=== PATIENT | male | born 1940 | race Caucasian/White ===

== ENCOUNTER 2017-03-21 22:25 | Inpatient (IN) | payer MEDICARE, OTHER ==
[~2017-03-21] VITALS: Ht 165.1 cm; Wt 56.0 kg
[2017-03-21] MEDS ORDERED: SOD CHLORIDE 0.9% 500 ML IV STA (22:31)
[2017-03-21] MEDS ORDERED: IPRATROPIUM (NEB) 0.5 MG/2.5 ML AMP INH STA (22:31)
[2017-03-21] MEDS ORDERED: MAGNESIUM SULFATE 2 GM/50 ML 50 ML IVPB STA (22:31)
[2017-03-21] MEDS ORDERED: METHYLPREDNISOLONE 125 MG INJ IV STA (22:31)
[2017-03-21] MEDS ORDERED: ALBUTEROL 0.5% (NEB) 2.5 MG/0.5 ML AMP INH STA (22:31)
[2017-03-21 22:47] VITALS: Ht 165.1 cm; Wt 56.0 kg
[2017-03-21 22:50] LABS: ABNORMAL IP MESSAGE 1; HEMATOCRIT 46.1 % (42.0-52.0); HEMOGLOBIN 14.1 g/dl (14.0-18.0); MEAN CORPUSCULAR HEMOGLOBIN 23.3 pg (29.0-33.0); MEAN CORPUSCULAR HGB CONC 30.6 g/dl (32.0-37.0); MEAN CORPUSCULAR VOLUME 76.3 fl (82.0-101.0); MEAN PLATELET VOLUME 9.4 fl (7.4-10.4); POSITIVE DIFF @See below; RED BLOOD COUNT 6.04 10^6/ul (4.70-6.10); RED CELL DISTRIBUTION WIDTH 17.7 % (11.5-14.5); WHITE BLOOD COUNT 21.1 10^3/ul (4.8-10.8)
[2017-03-21] MEDS ORDERED: ASPIRIN 81 MG TAB PO ONE (23:00)
[2017-03-21] MEDS ORDERED: FUROSEMIDE 40 MG INJ IV ONE (23:00)
[2017-03-21 23:12] LABS: INR 1.07; PROTIME 13.9 Sec (12.2-14.2); PT RATIO 1.1
--- NOTE | 2017-03-21 23:12 | RADRPT ---
PROCEDURE: Ultrasound of the bilateral lower extremity venous system. CLINICAL INDICATION: Shortness of breath. TECHNIQUE: Noel scale with and without compression, color doppler, spectral doppler of the venous system of the bilateral lower extremities was performed. Venous augmentation maneuvers were utilized . COMPARISON: No prior studies are available for comparison. FINDINGS: RIGHT: Common femoral vein: Patent. Femoral vein: Patent. Popliteal vein: Patent. Peroneal vein: There is thrombosis with lack of flow and lack of compressibility. This is a calf ve in. No soft tissue abnormalities are identified. LEFT: Common femoral vein: No flow or compressibility. Femoral vein: No flow or compressibility in the mid to upper femoral vein. The lower femoral vei n is patent. Popliteal vein: Patent. No soft tissue abnormalities are identified. IMPRESSION: 1. Thrombosis of the right peroneal vein, a calf vein. 2. Acute deep venous thrombosis of the left common femoral vein, upper left femoral vein, and mid l eft femoral vein. Otherwise unremarkable study. 3. Correlation with CT pulmonary angiogram should be considered. RPTAT: QQ .Alejo Fall MD, MD Date Time Electronically viewed and signed by .Alejo Fall MD, on 03/21/2017 23:12 .R/
[2017-03-21 23:14] LABS: ALBUMIN 4.2 g/dl (3.3-4.9); ALBUMIN/GLOBULIN RATIO 1.23; BILIRUBIN,INDIRECT 0.4 mg/dl (0-1.1); BILIRUBIN,TOTAL 0.4 mg/dl (0.2-1.3); CALCIUM 9.5 mg/dl (8.4-10.2); CREATININE 1.86 mg/dl (0.61-1.24); POTASSIUM 3.8 mmol/L (3.5-5.1); TOTAL PROTEIN 7.6 g/dl (6.1-8.1)
--- NOTE | 2017-03-21 23:24 | RADRPT ---
PROCEDURE: XR Chest. CLINICAL INDICATION: Asthma exacerbation. TECHNIQUE: PA and Lateral views of the chest were obtained. COMPARISON: None. FINDINGS: Mild cardiomegaly. Atherosclerotic calcifications in the thoracic aorta. Mild peribronchial cuffing compatible with asthma. Hyperinflation of COPD with changes of centrolobular emphysema. Question sma ll calcified granuloma in the mid right lung. Differential considerations include a small pulmonary parenchymal nodule, and consider CT correlation. The lungs are otherwise clear. No signs of pleural fluid or pneumothorax are seen. The osseous structures and soft tissues are unremarkable. IMPRESSION: 1. Mild peribronchial cuffing is seen at the bilateral kashif, compatible with asthma. 2. Small possible calcified granuloma in the right mid lung, although differential considerations in clude a pulmonary parenchymal nodule. 3. Consider CT correlation. RPTAT: UU Physician Mark Date Time Electronically viewed and signed by Physician Mark on 03/21/2017 23:24 RS/
[2017-03-21 23:26] LABS: TROPONIN-I 0.124 ng/ml (0.00-0.12)
[2017-03-21 23:41] LABS: ANISOCYTOSIS 2+ (0-0); BASOPHILS % (M) 1 % (0-2); GIANT THROMBO% (M) 4 % (0-0); MICROCYTOSIS 1+ (0-0); MONOCYTES % (M) 11 % (0-11); PLATELET ESTIMATE INCREASED; POIKILOCYTOSIS 2+ (0-0); POLYCHROMASIA 2+ (0-0)
[2017-03-21 23:43] LABS: PLATELET COUNT 765 10^3/UL (140-415)
--- NOTE | 2017-03-21 23:48 | ERA ---
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 Daughters who are at the bedside state he has a history of COPD and has used albuterol in the past. He also has a recent history of gastric carcinoma, possibly metastatic. He also has a history of bilateral lower extremity DVTs and peripheral arterial disease. They deny history of congestive heart failure , no history of [place]. Daughter state patient's lower extremities have become swollen over the last 1 week. He has had no fevers or chills, no cough, no headache or blurry vision, no complaints of chest pain, no loss of consciousness , no recent antibiotic use. Patient was given nitroglycerin by EMS en route with some improvement. ROS All systems reviewed and are negative except as per history of present illness. Medications Home Meds Unable to Obtain Active Prescriptions or Reported Meds Allergies Allergies: Coded Allergies: No Known Allergy (Unverified , 03/21/17) PMhx/Soc Hypertension, COPD, gastric carcinoma, peripheral vascular disease with bilateral lower extremity DVTs History of Surgery: No Anesthesia Reaction: No Hx Neurological Disorder: No Hx Respiratory Disorders: Yes (copd, chf ) Hx Cardiac Disorders: Yes (chf, htn ) Hx Psychiatric Problems: No Hx Miscellaneous Medical Probl: No Hx Alcohol Use: No Hx Substance Use: No Hx Tobacco Use: Yes Smoking Status: Current every day smoker FmHx Family History: No diabetes Physical Exam Vitals Vital Signs Date Time Temp Pulse Resp B/P Pulse Ox O2 Delivery O2 Flow Rate FiO2 03/22/17 00:31 98.5 102 24 138/77 93 BIPAP 03/22/17 00:11 110 91 40 03/22/17 00:05 98.5 111 21 127/75 92 BIPAP 03/21/17 22:50 98.5 112 21 105/74 100 BIPAP 03/21/17 22:47 98.5 89 110 118/88 98 03/21/17 22:43 118 98 40 Physical Exam GENERAL: Well-developed, appears dehydrated, afebrile, dyspneic HEENT: Dry mucous membranes, pink conjunctiva, no cervical spine tenderness or step-off deformities, no goiter, no jaundice or icterus, extraocular movements intact without pain. No submandibular induration, and no pharyngeal erythema NEURO: Alert and oriented 3, cranial nerves II through XII intact bilaterally, pupils equal round reactive to light, no focal deficits or facial asymmetry, sensation intact distally Strength 5/5 in upper and lower extremities bilaterally CARDIAC: Tachycardic and regular, no murmurs rubs or gallops LUNGS: Dense wheezes bilaterally, poor breath sounds, no crackles or stridor ABDOMEN: Soft nontender, no guarding, no rigidity, no rebound, no psoas sign no obturator sign. SKIN: Warm and dry to touch, no abrasions, contusions, or hematomas, no lacerations, no ecchymosis, no target lesions, and without ulcers EXTREMITIES: Clubbing, 1+ pitting edema in the lower extremities bilaterally, calves are bilaterally symmetrical, no Homans sign, no popliteal cord sign. Distal pulses equal and bilateral PSYCH: Normal affect without agitation or irritability Result Diagram: 03/21/17223403/21/172234 Results 24 hrs Laboratory Tests Test 03/21/17 22:35 03/21/17 23:40 White Blood Count 21.110^3/ul Red Blood Count 6.0410^6/ul Hemoglobin 14.1g/dl Hematocrit 46.1% Mean Corpuscular Volume 76.3fl Mean Corpuscular Hemoglobin 23.3pg Mean Corpuscular Hemoglobin Concent 30.6g/dl Red Cell Distribution Width 17.7% Platelet Count 06956^3/UL Mean Platelet Volume 9.4fl Segmented Neutrophils % (Manual) 74% Lymphocytes % (Manual) 14% Monocytes % (Manual) 11% Basophils % (Manual) 1% Nucleated Red Blood Cells % 0.0/100WBC Absolute Lymphocytes (Manual) 2.910^3/ul Absolute Monocytes (Manual) 2.310^3/ul Basophils # (Manual) 0.210^3/ul Pathologist Review (Hematology) Platelet Estimate INCREASED Giant Platelets 4% Platelet Morphology Comment @See below Polychromasia 2+ Poikilocytosis 2+ Anisocytosis 2+ Microcytosis 1+ Prothrombin Time 13.9Sec Prothrombin Time Ratio 1.1 INR International Normalized Ratio 1.07 Sodium Level 137mmol/L Potassium Level 3.8mmol/L Chloride Level 98mmol/L Carbon Dioxide Level 27mmol/L Anion Gap 16 Blood Urea Nitrogen 35mg/dl Creatinine 1.86mg/dl Glucose Level 111mg/dl Calcium Level 9.5mg/dl Total Bilirubin 0.4mg/dl Direct Bilirubin 0.00mg/dl Indirect Bilirubin 0.4mg/dl Aspartate Amino Transf (AST/SGOT) 34IU/L Alanine Aminotransferase (ALT/SGPT) 33IU/L Alkaline Phosphatase 100IU/L Troponin I 0.124ng/ml B-Type Natriuretic Peptide 632PG/ML Total Protein 7.6g/dl Albumin 4.2g/dl Globulin 3.40g/dl Albumin/Globulin Ratio 1.23 Lipase 103U/L Blood Gas Specimen Source Blood arterial Arterial Blood Date Drawn 03/22/2017 12:02:35 AM Arterial Blood pH (Temp corrected) 7.230 Arterial Blood pCO2 (Temp correct) 59.1mmhg Arterial Blood pO2 (Temp corrected) 68.4mmHG Arterial Blood HCO3 24.2mmol/L Arterial Blood Base Excess -4.3mmol/L Arterial Blood Oxygen Saturation 91.2mmHG Griffin Test ACCEPTAB Arterial Blood Gas Puncture Site Left Radial Arterial Blood Carboxyhemoglobin 2.8% Arterial Blood Methemoglobin 0.1% Blood Gas A-a O2 Differential 148.8mmHg Oxyhemoglobin Percent 88.6% Total Hemoglobin 14.5g/dl Blood Gas Temperature 37.0C Blood Gas Respiration Rate 18.0 Blood Gas Actual Respiration Rate 23 Blood Gas Modality MASK - BIPAP FiO2 40.0% Blood Gas IPAP/EPAP Ratio 15/5 Blood Gas Critical Value Read Back Marysol MEZA MD Blood Gas Notified Whom Marysol GALICIA RCP Blood Gas Notified Time 03/22/2017 12:14:14 AM Current Medications Medications (Trade) Dose Ordered Sig/Jared Route PRN Reason Start Time Stop Time Status Last Admin Dose Admin Aspirin (Aspirin) 324 mg ONCE ONCE PO 03/21/17 23:00 03/21/17 23:01 DC 03/21/17 23:00 Furosemide 40 mg 40 mg ONCE ONCE IV 03/21/17 23:00 03/21/17 23:01 DC 03/21/17 23:01 Sodium Chloride (NS) 500 ml @ 500 mls/hr Q1H STAT IV 03/21/17 22:31 03/21/17 23:30 DC 03/21/17 23:02 Albuterol (Proventil 0.5% (Neb)) 15 mg ONCE STAT INH 03/21/17 22:31 03/21/17 22:35 DC 03/21/17 22:40 Ipratropium [place] (Atrovent 0.02% (Neb)) 1 mg ONCE STAT INH 03/21/17 22:31 03/21/17 22:35 DC 03/21/17 22:41 Methylprednisolone Sodium Succinate 125 mg 125 mg ONCE STAT IV 03/21/17 22:31 03/21/17 22:35 DC 03/21/17 23:01 Magnesium Sulfate 50 ml @ 25 mls/hr ONCE STAT IVPB 03/21/17 22:31 03/22/17 00:30 DC 03/21/17 23:01 Sodium Chloride (NS) 1,000 ml @ 1,000 mls/hr Q1H ONCE IV 03/22/17 00:00 03/22/17 00:59 03/22/17 00:18 Clopidogrel Bisulfate (plaVIX) 300 mg ONCE ONCE PO 03/22/17 00:00 03/22/17 00:01 DC 03/22/17 00:19 Ketorolac Tromethamine (Toradol) 15 mg ONCE ONCE IV 03/22/17 00:15 03/22/17 00:16 DC 03/22/17 00:20 Enoxaparin Sodium (Lovenox) 60 mg ONCE ONCE SC 03/22/17 00:15 03/22/17 00:16 DC 03/22/17 00:26 Procedures/MDM IV line was established 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 Patient was afebrile. For dyspnea and tachypnea I ordered BiPAP therapy. Patient received aspirin 324 mg p.o. for cardioprotective measures, furosemide 40 mg IV 1, albuterol 10 mg via nebulizer, ipratropium 1 mg via nebulizer, methylprednisolone 125 mg IV 1. I also administered magnesium 2 g IV. Patient also received 1.5 L normal saline intravenously for dehydration One view chest x-ray performed, read by me reveals flattened hemidiaphragms and bilateral vascular congestion, no pneumothorax, no infiltrate, no air under the diaphragm. EKG performed, read by me revealed a sinus tachycardia at 122 bpm, left axis deviation and a right bundle branch block, QRS duration 120 ms, no concerning ST elevations or depressions noted. CBC reveals a leukocytosis of 21, electrolytes revealed dehydration and kidney injury with a BUN/creatinine of 35/1.9, liver function tests normal, troponin positive at 0.12. BNP of 632. After above treatments EKG was repeated, read by me revealed a sinus tachycardia at 108 bpm, left axis deviation and a right bundle branch block at 130 ms, no concerning ST elevations or depressions noted. EKG improved. I administered clopidogrel 300 mg p.o. for cardioprotective measures, patient also received Lovenox 60 units subcutaneous injection 1. I suspect acute pulmonary embolism although this cannot be ruled in or out at this time with CT angiography. Patient's renal function is poor and will he will have to be rehydrated and admitted for improving renal function before further imaging, VQ scanning is a consideration but imaging will be deferred to admitting team. Critical Care: Time: 50 minutes, this was time separate from other billable procedures. Treatments/Evaluations: Close monitoring and treatment of unstable vital signs, cardiorespiratory, and neurologic status, while maintaining tight balance of fluid, respiratory, and cardiac interventions. ABG performed, read by me revealed a pH of 7.23, 59, PO2 68. Acute respiratory acidosis. Patient will be admitted ICU for continued medical management and pulmonology and cardiology consultations. Departure Diagnosis: Primary Impression: Acute respiratory failure Qualified Code: J96.01 - Acute respiratory failure with hypoxia and hypercapnia Additional Impressions: COPD exacerbation Non-STEMI (non-ST elevated myocardial infarction) Acute kidney injury Acute bilateral deep vein thrombosis (DVT) of femoral veins Acute pulmonary embolism Qualified Code: I26.09 - Other acute pulmonary embolism with acute cor pulmonale Gastric carcinoma Condition: Serious ISIDRO MEZA MD Mar 21, 2017 23:48
[2017-03-22] VITALS (32 sets, daily range): BP systolic 120–170; BP diastolic 73–113; PULSE 78–117; RESP 9–27; TEMP 98.5
[2017-03-22] MEDS ORDERED: SOD CHLORIDE 0.9% 1,000 ML IV ONE
[2017-03-22] MEDS ORDERED: CLOPIDOGREL 75 MG TAB PO ONE
[2017-03-22 00:14] LABS: AADO2 Arterial 148.8 mmHg (7.0-24.0); Allen Test ACCEPTAB; Arterial Base Excess -4.3 mmol/L (-3.0-3); Arterial COHb 2.8 % (0.0-3.0); Arterial Fraction of Oxyhgb 88.6 % (93.0-99.0); Arterial HCO3 24.2 mmol/L (22.0-26.0); Arterial MetHb 0.1 % (0.0-1.5); Arterial Total Hemglobin 14.5 g/dl (12.0-18.0); Blood Gas IEPAP 15/5; MODE MASK - BIPAP
[2017-03-22] MEDS ORDERED: KETOROLAC 15 MG INJ IV ONE (00:15)
[2017-03-22] MEDS ORDERED: ENOXAPARIN 60 MG/0.6 ML SYG SC ONE (00:15)
[2017-03-22] MEDS ORDERED: morphine 4 MG/ML VIAL IV STA (01:14)
[2017-03-22] MEDS ORDERED: DEXTROSE 5%-0.45% NACL 1,000 ML IV SCH (01:15)
[2017-03-22] MEDS ORDERED: TAMS-14 PO (01:18)
[2017-03-22] MEDS ORDERED: MULTI PO (01:18)
[2017-03-22] MEDS ORDERED: OMEP40CA6 PO (01:18)
[2017-03-22] MEDS ORDERED: VALS1TAB78 PO (01:18)
[2017-03-22] MEDS ORDERED: FLUT9.9S NASAL (01:18)
[2017-03-22] MEDS ORDERED: PRAM0.25 PO (01:18)
[2017-03-22] MEDS ORDERED: ALBU18HF INHALATION (01:18)
[2017-03-22] MEDS ORDERED: PENT400T2 PO (01:18)
[2017-03-22] MEDS ORDERED: TRAM-40 PO (01:18)
[2017-03-22] MEDS ORDERED: FEBU40TA PO (01:18)
[2017-03-22] MEDS ORDERED: ONDANSETRON 4 MG INJ IV PRN (01:30)
[2017-03-22] MEDS ORDERED: ALBUTEROL/IPRATROPIUM (NEB) 3 ML AMP NEB PRN (01:30)
[2017-03-22] MEDS ORDERED: morphine 2 MG INJ IV PRN (01:30)
[2017-03-22] MEDS ORDERED: ACETAMINOPHEN 650 MG SUPP PR PRN (01:30)
[2017-03-22 03:19] LABS: AADO2 Arterial 152.8 mmHg (7.0-24.0); Allen Test ACCEPTAB; Arterial Base Excess -5.5 mmol/L (-3.0-3); Arterial COHb 2.1 % (0.0-3.0); Arterial Fraction of Oxyhgb 91.3 % (93.0-99.0); Arterial MetHb 0.2 % (0.0-1.5); Arterial Total Hemglobin 14.3 g/dl (12.0-18.0); Blood Gas IEPAP 15/5; Blood Gas PS 10; MODE MASK - BIPAP
[2017-03-22] MEDS: morphine 4 MG/ML VIAL IV PRN (05:02)
[2017-03-22 05:30] LABS: ABNORMAL IP MESSAGE 1; BASOPHIL # 0.1 10^3/ul (0.0-0.1); BASOPHILS % 0.3 % (0.0-2.0); HEMATOCRIT 42.2 % (42.0-52.0); HEMOGLOBIN 12.8 g/dl (14.0-18.0); LYMPHOCYTES # 0.3 10^3/ul (0.8-2.9); LYMPHOCYTES % 1.6 % (15.0-51.0); MEAN CORPUSCULAR HEMOGLOBIN 23.2 pg (29.0-33.0); MEAN CORPUSCULAR HGB CONC 30.3 g/dl (32.0-37.0); MEAN CORPUSCULAR VOLUME 76.6 fl (82.0-101.0); MEAN PLATELET VOLUME 9.6 fl (7.4-10.4); MONOCYTE # 0.2 10^3/ul (0.3-0.9); MONOCYTES % 1.3 % (0.0-11.0); NEUTROPHIL # 16.1 10^3/ul (1.6-7.5); PLATELET COUNT 548 10^3/UL (140-415); POSITIVE DIFF @See below; RED BLOOD COUNT 5.51 10^6/ul (4.70-6.10); RED CELL DISTRIBUTION WIDTH 17.5 % (11.5-14.5); WHITE BLOOD COUNT 16.7 10^3/ul (4.8-10.8)
[2017-03-22 05:59] LABS: ALBUMIN 3.9 g/dl (3.3-4.9); ALBUMIN/GLOBULIN RATIO 1.3; BILIRUBIN,INDIRECT 0.6 mg/dl (0-1.1); BILIRUBIN,TOTAL 0.6 mg/dl (0.2-1.3); CALCIUM 8.7 mg/dl (8.4-10.2); CREATININE 1.84 mg/dl (0.61-1.24); POTASSIUM 3.9 mmol/L (3.5-5.1); TOTAL PROTEIN 6.9 g/dl (6.1-8.1)
[2017-03-22] MEDS ORDERED: SOD CHLORIDE 0.9% 250 ML IV ONE (06:30)
[2017-03-22] MEDS ORDERED: METHYLPREDNISOLONE 125 MG INJ IV ONE (07:00)
--- NOTE | 2017-03-22 07:22 | HP ---
Date/Time of Note Date/Time of Note DATE: 03/22/17 TIME: 07:11 Assessment/Plan VTE Prophylaxis VTE Prophylaxis Intervention: LMWH Lines/Catheters IV Catheter Type (from Nrs): Peripheral IV Urinary Cath still in place: No Assessment/Plan Assessment/Plan 1. Hypercapnic and hypoxic respiratory failure -Continue ICU monitoring -Continue BiPAP -Repeat ABG -Bronchodilators, antibiotic, and steroid given history of COPD -Need to rule out PE, especially given the finding of DVT. Will order VQ scan given elevated creatinine -Pulmonary consult 2. Acute left lower extremity DVT -Continue treatment dose Lovenox -Vascular consult -Patient benefits from IVC filter 3. Presumed acute kidney injury, oliguric -Renal ultrasound -will give IV fluid -Nephrology consult 4. History of gastric cancer, diagnosed about 6 months ago -Patient is not fully knowledgeable about his medical condition. He said he was diagnosed with cancer about 6 months ago at [facility]. He was told about surgery but was never done. He also stated no chemo or radiation had been initiated. -We will place an oncology consult 5. History of BPH -Continue Flomax 6. Chronic testicular swelling -Per patient this is been going on for about a year -We will order testicular ultrasound -Consider urology consult HPI/ROS Admit Date/Time Admit Date/Time Mar 21, 2017 at 23:46 Hx of Present Illness This is a 76-year-old male with a history of hypertension, CHF, BPH, COPD, gastric cancer who presented to the emergency department complaining of shortness. ABG showed hypercapnia and hypoxia. He has been based on BiPAP and feels better. Patient is not entirely knowledgeable about his medical condition but after multiple attempts he said that he was diagnosed with gastric cancer 6 or 7 month ago at [facility]. He said he was told he will have a surgery but said no surgery or chemo has been done. When he presented to the ER labs shows creatinine of almost 1.9 first troponin 0 0.19. Once admitted to ICU he had negligible urine output. Bladder scan was done which showed a urine of about 150 cc. Lower extremity ultrasound is positive for DVT. CT pulmonary angiogram is deferred for now given elevated creatinine. Chest x-ray showed Mild peribronchial cuffing is seen at the bilateral kashif, compatible with asthma Small possible calcified granuloma in the right mid lung , although differential considerations include a pulmonary parenchymal nodule. PMH/Family/Social Social History Smoking Status: Unknown if ever smoked Exam/Review of Systems Vital Signs Vitals Vital Signs Date Time Temp Pulse Resp B/P Pulse Ox O2 Delivery O2 Flow Rate FiO2 03/22/17 06:30 90 13 138/74 97 03/22/17 06:00 BIPAP 03/22/17 05:05 40 03/22/17 04:30 98.6 Intake and Output 03/21/17 03/21/17 03/22/17 15:00 23:00 07:00 Intake Total 150 ml Balance 150 ml Exam Constitutional: other (Currently on BiPAP, no distress) Head: atraumatic, normocephalic Eyes: PERRL Respiratory: wheezing Cardiovascular: regular rate and rhythm Gastrointestinal: non-tender, soft Extremities: normal pulses Labs Result Diagram: 03/22/17 0503 03/22/17 0503 Medications Medications Current Medications Ondansetron HCl (Zofran Inj) 4 mg Q6H PRN IV NAUSEA AND/OR VOMITING; Start at 01:30 Acetaminophen (Tylenol Liquid) 650 mg Q6H PRN PO PAIN LEVEL 1-3 OR FEVER; Start 03/22/17 at 01:30 Acetaminophen (Tylenol Supp) 650 mg Q4H PRN [place] PAIN LEVEL 1-3 OR FEVER; Start 03/22/17 at 01:30 Enoxaparin Sodium (Lovenox) 55 mg DAILY SC ; Start 03/22/17 at 09:00 Morphine Sulfate 4 mg 4 mg Q4H PRN IV PAIN LEVEL 7-10 Last administered on 03/22 05:02; Admin Dose 4 MG; Start 03/22/17 at 04:30 Sodium Chloride (NS) 250 ml @ 250 mls/hr Q1H ONCE IV Last administered on 03/22 06:37; Admin Dose 250 MLS/HR; Start 03/22/17 at 06:30; Stop 03/22/17 at 07 :29 Aspirin 81 mg 81 mg DAILY PO ; Start 03/22/17 at 09:00 Levofloxacin/ Dextrose (Levaquin 500mg/ D5W 100 ml (Pmx)) 100 ml @ 100 mls/hr Q24H IVPB ; Start 03/22/17 at 07:00 SHASHA DUBOSE MD Mar 22, 2017 07:22
[2017-03-22 07:30] LABS: CK-MB 13.8 ng/ml (0.0-2.4)
[2017-03-22 07:39] LABS: TROPONIN-I 0.164 ng/ml (0.00-0.12)
[2017-03-22] MEDS: LEVOFLOXACIN 500MG/D5W (PMX) 100 ML IVPB SCH (08:06)
[2017-03-22 08:21] LABS: AADO2 Arterial 110.8 mmHg (7.0-24.0); Allen Test ACCEPTAB; Arterial Base Excess -4.2 mmol/L (-3.0-3); Arterial COHb 1.5 % (0.0-3.0); Arterial Fraction of Oxyhgb 96.3 % (93.0-99.0); Arterial HCO3 23.3 mmol/L (22.0-26.0); Arterial MetHb 0.3 % (0.0-1.5); Arterial Total Hemglobin 13.7 g/dl (12.0-18.0); Blood Gas IEPAP 15/5; MODE MASK - BIPAP
[2017-03-22] MEDS ORDERED: HEPARIN 5,000 UNIT/0.5 ML VIAL SC SCH (09:00)
[2017-03-22] MEDS: ASPIRIN (EC) 81 MG TAB PO SCH (09:00)
[2017-03-22] MEDS ORDERED: ENOXAPARIN 60 MG/0.6 ML SYG SC SCH (09:00)
[2017-03-22] MEDS ORDERED: ALBUTEROL/IPRATROPIUM (NEB) 3 ML AMP HHN PRN (09:30)
[2017-03-22] MEDS ORDERED: SOD CHLORIDE 0.9% 1,000 ML IV SCH (09:30)
--- NOTE | 2017-03-22 09:59 | CONS ---
Date/Time of Note Date/Time of Note DATE: 03/22/17 TIME: 09:54 Assessment/Plan Assessment/Plan Additional Assessment/Plan Chest x-ray from yesterday showing hyperinflation with changes of emphysema. ABGs are showing hypercapnic respiratory which is partly compensated with interval improvement on BiPAP. Assessment and recommendations; 1. Patient admitted with COPD exacerbation with acute bronchitis clinically improved on BiPAP. 2. Type II respiratory failure. 3. Non-STEMI. 4. Likely underlying chronic renal insufficiency. 5. Recently diagnosed gastric malignancy. Extent of cancer is currently unknown . 6. Bilateral lower extremity DVT. Possibly malignancy associated. Continue current treatment. Consultation Date/Type/Reason Admit Date/Time Mar 21, 2017 at 23:46 Date of Consultation: Mar 22, 2017 Type of Consultation: Pulmonary/critical care Reason for Consultation Pulmonary consultation requested for evaluation of hypercapnic respiratory failure. History of presenting illness; patient is a 76-year-old white male who came into the emergency room yesterday with a 2 day history of increasing shortness of breath associated with mild cough. A chest x-ray was done which is showing changes of COPD. ABG was done which is showing hypoxemic and hypercapnic respiratory failure however to the point not requiring intubation. Patient has been admitted to ICU and started on BiPAP and according to the patient he is feeling better now. Patient denies having any chest pain also denies any high fever, chills any nausea or vomiting. Past medical history; 1. Recently diagnosed gastric cancer without any treatment being done as of yet. 2. Advanced COPD. 3. BPH. 4. Chronic renal insufficiency. Allergies; none. Social history; patient is a current smoker. Family history, occupational histories not obtainable as the patient is on BiPAP. Review systems; limited review of systems could be obtained. Patient reporting decreased shortness of breath. Denies any chest pain. Any abdominal pain, nausea or vomiting. General exam; elderly male, on BiPAP appearing anxious but in no distress. Social History Smoking Status: Unknown if ever smoked Exam/Review of Systems Vital Signs Vitals Vital Signs Date Time Temp Pulse Resp B/P Pulse Ox O2 Delivery O2 Flow Rate FiO2 03/22/17 08:00 90 03/22/17 06:30 13 138/74 97 03/22/17 06:00 BIPAP 03/22/17 05:05 40 03/22/17 04:30 98.6 Intake and Output 03/21/17 03/21/17 03/22/17 15:00 23:00 07:00 Intake Total 150 ml Balance 150 ml Exam HEENT exam; supple neck, use of accessory muscles of respiration is seen. Patient is mostly edentulous. Pupils are small bilaterally. No neck masses. No thyromegaly. No neck bruits. Trachea is midline. Chest exam; diminished breath sounds throughout. No added sound. S1-S2 audible , no murmurs. Regular rhythm. Abdomen exam; soft, nontender. No organomegaly. Bowel sounds audible. Extremity exam; no peripheral edema. No clubbing. Pulses 1+ bilaterally. FICTION AND NONFICTION AUTHOR exam; no focal motor deficit. Results Result Diagram: 03/22/17 0503 03/22/17 0503 Results 24 hrs Laboratory Tests Test 03/21/17 22:35 03/21/17 23:40 03/22/17 03:00 03/22/17 05:03 White Blood Count 21.1 H 16.7 #H Red Blood Count 6.04 5.51 Hemoglobin 14.1 12.8 L Hematocrit 46.1 42.2 Mean Corpuscular Volume 76.3 L 76.6 L Mean Corpuscular Hemoglobin 23.3 L 23.2 L Mean Corpuscular Hemoglobin Concent 30.6 L 30.3 L Red Cell Distribution Width 17.7 H 17.5 H Platelet Count 765 H 548 #H Mean Platelet Volume 9.4 9.6 Segmented Neutrophils % (Manual) 74 Lymphocytes % (Manual) 14 L Monocytes % (Manual) 11 Basophils % (Manual) 1 Nucleated Red Blood Cells % 0.0 0.0 Absolute Lymphocytes (Manual) 2.9 Absolute Monocytes (Manual) 2.3 H Basophils # (Manual) 0.2 H Pathologist Review (Hematology) Platelet Estimate INCREASED Giant Platelets 4 H Platelet Morphology Comment @See below Polychromasia 2+ Poikilocytosis 2+ Anisocytosis 2+ Microcytosis 1+ Prothrombin Time 13.9 Prothrombin Time Ratio 1.1 INR International Normalized Ratio 1.07 Sodium Level 137 137 Potassium Level 3.8 3.9 Chloride Level 98 101 Carbon Dioxide Level 27 24 Anion Gap 16 16 Blood Urea Nitrogen 35 H 42 H Creatinine 1.86 H 1.84 H Glucose Level 111 128 Calcium Level 9.5 8.7 Total Bilirubin 0.4 0.6 Direct Bilirubin 0.00 0.00 Indirect Bilirubin 0.4 0.6 Aspartate Amino Transf (AST/SGOT) 34 34 Alanine Aminotransferase (ALT/SGPT) 33 36 Alkaline Phosphatase 100 91 Troponin I 0.124 *H 0.164 *H B-Type Natriuretic Peptide 632 H Total Protein 7.6 6.9 Albumin 4.2 3.9 Globulin 3.40 H 3.00 Albumin/Globulin Ratio 1.23 1.30 Lipase 103 Blood Gas Specimen Source Blood arterial Blood arterial Arterial Blood Date Drawn 03/22/2017 12:02:35 AM 03/22/2017 3:00:16 AM Arterial Blood pH (Temp corrected) 7.230 *L 7.256 *L Arterial Blood pCO2 (Temp correct) 59.1 H 50.7 H Arterial Blood pO2 (Temp corrected) 68.4 L 74.1 L Arterial Blood HCO3 24.2 22.0 Arterial Blood Base Excess -4.3 L -5.5 L Arterial Blood Oxygen Saturation 91.2 L 93.4 L Griffin Test ACCEPTAB ACCEPTAB Arterial Blood Gas Puncture Site Left Radial Left Radial Arterial Blood Carboxyhemoglobin 2.8 2.1 Arterial Blood Methemoglobin 0.1 0.2 Blood Gas A-a O2 Differential 148.8 H 152.8 H Oxyhemoglobin Percent 88.6 L 91.3 L Total Hemoglobin 14.5 14.3 Blood Gas Temperature 37.0 37.0 Blood Gas Respiration Rate 18.0 18.0 Blood Gas Actual Respiration Rate 23 22 Blood Gas Modality MASK - BIPAP MASK - BIPAP FiO2 40.0 40.0 Blood Gas IPAP/EPAP Ratio 15/5 15 Blood Gas Critical Value Read Back Marysol MEZA MD DTRINIDAD RN Blood Gas Notified Whom Marysol GALICIA RCP AL Blood Gas Notified Time 03/22/2017 12:14:14 AM 03/22/2017 3:16:44 AM Blood Gas Pressure Support 10 Neutrophils % 96.0 H Lymphocytes % 1.6 L Monocytes % 1.3 Eosinophils % 0.0 Basophils % 0.3 Neutrophils # 16.1 H Lymphocytes # 0.3 L Monocytes # 0.2 L Eosinophils # 0.0 Basophils # 0.1 Nucleated Red Blood Cells # 0.0 Creatine Kinase 271 H Creatine Kinase Index 5.1 Creatinine Kinase MB (Mass) 13.80 H Test 03/22/17 08:00 Blood Gas Specimen Source Blood arterial Arterial Blood Date Drawn 03/22/2017 7:40:15 AM Arterial Blood pH (Temp corrected) 7.267 *L Arterial Blood pCO2 (Temp correct) 52.2 H Arterial Blood pO2 (Temp corrected) 114.4 H Arterial Blood HCO3 23.3 Arterial Blood Base Excess -4.2 L Arterial Blood Oxygen Saturation 98.1 Griffin Test ACCEPTAB Arterial Blood Gas Puncture Site Right Radial Arterial Blood Carboxyhemoglobin 1.5 Arterial Blood Methemoglobin 0.3 Blood Gas A-a O2 Differential 110.8 H Oxyhemoglobin Percent 96.3 Total Hemoglobin 13.7 Blood Gas Temperature 37.0 Blood Gas Respiration Rate 18.0 Blood Gas Actual Respiration Rate 25 Blood Gas Modality MASK - BIPAP FiO2 40.0 Blood Gas IPAP/EPAP Ratio 15/5 Blood Gas Critical Value Read Back A BERT BROOKS Blood Gas Notified Whom ROSELINE Blood Gas Notified Time 03/22/2017 8:21:07 AM Medications Medications Current Medications Ondansetron HCl (Zofran Inj) 4 mg Q6H PRN IV NAUSEA AND/OR VOMITING; Start at 01:30 Acetaminophen (Tylenol Liquid) 650 mg Q6H PRN PO PAIN LEVEL 1-3 OR FEVER; Start 03/22/17 at 01:30 Acetaminophen (Tylenol Supp) 650 mg Q4H PRN [place] PAIN LEVEL 1-3 OR FEVER; Start 03/22/17 at 01:30 Morphine Sulfate (morphine) 4 mg Q4H PRN IV PAIN LEVEL 7-10 Last administered on 03/22/17 05:02; Admin Dose 4 MG; Start 03/22/17 at 04:30 Aspirin 81 mg 81 mg DAILY PO ; Start 03/22/17 at 09:00 Levofloxacin/ Dextrose 100 ml @ 100 mls/hr Q24H IVPB Last administered on 03/22 08:06; Admin Dose 100 MLS/HR; Start 03/22/17 at 07:00 Sodium Chloride (NS) 1,000 ml @ 75 mls/hr [id number] IV ; Start 03/22/17 at 09:30 Methylprednisolone Sodium Succinate (Solu-Medrol) 80 mg Q8 IV ; Start 03/22/17 at 14:00 Lorazepam (Ativan) 1 mg Q4 PRN IV restlessness/agitation; Start 03/22/17 at 10: 00 Furosemide (Lasix) 20 mg ONCE ONCE IV ; Start 03/22/17 at 10:00; Stop 03/22/17 at 10:[address] MCARTHUR Mar 22, 2017 09:59
[2017-03-22] MEDS ORDERED: FUROSEMIDE 20 MG INJ IV ONE (10:00)
[2017-03-22] MEDS: LORAZEPAM 2 MG INJ IV PRN ×2 (10:08→23:04)
[2017-03-22 10:57] LABS: ABNORMAL IP MESSAGE 1; BASOPHILS % 0.2 % (0.0-2.0); HEMOGLOBIN 12.8 g/dl (14.0-18.0); LYMPHOCYTES # 0.3 10^3/ul (0.8-2.9); LYMPHOCYTES % 1.9 % (15.0-51.0); MEAN CORPUSCULAR HEMOGLOBIN 23.5 pg (29.0-33.0); MEAN CORPUSCULAR HGB CONC 30.5 g/dl (32.0-37.0); MEAN CORPUSCULAR VOLUME 77.2 fl (82.0-101.0); MEAN PLATELET VOLUME 9.4 fl (7.4-10.4); MONOCYTE # 0.2 10^3/ul (0.3-0.9); MONOCYTES % 1.4 % (0.0-11.0); NEUTROPHIL # 16.1 10^3/ul (1.6-7.5); NEUTROPHILS % 95.7 % (39.0-77.0); PLATELET COUNT 541 10^3/UL (140-415); POSITIVE DIFF @See below; RED BLOOD COUNT 5.44 10^6/ul (4.70-6.10); RED CELL DISTRIBUTION WIDTH 17.1 % (11.5-14.5); WHITE BLOOD COUNT 16.8 10^3/ul (4.8-10.8)
[2017-03-22 11:20] LABS: INR 1.22; PROTIME 15.5 Sec (12.2-14.2); PT RATIO 1.2
[2017-03-22 11:21] LABS: PARTIAL THROMBOPLASTIN TIME 39.8 Sec (25.0-35.0)
--- NOTE | 2017-03-22 11:40 | CONS ---
Date/Time of Note Date/Time of Note DATE: 03/22/17 TIME: 11:34 Assessment/Plan Assessment/Plan Additional Assessment/Plan Respiratory failure Extensive DVT noted bilaterally COPD Possible history of malignancy Active tobacco use Mild elevated troponin -Patient with worsening shortness of breath over the past 2 days. Doppler study with extensive DVT seen in the left lower extremity as well as seen in the right extremity. Given his symptoms and extensive DVTs, strong concern for pulmonary emboli. Before she given patient's creatinine, able to undergo CT pulmonary angiogram. Agree with treating with anticoagulation, and strongly consider IVC filter given his extensive lower extremity DVTs and risk of further embolization. ECG with no significant ischemic abnormalities, will check echocardiogram and serial cardiac enzymes. Continue aspirin and statin therapy. Beta-devante as blood pressure permits. Consultation Date/Type/Reason Admit Date/Time Mar 21, 2017 at 23:46 Type of Consultation: cv Reason for Consultation Shortness of breath and elevated troponin Hx of Present Illness This is a 76-year-old male with past medical history of tobacco use presents with progressive worsening shortness of breath over the past few days. Patient denies any chest pain, palpitations or dizziness. He does complain of intermittent cough. He denies any abdominal pain. Patient with elevated troponin and for this reason cardiology consultation was requested 12 point review of systems was performed with all pertinent positives and negatives mentioned above and all else is negative Past Medical History Possible malignancy COPD Medical History: hypertension Family History Significant Family History: no pertinent family hx Social History Smoking Status: Current every day smoker Exam/Review of Systems Vital Signs Vitals Vital Signs Date Time Temp Pulse Resp B/P Pulse Ox O2 Delivery O2 Flow Rate FiO2 03/22/17 10:00 100 21 167/91 97 BIPAP 03/22/17 08:00 98.3 03/22/17 05:05 40 Intake and Output 03/21/17 03/21/17 03/22/17 15:00 23:00 07:00 Intake Total 150 ml Balance 150 ml Exam On facemask, dyspneic with speaking Constitutional: alert, oriented Head: normocephalic Respiratory: other (Coarse breath sounds, no wheezing) Cardiovascular: other (S1-S2 heard), regular rate and rhythm Gastrointestinal: bowel sounds, non-tender, soft Extremities: other (No significant edema) Results Result Diagram: 03/22/17 1042 03/22/17 0503 Results 24 hrs Laboratory Tests Test 03/21/17 22:35 03/21/17 23:40 03/22/17 03:00 03/22/17 05:03 White Blood Count 21.1 H 16.7 #H Red Blood Count 6.04 5.51 Hemoglobin 14.1 12.8 L Hematocrit 46.1 42.2 Mean Corpuscular Volume 76.3 L 76.6 L Mean Corpuscular Hemoglobin 23.3 L 23.2 L Mean Corpuscular Hemoglobin Concent 30.6 L 30.3 L Red Cell Distribution Width 17.7 H 17.5 H Platelet Count 765 H 548 #H Mean Platelet Volume 9.4 9.6 Segmented Neutrophils % (Manual) 74 Lymphocytes % (Manual) 14 L Monocytes % (Manual) 11 Basophils % (Manual) 1 Nucleated Red Blood Cells % 0.0 0.0 Absolute Lymphocytes (Manual) 2.9 Absolute Monocytes (Manual) 2.3 H Basophils # (Manual) 0.2 H Pathologist Review (Hematology) Platelet Estimate INCREASED Giant Platelets 4 H Platelet Morphology Comment @See below Polychromasia 2+ Poikilocytosis 2+ Anisocytosis 2+ Microcytosis 1+ Prothrombin Time 13.9 Prothrombin Time Ratio 1.1 INR International Normalized Ratio 1.07 Sodium Level 137 137 Potassium Level 3.8 3.9 Chloride Level 98 101 Carbon Dioxide Level 27 24 Anion Gap 16 16 Blood Urea Nitrogen 35 H 42 H Creatinine 1.86 H 1.84 H Glucose Level 111 128 Calcium Level 9.5 8.7 Total Bilirubin 0.4 0.6 Direct Bilirubin 0.00 0.00 Indirect Bilirubin 0.4 0.6 Aspartate Amino Transf (AST/SGOT) 34 34 Alanine Aminotransferase (ALT/SGPT) 33 36 Alkaline Phosphatase 100 91 Troponin I 0.124 *H 0.164 *H B-Type Natriuretic Peptide 632 H Total Protein 7.6 6.9 Albumin 4.2 3.9 Globulin 3.40 H 3.00 Albumin/Globulin Ratio 1.23 1.30 Lipase 103 Blood Gas Specimen Source Blood arterial Blood arterial Arterial Blood Date Drawn 03/22/2017 12:02:35 AM 03/22/2017 3:00:16 AM Arterial Blood pH (Temp corrected) 7.230 *L 7.256 *L Arterial Blood pCO2 (Temp correct) 59.1 H 50.7 H Arterial Blood pO2 (Temp corrected) 68.4 L 74.1 L Arterial Blood HCO3 24.2 22.0 Arterial Blood Base Excess -4.3 L -5.5 L Arterial Blood Oxygen Saturation 91.2 L 93.4 L Griffin Test ACCEPTAB ACCEPTAB Arterial Blood Gas Puncture Site Left Radial Left Radial Arterial Blood Carboxyhemoglobin 2.8 2.1 Arterial Blood Methemoglobin 0.1 0.2 Blood Gas A-a O2 Differential 148.8 H 152.8 H Oxyhemoglobin Percent 88.6 L 91.3 L Total Hemoglobin 14.5 14.3 Blood Gas Temperature 37.0 37.0 Blood Gas Respiration Rate 18.0 18.0 Blood Gas Actual Respiration Rate 23 22 Blood Gas Modality MASK - BIPAP MASK - BIPAP FiO2 40.0 40.0 Blood Gas IPAP/EPAP Ratio 06/11 06/11 Blood Gas Critical Value Read Back Marysol MEZA MD, RN Blood Gas Notified Whom Marysol GALICIA RCP [place] Blood Gas Notified Time 03/22/2017 12:14:14 AM 03/22/2017 3:16:44 AM Blood Gas Pressure Support 10 Neutrophils % 96.0 H Lymphocytes % 1.6 L Monocytes % 1.3 Eosinophils % 0.0 Basophils % 0.3 Neutrophils # 16.1 H Lymphocytes # 0.3 L Monocytes # 0.2 L Eosinophils # 0.0 Basophils # 0.1 Nucleated Red Blood Cells # 0.0 Creatine Kinase 271 H Creatine Kinase Index 5.1 Creatinine Kinase MB (Mass) 13.80 H Test 03/22/17 08:00 03/22/17 10:42 Blood Gas Specimen Source Blood arterial Arterial Blood Date Drawn 03/22/2017 7:40:15 AM Arterial Blood pH (Temp corrected) 7.267 *L Arterial Blood pCO2 (Temp correct) 52.2 H Arterial Blood pO2 (Temp corrected) 114.4 H Arterial Blood HCO3 23.3 Arterial Blood Base Excess -4.2 L Arterial Blood Oxygen Saturation 98.1 Griffin Test ACCEPTAB Arterial Blood Gas Puncture Site Right Radial Arterial Blood Carboxyhemoglobin 1.5 Arterial Blood Methemoglobin 0.3 Blood Gas A-a O2 Differential 110.8 H Oxyhemoglobin Percent 96.3 Total Hemoglobin 13.7 Blood Gas Temperature 37.0 Blood Gas Respiration Rate 18.0 Blood Gas Actual Respiration Rate 25 Blood Gas Modality MASK - BIPAP FiO2 40.0 Blood Gas IPAP/EPAP Ratio 155 Blood Gas Critical Value Read Back A BERT BROOKS Blood Gas Notified Whom JLD Blood Gas Notified Time 03/22/2017 8:21:07 AM White Blood Count 16.8 H Red Blood Count 5.44 Hemoglobin 12.8 L Hematocrit 42.0 Mean Corpuscular Volume 77.2 L Mean Corpuscular Hemoglobin 23.5 L Mean Corpuscular Hemoglobin Concent 30.5 L Red Cell Distribution Width 17.1 H Platelet Count 541 H Mean Platelet Volume 9.4 Neutrophils % 95.7 H Lymphocytes % 1.9 L Monocytes % 1.4 Eosinophils % 0.0 Basophils % 0.2 Nucleated Red Blood Cells % 0.0 Neutrophils # 16.1 H Lymphocytes # 0.3 L Monocytes # 0.2 L Eosinophils # 0.0 Basophils # 0.0 Nucleated Red Blood Cells # 0.0 Prothrombin Time 15.5 H Prothrombin Time Ratio 1.2 INR International Normalized Ratio 1.22 Activated Partial Thromboplast Time 39.8 H Medications Medications Current Medications Ondansetron HCl (Zofran Inj) 4 mg Q6H PRN IV NAUSEA AND/OR VOMITING; Start at 01:30 Acetaminophen (Tylenol Liquid) 650 mg Q6H PRN PO PAIN LEVEL 1-3 OR FEVER; Start 03/22/17 at 01:30 Acetaminophen (Tylenol Supp) [address] PAIN LEVEL 1-3 OR FEVER; Start 03/22/17 at 01:30 Morphine Sulfate (morphine) 4 mg Q4H PRN IV PAIN LEVEL 7-10 Last administered on 03/22/17 05:02; Admin Dose 4 MG; Start 03/22/17 at 04:30 Aspirin 81 mg 81 mg DAILY PO ; Start 03/22/17 at 09:00 Levofloxacin/ Dextrose 100 ml @ 100 mls/hr Q24H IVPB Last administered on 03/22 08:06; Admin Dose 100 MLS/HR; Start 03/22/17 at 07:00 Sodium Chloride (NS) 1,000 ml @ 75 mls/hr [id number] IV Last administered on 03/22 10:08; Admin Dose 75 MLS/HR; Start 03/22/17 at 09:30 Methylprednisolone Sodium Succinate (Solu-Medrol) 80 mg Q8 IV ; Start 03/22/17 at 14:00 Lorazepam (Ativan) 1 mg Q4 PRN IV restlessness/agitation Last administered on t 10:08; Admin Dose 1 MG; Start 03/22/17 at 10:00 Procedures Procedures ECG done this morning at 9:36 AM demonstrates sinus tachycardia 103 bpm, QRS 128 ms with right bundle branch block, inferior Q waves, nonspecific ST abnormalities Oil Cerna DO Mar 22, 2017 11:40
[2017-03-22] MEDS: HEPARIN 25000 UNITS/250 ML 250 ML IV SCH (11:53)
[2017-03-22] MEDS: METHYLPREDNISOLONE 125 MG INJ IV SCH ×2 (13:26→21:31)
[2017-03-22] MEDS: LORAZEPAM 2 MG INJ IV SCH (13:26)
--- NOTE | 2017-03-22 14:22 | RADRPT ---
Vent Rate: 103 bpm RR Interval: 0 msec TX Interval: 160 msec QRS Duration: 128 msec QT Interval: 402 msec QTC Interval: 526 msec P-R-T Colton: 90 - -84 - 64 degrees Sinus tachycardia Left axis deviation Right bundle branch block Inferior infarct , age undetermined Abnormal ECG Electronically Signed By: Oli Cerna [id number]
--- NOTE | 2017-03-22 14:26 | RADRPT ---
Echocardiogram Report Patient Name: DEANN EDWARD Gender: Male Date: 1940 Study Date: 22-Mar-2017 [employer] Salesperson: Juan Goyal RDCS Location: [facility] Ref. Physician: SHASHA DUBOSE Quality: Adequate Procedures: Transthoracic echocardiogram with complete 2D, M-Mode, and doppler examination. Indications: Shortness of breath. 2D/M Mode Doppler Measurement Value Normal Ranges Measurement Value Normal Ranges LVIDd 2D 3.6 3.5 - 5.6 cm MV E Peak Kirk 0.6 m/sec LVIDs 2D 2.5 2.1 - 4.1 cm MV A Peak Kirk 1.1 m/sec LVPWd 2D 1.3 0.6 - 1.1 cm MV E/A 0.6 IVSd 2D 1.3 0.6 - 1.1 cm MV Decel Time 107 msec AoR Diam 2D 3.0 2.0 - 3.7 cm MV Decel Bacon 6 EDV 2D 52.9 cm3 MV E/A 0.6 ESV 2D 16.5 cm3 TR Peak Kirk 2.8 m/sec LA Dimen 2D 3.1 2.3 - 4.0 cm TR Peak PG 31.1 mmHg RVSP 39.0 mmHg Findings Left Ventricle: Normal left ventricular systolic function. Normal left ventricular cavity size. Mild concentric left ventricular hypertrophy. Ejection fraction is visually estimated at 65 %. Tissue Doppler/Mitral Doppler indices are consistent with impaired relaxation (Stage I diastolic dysfunction). Right Ventricle: Normal right ventricular size. Normal right ventricular systolic function. Left Atrium: The left atrium is normal in size. Right Atrium: The right atrium is normal in size. Mitral Valve: Normal appearance and function of the mitral valve with trace physiologic regurgitation. Aortic Valve: Normal appearance of the aortic valve. No significant aortic stenosis or insufficiency. Tricuspid Valve: Normal appearance of the tricuspid valve. Estimated peak PA systolic pressure 39 mmHg. There is mild tricuspid regurgitation. Pulmonic Valve: Normal pulmonic valve appearance. Pericardium: Normal pericardium with no significant pericardial effusion. Aorta: Normal aortic root. IVC: Normal size and no respiratory collapse consistent with elevated right atrial pressure. Conclusions 1.Normal left ventricular systolic function. Normal left ventricular cavity size. Mild concentric left ventricular hypertrophy. Ejection fraction is visually estimated at 65 %. Tissue Doppler/Mitral Doppler indices are consistent with impaired relaxation (Stage I diastolic dysfunction). 2.Normal right ventricular size. Normal right ventricular systolic function. 3.The left atrium is normal in size. 4.The right atrium is normal in size. 5.Estimated peak PA systolic pressure 39 mmHg. There is mild tricuspid regurgitation. 6.No significant valvular stenosis or regurgitation seen of remaining visualized valves. 7.Normal pericardium with no significant pericardial effusion. Electronically Signed By: Oli Cerna 22-Mar-2017 14:25:40 -0700 Patient Name: DEANN EDWARD Study Date: 22-Mar-2017 [id number]
--- NOTE | 2017-03-22 14:43 | RADRPT ---
PROCEDURE: Renal US. CLINICAL INDICATION: History of renal cell carcinoma. TECHNIQUE: Multiple sonographic images of the kidneys and urinary bladder were obtained. The imag es were reviewed on a PACS workstation. COMPARISON: No prior studies are available for comparison. FINDINGS: The right kidney measures 8.7 cm. The left kidney measures 8.7 cm. There is a solid hyperechoic mass in the mid right kidney measuring 2.7 x 2.5 x 2.5 cm. There is a b enign cystic mass inferiorly in the left kidney measuring 1.4 x 1.8 x 1.6 cm and a benign cyst in th e mid left kidney measuring 1.2 x 1.8 x 1.8 cm. There is no other renal mass. There is no hydronephrosis. There is no renal calculus. Renal parenchymal thickness is normal bilaterally. Echogenicity is normal bilaterally. The perirenal regions are normal with no fluid collection or mass. The urinary bladder is unremarkable. IMPRESSION: 1. Solid hyperechoic mass in the mid right kidney measuring 2.7 x 2.5 x 2.5 cm. This may be due to neoplasm. Correlation with CT scan or MRI should be considered. 2. Benign left renal cysts. 3. Otherwise unremarkable study. RPTAT: QQ .Alejo Fall MD, Date Time Electronically viewed and signed by .Alejo Fall MD, MD on 03/22/2017 14:43 .R/
[2017-03-22 15:02] LABS: ADD UMIC YES; UR ASCORBIC ACID NEGATIVE (NEGATIVE); UR BILIRUBIN (Dip) NEGATIVE (NEGATIVE); UR BLOOD (Dip) 2+ mg/dL (NEGATIVE); UR CLARITY SLIGHTLY CLOUDY (CLEAR); UR COLOR YELLOW (YELLOW); UR GLUCOSE (Dip) NEGATIVE (NEGATIVE); UR KETONES (Dip) NEGATIVE (NEGATIVE); UR LEUKOCYTE ESTERASE (Dip) NEGATIVE Leu/ul (NEGATIVE); UR NITRITE (Dip) NEGATIVE (NEGATIVE); UR RBC 43 /HPF (0-5); UR SPECIFIC GRAVITY (Dip) 1.013 (1.003-1.030); UR TOTAL PROTEIN (Dip) 1+ mg/dl (NEGATIVE); UR UROBILINOGEN (Dip) NEGATIVE (NEGATIVE)
--- NOTE | 2017-03-22 15:12 | RADRPT ---
PROCEDURE: US Scrotum. CLINICAL INDICATION: Scrotal pain and swelling. TECHNIQUE: Multiple sonographic images of the scrotal region were obtained utilizing a linear arra y transducer with grayscale and color-flow and pulsed Doppler imaging. The images were reviewed on a high-resolution PACS workstation. COMPARISON: None. FINDINGS: The right testis measures 3.9 x 1.5 x 2.5 cm. The left testis measures 3.8 x 1.7 x 2.9 cm. There is no intratesticular mass. The epididymi are normal. There is normal flow to both testes demonstrated with color Doppler and pulsed Doppler sonography. There is no right hydrocele. There is a large septated left hydrocele. There is no varicocele. The scrotal wall is unremarkable. IMPRESSION: 1. Large septated left hydrocele. 2. Otherwise normal scrotal ultrasound. RPTAT: QQ .Alejo Fall MD, MD Date Time Electronically viewed and signed by .Alejo Fall MD, on 03/22/2017 15:12 .R/
--- NOTE | 2017-03-22 15:26 | CONS ---
Date/Time of Note Date/Time of Note DATE: 03/22/17 TIME: 14:54 Assessment/Plan Assessment/Plan Additional Assessment/Plan 76 yo Male with 1) Resp Failure ?PE 2) COPD 3) HTN, Chronic 4) Hx of RCC S/ Partial Nephrectomy by Dr Ly Gant 5) Hyperechoic Mass Rt Kidney ?RCC 6) Left Renal Cysts 7) Leukcytosis SIRS? 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 Thank you for the opportunity to participate in the care of Mr Jones Consultation Date/Type/Reason Admit Date/Time Mar 21, 2017 at 23:46 Date of Consultation: Mar 22, 2017 Type of Consultation: Renal Reason for Consultation NELLIE, CKD, Hx of RCC Referring Provider: ISIDRO CARRERA Hx of Present Illness 76-year-old male with a history of hypertension, CHF, BPH, COPD, Hx of RCC s/p Partial nephrectomy, recent diagnosis of gastric cancer who presented to the emergency department complaining of shortness found to be hypoxic, requiring High flow oxygen. Patient admitted to ICU at [facility] for further evaluation and treatment. Possible Pulmonary embolism, found to have abnormal CXR and Positive for DVT. Pt had quintero placed by Urology and urine present. Renal US also shows hyperechoic mass mid right kidney and left renal cysts. Nephrology consulted for NELLIE, on CKD. Subjective hx not possible: pt critical status Constitutional: requiring O2 Respiratory: shortness of breath Past Medical History Medical History: hypertension, renal disease (RCC), other (DVT) Past Surgical History Past Surgical Hx: other (Partial nephrectomy) Social History Alcohol Use: heavy Smoking Status: Current every day smoker Drug Use: other (in the past opium, not anymore. ) Exam/Review of Systems Vital Signs Vitals Vital Signs Date Time Temp Pulse Resp B/P Pulse Ox O2 Delivery O2 Flow Rate FiO2 03/22/17 12:00 94 03/22/17 10:00 21 167/91 97 BIPAP 03/22/17 09:10 40 03/22/17 08:00 98.3 Intake and Output 03/21/17 03/21/17 03/22/17 15:00 23:00 07:00 Intake Total 150 ml Balance 150 ml Exam Constitutional: distress, frail Head: atraumatic Eyes: EOMI ENMT: mucosa pink and moist Neck: No jvd Respiratory: diminished breath sounds, wheezing Cardiovascular: regular rate and rhythm, No edema Gastrointestinal: soft, No rebound or guarding Musculoskeletal: nl extremities to inspection Extremities: No edema Neurological: lethargic, No nl mental status Skin: nl turgor, No diaphoresis Results Result Diagram: 03/22/17 1042 03/22/17 0503 Results 24 hrs Laboratory Tests Test 03/21/17 22:35 03/21/17 23:40 03/22/17 03:00 03/22/17 05:03 White Blood Count 21.1 H 16.7 #H Red Blood Count 6.04 5.51 Hemoglobin 14.1 12.8 L Hematocrit 46.1 42.2 Mean Corpuscular Volume 76.3 L 76.6 L Mean Corpuscular Hemoglobin 23.3 L 23.2 L Mean Corpuscular Hemoglobin Concent 30.6 L 30.3 L Red Cell Distribution Width 17.7 H 17.5 H Platelet Count 765 H 548 #H Mean Platelet Volume 9.4 9.6 Segmented Neutrophils % (Manual) 74 Lymphocytes % (Manual) 14 L Monocytes % (Manual) 11 Basophils % (Manual) 1 Nucleated Red Blood Cells % 0.0 0.0 Absolute Lymphocytes (Manual) 2.9 Absolute Monocytes (Manual) 2.3 H Basophils # (Manual) 0.2 H Pathologist Review (Hematology) Platelet Estimate INCREASED Giant Platelets 4 H Platelet Morphology Comment @See below Polychromasia 2+ Poikilocytosis 2+ Anisocytosis 2+ Microcytosis 1+ Prothrombin Time 13.9 Prothrombin Time Ratio 1.1 INR International Normalized Ratio 1.07 Sodium Level 137 137 Potassium Level 3.8 3.9 Chloride Level 98 101 Carbon Dioxide Level 27 24 Anion Gap 16 16 Blood Urea Nitrogen 35 H 42 H Creatinine 1.86 H 1.84 H Glucose Level 111 128 Calcium Level 9.5 8.7 Total Bilirubin 0.4 0.6 Direct Bilirubin 0.00 0.00 Indirect Bilirubin 0.4 0.6 Aspartate Amino Transf (AST/SGOT) 34 34 Alanine Aminotransferase (ALT/SGPT) 33 36 Alkaline Phosphatase 100 91 Troponin I 0.124 *H 0.164 *H B-Type Natriuretic Peptide 632 H Total Protein 7.6 6.9 Albumin 4.2 3.9 Globulin 3.40 H 3.00 Albumin/Globulin Ratio 1.23 1.30 Lipase 103 Blood Gas Specimen Source Blood arterial Blood arterial Arterial Blood Date Drawn 03/22/2017 12:02:35 AM 03/22/2017 3:00:16 AM Arterial Blood pH (Temp corrected) 7.230 *L 7.256 *L Arterial Blood pCO2 (Temp correct) 59.1 H 50.7 H Arterial Blood pO2 (Temp corrected) 68.4 L 74.1 L Arterial Blood HCO3 24.2 22.0 Arterial Blood Base Excess -4.3 L -5.5 L Arterial Blood Oxygen Saturation 91.2 L 93.4 L Griffin Test ACCEPTAB ACCEPTAB Arterial Blood Gas Puncture Site Left Radial Left Radial Arterial Blood Carboxyhemoglobin 2.8 2.1 Arterial Blood Methemoglobin 0.1 0.2 Blood Gas A-a O2 Differential 148.8 H 152.8 H Oxyhemoglobin Percent 88.6 L 91.3 L Total Hemoglobin 14.5 14.3 Blood Gas Temperature 37.0 37.0 Blood Gas Respiration Rate 18.0 18.0 Blood Gas Actual Respiration Rate 23 22 Blood Gas Modality MASK - BIPAP MASK - BIPAP FiO2 40.0 40.0 Blood Gas IPAP/EPAP Ratio 15/5 15/5 Blood Gas Critical Value Read Back Marysol MEZA MD DTRINIDAD RN Blood Gas Notified Whom Marysol GALICIA RCP MI Blood Gas Notified Time 03/22/2017 12:14:14 AM 03/22/2017 3:16:44 AM Blood Gas Pressure Support 10 Neutrophils % 96.0 H Lymphocytes % 1.6 L Monocytes % 1.3 Eosinophils % 0.0 Basophils % 0.3 Neutrophils # 16.1 H Lymphocytes # 0.3 L Monocytes # 0.2 L Eosinophils # 0.0 Basophils # 0.1 Nucleated Red Blood Cells # 0.0 Creatine Kinase 271 H Creatine Kinase Index 5.1 Creatinine Kinase MB (Mass) 13.80 H Test 03/22/17 08:00 03/22/17 10:42 Blood Gas Specimen Source Blood arterial Arterial Blood Date Drawn 03/22/2017 7:40:15 AM Arterial Blood pH (Temp corrected) 7.267 *L Arterial Blood pCO2 (Temp correct) 52.2 H Arterial Blood pO2 (Temp corrected) 114.4 H Arterial Blood HCO3 23.3 Arterial Blood Base Excess -4.2 L Arterial Blood Oxygen Saturation 98.1 Griffin Test ACCEPTAB Arterial Blood Gas Puncture Site Right Radial Arterial Blood Carboxyhemoglobin 1.5 Arterial Blood Methemoglobin 0.3 Blood Gas A-a O2 Differential 110.8 H Oxyhemoglobin Percent 96.3 Total Hemoglobin 13.7 Blood Gas Temperature 37.0 Blood Gas Respiration Rate 18.0 Blood Gas Actual Respiration Rate 25 Blood Gas Modality MASK - BIPAP FiO2 40.0 Blood Gas IPAP/EPAP Ratio 15/5 Blood Gas Critical Value Read Back A BERT BROOKS Blood Gas Notified Whom JLD Blood Gas Notified Time 03/22/2017 8:21:07 AM White Blood Count 16.8 H Red Blood Count 5.44 Hemoglobin 12.8 L Hematocrit 42.0 Mean Corpuscular Volume 77.2 L Mean Corpuscular Hemoglobin 23.5 L Mean Corpuscular Hemoglobin Concent 30.5 L Red Cell Distribution Width 17.1 H Platelet Count 541 H Mean Platelet Volume 9.4 Neutrophils % 95.7 H Lymphocytes % 1.9 L Monocytes % 1.4 Eosinophils % 0.0 Basophils % 0.2 Nucleated Red Blood Cells % 0.0 Neutrophils # 16.1 H Lymphocytes # 0.3 L Monocytes # 0.2 L Eosinophils # 0.0 Basophils # 0.0 Nucleated Red Blood Cells # 0.0 Prothrombin Time 15.5 H Prothrombin Time Ratio 1.2 INR International Normalized Ratio 1.22 Activated Partial Thromboplast Time 39.8 H Imaging Free Text/Dictation PROCEDURE: XR Chest. CLINICAL INDICATION: Asthma exacerbation. TECHNIQUE: PA and Lateral views of the chest were obtained. COMPARISON: None. FINDINGS: Mild cardiomegaly. Atherosclerotic calcifications in the thoracic aorta. Mild peribronchial cuffing compatible with asthma. Hyperinflation of COPD with changes of centrolobular emphysema. Question small calcified granuloma in the mid right lung. Differential considerations include a small pulmonary parenchymal nodule, and consider CT correlation. The lungs are otherwise clear. No signs of pleural fluid or pneumothorax are seen. The osseous structures and soft tissues are unremarkable. IMPRESSION: 1. Mild peribronchial cuffing is seen at the bilateral kashif, compatible with asthma. 2. Small possible calcified granuloma in the right mid lung, although differential considerations include a pulmonary parenchymal nodule. 3. Consider CT correlation. RPTAT: UU Physician Mark Date Time Electronically viewed and signed by Physician Mark on 03/21/2017 23:24 PROCEDURE: Renal US. CLINICAL INDICATION: History of renal cell carcinoma. TECHNIQUE: Multiple sonographic images of the kidneys and urinary bladder were obtained. The images were reviewed on a PACS workstation. COMPARISON: No prior studies are available for comparison. FINDINGS: The right kidney measures 8.7 cm. The left kidney measures 8.7 cm. There is a solid hyperechoic mass in the mid right kidney measuring 2.7 x 2.5 x 2.5 cm. There is a benign cystic mass inferiorly in the left kidney measuring 1.4 x 1.8 x 1.6 cm and a benign cyst in the mid left kidney measuring 1.2 x 1.8 x 1.8 cm. There is no other renal mass. There is no hydronephrosis. There is no renal calculus. Renal parenchymal thickness is normal bilaterally. Echogenicity is normal bilaterally. The perirenal regions are normal with no fluid collection or mass. The urinary bladder is unremarkable. IMPRESSION: 1. Solid hyperechoic mass in the mid right kidney measuring 2.7 x 2.5 x 2.5 cm. This may be due to neoplasm. Correlation with CT scan or MRI should be considered. 2. Benign left renal cysts. 3. Otherwise unremarkable study. RPTAT: QQ .Alejo Fall MD, Date Time Electronically viewed and signed by .Alejo Fall MD, on 03/22/2017 14:43 Medications Medications Current Medications Ondansetron HCl (Zofran Inj) 4 mg Q6H PRN IV NAUSEA AND/OR VOMITING; Start at 01:30 Acetaminophen (Tylenol Liquid) 650 mg Q6H PRN PO PAIN LEVEL 1-3 OR FEVER; Start 03/22/17 at 01:30 Acetaminophen (Tylenol Supp) 650 mg Q4H PRN RI PAIN LEVEL 1-3 OR FEVER; Start 03/22/17 at 01:30 Morphine Sulfate (morphine) 4 mg Q4H PRN IV PAIN LEVEL 7-10 Last administered on 03/22/17 05:02; Admin Dose 4 MG; Start 03/22/17 at 04:30 Aspirin 81 mg 81 mg DAILY PO ; Start 03/22/17 at 09:00 Levofloxacin/ Dextrose 100 ml @ 100 mls/hr Q24H IVPB Last administered on 03/22 08:06; Admin Dose 100 MLS/HR; Start 03/22/17 at 07:00 Sodium Chloride (NS) 1,000 ml @ 75 mls/hr [id number] IV Last administered on 03/22 10:08; Admin Dose 75 MLS/HR; Start 03/22/17 at 09:30 Methylprednisolone Sodium Succinate (Solu-Medrol) 80 mg Q8 IV Last administered on 03/22/17 13:26; Admin Dose 80 MG; Start 03/22/17 at 14:00 Lorazepam (Ativan) 1 mg Q4 PRN IV restlessness/agitation Last administered on 10:08; Admin Dose 1 MG; Start 03/22/17 at 10:00 Atorvastatin Calcium (Lipitor) 80 mg HS PO ; Start 03/22/17 at 21:00 Lorazepam (Ativan) 1 mg ONCE IV Last administered on 03/22/17 13:26; Admin Dose 1 MG; Start 03/22/17 at 13:30; Stop 03/23/17 at 13:29 Procedures Procedures US LE IMPRESSION: 1. Thrombosis of the right peroneal vein, a calf vein. 2. Acute deep venous thrombosis of the left common femoral vein, upper left femoral vein, and mid left femoral vein. Otherwise unremarkable study. 3. Correlation with CT pulmonary angiogram should be considered. JACY ROSE MD Mar 22, 2017 15:04
--- NOTE | 2017-03-22 15:42 | RADRPT ---
PROCEDURE: XR Abdomen. CLINICAL INDICATION: Evaluate for inferior vena cava filter. TECHNIQUE: AP abdomen x-ray. COMPARISON: KUB 08/05/2016. FINDINGS: The [place] filter extends from the top of L2 to the bottom of L3. There are 4 lumbar vertebra. L 5 is sacralized consistent with a transitional vertebra. There are vascular calcifications in the co mmon iliac arteries. There are degenerative osteophytes in the thoracic and lumbar spine. No abnorma l intra-abdominal calcification or mass is identified. The heart is mildly enlarged. The visible theresa g jaime are clear. IMPRESSION: 1. A [place] filter extends from the top of L2 to the bottom of L3. 2. Atherosclerotic vascular disease. 3. Cardiomegaly. 4. Osteoarthritis of the thoracic and lumbosacral spine. RPTAT:AAJJ Physician Ilana Date Time Electronically viewed and signed by Physician Ilana on 03/22/2017 15:42 LUZ/
[2017-03-22 16:15] LABS: TROPONIN-I 0.088 ng/ml (0.00-0.12)
[2017-03-22 16:21] LABS: CK-MB 11.7 ng/ml (0.0-2.4)
--- NOTE | 2017-03-22 16:24 | RADRPT ---
PROCEDURE: Nuclear medicine VQ scan CLINICAL INDICATION: Chest pain. Shortness of breath. TECHNIQUE: 40.0 mCi of technetium-99m DTPA was utilized for the ventilation study. 4.0 mCi of nithya hnetium 99m MAA was utilized for the perfusion study. Planar imaging which performed in 8 planes. Images were reviewed on the high resolution PACS workstation. COMPARISON: Chest x-ray 03/21/2017 FINDINGS: This is a poor quality ventilation scan. There is better visualization on the perfusion scan. There is clumping of radiotracer centrally within the central airways. No matched or mismatched defects ar e identified. There is no evidence for pulmonary embolism. No significant infiltrate is seen withi n the lungs on the chest x-ray. IMPRESSION: 1. Limited suboptimal quality study. 2. Better visualization of the perfusion scan than on the ventilation scan. 3. However, no significant large mismatch defects are identified. 4. Low/intermediate probability VQ scan. RPTAT: HMJB .Tom Boogie MD, MD Date Time Electronically viewed and signed by .Tom Boogie MD, on 03/22/2017 16:24 .B/
[2017-03-22] MEDS: ALBUTEROL/IPRATROPIUM (NEB) 3 ML AMP HHN SCH ×2 (17:58→20:21)
--- NOTE | 2017-03-22 19:08 | HP ---
DATE OF ADMISSION: 03/21/2017 HISTORY OF PRESENT ILLNESS: Mr. Jones is a 76-year-old gentleman with a plethora of medical conditions, who presented to [facility] secondary to respiratory failure and shortness of breath. The patient has been started on BiPAP and currently in Intensive Care unit for further evaluation. During his workup, it was identified the patient having bilateral lower extremity deep vein thrombosis, with right peroneal vein thrombosis and aglwr-bg-[id number] left lower extremity thrombosis. Patient further had a V/Q scan that showed a xsb-nt-eiaaopliorpe probability findings. Of note, patient has had history of recent diagnosis of a gastric mass that was identified at [facility] about 6 months ago, in which he was supposed to undergo surgery; however, no surgery had been done, and also he has not been started on any chemoradiation or adjuvant therapy. At the moment, patient is not reliable or any good historian with answering questions and seems to be resting with a face mask with oxygen. CT PE protocol has not been ordered, since the patient has elevated creatinine. At the moment he does have some shortness of breath, some mild chest pain. Denies nausea, vomiting, fever, or chills. He does have lower extremity swelling. REVIEW OF SYSTEMS: A 14-point review performed and negative, except was mentioned in HPI (although the patient is a poor historian). PAST MEDICAL HISTORY: Entails hypertension; CHF; BPH; COPD; renal cell carcinoma on the left side, status post left nephrectomy; gastric mass; coronary artery disease; chronic kidney disease; history of left lower extremity DVT. SURGERY: IVC filter placement. FAMILY HISTORY: Positive for hypertension, coronary artery disease. SOCIAL HISTORY: Denies tobacco, alcohol or illicit drug use. PHYSICAL EXAMINATION: GENERAL APPEARANCE: He is awake, having some difficulty with his breathing. HEENT: Normocephalic, atraumatic. Mucosa moist. Poor dentition. NECK: Supple. No carotid bruit. LUNGS: Coarse breath sounds bilaterally. Some crackles at the bases. CARDIOVASCULAR: S1, S2 present. No murmurs. ABDOMEN: Soft, nontender, nondistended. Bowel sounds positive. Truncal obesity. EXTREMITIES: Lower extremities: Palpable femoral pulse. Nonpalpable pedal pulse. Motor and sensory intact. Capillary refill 3-4 seconds. Edema, bilateral, 2 to 3+. ASSESSMENT AND PLAN: 1. Bilateral lower extremity deep vein thrombosis (right lower extremity peroneal vein), (left common femoral vein thrombosis): It seems that the patient has a new onset of right lower extremity deep venous thrombosis, with [id number]-duvuchv left lower extremity deep venous thrombosis. This could likely be related to a possible hypercoagulable state (metastatic disease). Would recommend for the patient to be on anticoagulation for now. No further Vascular Surgery intervention until further workup excludes any relations to metastatic disease. At the moment, would recommend for the patient to be evaluated for his gastric mass. 2. Further, the patient already has an inferior vena cava filter, in which would recommend to start patient on anticoagulation unless he is unable to tolerate. 3. Optimize vascular status (blood pressure meds, diet, nutrition, exercise, sugar control, antiplatelets). 4. Discussed findings, plan of management with the patient and primary service, and they understand. Thank you for allowing us to partake in the care of your patient. Please call with any questions. Dictated By: Brody Rodriguez MD /fredy/jordon /Document#: [id number]
--- NOTE | 2017-03-22 19:20 | CONS ---
DATE OF ADMISSION: 03/21/2017 DATE OF CONSULTATION: 03/22/2017 REASON FOR CONSULTATION: Acute kidney injury. REQUESTING PHYSICIAN: Jorge Llamas MD HISTORY OF PRESENT ILLNESS: This is a 76-year-old male with a past medical history of hypertension, CHF, BPH, COPD, history of gastric cancer, who presented to emergency department complaining shortness of breath. The patient upon admission was noted to be hypoxemic, hypercapnic by ABG and was placed on CPAP. The patient subsequently admitted to intensive care unit for further evaluation. Ultrasound was performed that show DVT. CT angio is pending giving concern for possible PE. In terms of the patient's renal history, the patient's baseline renal function is unclear. The patient himself is a poor historian, unable to give adequate history. Currently patient has a creatinine 1.86 mg/dL. The patient is also having difficulty voiding, may have an obstructive component. A Waters catheter is pending placement. PAST MEDICAL HISTORY: As stated above, history of COPD, CHF, BPH, hypertension, gastric cancer. PAST SURGICAL HISTORY: Past surgical history has been reviewed. ALLERGIES: NO KNOWN DRUG ALLERGIES. FAMILY HISTORY: Noncontributory. SOCIAL HISTORY: Does not drink, smoke, or do drugs. MEDICATIONS: Reviewed. REVIEW OF SYSTEMS: Unable to do adequate review of systems, patient is altered. Pertinent positives obtained by reviewing medical records, speaking to hospital staff, as stated in HPI, otherwise negative. OBJECTIVE DATA: VITAL SIGNS: Blood pressure is 167/91, respirations 21, pulse 100, temperature 98.3. HEENT: Head is normocephalic. NECK: Supple. HEART: Regular rate. LUNGS: Diminished breath sounds at the base. ABDOMEN: Soft, nontender to palpation, no guarding. EXTREMITIES: Negative for clubbing, cyanosis, no edema. DERMATOLOGIC: No rashes. MUSCULOSKELETAL: No joint effusion. Limited examination due to lack of patient cooperation. LABORATORY DATA: Sodium 137, potassium 3.9, BUN 42, creatinine 1.84. Troponin 0.164. White count is 16.8, platelet count is 541. IMPRESSION AND PLAN: 1. Nonoliguric acute kidney injury with unknown baseline creatinine, possible chronic kidney disease. Etiology of acute kidney injury may be multifactorial, possible obstructive uropathy given history of benign prostatic hypertrophy, possible acute tubular necrosis. At this point check urinalysis with microanalysis. Check urine electrolytes. Will check renal ultrasound. Recommend Watesr catheter placement. Continue current treatment plan. The patient is pending CT angio and is at moderate risk for contrast associated nephropathy. Will monitor closely. 2. Anemia. Monitor hemoglobin and hematocrit levels. 3. Mineral bone disorder. Monitor calcium and phosphorus levels. 4. Hypoxemic respiratory failure, etiology is possibly due to chronic obstructive pulmonary disease exacerbation, acute bronchitis. Other possibilities include pulmonary embolus. The patient is currently on BiPAP, receiving nebulizer therapy. The patient is pending possible CT angio. Will continue current medical management. 5. [id number]-[id number] myocardial infarction. Continue current treatment plan. Follow up with Cardiology. 6. History of gastric malignancy. Continue to monitor. Thank you, Dr. Llamas, for this interesting consultation. It will be a pleasure to follow the patient with you throughout the hospital course. Dictated By: Burt Abbott DO /fredy/luna /Document#: [id number]
[2017-03-22] MEDS: TAMSULOSIN (SR) 0.4 MG CAP PO SCH (20:33)
[2017-03-22] MEDS: ATORVASTATIN 40 MG TAB PO SCH (20:33)
[2017-03-22] MEDS ORDERED: ATORVASTATIN 40 MG TAB PO SCH (21:00)
[2017-03-22] MEDS: HEPARIN 1000 UNITS/ML 10 ML INJ IV PRN (21:27)
--- NOTE | 2017-03-22 21:50 | CONS ---
DATE OF ADMISSION: 03/21/2017 DATE OF CONSULTATION: 03/22/2017 HISTORY OF PRESENT ILLNESS: Dear Dr. Llamas: Thank you for asking me to see this patient in urological consultation. This is a 76-year-old male who presented to the emergency room at [facility] because of difficulty breathing and shortness of breath. He was found to be hypercapnic and hypoxic. He was put on BiPAP and he was feeling better. He was transferred to the ICU and attempts to insert a Waters catheter for him were not successful, therefore, a urological consultation was requested. The patient does have also acute left lower extremity DVT. However, the lung perfusion scan did show low probability for PE. The patient does have a questionable history of gastric cancer diagnosed about six months ago [address] [facility], but no surgery has been done. The patient also does have enlargement of the left scrotum, most likely a hydrocele. PAST MEDICAL HISTORY: Consist of hypertension, congestive heart failure, COPD, question of gastric cancer and the patient on admission also had an elevated creatinine of 1.9. ALLERGIES: THE PATIENT HAS NO KNOWN DRUG ALLERGIES. SOCIAL HISTORY: The history of whether he smokes or not is not obtainable at the present. CURRENT MEDICATIONS: 1. He is on Uloric 40 mg daily 2. Multivitamin. 3. Protonix 40 mg daily. 4. Atorvastatin 80 mg daily. 5. Tamsulosin 0.4 mg twice a day. 6. Solu-Medrol 80 mg every 8 hours IV. 7. Albuterol ipratropium respiratory therapy. 8. Ativan 1 mg. 9. Lorazepam 1 mg p.r.n. 10. Albuterol ipratropium p.r.n. 11. Aspirin 81 mg daily. 12. He is on heparin and Levaquin IV. 13. Morphine sulfate and Zofran p.r.n. 14. Tylenol p.r.n. PHYSICAL EXAMINATION: GENERAL: Reveals an elderly male who appears to be a little bit uncomfortable when I saw him because of the urinary retention. VITAL SIGNS: His temperature is 98.3, pulse 81, respirations 17, blood pressure 129/73. HEENT: The head and neck are unremarkable. LUNGS: The patient has some wheezing. HEART: Regular rate and rhythm. ABDOMEN: A little obese. No abdominal mass palpable. EXTREMITIES: Have normal colors. No edema and no varicose veins. LABORATORY: CBC showed a white count of 16.8, hemoglobin 12.8, hematocrit 42.0, platelet count 541,000. BUN is 42, creatinine 1.84. Sodium 137, potassium 3.7, chloride 101, CO2 24. The PT is 15.5, INR 1.22. PTT 39.8. IMPRESSION: Urethral stricture and question history of benign prostatic hypertrophy, however, on the rectal examination his prostate did not feel large and it was soft. Patient did have scrotal ultrasound that showed left hydrocele. He did have also renal ultrasound and the renal ultrasound was reported that there is a solid hyperechoic mass in the mid right kidney measuring 2.7 x 2.5 x 2.5 cm. This may be a neoplasm. Correlation with CT or MRI should be considered. The patient does have benign left renal cysts. History of benign prostatic hypertrophy and possible urethral stricture, right renal mass which could be a tumor and left renal cyst and also left hydrocele. PLAN: I went ahead and prepped the genital area and gave him 2% lidocaine gel about 20 mL in the urethra and waited for it to work, and then I inserted a 14-Greek coude catheter and that did go into the bladder. There was some resistance in the proximal urethra but the catheter eventually did go in and the urine drained from the bladder was clear, and was collected for culture and sensitivity. The balloon was inflated with 10 mL of sterile water and the catheter connected to a drainage bag. Dictated By: Sandeep Riley MD /fredy/benito /Document#: [id number]
[2017-03-23] VITALS (32 sets, daily range): BP systolic 117–193; BP diastolic 66–148; PULSE 112–149; RESP 14–40
[2017-03-23 00:05] LABS: AADO2 Arterial 50.3 mmHg (7.0-24.0); Allen Test ACCEPTAB; Arterial Base Excess -0.6 mmol/L (-3.0-3); Arterial COHb 0.1 % (0.0-3.0); Arterial Fraction of Oxyhgb 88.6 % (93.0-99.0); Arterial HCO3 23.9 mmol/L (22.0-26.0); Arterial MetHb 0.3 % (0.0-1.5); Arterial Total Hemglobin 13.7 g/dl (12.0-18.0); MODE ROOM AIR
[2017-03-23] MEDS ORDERED: HALOPERIDOL 5 MG INJ IM ONE (00:30)
[2017-03-23] MEDS ORDERED: LORAZEPAM 2 MG INJ IV ONE (00:30)
[2017-03-23] MEDS ORDERED: morphine 4 MG/ML VIAL IV ONE ×2 (01:55)
[2017-03-23] MEDS ORDERED: DIPHENHYDRAMINE 50 MG INJ IV ONE ×2 (02:00)
[2017-03-23 04:05] LABS: ABNORMAL IP MESSAGE 1; BASOPHILS % 0.1 % (0.0-2.0); HEMOGLOBIN 11.9 g/dl (14.0-18.0); LYMPHOCYTES # 0.5 10^3/ul (0.8-2.9); MEAN CORPUSCULAR HEMOGLOBIN 23.2 pg (29.0-33.0); MEAN CORPUSCULAR HGB CONC 31.3 g/dl (32.0-37.0); MEAN CORPUSCULAR VOLUME 74.1 fl (82.0-101.0); MEAN PLATELET VOLUME 9.9 fl (7.4-10.4); MONOCYTE # 0.3 10^3/ul (0.3-0.9); NEUTROPHIL # 15.1 10^3/ul (1.6-7.5); NEUTROPHILS % 93.5 % (39.0-77.0); PLATELET COUNT 533 10^3/UL (140-415); POSITIVE DIFF @See below; RED BLOOD COUNT 5.13 10^6/ul (4.70-6.10); RED CELL DISTRIBUTION WIDTH 17.2 % (11.5-14.5); WHITE BLOOD COUNT 16.2 10^3/ul (4.8-10.8)
[2017-03-23 04:14] LABS: CALCIUM 8.5 mg/dl (8.4-10.2); CREATININE 1.63 mg/dl (0.61-1.24); MAGNESIUM 1.7 mg/dl (1.7-2.5); PHOSPHORUS 4.2 mg/dl (2.5-4.9); POTASSIUM 3.5 mmol/L (3.5-5.1)
[2017-03-23] MEDS: PANTOPRAZOLE (EC) 40 MG TAB PO SCH (06:00)
[2017-03-23] MEDS: METHYLPREDNISOLONE 125 MG INJ IV SCH ×3 (06:00→21:19)
[2017-03-23] MEDS: LORAZEPAM 2 MG INJ IV SCH (07:30)
[2017-03-23] MEDS: ALBUTEROL/IPRATROPIUM (NEB) 3 ML AMP HHN SCH ×3 (08:35→19:00)
[2017-03-23] MEDS: TAMSULOSIN (SR) 0.4 MG CAP PO SCH ×2 (08:53→20:12)
[2017-03-23] MEDS: MULTIVITAMINS THERAPEUTIC TAB PO SCH (08:54)
[2017-03-23] MEDS: FEBUXOSTAT 40 MG TABLET PO SCH (08:54)
[2017-03-23] MEDS: ASPIRIN (EC) 81 MG TAB PO SCH (08:54)
--- NOTE | 2017-03-23 09:47 | PN ---
Date/Time of Note Date/Time of Note DATE: 03/23/17 TIME: 09:45 Assessment/Plan VTE Prophylaxis VTE Prophylaxis Intervention: heparin Lines/Catheters IV Catheter Type (from [facility]): [place] [facility] Urinary Cath still in place: Yes Reason Cath still needed: urinary retention Assessment/Plan Chief Complaint/Hosp Course Patient is a 76-year-old male with a past medical history significant for COPD, hypertension, and renal carcinoma 2011 as well as recent diagnosis of gastric carcinoma approximately 6 months ago who presents to [facility] for shortness of breath. Found to have acute on chronic DVT. Assessment Acute respiratory failure, resolving COPD exacerbation Acute on chronic DVT Hypertension History of renal cell carcinoma, with renal mass Renal mass Renal cyst Gastric carcinoma, unknown type, records pending GI tumors, likely:, Records pending Acute delirium Acute on chronic CKD Plan -Patient is a noncompliant male who presents with shortness of breath, recent history of diagnosis of gastric cancer, however no outpatient follow-up. Patient also has chronic DVTs, presents with acute DVT and history of implanted IVC filter since 2011, however patient is not on anticoagulation. -Continue heparin drip, anticipate transition to oral anticoagulant soon -Is currently on 2 L nasal cannula, breathing has significantly improved, at this time may be COPD exacerbation more so than originally thought PE -Steroids and breathing treatments, continue antibiotics for now, will de- escalate as patient stabilizes -[facility] -Spoke with hematology oncology, stating most of patient's GI workup and cancer workup is appropriate for outpatient, however one all patient is in the hospital , will continue to monitor. - n.p.o. for now, patient confused, speech therapy evaluation pending. Restart home meds as able -Consultants are hematology oncology, nephrology, vascular surgery, GI, pulmonology, urology Problems: Subjective 24 Hr Interval Summary Free Text/Dictation confused, tries to pull out IV lines. Exam/Review of Systems Vital Signs Vitals Vital Signs Date Time Temp Pulse Resp B/P Pulse Ox O2 Delivery O2 Flow Rate FiO2 03/23/17 08:36 109 20 Nasal Cannula 4.0 94 03/23/17 07:00 171/94 92 03/23/17 04:00 98.5 Intake and Output 03/22/17 03/22/17 03/23/17 15:00 23:00 07:00 Intake Total 180 ml 1882.5 ml 82.0 ml Output Total 690 ml 855 ml 550 ml Balance -510 ml 1027.5 ml -468.0 ml Exam Physical exam General: Patient is laying in bed, sleeping Mentation: Patient is alert but not oriented Head: Normocephalic atraumatic Eyes: EOMI, pupils reactive to light Neck: Supple, nontender, midline Respiratory: coarse breath sounds bilaterally, diminished effort. Cardiovascular: regular rate, no obvious murmurs Gastrointestinal: non-tender to palpation, bowel sounds heard. Neurological: Moves all extremities spontaneously, not oriented but easily alert Skin: No new skin lesions Results Result Diagram: 03/23/17 0330 03/23/17 0330 Results 24 hrs Laboratory Tests Test 03/22/17 10:42 03/22/17 13:00 03/22/17 15:20 03/22/17 19:44 White Blood Count 16.8 H Red Blood Count 5.44 Hemoglobin 12.8 L Hematocrit 42.0 Mean Corpuscular Volume 77.2 L Mean Corpuscular Hemoglobin 23.5 L Mean Corpuscular Hemoglobin Concent 30.5 L Red Cell Distribution Width 17.1 H Platelet Count 541 H Mean Platelet Volume 9.4 Neutrophils % 95.7 H Lymphocytes % 1.9 L Monocytes % 1.4 Eosinophils % 0.0 Basophils % 0.2 Nucleated Red Blood Cells % 0.0 Neutrophils # 16.1 H Lymphocytes # 0.3 L Monocytes # 0.2 L Eosinophils # 0.0 Basophils # 0.0 Nucleated Red Blood Cells # 0.0 Prothrombin Time 15.5 H Prothrombin Time Ratio 1.2 INR International Normalized Ratio 1.22 Activated Partial Thromboplast Time 39.8 H 50.3 H Urine Color YELLOW Urine Clarity SLIGHTLY CLOUDY A Urine pH 5.0 Urine Specific [place] 1.013 Urine Ketones NEGATIVE Urine Nitrite NEGATIVE Urine Bilirubin NEGATIVE Urine Urobilinogen NEGATIVE Urine Leukocyte Esterase NEGATIVE Urine Microscopic RBC 43 H Urine Microscopic WBC 1 Urine Hemoglobin 2+ H Urine Random Creatinine 96.96 Urine Random Sodium 55 Urine Glucose NEGATIVE Urine Total Protein 49.0 H Creatine Kinase 199 Creatine Kinase Index 5.9 Creatinine Kinase MB (Mass) 11.70 H Troponin I 0.088 Test 03/22/17 23:50 03/23/17 03:30 Blood Gas Specimen Source Blood arterial Arterial Blood Date Drawn 03/22/2017 11:50:12 PM Arterial Blood pH (Temp corrected) 7.409 Arterial Blood pCO2 (Temp correct) 38.6 Arterial Blood pO2 (Temp corrected) 53.2 *L Arterial Blood HCO3 23.9 Arterial Blood Base Excess -0.6 Arterial Blood Oxygen Saturation 89.0 L Griffin Test ACCEPTAB Arterial Blood Gas Puncture Site Left Radial Arterial Blood Carboxyhemoglobin 0.1 Arterial Blood Methemoglobin 0.3 Blood Gas A-a O2 Differential 50.3 H Oxyhemoglobin Percent 88.6 L Total Hemoglobin 13.7 Blood Gas Temperature 37.0 Blood Gas Modality ROOM AIR FiO2 21.0 Blood Gas Critical Value Read Back EMIR BROOKS Blood Gas Notified Whom MA Blood Gas Notified Time 03/23/2017 12:05:09 AM White Blood Count 16.2 H Red Blood Count 5.13 Hemoglobin 11.9 L Hematocrit 38.0 L Mean Corpuscular Volume 74.1 L Mean Corpuscular Hemoglobin 23.2 L Mean Corpuscular Hemoglobin Concent 31.3 L Red Cell Distribution Width 17.2 H Platelet Count 533 H Mean Platelet Volume 9.9 Neutrophils % 93.5 H Lymphocytes % 3.0 L Monocytes % 2.0 Eosinophils % 0.0 Basophils % 0.1 Nucleated Red Blood Cells % 0.0 Neutrophils # 15.1 H Lymphocytes # 0.5 L Monocytes # 0.3 Eosinophils # 0.0 Basophils # 0.0 Nucleated Red Blood Cells # 0.0 Activated Partial Thromboplast Time 59.4 H Sodium Level 138 Potassium Level 3.5 Chloride Level 102 Carbon Dioxide Level 25 Anion Gap 15 Blood Urea Nitrogen 49 H Creatinine 1.63 H Glucose Level 133 Calcium Level 8.5 Phosphorus Level 4.2 Magnesium Level 1.7 B-Type Natriuretic Peptide 3110 H Medications Medications Current Medications Ondansetron HCl (Zofran Inj) 4 mg Q6H PRN IV NAUSEA AND/OR VOMITING; Start at 01:30 Acetaminophen (Tylenol Liquid) 650 mg Q6H PRN PO PAIN LEVEL 1-3 OR FEVER; Start 03/22/17 at 01:30 Acetaminophen (Tylenol Supp) 650 mg Q4H PRN [place] PAIN LEVEL 1-3 OR FEVER; Start 03/22/17 at 01:30 Morphine Sulfate (morphine) 4 mg Q4H PRN IV PAIN LEVEL 7-10 Last administered on 03/22/17t 05:02; Admin Dose 4 MG; Start 03/22/17 at 04:30 Aspirin 81 mg 81 mg DAILY PO Last administered on 03/23/17 08:54; Admin Dose 81 MG; Start 03/22/17 at 09:00 Levofloxacin/ Dextrose (Levaquin 500mg/ D5W 100 ml (Pmx)) 100 ml @ 100 mls/hr Q24H IVPB Last administered on 03/22/17 08:06; Admin Dose 100 MLS/HR; Start at 07:00 Methylprednisolone Sodium Succinate (Solu-Medrol) 80 mg Q8 IV Last administered on 03/23/17 06:00; Admin Dose 80 MG; Start 03/22/17 at 14:00 Lorazepam (Ativan) 1 mg Q4 PRN IV restlessness/agitation Last administered on 23:04; Admin Dose 1 MG; Start 03/22/17 at 10:00 Atorvastatin Calcium (Lipitor) 80 mg HS PO Last administered on 03/22/17 20:33 ; Admin Dose 80 MG; Start 03/22/17 at 21:00 Lorazepam (Ativan) 1 mg ONCE IV Last administered on 03/23/17 07:30; Admin Dose 1 MG; Start 03/22/17 at 13:30; Stop 03/23/17 at 13:29 Febuxostat (Uloric) 40 mg DAILY PO Last administered on 03/23/17 08:54; Admin Dose 40 MG; Start 03/23/17 at 09:00 Multivitamins Therapeutic (Theragran) 1 tab DAILY PO Last administered on 08:54; Admin Dose 1 TAB; Start 03/23/17 at 09:00 Tamsulosin HCl (Flomax) 0.4 mg BID PO Last administered on 03/23/17 08:53; Admin Dose 0.4 MG; Start 03/22/17 at 21:00 Pantoprazole (Protonix Tab) 40 mg DAILY@06 PO Last administered on 03/23/17 06 :00; Admin Dose 40 MG; Start 03/23/17 at 06:00 Hydralazine HCl (Apresoline) 20 mg Q6H PRN IV SBP >180; Start 03/22/17 at 22:45 Carvedilol (Coreg) 25 mg BID PO ; Start 03/23/17 at 09:30; Status Future Hold ISIDRO CARRERA Mar 23, 2017 09:47
--- NOTE | 2017-03-23 09:53 | CONS ---
Date/Time of Note Date/Time of Note DATE: 03/23/17 TIME: 09:51 Assessment/Plan Assessment/Plan Additional Assessment/Plan Assessment recommendations; 1. Patient admitted with acute COPD exacerbation with acute bronchitis with hypercapnia and hypoxemia with interval improvement. 2. Recently diagnosed gastric malignancy. Extent of the tumor burden is unknown at this time. 3. Bilateral lower extremity DVT. Likely malignancy associated. 4. Chronic renal insufficiency. Continue current treatment. Consultation Date/Type/Reason Admit Date/Time Mar 21, 2017 at 23:46 Initial Consult Date 03/22/17 Type of Consultation: Pulmonary/critical care Referring Provider: ISIDRO CARRERA 24 HR Interval Summary Free Text/Dictation Patient's condition is stable. Off BiPAP. Remains awake and alert. Denies any chest pain, wheezing, sputum production. General exam; elderly male, awake alert currently in no distress. Exam/Review of Systems Vital Signs Vitals Vital Signs Date Time Temp Pulse Resp B/P Pulse Ox O2 Delivery O2 Flow Rate FiO2 03/23/17 08:36 109 20 Nasal Cannula 4.0 94 03/23/17 07:00 171/94 92 03/23/17 04:00 98.5 Intake and Output 03/22/17 03/22/17 03/23/17 14:59 22:59 06:59 Intake Total 170 ml 1881 ml 93.5 ml Output Total 630 ml 840 ml 625 ml Balance -460 ml 1041 ml -531.5 ml Exam HEENT exam; supple neck, no JVD. No lymphadenopathy. Midline trachea. No thyromegaly. Pharynx is clear. Pupils are small bilaterally. Chest exam; diminished but clear breath sounds. S1-S2 audible, no murmurs. Regular rhythm. Abdomen exam; soft, no organomegaly. Bowel sounds audible. Nontender. Extremity exam; no edema. [employer] exam; no focal deficit. Results Result Diagram: 03/23/17 0330 03/23/17 0330 Results 24 hrs Laboratory Tests Test 03/22/17 10:42 03/22/17 13:00 03/22/17 15:20 03/22/17 19:44 White Blood Count 16.8 H Red Blood Count 5.44 Hemoglobin 12.8 L Hematocrit 42.0 Mean Corpuscular Volume 77.2 L Mean Corpuscular Hemoglobin 23.5 L Mean Corpuscular Hemoglobin Concent 30.5 L Red Cell Distribution Width 17.1 H Platelet Count 541 H Mean Platelet Volume 9.4 Neutrophils % 95.7 H Lymphocytes % 1.9 L Monocytes % 1.4 Eosinophils % 0.0 Basophils % 0.2 Nucleated Red Blood Cells % 0.0 Neutrophils # 16.1 H Lymphocytes # 0.3 L Monocytes # 0.2 L Eosinophils # 0.0 Basophils # 0.0 Nucleated Red Blood Cells # 0.0 Prothrombin Time 15.5 H Prothrombin Time Ratio 1.2 INR International Normalized Ratio 1.22 Activated Partial Thromboplast Time 39.8 H 50.3 H Urine Color YELLOW Urine Clarity SLIGHTLY CLOUDY A Urine pH 5.0 Urine Specific [place] 1.013 Urine Ketones NEGATIVE Urine Nitrite NEGATIVE Urine Bilirubin NEGATIVE Urine Urobilinogen NEGATIVE Urine Leukocyte Esterase NEGATIVE Urine Microscopic RBC 43 H Urine Microscopic WBC 1 Urine Hemoglobin 2+ H Urine Random Creatinine 96.96 Urine Random Sodium 55 Urine Glucose NEGATIVE Urine Total Protein 49.0 H Creatine Kinase 199 Creatine Kinase Index 5.9 Creatinine Kinase MB (Mass) 11.70 H Troponin I 0.088 Test 03/22/17 23:50 03/23/17 03:30 Blood Gas Specimen Source Blood arterial Arterial Blood Date Drawn 03/22/2017 11:50:12 PM Arterial Blood pH (Temp corrected) 7.409 Arterial Blood pCO2 (Temp correct) 38.6 Arterial Blood pO2 (Temp corrected) 53.2 *L Arterial Blood HCO3 23.9 Arterial Blood Base Excess -0.6 Arterial Blood Oxygen Saturation 89.0 L Griffin Test ACCEPTAB Arterial Blood Gas Puncture Site Left Radial Arterial Blood Carboxyhemoglobin 0.1 Arterial Blood Methemoglobin 0.3 Blood Gas A-a O2 Differential 50.3 H Oxyhemoglobin Percent 88.6 L Total Hemoglobin 13.7 Blood Gas Temperature 37.0 Blood Gas Modality ROOM AIR FiO2 21.0 Blood Gas Critical Value Read Back EMIR BROOKS Blood Gas Notified Whom MA Blood Gas Notified Time 03/23/2017 12:05:09 AM White Blood Count 16.2 H Red Blood Count 5.13 Hemoglobin 11.9 L Hematocrit 38.0 L Mean Corpuscular Volume 74.1 L Mean Corpuscular Hemoglobin 23.2 L Mean Corpuscular Hemoglobin Concent 31.3 L Red Cell Distribution Width 17.2 H Platelet Count 533 H Mean Platelet Volume 9.9 Neutrophils % 93.5 H Lymphocytes % 3.0 L Monocytes % 2.0 Eosinophils % 0.0 Basophils % 0.1 Nucleated Red Blood Cells % 0.0 Neutrophils # 15.1 H Lymphocytes # 0.5 L Monocytes # 0.3 Eosinophils # 0.0 Basophils # 0.0 Nucleated Red Blood Cells # 0.0 Activated Partial Thromboplast Time 59.4 H Sodium Level 138 Potassium Level 3.5 Chloride Level 102 Carbon Dioxide Level 25 Anion Gap 15 Blood Urea Nitrogen 49 H Creatinine 1.63 H Glucose Level 133 Calcium Level 8.5 Phosphorus Level 4.2 Magnesium Level 1.7 B-Type Natriuretic Peptide 3110 H Medications Medications Current Medications Ondansetron HCl (Zofran Inj) 4 mg Q6H PRN IV NAUSEA AND/OR VOMITING; Start at 01:30 Acetaminophen (Tylenol Liquid) 650 mg Q6H PRN PO PAIN LEVEL 1-3 OR FEVER; Start 03/22/17 at 01:30 Acetaminophen (Tylenol Supp) 650 mg Q4H PRN [place] PAIN LEVEL 1-3 OR FEVER; Start 03/22/17 at 01:30 Morphine Sulfate (morphine) 4 mg Q4H PRN IV PAIN LEVEL 7-10 Last administered on 03/22/17 05:02; Admin Dose 4 MG; Start 03/22/17 at 04:30 Aspirin 81 mg 81 mg DAILY PO Last administered on 03/23/17 08:54; Admin Dose 81 MG; Start 03/22/17 at 09:00 Levofloxacin/ Dextrose (Levaquin 500mg/ D5W 100 ml (Pmx)) 100 ml @ 100 mls/hr Q24H IVPB Last administered on 03/22/17 08:06; Admin Dose 100 MLS/HR; Start at 07:00 Methylprednisolone Sodium Succinate (Solu-Medrol) 80 mg Q8 IV Last administered on 03/23/17 06:00; Admin Dose 80 MG; Start 03/22/17 at 14:00 Lorazepam (Ativan) 1 mg Q4 PRN IV restlessness/agitation Last administered on 23:04; Admin Dose 1 MG; Start 03/22/17 at 10:00 Atorvastatin Calcium (Lipitor) 80 mg HS PO Last administered on 03/22/17 20:33 ; Admin Dose 80 MG; Start 03/22/17 at 21:00 Lorazepam (Ativan) 1 mg ONCE IV Last administered on 03/23/17 07:30; Admin Dose 1 MG; Start 03/22/17 at 13:30; Stop 03/23/17 at 13:29 Febuxostat (Uloric) 40 mg DAILY PO Last administered on 03/23/17 08:54; Admin Dose 40 MG; Start 03/23/17 at 09:00 Multivitamins Therapeutic (Theragran) 1 tab DAILY PO Last administered on 08:54; Admin Dose 1 TAB; Start 03/23/17 at 09:00 Tamsulosin HCl (Flomax) 0.4 mg BID PO Last administered on 03/23/17 08:53; Admin Dose 0.4 MG; Start 03/22/17 at 21:00 Pantoprazole (Protonix Tab) 40 mg DAILY@06 PO Last administered on 03/23/17 06 :00; Admin Dose 40 MG; Start 03/23/17 at 06:00 Hydralazine HCl (Apresoline) 20 mg Q6H PRN IV SBP >180; Start 03/22/17 at 22:45 Carvedilol (Coreg) 25 mg BID PO ; Start 03/23/17 at 09:30; Status Future Hold LANE MCARTHUR Mar 23, 2017 09:53
[2017-03-23] MEDS: HEPARIN 25000 UNITS/250 ML 250 ML IV SCH (10:53)
[2017-03-23] MEDS: HEPARIN 1000 UNITS/ML 10 ML INJ IV PRN (12:02)
[2017-03-23] MEDS: hydrALAzine 20 MG INJ IV PRN ×3 (13:15→21:19)
--- NOTE | 2017-03-23 14:28 | CONS ---
Date/Time of Note Date/Time of Note DATE: 03/23/17 TIME: 14:21 Assessment/Plan Assessment/Plan Additional Assessment/Plan Respiratory failure SIRS/Sepsis Extensive DVT noted bilaterally with hx IVC filter COPD Possible history of malignancy Active tobacco use Mild elevated troponin -pt with sinus tachycardia, echo with normal LV fxn. V/Q scan suboptimal. Given hx and dvt's, would cont a/c if no contraindication. Pt with AMS, plan for CT head. Spoke with hospitalist. Consultation Date/Type/Reason Admit Date/Time Mar 21, 2017 at 23:46 Initial Consult Date 03/22/17 Type of Consultation: cv Referring Provider: ISIDRO CARRERA 24 HR Interval Summary Free Text/Dictation Pt with AMS today, different then yesterday as per family. Resp status improved and on nasal cannula. Exam/Review of Systems Vital Signs Vitals Vital Signs Date Time Temp Pulse Resp B/P Pulse Ox O2 Delivery O2 Flow Rate FiO2 03/23/17 13:53 152 31 95 03/23/17 10:00 117/76 93 Nasal Cannula 3.0 03/23/17 08:00 98.6 Intake and Output 03/22/17 03/22/17 03/23/17 15:00 23:00 07:00 Intake Total 180 ml 1882.5 ml 94.5 ml Output Total 690 ml 855 ml 550 ml Balance -510 ml 1027.5 ml -455.5 ml Exam awake, confused, mildly dyspneic, in restraints Head: normocephalic Respiratory: other (course bs with scattered rhochi, mild end exp wheezing) Cardiovascular: other (s1s2), regular rate and rhythm Gastrointestinal: bowel sounds, non-tender, soft Extremities: edema (trace) Results Result Diagram: 03/23/17 0330 03/23/17 0330 Results 24 hrs Laboratory Tests Test 03/22/17 15:20 03/22/17 19:44 03/22/17 23:50 03/23/17 03:30 Creatine Kinase 199 Creatine Kinase Index 5.9 Creatinine Kinase MB (Mass) 11.70 H Troponin I 0.088 Activated Partial Thromboplast Time 50.3 H 59.4 H Blood Gas Specimen Source Blood arterial Arterial Blood Date Drawn 03/22/2017 11:50:12 PM Arterial Blood pH (Temp corrected) 7.409 Arterial Blood pCO2 (Temp correct) 38.6 Arterial Blood pO2 (Temp corrected) 53.2 *L Arterial Blood HCO3 23.9 Arterial Blood Base Excess -0.6 Arterial Blood Oxygen Saturation 89.0 L Griffin Test ACCEPTAB Arterial Blood Gas Puncture Site Left Radial Arterial Blood Carboxyhemoglobin 0.1 Arterial Blood Methemoglobin 0.3 Blood Gas A-a O2 Differential 50.3 H Oxyhemoglobin Percent 88.6 L Total Hemoglobin 13.7 Blood Gas Temperature 37.0 Blood Gas Modality ROOM AIR FiO2 21.0 Blood Gas Critical Value Read Back EMIR BROOKS Blood Gas Notified Whom MA Blood Gas Notified Time 03/23/2017 12:05:09 AM White Blood Count 16.2 H Red Blood Count 5.13 Hemoglobin 11.9 L Hematocrit 38.0 L Mean Corpuscular Volume 74.1 L Mean Corpuscular Hemoglobin 23.2 L Mean Corpuscular Hemoglobin Concent 31.3 L Red Cell Distribution Width 17.2 H Platelet Count 533 H Mean Platelet Volume 9.9 Neutrophils % 93.5 H Lymphocytes % 3.0 L Monocytes % 2.0 Eosinophils % 0.0 Basophils % 0.1 Nucleated Red Blood Cells % 0.0 Neutrophils # 15.1 H Lymphocytes # 0.5 L Monocytes # 0.3 Eosinophils # 0.0 Basophils # 0.0 Nucleated Red Blood Cells # 0.0 Sodium Level 138 Potassium Level 3.5 Chloride Level 102 Carbon Dioxide Level 25 Anion Gap 15 Blood Urea Nitrogen 49 H Creatinine 1.63 H Glucose Level 133 Calcium Level 8.5 Phosphorus Level 4.2 Magnesium Level 1.7 B-Type Natriuretic Peptide 3110 H Test 03/23/17 10:57 Activated Partial Thromboplast Time 53.6 H Medications Medications Current Medications Ondansetron HCl (Zofran Inj) 4 mg Q6H PRN IV NAUSEA AND/OR VOMITING; Start at 01:30 Acetaminophen (Tylenol Liquid) 650 mg Q6H PRN PO PAIN LEVEL 1-3 OR FEVER; Start 03/22/17 at 01:30 Acetaminophen (Tylenol Supp) 650 mg Q4H PRN [place] PAIN LEVEL 1-3 OR FEVER; Start 03/22/17 at 01:30 Morphine Sulfate (morphine) 4 mg Q4H PRN IV PAIN LEVEL 7-10 Last administered on 03/22/17t 05:02; Admin Dose 4 MG; Start 03/22/17 at 04:30 Aspirin 81 mg 81 mg DAILY PO Last administered on 03/23/17 08:54; Admin Dose 81 MG; Start 03/22/17 at 09:00 Levofloxacin/ Dextrose (Levaquin 500mg/ D5W 100 ml (Pmx)) 100 ml @ 100 mls/hr Q24H IVPB Last administered on 03/22/17 08:06; Admin Dose 100 MLS/HR; Start at 07:00 Methylprednisolone Sodium Succinate (Solu-Medrol) 80 mg Q8 IV Last administered on 03/23/17 13:15; Admin Dose 80 MG; Start 03/22/17 at 14:00 Lorazepam (Ativan) 1 mg Q4 PRN IV restlessness/agitation Last administered on 23:04; Admin Dose 1 MG; Start 03/22/17 at 10:00 Atorvastatin Calcium (Lipitor) 80 mg HS PO Last administered on 03/22/17 20:33 ; Admin Dose 80 MG; Start 03/22/17 at 21:00 Febuxostat (Uloric) 40 mg DAILY PO Last administered on 03/23/17 08:54; Admin Dose 40 MG; Start 03/23/17 at 09:00 Multivitamins Therapeutic (Theragran) 1 tab DAILY PO Last administered on 08:54; Admin Dose 1 TAB; Start 03/23/17 at 09:00 Tamsulosin HCl (Flomax) 0.4 mg BID PO Last administered on 03/23/17 08:53; Admin Dose 0.4 MG; Start 03/22/17 at 21:00 Pantoprazole (Protonix Tab) 40 mg DAILY@06 PO Last administered on 03/23/17 06 :00; Admin Dose 40 MG; Start 03/23/17 at 06:00 Hydralazine HCl (Apresoline) 20 mg Q6H PRN IV SBP >180 Last administered on 13:15; Admin Dose 20 MG; Start 03/22/17 at 22:45 Carvedilol (Coreg) 25 mg BID PO ; Start 03/23/17 at 09:30; Status Future Hold Oli Cerna DO Mar 23, 2017 14:28
--- NOTE | 2017-03-23 14:35 | CONS ---
Date/Time of Note Date/Time of Note DATE: 03/23/17 TIME: 14:30 Assessment/Plan Assessment/Plan Additional Assessment/Plan 76 yo Male with 1) Resp Failure ?PE 2) COPD 3) HTN, Chronic 4) Hx of RCC S/ Partial Nephrectomy by Dr Ly Gant 5) Hyperechoic Mass Rt Kidney ?RCC 6) Left Renal Cysts 7) Leukcytosis SIRS? 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 Will cont to closely follow along with you Discussed case with Hospitalist and had long discussion with both Daughter who both have DPOA. Consultation Date/Type/Reason Admit Date/Time Mar 21, 2017 at 23:46 Initial Consult Date 03/22/17 Type of Consultation: Renal Referring Provider: ISIDRO CARRERA 24 HR Interval Summary Free Text/Dictation tachycardia, ams, quintero present good uo. Subjective hx not possible: pt critical status Constitutional: disoriented, requiring O2 Exam/Review of Systems Vital Signs Vitals Vital Signs Date Time Temp Pulse Resp B/P Pulse Ox O2 Delivery O2 Flow Rate FiO2 03/23/17 13:53 152 31 95 03/23/17 10:00 117/76 93 Nasal Cannula 3.0 03/23/17 08:00 98.6 Intake and Output 03/22/17 03/22/17 03/23/17 15:00 23:00 07:00 Intake Total 180 ml 1882.5 ml 94.5 ml Output Total 690 ml 855 ml 550 ml Balance -510 ml 1027.5 ml -455.5 ml Exam Constitutional: alert, No oriented Head: atraumatic, normocephalic Eyes: EOMI ENMT: mucosa pink and moist Neck: No jvd Respiratory: crackles/rales, No labored breathing Cardiovascular: regular rate and rhythm, No edema Gastrointestinal: non-tender, soft Neurological: confused Skin: nl turgor, No diaphoresis Results Result Diagram: 03/23/17 0330 03/23/17 0330 Results 24 hrs Laboratory Tests Test 03/22/17 15:20 03/22/17 19:44 03/22/17 23:50 03/23/17 03:30 Creatine Kinase 199 Creatine Kinase Index 5.9 Creatinine Kinase MB (Mass) 11.70 H Troponin I 0.088 Activated Partial Thromboplast Time 50.3 H 59.4 H Blood Gas Specimen Source Blood arterial Arterial Blood Date Drawn 03/22/2017 11:50:12 PM Arterial Blood pH (Temp corrected) 7.409 Arterial Blood pCO2 (Temp correct) 38.6 Arterial Blood pO2 (Temp corrected) 53.2 *L Arterial Blood HCO3 23.9 Arterial Blood Base Excess -0.6 Arterial Blood Oxygen Saturation 89.0 L Griffin Test ACCEPTAB Arterial Blood Gas Puncture Site Left Radial Arterial Blood Carboxyhemoglobin 0.1 Arterial Blood Methemoglobin 0.3 Blood Gas A-a O2 Differential 50.3 H Oxyhemoglobin Percent 88.6 L Total Hemoglobin 13.7 Blood Gas Temperature 37.0 Blood Gas Modality ROOM AIR FiO2 21.0 Blood Gas Critical Value Read Back EMIR BROOKS Blood Gas Notified Whom MA Blood Gas Notified Time 03/23/2017 12:05:09 AM White Blood Count 16.2 H Red Blood Count 5.13 Hemoglobin 11.9 L Hematocrit 38.0 L Mean Corpuscular Volume 74.1 L Mean Corpuscular Hemoglobin 23.2 L Mean Corpuscular Hemoglobin Concent 31.3 L Red Cell Distribution Width 17.2 H Platelet Count 533 H Mean Platelet Volume 9.9 Neutrophils % 93.5 H Lymphocytes % 3.0 L Monocytes % 2.0 Eosinophils % 0.0 Basophils % 0.1 Nucleated Red Blood Cells % 0.0 Neutrophils # 15.1 H Lymphocytes # 0.5 L Monocytes # 0.3 Eosinophils # 0.0 Basophils # 0.0 Nucleated Red Blood Cells # 0.0 Sodium Level 138 Potassium Level 3.5 Chloride Level 102 Carbon Dioxide Level 25 Anion Gap 15 Blood Urea Nitrogen 49 H Creatinine 1.63 H Glucose Level 133 Calcium Level 8.5 Phosphorus Level 4.2 Magnesium Level 1.7 B-Type Natriuretic Peptide 3110 H Test 03/23/17 10:57 Activated Partial Thromboplast Time 53.6 H Medications Medications Current Medications Ondansetron HCl (Zofran Inj) 4 mg Q6H PRN IV NAUSEA AND/OR VOMITING; Start at 01:30 Acetaminophen (Tylenol Liquid) 650 mg Q6H PRN PO PAIN LEVEL 1-3 OR FEVER; Start 03/22/17 at 01:30 Acetaminophen (Tylenol Supp) 650 mg Q4H PRN AR PAIN LEVEL 1-3 OR FEVER; Start 03/22/17 at 01:30 Morphine Sulfate (morphine) 4 mg Q4H PRN IV PAIN LEVEL 7-10 Last administered on 03/22/17 05:02; Admin Dose 4 MG; Start 03/22/17 at 04:30 Aspirin 81 mg 81 mg DAILY PO Last administered on 03/23/17 08:54; Admin Dose 81 MG; Start 03/22/17 at 09:00 Levofloxacin/ Dextrose (Levaquin 500mg/ D5W 100 ml (Pmx)) 100 ml @ 100 mls/hr Q24H IVPB Last administered on 03/22/17 08:06; Admin Dose 100 MLS/HR; Start at 07:00 Methylprednisolone Sodium Succinate (Solu-Medrol) 80 mg Q8 IV Last administered on 03/23/17 13:15; Admin Dose 80 MG; Start 03/22/17 at 14:00 Lorazepam (Ativan) 1 mg Q4 PRN IV restlessness/agitation Last administered on 23:04; Admin Dose 1 MG; Start 03/22/17 at 10:00 Atorvastatin Calcium (Lipitor) 80 mg HS PO Last administered on 03/22/17 20:33 ; Admin Dose 80 MG; Start 03/22/17 at 21:00 Febuxostat (Uloric) 40 mg DAILY PO Last administered on 03/23/17 08:54; Admin Dose 40 MG; Start 03/23/17 at 09:00 Multivitamins Therapeutic (Theragran) 1 tab DAILY PO Last administered on 08:54; Admin Dose 1 TAB; Start 03/23/17 at 09:00 Tamsulosin HCl (Flomax) 0.4 mg BID PO Last administered on 03/23/17 08:53; Admin Dose 0.4 MG; Start 03/22/17 at 21:00 Pantoprazole (Protonix Tab) 40 mg DAILY@06 PO Last administered on 03/23/17 06 :00; Admin Dose 40 MG; Start 03/23/17 at 06:00 Hydralazine HCl (Apresoline) 20 mg Q6H PRN IV SBP >180 Last administered on t 13:15; Admin Dose 20 MG; Start 03/22/17 at 22:45 Carvedilol (Coreg) 25 mg BID PO ; Start 03/23/17 at 09:30; Status Future Hold JACY ROSE MD Mar 23, 2017 14:35
[2017-03-23] MEDS: DEXTROSE 5%-0.45% NACL 1,000 ML IV SCH (15:20)
[2017-03-23] MEDS: METOPROLOL 5 MG INJ IV PRN (15:21)
[2017-03-23] MEDS: ATORVASTATIN 40 MG TAB PO SCH (20:12)
[2017-03-23] MEDS: OLANZAPINE 10 MG VIAL IM PRN (21:19)
--- NOTE | 2017-03-23 22:26 | CONS ---
Date/Time of Note Date/Time of Note DATE: 03/23/17 TIME: 21:59 Assessment/Plan Assessment/Plan Chief Complaint/Hosp Course 76 yo male admitted with CHF exacerbation with a recent diagnosis of limited stage gastric cancer #h/o Gastric Cancer -at this time, I would need to review the endoscopy report and PET CT from 1 mo to determine if patient has in fact resectable disease -given this diagnosis was made over 6 mo, we would likely need to re-evaluate the mass with EGD to see if has grown -we can then consult surgery and get pulmonary input to see if the the patient is a surgical candidate. -it patient is not a surgical candidate and has localized disease, we can consult XRT to see if he would be a candidate for local XRT -at this time, pt is too unstable for any intervention. -the workup mentioned can be done when patient has stabilized from a respiratory standpoint. -ok to consult GI for endoscopy when patient is more stable. 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, a calf vein as well as acute deep venous thrombosis of the left common femoral vein, upper left femoral vein, and mid left femoral vein -pt is s/p IVC filter in 2011 -pt is currently on a heparin gtt #CKD -continue to closely monitor Cr -once pt has stabilized would consider anticoagulation wit Eliquis 5 mg BID as this can be tolerated with impaired renal function A total of 1 hour was spent at patient's bedside and in speaking to his daughter of which > 50% was spent in counseling and coordination of care and a detailed question and answer session Problems: Consultation Date/Type/Reason Admit Date/Time Mar 21, 2017 at 23:46 Date of Consultation: Mar 23, 2017 Type of Consultation: Oncology Reason for Consultation gastric cancer Referring Provider: LUCAS DOUGLAS MD Hx of Present Illness History was obtained from patient's daughter. Mr Karen is a 76 yo male with a long smoking history who has repeatedly been admitted for CHF exacerbation. Pt his daughter pt was admitted 2 months ago to [facility] at which time and EGD was done which revealed gastric ca. Pt' s daughter was told patient was not a surgical candidate given his unstable respiratory status. Pt's daughter said the mass was resectable and that neoadjuvant treatment would not be necessary. Pt also had a PET CT done apparently which did not show evidence of distant mets. During the hospitalization pt also had a colonoscopy done which revealed evidence of polyps. Of note patient has a history of kidney cancer and is s/p partial nephrectomy by Dr. Nguyen in 2006. He has since been admitted to [facility] again with shortness of breath and COPD exacerbation. He is currently in the ICU, on a face mask. Constitutional: disoriented, requiring O2 Respiratory: shortness of breath Past Medical History h/o kidney cancer in 2006 s/p nephrectomy Medical History: hypertension, renal disease (RCC), other (DVT) Past Surgical History Past Surgical Hx: other (Partial nephrectomy) Family History Significant Family History: no pertinent family hx Social History Alcohol Use: heavy Smoking Status: Current every day smoker Drug Use: other (in the past opium, not anymore. ) Exam/Review of Systems Vital Signs Vitals Vital Signs Date Time Temp Pulse Resp B/P Pulse Ox O2 Delivery O2 Flow Rate FiO2 03/23/17 20:00 116 03/23/17 19:00 25 Nasal Cannula 5.0 97 03/23/17 18:00 179/110 91 03/23/17 16:00 98.7 Intake and Output 03/22/17 03/22/17 03/23/17 15:00 23:00 07:00 Intake Total 180 ml 1882.5 ml 94.5 ml Output Total 690 ml 855 ml 550 ml Balance -510 ml 1027.5 ml -455.5 ml Exam Constitutional: frail Psych: confusion Head: normocephalic Eyes: nl conjunctiva ENMT: nl external ears & nose Neck: supple Respiratory: diminished breath sounds Cardiovascular: other (tachycardic) Gastrointestinal: soft Results Result Diagram: 03/23/17 0330 03/23/17 0330 Results 24 hrs Laboratory Tests Test 03/22/17 23:50 03/23/17 03:30 03/23/17 10:57 03/23/17 16:18 Blood Gas Specimen Source Blood arterial Arterial Blood Date Drawn 03/22/2017 11:50:12 PM Arterial Blood pH (Temp corrected) 7.409 Arterial Blood pCO2 (Temp correct) 38.6 Arterial Blood pO2 (Temp corrected) 53.2 *L Arterial Blood HCO3 23.9 Arterial Blood Base Excess -0.6 Arterial Blood Oxygen Saturation 89.0 L Griffin Test ACCEPTAB Arterial Blood Gas Puncture Site Left Radial Arterial Blood Carboxyhemoglobin 0.1 Arterial Blood Methemoglobin 0.3 Blood Gas A-a O2 Differential 50.3 H Oxyhemoglobin Percent 88.6 L Total Hemoglobin 13.7 Blood Gas Temperature 37.0 Blood Gas Modality ROOM AIR FiO2 21.0 Blood Gas Critical Value Read Back EMIR BROOKS Blood Gas Notified Whom KEMAR Blood Gas Notified Time 03/23/2017 12:05:09 AM White Blood Count 16.2 H Red Blood Count 5.13 Hemoglobin 11.9 L Hematocrit 38.0 L Mean Corpuscular Volume 74.1 L Mean Corpuscular Hemoglobin 23.2 L Mean Corpuscular Hemoglobin Concent 31.3 L Red Cell Distribution Width 17.2 H Platelet Count 533 H Mean Platelet Volume 9.9 Neutrophils % 93.5 H Lymphocytes % 3.0 L Monocytes % 2.0 Eosinophils % 0.0 Basophils % 0.1 Nucleated Red Blood Cells % 0.0 Neutrophils # 15.1 H Lymphocytes # 0.5 L Monocytes # 0.3 Eosinophils # 0.0 Basophils # 0.0 Nucleated Red Blood Cells # 0.0 Activated Partial Thromboplast Time 59.4 H 53.6 H Sodium Level 138 Potassium Level 3.5 Chloride Level 102 Carbon Dioxide Level 25 Anion Gap 15 Blood Urea Nitrogen 49 H Creatinine 1.63 H Glucose Level 133 Calcium Level 8.5 Phosphorus Level 4.2 Magnesium Level 1.7 B-Type Natriuretic Peptide 3110 H Lactic Acid Level 1.4 Test 03/23/17 16:31 03/23/17 19:15 Activated Partial Thromboplast Time 66.4 H 85.5 *H Medications Medications Current Medications Ondansetron HCl (Zofran Inj) 4 mg Q6H PRN IV NAUSEA AND/OR VOMITING; Start at 01:30 Acetaminophen (Tylenol Liquid) 650 mg Q6H PRN PO PAIN LEVEL 1-3 OR FEVER; Start 03/22/17 at 01:30 Acetaminophen (Tylenol Supp) 650 mg Q4H PRN DE PAIN LEVEL 1-3 OR FEVER; Start 03/22/17 at 01:30 Morphine Sulfate (morphine) 4 mg Q4H PRN IV PAIN LEVEL 7-10 Last administered on 03/22/17 05:02; Admin Dose 4 MG; Start 03/22/17 at 04:30 Aspirin 81 mg 81 mg DAILY PO Last administered on 03/23/17 08:54; Admin Dose 81 MG; Start 03/22/17 at 09:00 Levofloxacin/ Dextrose (Levaquin 500mg/ D5W 100 ml (Pmx)) 100 ml @ 100 mls/hr Q24H IVPB Last administered on 03/22/17 08:06; Admin Dose 100 MLS/HR; Start at 07:00 Methylprednisolone Sodium Succinate (Solu-Medrol) 80 mg Q8 IV Last administered on 03/23/17 21:19; Admin Dose 80 MG; Start 03/22/17 at 14:00 Atorvastatin Calcium (Lipitor) 80 mg HS PO Last administered on 03/23/17 20:12 ; Admin Dose 80 MG; Start 03/22/17 at 21:00 Febuxostat (Uloric) 40 mg DAILY PO Last administered on 03/23/17 08:54; Admin Dose 40 MG; Start 03/23/17 at 09:00 Multivitamins Therapeutic (Theragran) 1 tab DAILY PO Last administered on 08:54; Admin Dose 1 TAB; Start 03/23/17 at 09:00 Tamsulosin HCl (Flomax) 0.4 mg BID PO Last administered on 03/23/17 20:12; Admin Dose 0.4 MG; Start 03/22/17 at 21:00 Pantoprazole (Protonix Tab) 40 mg DAILY@06 PO Last administered on 03/23/17 06 :00; Admin Dose 40 MG; Start 03/23/17 at 06:00 Hydralazine HCl (Apresoline) 20 mg Q6H PRN IV SBP >180 Last administered on 21:19; Admin Dose 20 MG; Start 03/22/17 at 22:45 Carvedilol 25 mg 25 mg BID PO ; Start 03/23/17 at 09:30; Status Future Hold Dextrose/Sodium Chloride (D5-1/2ns) 1,000 ml @ 70 mls/hr [id number] IV Last administered on 03/23/17 15:20; Admin Dose 70 MLS/HR; Start 03/23/17 at 16:00 Metoprolol Tartrate (Lopressor) 5 mg Q6 PRN IV HR >100 or SBP >170 Last administered on 03/23/17 15:21; Admin Dose 5 MG; Start 03/23/17 at 15:30 Olanzapine (Zyprexa) 10 mg Q8 PRN IM severe agitation Last administered on 03/23 21:19; Admin Dose 10 MG; Start 03/23/17 at 15:30 CARLOS MURPHY M.D. Mar 23, 2017 22:09
[2017-03-24] VITALS (29 sets, daily range): BP systolic 109–198; BP diastolic 63–159; PULSE 88–132; RESP 16–32
[2017-03-24] MEDS: METOPROLOL 5 MG INJ IV PRN ×2 (01:11→11:35)
[2017-03-24] MEDS: HEPARIN 1000 UNITS/ML 10 ML INJ IV PRN (03:35)
[2017-03-24] MEDS: HEPARIN 25000 UNITS/250 ML 250 ML IV SCH ×2 (03:36→22:27)
[2017-03-24] MEDS: hydrALAzine 20 MG INJ IV PRN (03:43)
[2017-03-24] MEDS: morphine 4 MG/ML VIAL IV PRN (04:09)
[2017-03-24] MEDS: PANTOPRAZOLE (EC) 40 MG TAB PO SCH (05:25)
[2017-03-24 05:28] LABS: ABNORMAL IP MESSAGE 1; BASOPHILS % 0.1 % (0.0-2.0); HEMOGLOBIN 13.4 g/dl (14.0-18.0); LYMPHOCYTES # 0.4 10^3/ul (0.8-2.9); LYMPHOCYTES % 2.2 % (15.0-51.0); MEAN CORPUSCULAR HEMOGLOBIN 23.6 pg (29.0-33.0); MEAN CORPUSCULAR HGB CONC 31.9 g/dl (32.0-37.0); MEAN CORPUSCULAR VOLUME 74.1 fl (82.0-101.0); MEAN PLATELET VOLUME 9.8 fl (7.4-10.4); MONOCYTE # 0.8 10^3/ul (0.3-0.9); MONOCYTES % 4.4 % (0.0-11.0); NEUTROPHIL # 15.8 10^3/ul (1.6-7.5); NEUTROPHILS % 92.3 % (39.0-77.0); PLATELET COUNT 662 10^3/UL (140-415); POSITIVE DIFF @See below; RED BLOOD COUNT 5.67 10^6/ul (4.70-6.10); RED CELL DISTRIBUTION WIDTH 17.6 % (11.5-14.5); WHITE BLOOD COUNT 17.1 10^3/ul (4.8-10.8)
[2017-03-24] MEDS: DEXTROSE 5%-0.45% NACL 1,000 ML IV SCH ×2 (05:34→10:56)
[2017-03-24] MEDS: METHYLPREDNISOLONE 125 MG INJ IV SCH (05:34)
[2017-03-24 06:12] LABS: CALCIUM 9.4 mg/dl (8.4-10.2); CREATININE 1.08 mg/dl (0.61-1.24); MAGNESIUM 1.8 mg/dl (1.7-2.5); PHOSPHORUS 2.7 mg/dl (2.5-4.9); POTASSIUM 3.3 mmol/L (3.5-5.1)
[2017-03-24] MEDS: LEVOFLOXACIN 500MG/D5W (PMX) 100 ML IVPB SCH (06:34)
[2017-03-24] MEDS: ASPIRIN (EC) 81 MG TAB PO SCH (08:30)
[2017-03-24] MEDS: MULTIVITAMINS THERAPEUTIC TAB PO SCH (08:30)
[2017-03-24] MEDS: TAMSULOSIN (SR) 0.4 MG CAP PO SCH ×2 (08:30→22:23)
[2017-03-24] MEDS: FEBUXOSTAT 40 MG TABLET PO SCH (08:30)
[2017-03-24] MEDS: ALBUTEROL/IPRATROPIUM (NEB) 3 ML AMP HHN SCH ×2 (09:01→13:48)
[2017-03-24] MEDS: OLANZAPINE 10 MG VIAL IM PRN ×2 (09:16→22:24)
[2017-03-24] MEDS ORDERED: LABETALOL HCL 20MG INJ IV PRN (09:30)
[2017-03-24] MEDS ORDERED: POTASSIUM CHLORIDE 250 ML IVPB ONE (10:00)
[2017-03-24] MEDS ORDERED: MAGNESIUM SULFATE 2 GM/50 ML 50 ML IVPB ONE (10:00)
[2017-03-24] MEDS ORDERED: LORAZEPAM 2 MG INJ IV ONE (10:00)
--- NOTE | 2017-03-24 10:17 | PN ---
Date/Time of Note Date/Time of Note DATE: 03/24/17 TIME: 10:09 Assessment/Plan VTE Prophylaxis VTE Prophylaxis Intervention: heparin Lines/Catheters IV [facility] Urinary Cath still in place: Yes Reason Cath still needed: terminal illness/intractable pain Assessment/Plan Chief Complaint/Hosp Course Patient is a 76-year-old male with a past medical history significant for COPD, hypertension, and renal carcinoma 2011 as well as recent diagnosis of gastric carcinoma approximately 6 months ago who presents to [facility] for shortness of breath. Found to have acute on chronic DVT. Assessment Acute respiratory failure, resolving COPD exacerbation Acute on chronic DVT Hypertension History of renal cell carcinoma, with renal mass Renal mass Renal cyst Gastric carcinoma, unknown type, records pending GI tumors, likely:, Records pending Acute delirium Acute on chronic CKD Plan -Patient is a noncompliant male who presents with shortness of breath, recent history of diagnosis of gastric cancer, however no outpatient follow-up. Patient also has chronic DVTs, presents with acute DVT and history of implanted IVC filter since 2011, however patient is not on anticoagulation. -Continue heparin drip, anticipate transition to oral anticoagulant upon DC -Patient waxes and wanes from confusion to oriented x 2. although most likely delirium, can not exclude other causes, CT scan pending. EEG ordered. Neurology consulted to read EEG. -CT head ordered to eval encephalopathy, CT angio ordered to r/o PE, Ct ab/ pelvis ordered to look for masses. -Is currently on 2 L nasal cannula, breathing is stable. -Steroids and breathing treatments, continue antibiotics for now, will de- escalate as patient stabilizes -Anticipate records from [facility] -Spoke with hematology oncology, stating most of patient's GI workup and cancer workup is appropriate for outpatient, however one all patient is in the hospital , will continue to monitor. - n.p.o. except meds, patient confused, speech therapy evaluation states ok to crush meds in applesauce. Restart home meds as able -Consultants are hematology oncology, nephrology, vascular surgery, GI, pulmonology, urology, neurology Problems: Subjective 24 Hr Interval Summary Free Text/Dictation patient recently given zyprexa, but earlier was alert and oriented x 2 Exam/Review of Systems Vital Signs Vitals Vital Signs Date Time Temp Pulse Resp B/P Pulse Ox O2 Delivery O2 Flow Rate FiO2 03/24/17 09:04 125 28 100 Nasal Cannula 3.0 03/24/17 06:00 155/83 03/24/17 04:00 98.6 03/23/17 19:00 97 Intake and Output 03/23/17 03/23/17 03/24/17 15:00 23:00 07:00 Intake Total 146.0 ml 642 ml 592.5 ml Output Total 430 ml 650 ml 725 ml Balance -284.0 ml -8 ml -132.5 ml Exam Physical exam General: Patient is laying in bed, sleeping, mumbles Mentation: Patient is alert but not oriented Head: Normocephalic atraumatic Eyes: EOMI, pupils reactive to light Neck: Supple, nontender, midline Respiratory: coarse breath sounds bilaterally, diminished effort. Cardiovascular: regular rate, no obvious murmurs Gastrointestinal: non-tender to palpation, bowel sounds heard. Neurological: Moves all extremities spontaneously, not oriented but easily alert Skin: No new skin lesions Results Result Diagram: 03/24/17 0456 03/24/17 0457 Results 24 hrs Laboratory Tests Test 03/23/17 10:57 03/23/17 16:18 03/23/17 16:31 03/23/17 19:15 Activated Partial Thromboplast Time 53.6 H 66.4 H 85.5 *H Lactic Acid Level 1.4 Test 03/24/17 01:34 03/24/17 04:56 03/24/17 04:57 Activated Partial Thromboplast Time 48.2 H White Blood Count 17.1 H Red Blood Count 5.67 Hemoglobin 13.4 L Hematocrit 42.0 Mean Corpuscular Volume 74.1 L Mean Corpuscular Hemoglobin 23.6 L Mean Corpuscular Hemoglobin Concent 31.9 L Red Cell Distribution Width 17.6 H Platelet Count 662 #H Mean Platelet Volume 9.8 Neutrophils % 92.3 H Lymphocytes % 2.2 L Monocytes % 4.4 Eosinophils % 0.0 Basophils % 0.1 Nucleated Red Blood Cells % 0.0 Neutrophils # 15.8 H Lymphocytes # 0.4 L Monocytes # 0.8 Eosinophils # 0.0 Basophils # 0.0 Nucleated Red Blood Cells # 0.0 Sodium Level 141 Potassium Level 3.3 L Chloride Level 105 Carbon Dioxide Level 26 Anion Gap 13 Blood Urea Nitrogen 42 H Creatinine 1.08 Glucose Level 197 Calcium Level 9.4 Phosphorus Level 2.7 Magnesium Level 1.8 Medications Medications Current Medications Ondansetron HCl (Zofran Inj) 4 mg Q6H PRN IV NAUSEA AND/OR VOMITING; Start at 01:30 Acetaminophen (Tylenol Liquid) 650 mg Q6H PRN PO PAIN LEVEL 1-3 OR FEVER; Start 03/22/17 at 01:30 Acetaminophen (Tylenol Supp) 650 mg Q4H PRN ME PAIN LEVEL 1-3 OR FEVER; Start 03/22/17 at 01:30 Aspirin 81 mg 81 mg DAILY PO Last administered on 03/24/17 08:30; Admin Dose 81 MG; Start 03/22/17 at 09:00 Levofloxacin/ Dextrose (Levaquin 500mg/ D5W 100 ml (Pmx)) 100 ml @ 100 mls/hr Q24H IVPB Last administered on 03/24/17 06:34; Admin Dose 100 MLS/HR; Start at 07:00 Methylprednisolone Sodium Succinate (Solu-Medrol) 80 mg Q8 IV Last administered on 03/24/17 05:34; Admin Dose 80 MG; Start 03/22/17 at 14:00 Atorvastatin Calcium (Lipitor) 80 mg HS PO Last administered on 03/23/17 20:12 ; Admin Dose 80 MG; Start 03/22/17 at 21:00 Febuxostat (Uloric) 40 mg DAILY PO Last administered on 03/24/17 08:30; Admin Dose 40 MG; Start 03/23/17 at 09:00 Multivitamins Therapeutic (Theragran) 1 tab DAILY PO Last administered on 08:30; Admin Dose 1 TAB; Start 03/23/17 at 09:00 Tamsulosin HCl (Flomax) 0.4 mg BID PO Last administered on 03/24/17 08:30; Admin Dose 0.4 MG; Start 03/22/17 at 21:00 Pantoprazole (Protonix Tab) 40 mg DAILY@06 PO Last administered on 03/23/17 06 :00; Admin Dose 40 MG; Start 03/23/17 at 06:00 Hydralazine HCl 20 mg 20 mg Q6H PRN IV SBP >180 Last administered on 03/24/17 03:43; Admin Dose 20 MG; Start 03/22/17 at 22:45 Dextrose/Sodium Chloride (D5-1/2ns) 1,000 ml @ 70 mls/hr [id number] IV Last administered on 03/24/17 05:34; Admin Dose 70 MLS/HR; Start 03/23/17 at 16:00 Metoprolol Tartrate (Lopressor) 5 mg Q6 PRN IV HR >100 or SBP >170 Last administered on 03/24/17 01:11; Admin Dose 5 MG; Start 03/23/17 at 15:30 Olanzapine (Zyprexa) 10 mg Q8 PRN IM severe agitation Last administered on 03/24 09:16; Admin Dose 10 MG; Start 03/23/17 at 15:30 Labetalol HCl (Labetalol) 10 mg Q4H PRN IV SBP>160; Start 03/24/17 at 09:30 Morphine Sulfate 2 mg 2 mg Q4H PRN IV PAIN LEVEL 7-10; Start 03/24/17 at 10:00 Potassium Chloride 250 ml @ 62.5 mls/hr ONCE ONCE IVPB ; Start 03/24/17 at 10: 00; Stop 03/24/17 at 13:59 Magnesium Sulfate (Magnesium Sulfate 2 Gm/50 ml) 50 ml @ 25 mls/hr ONCE ONCE IVPB ; Start 03/24/17 at 10:00; Stop 03/24/17 at 11:59 Carvedilol 12.5 mg 12.5 mg BID PO ; Start 03/24/17 at 21:00 Sodium Chloride (NS) 1,000 ml @ 70 mls/hr [id number] IV ; Start 03/24/17 at 10:30 ; Status ISIDRO COLON Mar 24, 2017 10:17
[2017-03-24] MEDS ORDERED: SOD CHLORIDE 0.9% 1,000 ML IV SCH (10:30)
[2017-03-24] MEDS ORDERED: BARIUM SULF 2% 450 ML BTL (BERRY SMOOTHIE) PO ONE (10:30)
--- NOTE | 2017-03-24 11:29 | CONS ---
Date/Time of Note Date/Time of Note DATE: 03/24/17 TIME: 11:25 Consult Date/Type/Reason Admit Date/Time Mar 21, 2017 at 23:46 Initial Consult Date 03/23/17 Type of Consultation: Pulm/CCM Ordering Provider: LUCAS DOUGLAS MD Subjective Agitated and confused Objective Vital Signs Date Time Temp Pulse Resp B/P Pulse Ox O2 Delivery O2 Flow Rate FiO2 03/24/17 09:04 125 28 100 Nasal Cannula 3.0 03/24/17 06:00 155/83 03/24/17 04:00 98.6 03/23/17 19:00 97 Intake and Output 03/23/17 03/23/17 03/24/17 15:00 23:00 07:00 Intake Total 146.0 ml 642 ml 708.0 ml Output Total 430 ml 650 ml 725 ml Balance -284.0 ml -8 ml -17.0 ml Exam HEENT: Neck supple; no JVD; no LAD CVS: RRR, S1 and S2 CHEST: Diminished BS B/L ABD: Soft, NT, + BS EXT: No c/c/ + edema Results/Medications Result Diagram: 03/24/17 0456 03/24/17 0457 Results 24 hrs Laboratory Tests Test 03/23/17 16:18 03/23/17 16:31 03/23/17 19:15 03/24/17 01:34 Lactic Acid Level 1.4 Activated Partial Thromboplast Time 66.4 H 85.5 *H 48.2 H Test 03/24/17 04:56 03/24/17 04:57 White Blood Count 17.1 H Red Blood Count 5.67 Hemoglobin 13.4 L Hematocrit 42.0 Mean Corpuscular Volume 74.1 L Mean Corpuscular Hemoglobin 23.6 L Mean Corpuscular Hemoglobin Concent 31.9 L Red Cell Distribution Width 17.6 H Platelet Count 662 #H Mean Platelet Volume 9.8 Neutrophils % 92.3 H Lymphocytes % 2.2 L Monocytes % 4.4 Eosinophils % 0.0 Basophils % 0.1 Nucleated Red Blood Cells % 0.0 Neutrophils # 15.8 H Lymphocytes # 0.4 L Monocytes # 0.8 Eosinophils # 0.0 Basophils # 0.0 Nucleated Red Blood Cells # 0.0 Sodium Level 141 Potassium Level 3.3 L Chloride Level 105 Carbon Dioxide Level 26 Anion Gap 13 Blood Urea Nitrogen 42 H Creatinine 1.08 Glucose Level 197 Calcium Level 9.4 Phosphorus Level 2.7 Magnesium Level 1.8 Medications Current Medications Ondansetron HCl (Zofran Inj) 4 mg Q6H PRN IV NAUSEA AND/OR VOMITING; Start at 01:30 Acetaminophen (Tylenol Liquid) 650 mg Q6H PRN PO PAIN LEVEL 1-3 OR FEVER; Start 03/22/17 at 01:30 Acetaminophen (Tylenol Supp) 650 mg Q4H PRN OR PAIN LEVEL 1-3 OR FEVER; Start 03/22/17 at 01:30 Aspirin 81 mg 81 mg DAILY PO Last administered on 03/24/17 08:30; Admin Dose 81 MG; Start 03/22/17 at 09:00 Levofloxacin/ Dextrose (Levaquin 500mg/ D5W 100 ml (Pmx)) 100 ml @ 100 mls/hr Q24H IVPB Last administered on 03/24/17 06:34; Admin Dose 100 MLS/HR; Start at 07:00 Methylprednisolone Sodium Succinate (Solu-Medrol) 80 mg Q8 IV Last administered on 03/24/17 05:34; Admin Dose 80 MG; Start 03/22/17 at 14:00 Atorvastatin Calcium (Lipitor) 80 mg HS PO Last administered on 03/23/17 20:12 ; Admin Dose 80 MG; Start 03/22/17 at 21:00 Febuxostat (Uloric) 40 mg DAILY PO Last administered on 03/24/17 08:30; Admin Dose 40 MG; Start 03/23/17 at 09:00 Multivitamins Therapeutic (Theragran) 1 tab DAILY PO Last administered on 08:30; Admin Dose 1 TAB; Start 03/23/17 at 09:00 Tamsulosin HCl (Flomax) 0.4 mg BID PO Last administered on 03/24/17 08:30; Admin Dose 0.4 MG; Start 03/22/17 at 21:00 Pantoprazole (Protonix Tab) 40 mg DAILY@06 PO Last administered on 03/23/17 06 :00; Admin Dose 40 MG; Start 03/23/17 at 06:00 Hydralazine HCl (Apresoline) 20 mg Q6H PRN IV SBP >180 Last administered on 03:43; Admin Dose 20 MG; Start 03/22/17 at 22:45 Metoprolol Tartrate (Lopressor) 5 mg Q6 PRN IV HR >100 or SBP >170 Last administered on 03/24/17 01:11; Admin Dose 5 MG; Start 03/23/17 at 15:30 Olanzapine (Zyprexa) 10 mg Q8 PRN IM severe agitation Last administered on 03/24 09:16; Admin Dose 10 MG; Start 03/23/17 at 15:30 Labetalol HCl (Labetalol) 10 mg Q4H PRN IV SBP>160; Start 03/24/17 at 09:30 Morphine Sulfate 2 mg 2 mg Q4H PRN IV PAIN LEVEL 7-10; Start 03/24/17 at 10:00 Potassium Chloride 250 ml @ 62.5 mls/hr ONCE ONCE IVPB Last administered on 10:55; Admin Dose 62.5 MLS/HR; Start 03/24/17 at 10:00; Stop 03/24/17 at 13:59 Magnesium Sulfate (Magnesium Sulfate 2 Gm/50 ml) 50 ml @ 25 mls/hr ONCE ONCE IVPB Last administered on 03/24/17 10:55; Admin Dose 25 MLS/HR; Start at 10:00; Stop 03/24/17 at 11:59 Carvedilol 12.5 mg 12.5 mg BID PO ; Start 03/24/17 at 21:00 Dextrose/Sodium Chloride (D5-1/2ns) 1,000 ml @ 60 mls/hr [id number] IV Last administered on 03/24/17 10:56; Admin Dose 60 MLS/HR; Start 03/24/17 at 10:30 Assessment/Plan Additional Assessment/Plan IMP: 1. Hypercapnic Resp Insufficiency 2. COPD Exacerbation 3. Underlying Gastric Cancer 4. Leukocytosis--2/2 CS 5. AMS RECS: 1. Taper CS 2. Minimize FiO2 to keep Sp02 88-92% 3. Gentle diuresis 4. Am labs/CXR 35 min cc time AURELIO MCINTYRE MD Mar 24, 2017 11:29
--- NOTE | 2017-03-24 11:40 | PN ---
Date/Time of Note Date/Time of Note DATE: 03/24/17 TIME: 11:39 Assessment/Plan VTE Prophylaxis VTE Prophylaxis Intervention: SCD's Lines/Catheters IV Catheter Type (from Nrs): Peripheral IV Urinary Cath still in place: Yes Reason Cath still needed: urinary retention Assessment/Plan Assessment/Plan Respiratory failure SIRS/Sepsis Extensive DVT noted bilaterally with hx IVC filter COPD Possible history of malignancy Active tobacco use Mild elevated troponin -pt with sinus tachycardia, echo with normal LV fxn. V/Q scan suboptimal. Given hx and dvt's, would cont a/c if no contraindication. Subjective 24 Hr Interval Summary Free Text/Dictation the paient with no cahge Exam/Review of Systems Vital Signs Vitals Vital Signs Date Time Temp Pulse Resp B/P Pulse Ox O2 Delivery O2 Flow Rate FiO2 03/24/17 09:04 125 28 100 Nasal Cannula 3.0 03/24/17 06:00 155/83 03/24/17 04:00 98.6 03/23/17 19:00 97 Intake and Output 03/23/17 03/23/17 03/24/17 15:00 23:00 07:00 Intake Total 146.0 ml 642 ml 708.0 ml Output Total 430 ml 650 ml 725 ml Balance -284.0 ml -8 ml -17.0 ml Results Result Diagram: 03/24/17 0456 03/24/17 0457 Results 24 hrs Laboratory Tests Test 03/23/17 16:18 03/23/17 16:31 03/23/17 19:15 03/24/17 01:34 Lactic Acid Level 1.4 Activated Partial Thromboplast Time 66.4 H 85.5 *H 48.2 H Test 03/24/17 04:56 03/24/17 04:57 White Blood Count 17.1 H Red Blood Count 5.67 Hemoglobin 13.4 L Hematocrit 42.0 Mean Corpuscular Volume 74.1 L Mean Corpuscular Hemoglobin 23.6 L Mean Corpuscular Hemoglobin Concent 31.9 L Red Cell Distribution Width 17.6 H Platelet Count 662 #H Mean Platelet Volume 9.8 Neutrophils % 92.3 H Lymphocytes % 2.2 L Monocytes % 4.4 Eosinophils % 0.0 Basophils % 0.1 Nucleated Red Blood Cells % 0.0 Neutrophils # 15.8 H Lymphocytes # 0.4 L Monocytes # 0.8 Eosinophils # 0.0 Basophils # 0.0 Nucleated Red Blood Cells # 0.0 Sodium Level 141 Potassium Level 3.3 L Chloride Level 105 Carbon Dioxide Level 26 Anion Gap 13 Blood Urea Nitrogen 42 H Creatinine 1.08 Glucose Level 197 Calcium Level 9.4 Phosphorus Level 2.7 Magnesium Level 1.8 Medications Medications Current Medications Ondansetron HCl (Zofran Inj) 4 mg Q6H PRN IV NAUSEA AND/OR VOMITING; Start at 01:30 Acetaminophen (Tylenol Liquid) 650 mg Q6H PRN PO PAIN LEVEL 1-3 OR FEVER; Start 03/22/17 at 01:30 Acetaminophen (Tylenol Supp) 650 mg Q4H PRN [place] PAIN LEVEL 1-3 OR FEVER; Start 03/22/17 at 01:30 Aspirin 81 mg 81 mg DAILY PO Last administered on 03/24/17 08:30; Admin Dose 81 MG; Start 03/22/17 at 09:00 Levofloxacin/ Dextrose (Levaquin 500mg/ D5W 100 ml (Pmx)) 100 ml @ 100 mls/hr Q24H IVPB Last administered on 03/24/17 06:34; Admin Dose 100 MLS/HR; Start at 07:00 Atorvastatin Calcium (Lipitor) 80 mg HS PO Last administered on 03/23/17 20:12 ; Admin Dose 80 MG; Start 03/22/17 at 21:00 Febuxostat (Uloric) 40 mg DAILY PO Last administered on 03/24/17 08:30; Admin Dose 40 MG; Start 03/23/17 at 09:00 Multivitamins Therapeutic (Theragran) 1 tab DAILY PO Last administered on 08:30; Admin Dose 1 TAB; Start 03/23/17 at 09:00 Tamsulosin HCl (Flomax) 0.4 mg BID PO Last administered on 03/24/17 08:30; Admin Dose 0.4 MG; Start 03/22/17 at 21:00 Pantoprazole (Protonix Tab) 40 mg DAILY@06 PO Last administered on 03/23/17 06 :00; Admin Dose 40 MG; Start 03/23/17 at 06:00 Hydralazine HCl (Apresoline) 20 mg Q6H PRN IV SBP >180 Last administered on 03:43; Admin Dose 20 MG; Start 03/22/17 at 22:45 Metoprolol Tartrate (Lopressor) 5 mg Q6 PRN IV HR >100 or SBP >170 Last administered on 03/24/17 11:35; Admin Dose 5 MG; Start 03/23/17 at 15:30 Olanzapine (Zyprexa) 10 mg Q8 PRN IM severe agitation Last administered on 03/24 09:16; Admin Dose 10 MG; Start 03/23/17 at 15:30 Labetalol HCl (Labetalol) 10 mg Q4H PRN IV SBP>160; Start 03/24/17 at 09:30 Morphine Sulfate 2 mg 2 mg Q4H PRN IV PAIN LEVEL 7-10; Start 03/24/17 at 10:00 Potassium Chloride 250 ml @ 62.5 mls/hr ONCE ONCE IVPB Last administered on 10:55; Admin Dose 62.5 MLS/HR; Start 03/24/17 at 10:00; Stop 03/24/17 at 13:59 Magnesium Sulfate (Magnesium Sulfate 2 Gm/50 ml) 50 ml @ 25 mls/hr ONCE ONCE IVPB Last administered on 03/24/17 10:55; Admin Dose 25 MLS/HR; Start at 10:00; Stop 03/24/17 at 11:59 Carvedilol 12.5 mg 12.5 mg BID PO ; Start 03/24/17 at 21:00 Dextrose/Sodium Chloride (D5-1/2ns) 1,000 ml @ 60 mls/hr [id number] IV Last administered on 03/24/17 10:56; Admin Dose 60 MLS/HR; Start 03/24/17 at 10:30 Methylprednisolone Sodium Succinate (Solu-Medrol) 40 mg Q8 IV ; Start 03/24/17 at 14:00 GIOVANA PAGAN MD Mar 24, 2017 11:40
[2017-03-24 11:41] LABS: AADO2 Arterial 135.7 mmHg (7.0-24.0); Allen Test ACCEPTAB; Arterial Base Excess 4.2 mmol/L (-3.0-3); Arterial COHb 0.3 % (0.0-3.0); Arterial Fraction of Oxyhgb 90.5 % (93.0-99.0); Arterial MetHb 0.2 % (0.0-1.5); Arterial Total Hemglobin 14.2 g/dl (12.0-18.0); MODE ROOM AIR
[2017-03-24] MEDS ORDERED: QUETIAPINE 25 MG TAB PO ONE (13:00)
--- NOTE | 2017-03-24 13:36 | PN ---
Date/Time of Note Date/Time of Note DATE: 03/24/17 TIME: 13:34 Assessment/Plan VTE Prophylaxis VTE Prophylaxis Intervention: other Lines/Catheters IV Catheter Type (from Nrs): Peripheral IV Urinary Cath still in place: Yes Reason Cath still needed: urinary retention Assessment/Plan Assessment/Plan 1) Resp Failure ?PE 2) COPD 3) HTN, Chronic 4) Hx of RCC S/ Partial Nephrectomy by Dr Ly Gant 5) Hyperechoic Mass Rt Kidney ?RCC 6) Left Renal Cysts 7) Leukcytosis SIRS? 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 10) GI Malignancy Work up in progress 11) DVT/?PE [id number] resolved renal failure creat improved/non oliguric Exam/Review of Systems Vital Signs Vitals Vital Signs Date Time Temp Pulse Resp B/P Pulse Ox O2 Delivery O2 Flow Rate FiO2 03/24/17 12:00 98.6 108 26 198/159 98 Nasal Cannula 03/24/17 09:04 3.0 03/23/17 19:00 97 Intake and Output 03/23/17 03/23/17 03/24/17 15:00 23:00 07:00 Intake Total 146.0 ml 642 ml 708.0 ml Output Total 430 ml 650 ml 725 ml Balance -284.0 ml -8 ml -17.0 ml Exam Constitutional: well developed Head: normocephalic Eyes: nl sclera ENMT: nl external ears & nose Neck: supple Respiratory: clear to auscultation, normal air movement Cardiovascular: nl pulses, regular rate and rhythm Gastrointestinal: non-tender, soft Extremities: normal pulses Results Result Diagram: 03/24/17 0456 03/24/17 0457 Results 24 hrs Laboratory Tests Test 03/23/17 16:18 03/23/17 16:31 03/23/17 19:15 03/24/17 01:34 Lactic Acid Level 1.4 Activated Partial Thromboplast Time 66.4 H 85.5 *H 48.2 H Test 03/24/17 04:52 03/24/17 04:56 03/24/17 04:57 03/24/17 10:25 Thyroid Stimulating Hormone (TSH) 0.058 L Free Thyroxine 2.47 H Thyroxine (T4) 10.5 White Blood Count 17.1 H Red Blood Count 5.67 Hemoglobin 13.4 L Hematocrit 42.0 Mean Corpuscular Volume 74.1 L Mean Corpuscular Hemoglobin 23.6 L Mean Corpuscular Hemoglobin Concent 31.9 L Red Cell Distribution Width 17.6 H Platelet Count 662 #H Mean Platelet Volume 9.8 Neutrophils % 92.3 H Lymphocytes % 2.2 L Monocytes % 4.4 Eosinophils % 0.0 Basophils % 0.1 Nucleated Red Blood Cells % 0.0 Neutrophils # 15.8 H Lymphocytes # 0.4 L Monocytes # 0.8 Eosinophils # 0.0 Basophils # 0.0 Nucleated Red Blood Cells # 0.0 Sodium Level 141 Potassium Level 3.3 L Chloride Level 105 Carbon Dioxide Level 26 Anion Gap 13 Blood Urea Nitrogen 42 H Creatinine 1.08 Glucose Level 197 Calcium Level 9.4 Phosphorus Level 2.7 Magnesium Level 1.8 Activated Partial Thromboplast Time 90.4 *H Test 03/24/17 11:18 Blood Gas Specimen Source Blood arterial Arterial Blood Date Drawn 03/24/2017 11:33:39 AM Arterial Blood pH (Temp corrected) 7.543 H Arterial Blood pCO2 (Temp correct) 30.9 L Arterial Blood pO2 (Temp corrected) 56.3 L Arterial Blood HCO3 26.0 Arterial Blood Base Excess 4.2 H Arterial Blood Oxygen Saturation 91.0 L Griffin Test ACCEPTAB Arterial Blood Gas Puncture Site Right Radial Arterial Blood Carboxyhemoglobin 0.3 Arterial Blood Methemoglobin 0.2 Blood Gas A-a O2 Differential 135.7 H Oxyhemoglobin Percent 90.5 L Total Hemoglobin 14.2 Blood Gas Temperature 37.0 Blood Gas Modality ROOM AIR FiO2 32.0 Blood Gas Notified Whom TM Blood Gas Notified Time 03/24/2017 11:41:19 AM Medications Medications Current Medications Ondansetron HCl (Zofran Inj) 4 mg Q6H PRN IV NAUSEA AND/OR VOMITING; Start at 01:30 Acetaminophen (Tylenol Liquid) 650 mg Q6H PRN PO PAIN LEVEL 1-3 OR FEVER; Start 03/22/17 at 01:30 Acetaminophen (Tylenol Supp) 650 mg Q4H PRN ME PAIN LEVEL 1-3 OR FEVER; Start 03/22/17 at 01:30 Aspirin 81 mg 81 mg DAILY PO Last administered on 03/24/17t 08:30; Admin Dose 81 MG; Start 03/22/17 at 09:00 Levofloxacin/ Dextrose (Levaquin 500mg/ D5W 100 ml (Pmx)) 100 ml @ 100 mls/hr Q24H IVPB Last administered on 03/24/17 06:34; Admin Dose 100 MLS/HR; Start at 07:00 Atorvastatin Calcium (Lipitor) 80 mg HS PO Last administered on 03/23/17 20:12 ; Admin Dose 80 MG; Start 03/22/17 at 21:00 Febuxostat (Uloric) 40 mg DAILY PO Last administered on 03/24/17 08:30; Admin Dose 40 MG; Start 03/23/17 at 09:00 Multivitamins Therapeutic (Theragran) 1 tab DAILY PO Last administered on 08:30; Admin Dose 1 TAB; Start 03/23/17 at 09:00 Tamsulosin HCl (Flomax) 0.4 mg BID PO Last administered on 03/24/17 08:30; Admin Dose 0.4 MG; Start 03/22/17 at 21:00 Pantoprazole (Protonix Tab) 40 mg DAILY@06 PO Last administered on 03/23/17 06 :00; Admin Dose 40 MG; Start 03/23/17 at 06:00 Hydralazine HCl (Apresoline) 20 mg Q6H PRN IV SBP >180 Last administered on 03:43; Admin Dose 20 MG; Start 03/22/17 at 22:45 Metoprolol Tartrate (Lopressor) 5 mg Q6 PRN IV HR >100 or SBP >170 Last administered on 03/24/17 11:35; Admin Dose 5 MG; Start 03/23/17 at 15:30 Olanzapine (Zyprexa) 10 mg Q8 PRN IM severe agitation Last administered on 03/24 09:16; Admin Dose 10 MG; Start 03/23/17 at 15:30 Labetalol HCl (Labetalol) 10 mg Q4H PRN IV SBP>160; Start 03/24/17 at 09:30 Morphine Sulfate 2 mg 2 mg Q4H PRN IV PAIN LEVEL 7-10; Start 03/24/17 at 10:00 Potassium Chloride (KCl 40 MEQ/250 ML NS) 250 ml @ 62.5 mls/hr ONCE ONCE IVPB Last administered on 03/24/17 10:55; Admin Dose 62.5 MLS/HR; Start 03/24/17 at 10:00; Stop 03/24/17 at 13:59 Carvedilol 12.5 mg 12.5 mg BID PO ; Start 03/24/17 at 21:00 Dextrose/Sodium Chloride (D5-1/2ns) 1,000 ml @ 60 mls/hr [id number] IV Last administered on 03/24/17 10:56; Admin Dose 60 MLS/HR; Start 03/24/17 at 10:30 Methylprednisolone Sodium Succinate (Solu-Medrol) 40 mg Q8 IV ; Start 03/24/17 at 14:00 ROSSY YUN MD Mar 24, 2017 13:36
[2017-03-24] MEDS: METHYLPREDNISOLONE 40 MG INJ IV SCH ×2 (14:10→22:24)
[2017-03-24] MEDS ORDERED: IOHEXOL 100 ML ONE (15:04)
[2017-03-24] MEDS ORDERED: SOD CHLORIDE 0.9% 100 ML ONE (15:04)
--- NOTE | 2017-03-24 16:09 | RADRPT ---
PROCEDURE: CT Brain without contrast. CLINICAL INDICATION: Altered mental status. Dysarthria. TECHNIQUE: A CT of the brain without contrast was performed utilizing axial sections from the skul l base through the vertex. The patient was scanned without intravenous contrast enhancement. Sagitta l and coronal reformatted images were obtained using the data from the axial images. Total exam DLP is 720.23 mGy-cm. CTDIvol is 44.19 mGy. One or more of the following dose reduction techniques we re used: Automated exposure control, adjustment of the mA and/or kV according to patient size, use o f iterative reconstruction technique. COMPARISON: None available FINDINGS: There is normal huynh-white matter differentiation. There is an old lacunar infarct in the left temp oral lobe inferiorly medially measuring 0.9 x 0.7 cm and an old lacunar infarct in the right basal g anglia posteriorly measuring 0.6 x 0.4 cm. There is no evidence of recent infarct. There is enlargement of the ventricles and subarachnoid spaces consistent with atrophy. There is decreased attenuation of the periventricular white matter consistent with microangiopathic ischemic change. There is no intracranial hemorrhage or space-occupying lesion. There are vascular calcifications consistent with atherosclerosis. There is no skull fracture or lytic lesion. There is a polyp or cyst in the right maxillary sinus po steriorly measuring 2.4 x 1.7 cm and a polyp anteriorly in the left maxillary sinus measuring 0.8 x 0.5 cm. The visualized portions of the paranasal sinuses are otherwise normal. IMPRESSION: 1. Atrophy. 2. Microangiopathic ischemic change. 3. Atherosclerosis. 4. 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 5. No recent infarct. 6. Bilateral maxillary sinus polyps or cysts. 7. Otherwise unremarkable noncontrast CT scan of the brain. RPTAT: QQ .Alejo Fall MD, MD Date Time Electronically viewed and signed by .Alejo Fall MD, on 03/24/2017 16:09 .R/
--- NOTE | 2017-03-24 16:20 | RADRPT ---
PROCEDURE: CTA Chest. CLINICAL INDICATION: Chest pain TECHNIQUE: The study was performed utilizing a multidetector CT scanner. Direct spiral 1 mm axial sections were obtained from the thoracic inlet to the upper abdomen with the use of 100 cc of Visipa que 320 nonionic intravenous contrast material and reformatted at 3 mm. Coronal and sagittal reforma tions were obtained. 3-D reconstructions were also obtained. The images were reviewed on a PACS wor kstation. One or more of the following dose reduction techniques were used: - Automated exposure control. - Adjustment of the mA and/or kV according to patient size. Use of iterative reconstruction technique. DLP 369.8 mGycm CTDIvol 7.0, 28.2, and 9.5 mGy COMPARISON: No prior studies are available for comparison. FINDINGS: The pulmonary arteries are within normal limits with no filling defects present to suggest pulmonary embolus. Aortic and coronary artery atherosclerotic plaque and calcification are present with no e vidence of dissection. The ascending aorta is enlarged measuring 4.2 cm in the greatest AP dimensio n. Extensive atherosclerotic plaque is seen throughout the thoracic aorta with tortuosity. There is no cardiomegaly. Diffuse moderate to prominent emphysema is seen within the lungs with areas of subpleural scarring a long with scattered punctate foci of spiculation and scattered punctate subpleural nodules. The larg est nodule measures 8 mm along the major fissure of the right lung on series 4, image 50. There is a slightly spiculated margin. There is trace peribronchial nodular opacities seen within the left low er lobe and at the right lung base. A trace amount of pleural fluid is seen with mild bibasilar atel ectasis. Bilateral airways wall thickening is present. Left lower lobe bronchial plugging is visuali zed. There are no enlarged mediastinal or axillary lymph nodes. Upper abdominal structures are within normal limits. Degenerative changes are seen in the lumbar sp ine with a left lateral sixth rib fracture which appears acute. IMPRESSION: No CT evidence for pulmonary embolus. There is no aortic dissection. There is ascending aortic mild aneurysmal enlargement with advanced atherosclerotic disease. Mild bilateral peribronchial micronodular opacities are seen in the lower lungs which could represen t bronchiolitis and there is airways wall thickening with left lower lobe areas of mucus plugging. T his is suggestive for airways inflammation or atypical infection. Emphysema. Bilateral sub centimeter nodules are seen with the largest along the major fissure of the right lung and this can be reassessed with followup CT after 3 months. There is a left-sided lateral sixth rib fracture which appears acute and nondisplaced. RPTAT: AA .Braulio Conrad MD, Date Time Electronically viewed and signed by .Braulio Conrad MD, on 03/24/2017 16:20 .J/
[2017-03-24] MEDS: LEVALBUTEROL (NEB) 1.25 MG/0.5 ML AMP HHN SCH (19:45)
[2017-03-24] MEDS: ACETYLCYSTEINE 20% 4 ML VIAL NEB SCH (19:45)
[2017-03-24] MEDS: ATORVASTATIN 40 MG TAB PO SCH (22:24)
[2017-03-24 22:49] LABS: BARBITURATES Negative (NEGATIVE); BENZODIAZEPINES Negative (NEGATIVE); CANNABINOIDS Negative (NEGATIVE); COCAINE Negative (NEGATIVE); OPIATES Positive (NEGATIVE)
[2017-03-25] VITALS (29 sets, daily range): BP systolic 81–192; BP diastolic 40–132; PULSE 75–120; RESP 18–35
[2017-03-25] MEDS: hydrALAzine 20 MG INJ IV PRN (00:42)
[2017-03-25] MEDS: ACETYLCYSTEINE 20% 4 ML VIAL NEB SCH ×4 (01:28→19:43)
[2017-03-25] MEDS: LEVALBUTEROL (NEB) 1.25 MG/0.5 ML AMP HHN SCH ×4 (01:28→19:48)
[2017-03-25] MEDS: morphine 2 MG INJ IV PRN ×5 (02:23→20:40)
[2017-03-25 04:39] LABS: AADO2 Arterial 97.9 mmHg (7.0-24.0); Allen Test ACCEPTAB; Arterial Base Excess 4.8 mmol/L (-3.0-3); Arterial COHb 0.2 % (0.0-3.0); Arterial Fraction of Oxyhgb 89.3 % (93.0-99.0); Arterial HCO3 27.4 mmol/L (22.0-26.0); Arterial MetHb 0.2 % (0.0-1.5); Arterial Total Hemglobin 14.7 g/dl (12.0-18.0); MODE NASAL CANNULA
[2017-03-25] MEDS: METHYLPREDNISOLONE 40 MG INJ IV SCH ×2 (05:25→20:36)
[2017-03-25] MEDS: DEXTROSE 5%-0.45% NACL 1,000 ML IV SCH ×2 (05:25→21:53)
[2017-03-25] MEDS: METOPROLOL 5 MG INJ IV PRN ×2 (05:26→16:45)
[2017-03-25] MEDS: PANTOPRAZOLE (EC) 40 MG TAB PO SCH (05:27)
[2017-03-25] MEDS ORDERED: HALOPERIDOL 5 MG INJ IM ONE (06:00)
[2017-03-25 06:09] LABS: ABNORMAL IP MESSAGE 1; BASOPHILS % 0.1 % (0.0-2.0); HEMATOCRIT 42.9 % (42.0-52.0); HEMOGLOBIN 13.3 g/dl (14.0-18.0); LYMPHOCYTES # 0.4 10^3/ul (0.8-2.9); LYMPHOCYTES % 2.6 % (15.0-51.0); MEAN CORPUSCULAR HEMOGLOBIN 22.9 pg (29.0-33.0); MEAN CORPUSCULAR VOLUME 73.8 fl (82.0-101.0); MEAN PLATELET VOLUME 10.4 fl (7.4-10.4); MONOCYTE # 0.5 10^3/ul (0.3-0.9); MONOCYTES % 3.6 % (0.0-11.0); NEUTROPHILS % 92.7 % (39.0-77.0); PLATELET COUNT 597 10^3/UL (140-415); POSITIVE DIFF @See below; RED BLOOD COUNT 5.81 10^6/ul (4.70-6.10); RED CELL DISTRIBUTION WIDTH 18.8 % (11.5-14.5)
[2017-03-25] MEDS: LEVOFLOXACIN 500MG/D5W (PMX) 100 ML IVPB SCH (06:28)
--- NOTE | 2017-03-25 06:34 | CONS ---
DATE OF ADMISSION: 03/21/2017 DATE OF CONSULTATION: 03/25/2017 HISTORY OF PRESENT ILLNESS: The patient is a 76 year old admitted to [facility]. The patient has a past medical history of hypertension, gastric carcinoma, COPD, acute respiratory insufficiency, renal mass, acute confusion status, lack of communication. I got a call about him for more evaluation and treatment. MEDICATION: The patient's current medications are in the form of: 1. Coreg 12.5. 2. Morphine 2 mg q.4h. 3. Labetalol 10 mg once a day. 4. Lopressor 5 mg once a day. 5. Zyprexa 10 mg once a day. 6. Protonix 40 mg once a day. 7. Flomax 0.4 mg once a day. 8. Aspirin 81 mg once a day. 9. Lipitor 80 mg once a day. 10. Flomax 0.4 mg once a day. PHYSICAL EXAMINATION: NEUROLOGIC: The patient is awake, alert, looks confused and sleepy. He can attend simple commands, like saying his name but he cannot follow more than that. Cranial nerves: II: Pupils equal on both sides, reactive to light. III, IV, : Extraocular muscles intact. V: Equal sensation to face. VII: Symmetric face. VIII: Decreased hearing bilaterally. IX, X: Elevates palate. XI: Elevates shoulders. XII: With straight tongue. Motor exam: With movement of his left side more than the right side. The right side is scored 4/5. Sensation decreased for gloves and sock area for light touch and temperature. Coordination and gait: Could not assess. HEART: Regular rate and rhythm. LUNGS: Equal breath sounds. ABDOMEN: Soft, relaxed, no tenderness. ASSESSMENT AND PLAN: 1. The patient is 76 years old with decreased mini-mental status with the possibility of underlying transient ischemic attack with lacunar infarct. I Will follow up the patient with MRI of his brain for more evaluation and treatment. 2. Possibility of acute underlying encephalopathy with generalized slowing of his electroencephalogram. 3. 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 Will follow up the patient with mini-mental status when he is stable. 4. Dyslipidemia. Keep the patient on Lipitor 80 mg once a day. 5. I will keep him on anticoagulation for DVT as prophylaxis from the stroke form now . 6. Again, thank you. Dictated By: Riely Nichole MD /[email or web address]/joann /Document#: [id number]
[2017-03-25 06:43] LABS: CREATININE 1.18 mg/dl (0.61-1.24); PHOSPHORUS 2.8 mg/dl (2.5-4.9); POTASSIUM 3.1 mmol/L (3.5-5.1)
[2017-03-25] MEDS: MULTIVITAMINS THERAPEUTIC TAB PO SCH (08:44)
[2017-03-25] MEDS: FEBUXOSTAT 40 MG TABLET PO SCH (08:44)
[2017-03-25] MEDS: TAMSULOSIN (SR) 0.4 MG CAP PO SCH ×2 (08:44→20:35)
[2017-03-25] MEDS: ASPIRIN (EC) 81 MG TAB PO SCH (08:44)
[2017-03-25] MEDS: POTASSIUM CHLORIDE 250 ML IVPB SCH ×2 (09:18→13:08)
--- NOTE | 2017-03-25 09:55 | RADRPT ---
PROCEDURE: XR Chest. CLINICAL INDICATION: Chest pain TECHNIQUE: AP view of the chest was performed. COMPARISON: None. FINDINGS: The lungs are hyperinflated but clear.. Increased interstitial markings in the left lower lobe. The heart size is normal. The osseous structures are intact. Aortic atherosclerosis. IMPRESSION: 1. Mild increased interstitial markings in the left lower lobe may represent an acute or chronic inf iltrate. 2. Aortic atherosclerosis. RPTAT: QQ .Hay Mendez MD, Date Time Electronically viewed and signed by .Hay Mendez MD, MD on 03/25/2017 09:54 .M/
[2017-03-25] MEDS: OLANZAPINE 10 MG VIAL IM PRN (10:23)
--- NOTE | 2017-03-25 12:13 | PN ---
Date/Time of Note Date/Time of Note DATE: 03/25/17 TIME: 12:00 Assessment/Plan VTE Prophylaxis VTE Prophylaxis Intervention: heparin Lines/Catheters IV [facility]from [facility] Saline [facility] Urinary Cath still in place: Yes Reason Cath still needed: terminal illness/intractable pain Assessment/Plan Chief Complaint/Hosp Course Patient is a 76-year-old male with a past medical history significant for COPD, hypertension, and renal carcinoma 2011 as well as recent diagnosis of gastric carcinoma approximately 6 months ago who presents to [facility] for shortness of breath. Found to have acute on chronic DVT. Assessment Acute respiratory failure, resolving COPD exacerbation Acute on chronic DVT Hypertension mucus plug rib fracture emphysema History of renal cell carcinoma, with renal mass Renal mass Renal cyst Gastric carcinoma, unknown type, records pending GI tumors, likely:, Records pending Acute delirium Acute on chronic CKD Plan -Patient is a noncompliant male who presents with shortness of breath, recent history of diagnosis of gastric cancer, however no outpatient follow-up. Patient also has chronic DVTs, presents with acute DVT and history of implanted IVC filter since 2011, however patient is not on anticoagulation outpatient. -titrate HTN meds as needed. nicotine patch ordered. white count improving. -Continue heparin drip, anticipate transition to oral anticoagulant upon DC -Patient waxes and wanes from confusion to oriented x 2. although most likely delirium, can not exclude other causes, CT scan noted. EEG read by neurology. Will attempt MRI when patient able to stay still. -still pending ct ab/pelvis for mass. -Is currently on 2 L nasal cannula, breathing is stable. -Steroids and breathing treatments, continue antibiotics for now, will de- escalate as patient stabilizes -Anticipate records from [facility] -Spoke with hematology oncology, stating most of patient's GI workup and cancer workup is appropriate for outpatient, however one all patient is in the hospital , will continue to monitor. - n.p.o. except meds, patient confused, speech therapy evaluation states ok to crush meds in applesauce. Restart home meds as able -Consultants are hematology oncology, nephrology, vascular surgery, GI, pulmonology, urology, neurology Problems: Subjective 24 Hr Interval Summary Free Text/Dictation patient still has times of confusion, but able to state name, wants a cirgarette. Exam/Review of Systems Vital Signs Vitals Vital Signs Date Time Temp Pulse Resp B/P Pulse Ox O2 Delivery O2 Flow Rate FiO2 03/25/17 08:00 101 03/25/17 06:30 22 161/90 Nasal Cannula 03/25/17 06:00 100 03/25/17 05:17 15.0 50 03/25/17 04:00 98.5 Intake and Output 03/24/17 03/24/17 03/25/17 15:00 23:00 07:00 Intake Total 664.0 ml 601.5 ml 525 ml Output Total 480 ml 620 ml 435 ml Balance 184.0 ml -18.5 ml 90 ml Exam Physical exam General: Patient is laying in bed, sleeping, mumbles Mentation: Patient is alert but not oriented Head: Normocephalic atraumatic Eyes: EOMI, pupils reactive to light Neck: Supple, nontender, midline Respiratory: coarse breath sounds bilaterally, diminished effort. Cardiovascular: regular rate, no obvious murmurs Gastrointestinal: non-tender to palpation, bowel sounds heard. Neurological: Moves all extremities spontaneously, not oriented but easily alert Skin: No new skin lesions Results Result Diagram: 03/25/17 0505 03/25/17 0505 Results 24 hrs Laboratory Tests Test 03/24/17 18:04 03/24/17 22:10 03/25/17 00:33 03/25/17 05:00 Activated Partial Thromboplast Time 109.7 *H 80.9 *H Urine Opiates Screen Positive Urine Barbiturates Negative Urine Amphetamines Screen Negative Urine Benzodiazepines Screen Negative Urine Cocaine Screen Negative Urine Cannabinoids Negative Blood Gas Specimen Source Blood arterial Arterial Blood Date Drawn 03/25/2017 4:27:00 AM Arterial Blood pH (Temp corrected) 7.520 H Arterial Blood pCO2 (Temp correct) 34.3 L Arterial Blood pO2 (Temp corrected) 54.1 *L Arterial Blood HCO3 27.4 H Arterial Blood Base Excess 4.8 H Arterial Blood Oxygen Saturation 89.7 L Griffin Test ACCEPTAB Arterial Blood Gas Puncture Site Right Radial Arterial Blood Carboxyhemoglobin 0.2 Arterial Blood Methemoglobin 0.2 Blood Gas A-a O2 Differential 97.9 H Oxyhemoglobin Percent 89.3 L Total Hemoglobin 14.7 Blood Gas Temperature 37.0 Blood Gas Modality NASAL CANNULA FiO2 27.0 Blood Gas Critical Value Read Back Arnoldo BROOKS Blood Gas Notified Whom LW Blood Gas Notified Time 03/25/2017 4:38:00 AM Test 03/25/17 05:05 White Blood Count 14.0 H Red Blood Count 5.81 Hemoglobin 13.3 L Hematocrit 42.9 Mean Corpuscular Volume 73.8 L Mean Corpuscular Hemoglobin 22.9 L Mean Corpuscular Hemoglobin Concent 31.0 L Red Cell Distribution Width 18.8 H Platelet Count 597 H Mean Platelet Volume 10.4 Neutrophils % 92.7 H Lymphocytes % 2.6 L Monocytes % 3.6 Eosinophils % 0.0 Basophils % 0.1 Nucleated Red Blood Cells % 0.0 Neutrophils # 13.0 H Lymphocytes # 0.4 L Monocytes # 0.5 Eosinophils # 0.0 Basophils # 0.0 Nucleated Red Blood Cells # 0.0 Activated Partial Thromboplast Time 66.0 H Sodium Level 142 Potassium Level 3.1 L Chloride Level 106 Carbon Dioxide Level 29 Anion Gap 10 Blood Urea Nitrogen 33 H Creatinine 1.18 Glucose Level 150 Calcium Level 9.0 Phosphorus Level 2.8 Magnesium Level 2.0 Medications Medications Current Medications Ondansetron HCl (Zofran Inj) 4 mg Q6H PRN IV NAUSEA AND/OR VOMITING; Start at 01:30 Acetaminophen (Tylenol Liquid) 650 mg Q6H PRN PO PAIN LEVEL 1-3 OR FEVER; Start 03/22/17 at 01:30 Acetaminophen (Tylenol Supp) 650 mg Q4H PRN [place] PAIN LEVEL 1-3 OR FEVER; Start 03/22/17 at 01:30 Aspirin 81 mg 81 mg DAILY PO Last administered on 03/25/17 08:44; Admin Dose 81 MG; Start 03/22/17 at 09:00 Levofloxacin/ Dextrose (Levaquin 500mg/ D5W 100 ml (Pmx)) 100 ml @ 100 mls/hr Q24H IVPB Last administered on 03/25/17 06:28; Admin Dose 100 MLS/HR; Start at 07:00 Atorvastatin Calcium (Lipitor) 80 mg HS PO Last administered on 03/24/17 22:24 ; Admin Dose 80 MG; Start 03/22/17 at 21:00 Febuxostat (Uloric) 40 mg DAILY PO Last administered on 03/25/17 08:44; Admin Dose 40 MG; Start 03/23/17 at 09:00 Multivitamins Therapeutic (Theragran) 1 tab DAILY PO Last administered on 08:44; Admin Dose 1 TAB; Start 03/23/17 at 09:00 Tamsulosin HCl (Flomax) 0.4 mg BID PO Last administered on 03/25/17 08:44; Admin Dose 0.4 MG; Start 03/22/17 at 21:00 Pantoprazole (Protonix Tab) 40 mg DAILY@06 PO Last administered on 03/23/17 06 :00; Admin Dose 40 MG; Start 03/23/17 at 06:00 Hydralazine HCl (Apresoline) 20 mg Q6H PRN IV SBP >180 Last administered on 00:42; Admin Dose 20 MG; Start 03/22/17 at 22:45 Metoprolol Tartrate (Lopressor) 5 mg Q6 PRN IV HR >100 or SBP >170 Last administered on 03/25/17 05:26; Admin Dose 5 MG; Start 03/23/17 at 15:30 Olanzapine (Zyprexa) 10 mg Q8 PRN IM severe agitation Last administered on 03/25 10:23; Admin Dose 10 MG; Start 03/23/17 at 15:30 Labetalol HCl (Labetalol) 10 mg Q4H PRN IV SBP>160 Last administered on 08:43; Admin Dose 10 MG; Start 03/24/17 at 09:30 Morphine Sulfate 2 mg 2 mg Q4H PRN IV PAIN LEVEL 7-10 Last administered on 03/25 07:52; Admin Dose 2 MG; Start 03/24/17 at 10:00 Dextrose/Sodium Chloride (D5-1/2ns) 1,000 ml @ 60 mls/hr [id number] IV Last administered on 03/25/17 05:25; Admin Dose 60 MLS/HR; Start 03/24/17 at 10:30 Methylprednisolone Sodium Succinate 40 mg 40 mg Q8 IV Last administered on 03/25 05:25; Admin Dose 40 MG; Start 03/24/17 at 14:00 Potassium Chloride (KCl 40 MEQ/250 ML NS) 250 ml @ 62.5 mls/hr Q4H IVPB Last administered on 10/1/17at 09:18; Admin Dose 62.5 MLS/HR; Start 03/25/17 at 09:00 ; Stop 03/25/17 at 16:59 Carvedilol (Coreg) 25 mg BID PO ; Start 03/25/17 at 21:00 Nicotine (Nicoderm 14 Mg/ 24hr) 1 patch ONCE ONCE TRANSDERM ; Start 03/25/17 at 12:30; Stop 03/25/17 at 12:31 ISIDRO CARRERA Mar 25, 2017 12:10
[2017-03-25] MEDS ORDERED: NICOTINE (14 MG/24 HR) PATCH TRANSDERM ONE (12:30)
--- NOTE | 2017-03-25 12:48 | CONS ---
Date/Time of Note Date/Time of Note DATE: 03/25/17 TIME: 12:47 Consult Date/Type/Reason Admit Date/Time Mar 21, 2017 at 23:46 Initial Consult Date 03/23/17 Type of Consultation: Pulm/CCM Ordering Provider: LUCAS DOUGLAS MD Subjective No events. Remains on BiPAP. Objective Vital Signs Date Time Temp Pulse Resp B/P Pulse Ox O2 Delivery O2 Flow Rate FiO2 03/25/17 12:00 98.2 98 29 115/93 96 Nasal Cannula 4.0 03/25/17 05:17 50 Intake and Output 03/24/17 03/24/17 03/25/17 15:00 23:00 07:00 Intake Total 664.0 ml 601.5 ml 525 ml Output Total 480 ml 620 ml 435 ml Balance 184.0 ml -18.5 ml 90 ml Exam HEENT: Neck supple; no JVD; no LAD CVS: RRR, S1 and S2 CHEST: Diminished BS B/L ABD: Soft, NT, + BS EXT: No c/c/ + edema Results/Medications Result Diagram: 03/25/17 0505 03/25/17 0505 Results 24 hrs Laboratory Tests Test 03/24/17 18:04 03/24/17 22:10 03/25/17 00:33 03/25/17 05:00 Activated Partial Thromboplast Time 109.7 *H 80.9 *H Urine Opiates Screen Positive Urine Barbiturates Negative Urine Amphetamines Screen Negative Urine Benzodiazepines Screen Negative Urine Cocaine Screen Negative Urine Cannabinoids Negative Blood Gas Specimen Source Blood arterial Arterial Blood Date Drawn 03/25/2017 4:27:00 AM Arterial Blood pH (Temp corrected) 7.520 H Arterial Blood pCO2 (Temp correct) 34.3 L Arterial Blood pO2 (Temp corrected) 54.1 *L Arterial Blood HCO3 27.4 H Arterial Blood Base Excess 4.8 H Arterial Blood Oxygen Saturation 89.7 L Griffin Test ACCEPTAB Arterial Blood Gas Puncture Site Right Radial Arterial Blood Carboxyhemoglobin 0.2 Arterial Blood Methemoglobin 0.2 Blood Gas A-a O2 Differential 97.9 H Oxyhemoglobin Percent 89.3 L Total Hemoglobin 14.7 Blood Gas Temperature 37.0 Blood Gas Modality NASAL CANNULA FiO2 27.0 Blood Gas Critical Value Read Back Arnoldo BROOKS Blood Gas Notified Whom LW Blood Gas Notified Time 03/25/2017 4:38:00 AM Test 03/25/17 05:05 White Blood Count 14.0 H Red Blood Count 5.81 Hemoglobin 13.3 L Hematocrit 42.9 Mean Corpuscular Volume 73.8 L Mean Corpuscular Hemoglobin 22.9 L Mean Corpuscular Hemoglobin Concent 31.0 L Red Cell Distribution Width 18.8 H Platelet Count 597 H Mean Platelet Volume 10.4 Neutrophils % 92.7 H Lymphocytes % 2.6 L Monocytes % 3.6 Eosinophils % 0.0 Basophils % 0.1 Nucleated Red Blood Cells % 0.0 Neutrophils # 13.0 H Lymphocytes # 0.4 L Monocytes # 0.5 Eosinophils # 0.0 Basophils # 0.0 Nucleated Red Blood Cells # 0.0 Activated Partial Thromboplast Time 66.0 H Sodium Level 142 Potassium Level 3.1 L Chloride Level 106 Carbon Dioxide Level 29 Anion Gap 10 Blood Urea Nitrogen 33 H Creatinine 1.18 Glucose Level 150 Calcium Level 9.0 Phosphorus Level 2.8 Magnesium Level 2.0 Medications Current Medications Ondansetron HCl (Zofran Inj) 4 mg Q6H PRN IV NAUSEA AND/OR VOMITING; Start at 01:30 Acetaminophen (Tylenol Liquid) 650 mg Q6H PRN PO PAIN LEVEL 1-3 OR FEVER; Start 03/22/17 at 01:30 Acetaminophen (Tylenol Supp) 650 mg Q4H PRN [place] PAIN LEVEL 1-3 OR FEVER; Start 03/22/17 at 01:30 Aspirin 81 mg 81 mg DAILY PO Last administered on 03/25/17 08:44; Admin Dose 81 MG; Start 03/22/17 at 09:00 Levofloxacin/ Dextrose (Levaquin 500mg/ D5W 100 ml (Pmx)) 100 ml @ 100 mls/hr Q24H IVPB Last administered on 03/25/17 06:28; Admin Dose 100 MLS/HR; Start at 07:00 Atorvastatin Calcium (Lipitor) 80 mg HS PO Last administered on 03/24/17 22:24 ; Admin Dose 80 MG; Start 03/22/17 at 21:00 Febuxostat (Uloric) 40 mg DAILY PO Last administered on 03/25/17 08:44; Admin Dose 40 MG; Start 03/23/17 at 09:00 Multivitamins Therapeutic (Theragran) 1 tab DAILY PO Last administered on 08:44; Admin Dose 1 TAB; Start 03/23/17 at 09:00 Tamsulosin HCl (Flomax) 0.4 mg BID PO Last administered on 03/25/17 08:44; Admin Dose 0.4 MG; Start 03/22/17 at 21:00 Pantoprazole (Protonix Tab) 40 mg DAILY@06 PO Last administered on 03/23/17 06 :00; Admin Dose 40 MG; Start 03/23/17 at 06:00 Hydralazine HCl (Apresoline) 20 mg Q6H PRN IV SBP >180 Last administered on 00:42; Admin Dose 20 MG; Start 03/22/17 at 22:45 Metoprolol Tartrate (Lopressor) 5 mg Q6 PRN IV HR >100 or SBP >170 Last administered on 03/25/17 05:26; Admin Dose 5 MG; Start 03/23/17 at 15:30 Olanzapine (Zyprexa) 10 mg Q8 PRN IM severe agitation Last administered on 03/25 10:23; Admin Dose 10 MG; Start 03/23/17 at 15:30 Labetalol HCl (Labetalol) 10 mg Q4H PRN IV SBP>160 Last administered on 08:43; Admin Dose 10 MG; Start 03/24/17 at 09:30 Morphine Sulfate 2 mg 2 mg Q4H PRN IV PAIN LEVEL 7-10 Last administered on 03/25 07:52; Admin Dose 2 MG; Start 03/24/17 at 10:00 Dextrose/Sodium Chloride (D5-1/2ns) 1,000 ml @ 60 mls/hr [id number] IV Last administered on 03/25/17 05:25; Admin Dose 60 MLS/HR; Start 03/24/17 at 10:30 Methylprednisolone Sodium Succinate 40 mg 40 mg Q8 IV Last administered on 03/25 05:25; Admin Dose 40 MG; Start 03/24/17 at 14:00 Potassium Chloride (KCl 40 MEQ/250 ML NS) 250 ml @ 62.5 mls/hr Q4H IVPB Last administered on 03/25/17 09:18; Admin Dose 62.5 MLS/HR; Start 03/25/17 at 09:00 ; Stop 03/25/17 at 16:59 Carvedilol (Coreg) 25 mg BID PO ; Start 03/25/17 at 21:00 Assessment/Plan Additional Assessment/Plan IMP: 1. Hypercapnic Resp Insufficiency 2. COPD Exacerbation 3. Underlying Gastric Cancer 4. Leukocytosis--2/2 CS 5. AMS RECS: 1. Taper CS 2. Minimize FiO2 to keep Sp02 88-92% 3. Gentle diuresis 4. Low-dose seroquel AURELIO MCINTYRE MD Mar 25, 2017 12:48
[2017-03-25] MEDS: HEPARIN 25000 UNITS/250 ML 250 ML IV SCH (13:47)
[2017-03-25] MEDS: ATORVASTATIN 40 MG TAB PO SCH (20:36)
--- NOTE | 2017-03-25 22:02 | HKNOTE ---
DATE OF SERVICE: 03/25/2017 HISTORY OF PRESENT ILLNESS: The patient is a 76-year-old male with a history of deep venous thrombosis bilateral lower extremities, was put on IV Heparin. The patient admitted with decreased mini-mental status, lack of communication, which I got a call about him for more evaluation and treatment. The patient is in the intensive care unit with IV drip. CURRENT MEDICATIONS: Include: 1. Crestor 0.5 mg. 2. Morphine 2 mg every 4 hours. 3. Lactulose 10 mg once a day. 4. Lopressor 5 mg once a day. 5. Zyprexa 10 mg once a day. 6. Protonix 40 mg once a day. 7. Flomax 0.4 mg once a day. 8. Aspirin 81 mg once a day. 9. Lipitor 80 mg once a day. 10. Flomax 0.4 mg once a day. PHYSICAL EXAMINATION: GENERAL: The patient is alert, awake and follows simple commands. Looks confused. ATHLETIC SCOUT: Cranial nerves II: Pupils equal on both sides. Reactive to light. Cranial nerves III, IV, and : Extraocular muscles intact. Cranial nerves V: Equal sensation to face. Cranial nerves VII: Symmetrical face. Cranial VIII: Decreased hearing bilaterally. Cranial nerves IX and X: Elevates palate. Cranial nerve XI: Elevates shoulder 5/5. Cranial nerve XII: With straight tongue. Motor exam: Moving both upper and lower extremities against gravity. Sensation: Intact for light touch and temperature. Coordination: [id number] is intact. HEART: Regular rate and rhythm. LUNGS: Equal breath sounds. ASSESSMENT AND PLAN: 1. The patient is a [id number] with underlying decreased mini- mental status, probably secondary to transient ischemic attack. Followup the patient with MRI of his brain. We will continue the patient on IV Heparin, which is a good prophylaxis from a stroke, which is the treatment for the deep venous thrombosis, the patient has it. We will followup the patient with a PT, PT-T, and INR and see how the patient responds to that. 2. 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 We will followup the patient with electroencephalogram. 3. Underlying Alzheimer's disease. We will followup the patient's mini-mental status when he is stable and consider to start him on one of the medications for that. 4. Dyslipidemia. Followup the patient's Lipitor 80 mg once a day. 5. History of hypertension. Keep the blood pressure 140/90 to avoid any extension of the stroke. The patient already on labetalol, Lopressor and Coreg. 6. Deep venous thrombosis, which the patient is under treatment with Heparin drip. Dictated By: Riley Nichole MD /[email or web address]/gerald /Document#: [id number]
--- NOTE | 2017-03-25 23:14 | PN ---
DATE: 03/25/2017 SUBJECTIVE DATA: The patient is lethargic and anxious appearing. OBJECTIVE DATA: VITAL SIGNS: Temperature 95, pulse 99, blood pressure 161/90. NECK: No jugular venous distention. LUNGS: Clear. CARDIAC: Regular rate and rhythm. ABDOMEN: Soft. EXTREMITIES: No edema. LABORATORY AND DIAGNOSTIC DATA: White count 14,000, hematocrit 42, platelet count 597. Sodium 142, potassium 3.1, BUN 33, creatinine 1.1. MEDICATIONS: Carvedilol, potassium, Mucomyst, levalbuterol, Solu- Medrol, morphine, labetalol, metoprolol, heparin per protocol, Levaquin. ASSESSMENT AND PLAN: 1. Respiratory failure extensive. 2. Deep vein thrombosis bilateral. 3. Chronic obstructive pulmonary disease. 4. History of malignancy. 5. Active tobacco use. 6. Nonspecific elevation of troponin. 7. The patient to be started on anticoagulation indefinitely given extensive deep vein thrombosis, he is probably on heparin drip. Dictated By: MD TRICE Bailey/fredy/luna /Document#: [id number]
[2017-03-26] VITALS (14 sets, daily range): BP systolic 87–153; BP diastolic 49–82; PULSE 57–87; RESP 18–24
[2017-03-26] MEDS ORDERED: SOD CHLORIDE 0.9% 250 ML IV ONE (01:00)
[2017-03-26] MEDS: LEVALBUTEROL (NEB) 1.25 MG/0.5 ML AMP HHN SCH ×4 (01:51→19:46)
[2017-03-26] MEDS: ACETYLCYSTEINE 20% 4 ML VIAL NEB SCH ×4 (01:52→19:46)
[2017-03-26 04:12] LABS: ABNORMAL IP MESSAGE 1; BASOPHILS % 0.1 % (0.0-2.0); HEMATOCRIT 43.4 % (42.0-52.0); HEMOGLOBIN 13.5 g/dl (14.0-18.0); LYMPHOCYTES # 0.4 10^3/ul (0.8-2.9); LYMPHOCYTES % 3.3 % (15.0-51.0); MEAN CORPUSCULAR HEMOGLOBIN 23.4 pg (29.0-33.0); MEAN CORPUSCULAR HGB CONC 31.1 g/dl (32.0-37.0); MEAN CORPUSCULAR VOLUME 75.1 fl (82.0-101.0); MEAN PLATELET VOLUME 10.1 fl (7.4-10.4); MONOCYTE # 0.4 10^3/ul (0.3-0.9); NEUTROPHIL # 11.4 10^3/ul (1.6-7.5); NEUTROPHILS % 92.5 % (39.0-77.0); PLATELET COUNT 504 10^3/UL (140-415); POSITIVE DIFF @See below; RED BLOOD COUNT 5.78 10^6/ul (4.70-6.10); RED CELL DISTRIBUTION WIDTH 17.8 % (11.5-14.5); WHITE BLOOD COUNT 12.3 10^3/ul (4.8-10.8)
[2017-03-26 04:41] LABS: INR 1.3; PROTIME 16.3 Sec (12.2-14.2); PT RATIO 1.3
[2017-03-26 04:42] LABS: PARTIAL THROMBOPLASTIN TIME 50.4 Sec (25.0-35.0)
[2017-03-26] MEDS: HEPARIN 1000 UNITS/ML 10 ML INJ IV PRN ×2 (04:56→15:42)
[2017-03-26 04:57] LABS: CREATININE 1.13 mg/dl (0.61-1.24); MAGNESIUM 1.7 mg/dl (1.7-2.5); PHOSPHORUS 3.9 mg/dl (2.5-4.9); POTASSIUM 4.3 mmol/L (3.5-5.1)
[2017-03-26] MEDS: HEPARIN 25000 UNITS/250 ML 250 ML IV SCH ×2 (04:57→15:44)
[2017-03-26] MEDS: PANTOPRAZOLE (EC) 40 MG TAB PO SCH (05:06)
[2017-03-26] MEDS: LEVOFLOXACIN 500MG/D5W (PMX) 100 ML IVPB SCH (05:54)
--- NOTE | 2017-03-26 07:06 | NEURPT ---
DATE: HISTORY: Patient is a 76-year-old male who has decreased mental status, lack of communication, deep venous thrombosis. FINDINGS: EEG done using 10/20 International System of Electrode Placement shows bilateral occipital hemispherical delta and theta wave, medium-size, slow amplitude symmetric bilateral. Photic stimulation done drive. Some electromyogram artifact recorded. IMPRESSION: This is an abnormal electroencephalogram, showing generalized slowing consistent with the history of underlying encephalopathy. No epileptiform discharge or seizure activity is recorded. Follow-up electroencephalogram may be needed if clinically indicated. Dictated By: Riley Nichole MD /[email or web address]/benito /Document#: [id number]
[2017-03-26] MEDS: METHYLPREDNISOLONE 40 MG INJ IV SCH ×2 (07:51→21:23)
[2017-03-26] MEDS: TAMSULOSIN (SR) 0.4 MG CAP PO SCH ×2 (07:52→21:23)
[2017-03-26] MEDS: ASPIRIN (EC) 81 MG TAB PO SCH (07:52)
[2017-03-26] MEDS: MULTIVITAMINS THERAPEUTIC TAB PO SCH (07:52)
[2017-03-26] MEDS: FEBUXOSTAT 40 MG TABLET PO SCH (09:00)
[2017-03-26 10:35] LABS: INR 1.41; PROTIME 17.3 Sec (12.2-14.2); PT RATIO 1.4
[2017-03-26 11:16] LABS: PARTIAL THROMBOPLASTIN TIME > 180.0 Sec (25.0-35.0)
--- NOTE | 2017-03-26 11:24 | PN ---
Date/Time of Note Date/Time of Note DATE: 03/26/17 TIME: 10:41 Assessment/Plan VTE Prophylaxis VTE Prophylaxis Intervention: heparin Lines/Catheters IV Catheter Type (from Nrs): Peripheral IV Urinary Cath still in place: Yes Reason Cath still needed: other (indicate) Assessment/Plan Assessment/Plan 1. Acute respiratory failure, resolving - doing well on nasal cannula - Pulmonology on board and consultation appreciated. Will continue weaning to maintain saturations 88-92% - Patient states he is on home O2 but unable to say how much. Only describes colors and size of tank 2. COPD exacerbation - Improving. no wheezing appreciated 3. 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 Hypertension - stable 5. rib fracture - stable 6. History of renal cell carcinoma, with renal mass - stable 7. Gastric carcinoma, unknown type, records pending - Spoke with Dr. Otoole and will hold off on any intervention until repeat EGD is performed and more information about tumor obtained. Appreciate assistance - Once more stable respiratory carrera, will consult GI for assistance 8. Acute delirium - continue on low dose Seroquel at this time 9. Acute on chronic CKD - stable Subjective 24 Hr Interval Summary Free Text/Dictation Patient tolerating ventimask this am and transition to NC by nursing in the pm. More calm this am with requests to go home. Patient able to have lucid conversation and denies any new complaints. Exam/Review of Systems Vital Signs Vitals Vital Signs Date Time Temp Pulse Resp B/P Pulse Ox O2 Delivery O2 Flow Rate FiO2 03/26/17 08:49 74 20 99 Venti Mask 15.0 50 03/26/17 07:54 98.5 153/78 Intake and Output 03/25/17 03/25/17 03/26/17 15:00 23:00 07:00 Intake Total 785.0 ml 515.5 ml Output Total 700 ml 395 ml 400 ml Balance 85.0 ml 120.5 ml -400 ml Exam General: NAD, awake and alert. answering appropriately Head: Normocephalic atraumatic Eyes: EOMI, pupils reactive to light Neck: Supple, nontender, midline Respiratory: coarse breath sounds bilaterally, diminished effort. Cardiovascular: regular rate, no obvious murmurs Gastrointestinal: non-tender to palpation, bowel sounds heard. Neurological: Moves all extremities spontaneously, oriented to place and self Skin: No new skin lesions Results Result Diagram: 03/26/17 0356 03/26/17 0356 Results 24 hrs Laboratory Tests Test 03/25/17 13:20 03/25/17 21:15 03/26/17 03:55 03/26/17 03:56 Activated Partial Thromboplast Time 107.0 *H 80.4 *H 50.4 H Prothrombin Time 16.3 H Prothrombin Time Ratio 1.3 INR International Normalized Ratio 1.30 White Blood Count 12.3 H Red Blood Count 5.78 Hemoglobin 13.5 L Hematocrit 43.4 Mean Corpuscular Volume 75.1 L Mean Corpuscular Hemoglobin 23.4 L Mean Corpuscular Hemoglobin Concent 31.1 L Red Cell Distribution Width 17.8 H Platelet Count 504 H Mean Platelet Volume 10.1 Neutrophils % 92.5 H Lymphocytes % 3.3 L Monocytes % 3.0 Eosinophils % 0.0 Basophils % 0.1 Nucleated Red Blood Cells % 0.0 Neutrophils # 11.4 H Lymphocytes # 0.4 L Monocytes # 0.4 Eosinophils # 0.0 Basophils # 0.0 Nucleated Red Blood Cells # 0.0 Sodium Level 142 Potassium Level 4.3 Chloride Level 110 Carbon Dioxide Level 29 Anion Gap 7 L Blood Urea Nitrogen 34 H Creatinine 1.13 Glucose Level 116 Calcium Level 9.0 Phosphorus Level 3.9 Magnesium Level 1.7 Test 03/26/17 09:44 Prothrombin Time 17.3 H Prothrombin Time Ratio 1.4 INR International Normalized Ratio 1.41 Activated Partial Thromboplast Time Pending Medications Medications Current Medications Ondansetron HCl (Zofran Inj) 4 mg Q6H PRN IV NAUSEA AND/OR VOMITING; Start at 01:30 Acetaminophen (Tylenol Liquid) 650 mg Q6H PRN PO PAIN LEVEL 1-3 OR FEVER; Start 03/22/17 at 01:30 Acetaminophen (Tylenol Supp) 650 mg Q4H PRN [place] PAIN LEVEL 1-3 OR FEVER; Start 03/22/17 at 01:30 Aspirin 81 mg 81 mg DAILY PO Last administered on 03/26/17t 07:52; Admin Dose 81 MG; Start 03/22/17 at 09:00 Levofloxacin/ Dextrose (Levaquin 500mg/ D5W 100 ml (Pmx)) 100 ml @ 100 mls/hr Q24H IVPB Last administered on 03/26/17 05:54; Admin Dose 100 MLS/HR; Start at 07:00 Atorvastatin Calcium (Lipitor) 80 mg HS PO Last administered on 03/25/17 20:36 ; Admin Dose 80 MG; Start 03/22/17 at 21:00 Febuxostat (Uloric) 40 mg DAILY PO Last administered on 03/25/17 08:44; Admin Dose 40 MG; Start 03/23/17 at 09:00 Multivitamins Therapeutic (Theragran) 1 tab DAILY PO Last administered on 07:52; Admin Dose 1 TAB; Start 03/23/17 at 09:00 Tamsulosin HCl (Flomax) 0.4 mg BID PO Last administered on 03/26/17 07:52; Admin Dose 0.4 MG; Start 03/22/17 at 21:00 Pantoprazole (Protonix Tab) 40 mg DAILY@06 PO Last administered on 03/23/17 06 :00; Admin Dose 40 MG; Start 03/23/17 at 06:00 Hydralazine HCl (Apresoline) 20 mg Q6H PRN IV SBP >180 Last administered on 00:42; Admin Dose 20 MG; Start 03/22/17 at 22:45 Metoprolol Tartrate (Lopressor) 5 mg Q6 PRN IV HR >100 or SBP >170 Last administered on 03/25/17 16:45; Admin Dose 5 MG; Start 03/23/17 at 15:30 Olanzapine (Zyprexa) 10 mg Q8 PRN IM severe agitation Last administered on 03/25 10:23; Admin Dose 10 MG; Start 03/23/17 at 15:30 Labetalol HCl (Labetalol) 10 mg Q4H PRN IV SBP>160 Last administered on 08:43; Admin Dose 10 MG; Start 03/24/17 at 09:30 Morphine Sulfate 2 mg 2 mg Q4H PRN IV PAIN LEVEL 7-10 Last administered on 03/25 20:40; Admin Dose 2 MG; Start 03/24/17 at 10:00 Dextrose/Sodium Chloride (D5-1/2ns) 1,000 ml @ 60 mls/hr [id number] IV Last administered on 03/25/17 21:53; Admin Dose 60 MLS/HR; Start 03/24/17 at 10:30 Carvedilol (Coreg) 25 mg BID PO Last administered on 03/26/17 07:52; Admin Dose 25 MG; Start 03/25/17 at 21:00 Methylprednisolone Sodium Succinate (Solu-Medrol) 40 mg BID IV Last administered on 03/26/17 07:51; Admin Dose 40 MG; Start 03/25/17 at 21:00 XENA DE JESUS MD Mar 26, 2017 10:41
--- NOTE | 2017-03-26 12:25 | CONS ---
Date/Time of Note Date/Time of Note DATE: 03/26/17 TIME: 12:25 Consult Date/Type/Reason Admit Date/Time Mar 21, 2017 at 23:46 Initial Consult Date 03/23/17 Type of Consultation: Pulm/CCM Ordering Provider: LUCAS DOUGLAS MD Subjective Comfortable this morning on Ventimask oxygen. No respiratory distress. Objective Vital Signs Date Time Temp Pulse Resp B/P Pulse Ox O2 Delivery O2 Flow Rate FiO2 03/26/17 11:48 98.5 63 139/82 99 03/26/17 08:49 20 Venti Mask 15.0 50 Intake and Output 03/25/17 03/25/17 03/26/17 15:00 23:00 07:00 Intake Total 785.0 ml 515.5 ml Output Total 700 ml 395 ml 400 ml Balance 85.0 ml 120.5 ml -400 ml Exam GENERAL: Elderly Setswana gentleman comfortable at rest no acute distress VITAL SIGNS: per chart NECK: Supple. No JVD or lymphadenopathy. CARDIAC EXAM: S1, S2. No added sounds or murmurs. CHEST: Diminished air entry bilaterally ABDOMEN: Soft, nontender. No guarding or rebound. EXTREMITIES: No cyanosis, clubbing or edema. NEUROLOGIC: Generalized weakness. No focal deficits. Results/Medications Result Diagram: 03/26/17 0356 03/26/17 0356 Results 24 hrs Laboratory Tests Test 03/25/17 13:20 03/25/17 21:15 03/26/17 03:55 03/26/17 03:56 Activated Partial Thromboplast Time 107.0 *H 80.4 *H 50.4 H Prothrombin Time 16.3 H Prothrombin Time Ratio 1.3 INR International Normalized Ratio 1.30 White Blood Count 12.3 H Red Blood Count 5.78 Hemoglobin 13.5 L Hematocrit 43.4 Mean Corpuscular Volume 75.1 L Mean Corpuscular Hemoglobin 23.4 L Mean Corpuscular Hemoglobin Concent 31.1 L Red Cell Distribution Width 17.8 H Platelet Count 504 H Mean Platelet Volume 10.1 Neutrophils % 92.5 H Lymphocytes % 3.3 L Monocytes % 3.0 Eosinophils % 0.0 Basophils % 0.1 Nucleated Red Blood Cells % 0.0 Neutrophils # 11.4 H Lymphocytes # 0.4 L Monocytes # 0.4 Eosinophils # 0.0 Basophils # 0.0 Nucleated Red Blood Cells # 0.0 Sodium Level 142 Potassium Level 4.3 Chloride Level 110 Carbon Dioxide Level 29 Anion Gap 7 L Blood Urea Nitrogen 34 H Creatinine 1.13 Glucose Level 116 Calcium Level 9.0 Phosphorus Level 3.9 Magnesium Level 1.7 Test 03/26/17 09:44 Prothrombin Time 17.3 H Prothrombin Time Ratio 1.4 INR International Normalized Ratio 1.41 Activated Partial Thromboplast Time > 180.0 *H Medications Current Medications Ondansetron HCl (Zofran Inj) 4 mg Q6H PRN IV NAUSEA AND/OR VOMITING; Start at 01:30 Acetaminophen (Tylenol Liquid) 650 mg Q6H PRN PO PAIN LEVEL 1-3 OR FEVER; Start 03/22/17 at 01:30 Acetaminophen (Tylenol Supp) 650 mg Q4H PRN [place] PAIN LEVEL 1-3 OR FEVER; Start 03/22/17 at 01:30 Aspirin 81 mg 81 mg DAILY PO Last administered on 03/26/17 07:52; Admin Dose 81 MG; Start 03/22/17 at 09:00 Levofloxacin/ Dextrose (Levaquin 500mg/ D5W 100 ml (Pmx)) 100 ml @ 100 mls/hr Q24H IVPB Last administered on 03/26/17 05:54; Admin Dose 100 MLS/HR; Start at 07:00 Atorvastatin Calcium (Lipitor) 80 mg HS PO Last administered on 03/25/17 20:36 ; Admin Dose 80 MG; Start 03/22/17 at 21:00 Febuxostat (Uloric) 40 mg DAILY PO Last administered on 03/25/17 08:44; Admin Dose 40 MG; Start 03/23/17 at 09:00 Multivitamins Therapeutic (Theragran) 1 tab DAILY PO Last administered on 07:52; Admin Dose 1 TAB; Start 03/23/17 at 09:00 Tamsulosin HCl (Flomax) 0.4 mg BID PO Last administered on 03/26/17 07:52; Admin Dose 0.4 MG; Start 03/22/17 at 21:00 Pantoprazole (Protonix Tab) 40 mg DAILY@06 PO Last administered on 03/23/17 06 :00; Admin Dose 40 MG; Start 03/23/17 at 06:00 Hydralazine HCl (Apresoline) 20 mg Q6H PRN IV SBP >180 Last administered on 00:42; Admin Dose 20 MG; Start 03/22/17 at 22:45 Metoprolol Tartrate (Lopressor) 5 mg Q6 PRN IV HR >100 or SBP >170 Last administered on 03/25/17 16:45; Admin Dose 5 MG; Start 03/23/17 at 15:30 Olanzapine (Zyprexa) 10 mg Q8 PRN IM severe agitation Last administered on 03/25 10:23; Admin Dose 10 MG; Start 03/23/17 at 15:30 Labetalol HCl (Labetalol) 10 mg Q4H PRN IV SBP>160 Last administered on 08:43; Admin Dose 10 MG; Start 03/24/17 at 09:30 Morphine Sulfate 2 mg 2 mg Q4H PRN IV PAIN LEVEL 7-10 Last administered on 03/25 20:40; Admin Dose 2 MG; Start 03/24/17 at 10:00 Dextrose/Sodium Chloride (D5-1/2ns) 1,000 ml @ 60 mls/hr [id number] IV Last administered on 03/25/17 21:53; Admin Dose 60 MLS/HR; Start 03/24/17 at 10:30 Carvedilol (Coreg) 25 mg BID PO Last administered on 03/26/17 07:52; Admin Dose 25 MG; Start 03/25/17 at 21:00 Methylprednisolone Sodium Succinate (Solu-Medrol) 40 mg BID IV Last administered on 03/26/17 07:51; Admin Dose 40 MG; Start 03/25/17 at 21:00 Docusate Sodium (Colace) 100 mg BID PO ; Start 03/26/17 at 21:00; Status UNV Bisacodyl (Dulcolax Supp) 10 mg DAILY PRN [place] CONSTIPATION; Start 03/26/17 at 12 :30; Status UNV Bisacodyl (Dulcolax) 5 mg DAILY PRN PO CONSTIPATION; Start 03/26/17 at 12:30; Status UNV Assessment/Plan Chief Complaint/Hosp Course Additional Assessment/Plan IMP: 1. Hypercapnic Resp Insufficiency 2. COPD Exacerbation 3. Underlying Gastric Cancer 4. Leukocytosis--2/2 CS 5. AMS RECS: 1. Taper CS 2. Minimize FiO2 to keep Sp02 88-92% 3. Gentle diuresis 4. Low-dose seroquel Consider [facility] facility Problems: CAND[facility] BLACK MD, [facility] Mar 26, 2017 12:25
[2017-03-26] MEDS ORDERED: BISACODYL 10 MG SUPP PR PRN (12:30)
[2017-03-26] MEDS ORDERED: BISACODYL (EC) 5 MG TAB PO PRN (12:30)
[2017-03-26] MEDS: DOCUSATE SODIUM 100 MG CAP PO SCH ×2 (13:00→21:23)
[2017-03-26 14:36] LABS: MICROALBUMIN 18.4 mg/dL
--- NOTE | 2017-03-26 14:56 | CONS ---
Date/Time of Note Date/Time of Note DATE: 03/26/17 TIME: 14:54 Assessment/Plan Assessment/Plan Additional Assessment/Plan 76 yo Male with 1) Resp Failure ?PE 2) COPD 3) HTN, Chronic 4) Hx of RCC S/ Partial Nephrectomy by Dr Ly Gant 5) Hyperechoic Mass Rt Kidney ?RCC 6) Left Renal Cysts 7) Leukcytosis SIRS? 8) Anemia, Likely Chronic 9) NELLIE Resolved. S/p Waters Likely obstructive Uropathy. 10) GI Malignancy Work up in progress 11) DVT/?PE S/p Waters Catheter, Non oliguric Nellie resolved. Strict Is and Os, Monitor UO, Electrolytes and renal function daily Will cont to follow until discharge. Consultation Date/Type/Reason Admit Date/Time Mar 21, 2017 at 23:46 Initial Consult Date 03/22/17 Type of Consultation: Renal Referring Provider: LUCAS DUOGLAS MD 24 HR Interval Summary Free Text/Dictation Transferred to telemetry. Good UO reported Constitutional: requiring O2 Exam/Review of Systems Vital Signs Vitals Vital Signs Date Time Temp Pulse Resp B/P Pulse Ox O2 Delivery O2 Flow Rate FiO2 03/26/17 12:12 64 03/26/17 12:00 Nasal Cannula 4.0 03/26/17 11:48 98.5 139/82 99 03/26/17 08:49 20 50 Intake and Output 03/25/17 03/25/17 03/26/17 15:00 23:00 07:00 Intake Total 785.0 ml 515.5 ml Output Total 700 ml 395 ml 400 ml Balance 85.0 ml 120.5 ml -400 ml Exam Constitutional: frail, No distress ENMT: mucosa pink and moist Neck: No jvd Respiratory: crackles/rales, No diminished breath sounds, No labored breathing Cardiovascular: regular rate and rhythm, No edema Gastrointestinal: non-tender, soft Extremities: No pitting pedal edema Neurological: lethargic, No nl mental status Skin: No diaphoresis Results Result Diagram: 03/26/17 0356 03/26/17 0356 Results 24 hrs Laboratory Tests Test 03/25/17 21:15 03/26/17 03:55 03/26/17 03:56 03/26/17 09:44 Activated Partial Thromboplast Time 80.4 *H 50.4 H > 180.0 *H Prothrombin Time 16.3 H 17.3 H Prothrombin Time Ratio 1.3 1.4 INR International Normalized Ratio 1.30 1.41 White Blood Count 12.3 H Red Blood Count 5.78 Hemoglobin 13.5 L Hematocrit 43.4 Mean Corpuscular Volume 75.1 L Mean Corpuscular Hemoglobin 23.4 L Mean Corpuscular Hemoglobin Concent 31.1 L Red Cell Distribution Width 17.8 H Platelet Count 504 H Mean Platelet Volume 10.1 Neutrophils % 92.5 H Lymphocytes % 3.3 L Monocytes % 3.0 Eosinophils % 0.0 Basophils % 0.1 Nucleated Red Blood Cells % 0.0 Neutrophils # 11.4 H Lymphocytes # 0.4 L Monocytes # 0.4 Eosinophils # 0.0 Basophils # 0.0 Nucleated Red Blood Cells # 0.0 Sodium Level 142 Potassium Level 4.3 Chloride Level 110 Carbon Dioxide Level 29 Anion Gap 7 L Blood Urea Nitrogen 34 H Creatinine 1.13 Glucose Level 116 Calcium Level 9.0 Phosphorus Level 3.9 Magnesium Level 1.7 Medications Medications Current Medications Ondansetron HCl (Zofran Inj) 4 mg Q6H PRN IV NAUSEA AND/OR VOMITING; Start at 01:30 Acetaminophen (Tylenol Liquid) 650 mg Q6H PRN PO PAIN LEVEL 1-3 OR FEVER; Start 03/22/17 at 01:30 Acetaminophen (Tylenol Supp) 650 mg Q4H PRN [place] PAIN LEVEL 1-3 OR FEVER; Start 03/22/17 at 01:30 Aspirin 81 mg 81 mg DAILY PO Last administered on 03/26/17 07:52; Admin Dose 81 MG; Start 03/22/17 at 09:00 Levofloxacin/ Dextrose (Levaquin 500mg/ D5W 100 ml (Pmx)) 100 ml @ 100 mls/hr Q24H IVPB Last administered on 03/26/17 05:54; Admin Dose 100 MLS/HR; Start at 07:00 Atorvastatin Calcium (Lipitor) 80 mg HS PO Last administered on 03/25/17 20:36 ; Admin Dose 80 MG; Start 03/22/17 at 21:00 Febuxostat (Uloric) 40 mg DAILY PO Last administered on 03/25/17 08:44; Admin Dose 40 MG; Start 03/23/17 at 09:00 Multivitamins Therapeutic (Theragran) 1 tab DAILY PO Last administered on 07:52; Admin Dose 1 TAB; Start 03/23/17 at 09:00 Tamsulosin HCl (Flomax) 0.4 mg BID PO Last administered on 03/26/17 07:52; Admin Dose 0.4 MG; Start 03/22/17 at 21:00 Pantoprazole (Protonix Tab) 40 mg DAILY@06 PO Last administered on 03/23/17 06 :00; Admin Dose 40 MG; Start 03/23/17 at 06:00 Hydralazine HCl (Apresoline) 20 mg Q6H PRN IV SBP >180 Last administered on 00:42; Admin Dose 20 MG; Start 03/22/17 at 22:45 Metoprolol Tartrate (Lopressor) 5 mg Q6 PRN IV HR >100 or SBP >170 Last administered on 03/25/17 16:45; Admin Dose 5 MG; Start 03/23/17 at 15:30 Olanzapine (Zyprexa) 10 mg Q8 PRN IM severe agitation Last administered on 03/25 10:23; Admin Dose 10 MG; Start 03/23/17 at 15:30 Labetalol HCl (Labetalol) 10 mg Q4H PRN IV SBP>160 Last administered on 08:43; Admin Dose 10 MG; Start 03/24/17 at 09:30 Morphine Sulfate 2 mg 2 mg Q4H PRN IV PAIN LEVEL 7-10 Last administered on 03/25 20:40; Admin Dose 2 MG; Start 03/24/17 at 10:00 Dextrose/Sodium Chloride (D5-1/2ns) 1,000 ml @ 60 mls/hr [id number] IV Last administered on 03/25/17 21:53; Admin Dose 60 MLS/HR; Start 03/24/17 at 10:30 Carvedilol (Coreg) 25 mg BID PO Last administered on 03/26/17 07:52; Admin Dose 25 MG; Start 03/25/17 at 21:00 Methylprednisolone Sodium Succinate (Solu-Medrol) 40 mg BID IV Last administered on 03/26/17 07:51; Admin Dose 40 MG; Start 03/25/17 at 21:00 Docusate Sodium (Colace) 100 mg BID PO ; Start 03/26/17 at 13:00 Bisacodyl (Dulcolax Supp) 10 mg DAILY PRN [place] CONSTIPATION; Start 03/26/17 at 12 :30 Bisacodyl (Dulcolax) 5 mg DAILY PRN PO CONSTIPATION; Start 03/26/17 at 12:30 JACY ROSE MD Mar 26, 2017 14:56
[2017-03-26] MEDS: DEXTROSE 5%-0.45% NACL 1,000 ML IV SCH (15:46)
--- NOTE | 2017-03-26 15:52 | CONS ---
Date/Time of Note Date/Time of Note DATE: 03/26/17 TIME: 15:49 Assessment/Plan Assessment/Plan Additional Assessment/Plan Respiratory failure SIRS/Sepsis Acute kidney injury, improving Extensive DVT noted bilaterally with hx IVC filter COPD Possible history of malignancy Active tobacco use Mild elevated troponin -Patient with improvement in respiratory status and mental status. CT with no evidence of pulmonary emboli. Continue anticoagulation if no contraindication. IV fluids as per nephrology Consultation Date/Type/Reason Admit Date/Time Mar 21, 2017 at 23:46 Initial Consult Date 03/22/17 Type of Consultation: cv Referring Provider: LUCAS DOUGLAS MD 24 HR Interval Summary Free Text/Dictation Feeling better, less shortness of breath, still with cough but improved, denies chest pain Exam/Review of Systems Vital Signs Vitals Vital Signs Date Time Temp Pulse Resp B/P Pulse Ox O2 Delivery O2 Flow Rate FiO2 03/26/17 14:58 81 22 99 Nasal Cannula 4.0 03/26/17 11:48 98.5 139/82 03/26/17 08:49 50 Intake and Output 03/25/17 03/25/17 03/26/17 14:59 22:59 06:59 Intake Total 707.0 ml 593.5 ml Output Total 600 ml 495 ml 400 ml Balance 107.0 ml 98.5 ml -400 ml Exam On facemask, no apparent distress Constitutional: alert, oriented Head: normocephalic Respiratory: other (Coarse breath sounds bilaterally, no wheezing) Cardiovascular: other (S1-S2 heard), regular rate and rhythm Gastrointestinal: bowel sounds, non-tender, soft Extremities: other (Trace) Results Result Diagram: 03/26/17 0356 03/26/17 0356 Results 24 hrs Laboratory Tests Test 03/25/17 21:15 03/26/17 03:55 03/26/17 03:56 03/26/17 09:44 Activated Partial Thromboplast Time 80.4 *H 50.4 H > 180.0 *H Prothrombin Time 16.3 H 17.3 H Prothrombin Time Ratio 1.3 1.4 INR International Normalized Ratio 1.30 1.41 White Blood Count 12.3 H Red Blood Count 5.78 Hemoglobin 13.5 L Hematocrit 43.4 Mean Corpuscular Volume 75.1 L Mean Corpuscular Hemoglobin 23.4 L Mean Corpuscular Hemoglobin Concent 31.1 L Red Cell Distribution Width 17.8 H Platelet Count 504 H Mean Platelet Volume 10.1 Neutrophils % 92.5 H Lymphocytes % 3.3 L Monocytes % 3.0 Eosinophils % 0.0 Basophils % 0.1 Nucleated Red Blood Cells % 0.0 Neutrophils # 11.4 H Lymphocytes # 0.4 L Monocytes # 0.4 Eosinophils # 0.0 Basophils # 0.0 Nucleated Red Blood Cells # 0.0 Sodium Level 142 Potassium Level 4.3 Chloride Level 110 Carbon Dioxide Level 29 Anion Gap 7 L Blood Urea Nitrogen 34 H Creatinine 1.13 Glucose Level 116 Calcium Level 9.0 Phosphorus Level 3.9 Magnesium Level 1.7 Test 03/26/17 14:21 Activated Partial Thromboplast Time 30.7 Medications Medications Current Medications Ondansetron HCl (Zofran Inj) 4 mg Q6H PRN IV NAUSEA AND/OR VOMITING; Start at 01:30 Acetaminophen (Tylenol Liquid) 650 mg Q6H PRN PO PAIN LEVEL 1-3 OR FEVER; Start 03/22/17 at 01:30 Acetaminophen (Tylenol Supp) 650 mg Q4H PRN [place] PAIN LEVEL 1-3 OR FEVER; Start 03/22/17 at 01:30 Aspirin 81 mg 81 mg DAILY PO Last administered on 03/26/17 07:52; Admin Dose 81 MG; Start 03/22/17 at 09:00 Levofloxacin/ Dextrose (Levaquin 500mg/ D5W 100 ml (Pmx)) 100 ml @ 100 mls/hr Q24H IVPB Last administered on 03/26/17 05:54; Admin Dose 100 MLS/HR; Start at 07:00 Atorvastatin Calcium (Lipitor) 80 mg HS PO Last administered on 03/25/17 20:36 ; Admin Dose 80 MG; Start 03/22/17 at 21:00 Febuxostat (Uloric) 40 mg DAILY PO Last administered on 03/25/17 08:44; Admin Dose 40 MG; Start 03/23/17 at 09:00 Multivitamins Therapeutic (Theragran) 1 tab DAILY PO Last administered on 07:52; Admin Dose 1 TAB; Start 03/23/17 at 09:00 Tamsulosin HCl (Flomax) 0.4 mg BID PO Last administered on 03/26/17 07:52; Admin Dose 0.4 MG; Start 03/22/17 at 21:00 Pantoprazole (Protonix Tab) 40 mg DAILY@06 PO Last administered on 03/23/17 06 :00; Admin Dose 40 MG; Start 03/23/17 at 06:00 Hydralazine HCl (Apresoline) 20 mg Q6H PRN IV SBP >180 Last administered on 00:42; Admin Dose 20 MG; Start 03/22/17 at 22:45 Metoprolol Tartrate (Lopressor) 5 mg Q6 PRN IV HR >100 or SBP >170 Last administered on 03/25/17 16:45; Admin Dose 5 MG; Start 03/23/17 at 15:30 Olanzapine (Zyprexa) 10 mg Q8 PRN IM severe agitation Last administered on 03/25 10:23; Admin Dose 10 MG; Start 03/23/17 at 15:30 Labetalol HCl (Labetalol) 10 mg Q4H PRN IV SBP>160 Last administered on 08:43; Admin Dose 10 MG; Start 03/24/17 at 09:30 Morphine Sulfate 2 mg 2 mg Q4H PRN IV PAIN LEVEL 7-10 Last administered on 03/25 20:40; Admin Dose 2 MG; Start 03/24/17 at 10:00 Dextrose/Sodium Chloride (D5-1/2ns) 1,000 ml @ 60 mls/hr [id number] IV Last administered on 03/26/17 15:46; Admin Dose 60 MLS/HR; Start 03/24/17 at 10:30 Carvedilol (Coreg) 25 mg BID PO Last administered on 03/26/17 07:52; Admin Dose 25 MG; Start 03/25/17 at 21:00 Methylprednisolone Sodium Succinate (Solu-Medrol) 40 mg BID IV Last administered on 03/26/17 07:51; Admin Dose 40 MG; Start 03/25/17 at 21:00 Docusate Sodium (Colace) 100 mg BID PO ; Start 03/26/17 at 13:00 Bisacodyl (Dulcolax Supp) 10 mg DAILY PRN [place] CONSTIPATION; Start 03/26/17 at 12 :30 Bisacodyl (Dulcolax) 5 mg DAILY PRN PO CONSTIPATION; Start 03/26/17 at 12:30 Oli Cerna DO Mar 26, 2017 15:52
--- NOTE | 2017-03-26 17:08 | RADRPT ---
Vent Rate: 94 bpm RR Interval: 0 msec [place] Interval: 136 msec QRS Duration: 134 msec QT Interval: 452 msec QTC Interval: 565 msec P-R-T [place]: 80 - -81 - 54 degrees Sinus rhythm with frequent premature ventricular complexes Right bundle branch block Left anterior fascicular block Bifascicular block Abnormal ECG Electronically Signed By: Oli eCrna [id number]
[2017-03-26] MEDS: ATORVASTATIN 40 MG TAB PO SCH (21:23)
[2017-03-26] MEDS: morphine 2 MG INJ IV PRN (21:35)
[2017-03-27] VITALS (13 sets, daily range): BP systolic 107–170; BP diastolic 55–86; PULSE 63–78; RESP 16–50
[2017-03-27] MEDS: HEPARIN 25000 UNITS/250 ML 250 ML IV SCH ×4 (00:10→22:30)
[2017-03-27] MEDS: HEPARIN 1000 UNITS/ML 10 ML INJ IV PRN ×3 (00:11→22:30)
[2017-03-27] MEDS: DEXTROSE 5%-0.45% NACL 1,000 ML IV SCH ×3 (00:16→21:50)
[2017-03-27] MEDS: ACETYLCYSTEINE 20% 4 ML VIAL NEB SCH ×4 (02:21→19:50)
[2017-03-27] MEDS: LEVALBUTEROL (NEB) 1.25 MG/0.5 ML AMP HHN SCH ×4 (02:21→19:50)
[2017-03-27] MEDS: PANTOPRAZOLE (EC) 40 MG TAB PO SCH (05:42)
[2017-03-27] MEDS: LEVOFLOXACIN 500MG/D5W (PMX) 100 ML IVPB SCH (06:19)
--- NOTE | 2017-03-27 06:23 | CONS ---
Date/Time of Note Date/Time of Note DATE: 03/27/17 TIME: 06:23 Consultation Date/Type/Reason Admit Date/Time Mar 21, 2017 at 23:46 Initial Consult Date 03/22/17 Type of Consultation: renal Referring Provider: LUCAS DOUGLAS MD Exam/Review of Systems Vital Signs Vitals Vital Signs Date Time Temp Pulse Resp B/P Pulse Ox O2 Delivery O2 Flow Rate FiO2 03/27/17 04:17 98.0 63 18 144/73 96 03/27/17 02:22 Nasal Cannula 4.0 03/26/17 19:47 33 Intake and Output 03/26/17 03/26/17 03/27/17 15:00 23:00 07:00 Intake Total 1080 ml Output Total 450 ml Balance 630 ml Results Result Diagram: 03/26/17 0356 03/26/17 0356 Results 24 hrs Laboratory Tests Test 03/26/17 09:44 03/26/17 14:21 03/26/17 22:19 Prothrombin Time 17.3 H Prothrombin Time Ratio 1.4 INR International Normalized Ratio 1.41 Activated Partial Thromboplast Time > 180.0 *H 30.7 53.2 H Medications Medications Current Medications Ondansetron HCl (Zofran Inj) 4 mg Q6H PRN IV NAUSEA AND/OR VOMITING; Start at 01:30 Acetaminophen (Tylenol Liquid) 650 mg Q6H PRN PO PAIN LEVEL 1-3 OR FEVER; Start 03/22/17 at 01:30 Acetaminophen (Tylenol Supp) 650 mg Q4H PRN [place] PAIN LEVEL 1-3 OR FEVER; Start 03/22/17 at 01:30 Aspirin 81 mg 81 mg DAILY PO Last administered on 03/26/17 07:52; Admin Dose 81 MG; Start 03/22/17 at 09:00 Levofloxacin/ Dextrose (Levaquin 500mg/ D5W 100 ml (Pmx)) 100 ml @ 100 mls/hr Q24H IVPB Last administered on 03/27/17 06:19; Admin Dose 100 MLS/HR; Start at 07:00 Atorvastatin Calcium (Lipitor) 80 mg HS PO Last administered on 03/26/17 21:23 ; Admin Dose 80 MG; Start 03/22/17 at 21:00 Febuxostat (Uloric) 40 mg DAILY PO Last administered on 03/25/17 08:44; Admin Dose 40 MG; Start 03/23/17 at 09:00 Multivitamins Therapeutic (Theragran) 1 tab DAILY PO Last administered on 07:52; Admin Dose 1 TAB; Start 03/23/17 at 09:00 Tamsulosin HCl (Flomax) 0.4 mg BID PO Last administered on 03/26/17 21:23; Admin Dose 0.4 MG; Start 03/22/17 at 21:00 Pantoprazole (Protonix Tab) 40 mg DAILY@06 PO Last administered on 03/27/17 05 :42; Admin Dose 40 MG; Start 03/23/17 at 06:00 Hydralazine HCl (Apresoline) 20 mg Q6H PRN IV SBP >180 Last administered on 00:42; Admin Dose 20 MG; Start 03/22/17 at 22:45 Metoprolol Tartrate (Lopressor) 5 mg Q6 PRN IV HR >100 or SBP >170 Last administered on 03/25/17 16:45; Admin Dose 5 MG; Start 03/23/17 at 15:30 Olanzapine (Zyprexa) 10 mg Q8 PRN IM severe agitation Last administered on 03/25 10:23; Admin Dose 10 MG; Start 03/23/17 at 15:30 Labetalol HCl (Labetalol) 10 mg Q4H PRN IV SBP>160 Last administered on 08:43; Admin Dose 10 MG; Start 03/24/17 at 09:30 Morphine Sulfate 2 mg 2 mg Q4H PRN IV PAIN LEVEL 7-10 Last administered on 03/26 21:35; Admin Dose 2 MG; Start 03/24/17 at 10:00 Dextrose/Sodium Chloride (D5-1/2ns) 1,000 ml @ 60 mls/hr [id number] IV Last administered on 03/27/17 00:16; Admin Dose 60 MLS/HR; Start 03/24/17 at 10:30 Carvedilol (Coreg) 25 mg BID PO Last administered on 03/26/17 21:25; Admin Dose 25 MG; Start 03/25/17 at 21:00 Methylprednisolone Sodium Succinate (Solu-Medrol) 40 mg BID IV Last administered on 03/26/17 21:23; Admin Dose 40 MG; Start 03/25/17 at 21:00 Docusate Sodium (Colace) 100 mg BID PO Last administered on 03/26/17 21:23; Admin Dose 100 MG; Start 03/26/17 at 13:00 Bisacodyl (Dulcolax Supp) 10 mg DAILY PRN [place] CONSTIPATION; Start 03/26/17 at 12 :30 Bisacodyl (Dulcolax) 5 mg DAILY PRN PO CONSTIPATION Last administered on 17:51; Admin Dose 5 MG; Start 03/26/17 at 12:30 JACY ROSE MD Mar 27, 2017 06:23
--- NOTE | 2017-03-27 06:47 | CONS ---
DATE OF ADMISSION: 03/21/2017 DATE OF CONSULTATION: 03/26/2017 HISTORY OF PRESENT ILLNESS: The patient is a 76-year-old male, who was admitted with deep venous thrombosis, bilateral lower extremities, on IV heparin. The patient admitted with decreased mini-mental status, lack of communication. The patient has multiple medical problems in the form of dyslipidemia, benign prostatic hypertrophy, gastritis, anxiety disorder, hypertension. MEDICATION: His current medications include: 1. Crestor 5 mg once a day. 2. Morphine 2 mg every 4 hours as needed. 3. Lexapro 10 mg once a day. 4. Lopressor 5 mg once a day. 5. Zyprexa 10 mg once a day. 6. Protonix 40 mg once a day. 7. Flomax 0.4 mg once a day. 8. Aspirin 81 mg once a day. 9. Lipitor 80 mg once a day. PHYSICAL EXAMINATION: NEUROLOGIC: The patient is alert, awake, and follows simple commands, looks confused. CRANIAL NERVES: Cranial nerve II: Pupils equal on both sides, reactive to light. Cranial nerves II, IV and : Extraocular muscles intact. Cranial nerve V: Equal sensation to face. Cranial nerve VII: Symmetrical face. Cranial nerve VIII: Decreased hearing bilaterally. Cranial nerves IX and X: Not done. Cranial nerve XI: Elevates shoulder 5/5. Cranial nerve XII: With straight tongue. Motor exam: Decreased right hand floor steward/stewardess, 4+/5. Sensation decreased for glove and sock area for light touch and temperature. Coordination: [id number] test intact. HEART: Regular rate and rhythm. LUNGS: Equal breath sounds. ABDOMEN: Soft, nondistended, nontender. IMPRESSION AND PLAN: 1. The patient is a 76-year-old with decreased mini-mental status secondary to transient ischemic attack. We will follow up the patient with MRI of his brain. 2. The patient is already on IV heparin. We might switch him to Coumadin versus Eliquis and follow up the patient with anticoagulation, which is a good prophylaxis for stroke as well as a good treatment for deep venous thrombosis. 3. Underlying encephalopathy in which the patient is still confused, however, had some slight improvement. 4. Alzheimer disease. We will follow up the patient with mini- mental status as an outpatient for more evaluation and treatment. 5. Dyslipidemia. Continue the patient on Lipitor 80 mg once a day. 6. Hypertension. Keep the blood pressure below 140/90 to avoid any extension of stroke. Again, thank you for asking me to see the patient with you. Dictated By: iRley Nichole MD /[email or web address] /Document#: [id number]
[2017-03-27 08:12] LABS: ABNORMAL IP MESSAGE 1; BASOPHILS % 0.2 % (0.0-2.0); HEMATOCRIT 40.3 % (42.0-52.0); HEMOGLOBIN 12.6 g/dl (14.0-18.0); LYMPHOCYTES # 0.5 10^3/ul (0.8-2.9); LYMPHOCYTES % 4.4 % (15.0-51.0); MEAN CORPUSCULAR HEMOGLOBIN 23.6 pg (29.0-33.0); MEAN CORPUSCULAR HGB CONC 31.3 g/dl (32.0-37.0); MEAN CORPUSCULAR VOLUME 75.5 fl (82.0-101.0); MEAN PLATELET VOLUME 10.5 fl (7.4-10.4); MONOCYTE # 0.5 10^3/ul (0.3-0.9); MONOCYTES % 4.3 % (0.0-11.0); NEUTROPHIL # 10.2 10^3/ul (1.6-7.5); NEUTROPHILS % 90.3 % (39.0-77.0); PLATELET COUNT 450 10^3/UL (140-415); POSITIVE DIFF @See below; RED BLOOD COUNT 5.34 10^6/ul (4.70-6.10); RED CELL DISTRIBUTION WIDTH 17.2 % (11.5-14.5); WHITE BLOOD COUNT 11.2 10^3/ul (4.8-10.8)
[2017-03-27] MEDS: MULTIVITAMINS THERAPEUTIC TAB PO SCH (08:17)
[2017-03-27] MEDS: FEBUXOSTAT 40 MG TABLET PO SCH (08:17)
[2017-03-27] MEDS: ASPIRIN (EC) 81 MG TAB PO SCH (08:17)
[2017-03-27] MEDS: METHYLPREDNISOLONE 40 MG INJ IV SCH (08:17)
[2017-03-27] MEDS: DOCUSATE SODIUM 100 MG CAP PO SCH (08:17)
[2017-03-27] MEDS: TAMSULOSIN (SR) 0.4 MG CAP PO SCH ×2 (08:17→20:32)
[2017-03-27 08:37] LABS: ALBUMIN 2.4 g/dl (3.3-4.9); CALCIUM 8.3 mg/dl (8.4-10.2); CREATININE 1.21 mg/dl (0.61-1.24); MAGNESIUM 1.5 mg/dl (1.7-2.5); PHOSPHORUS 4.2 mg/dl (2.5-4.9); POTASSIUM 3.8 mmol/L (3.5-5.1)
--- NOTE | 2017-03-27 09:07 | PN ---
Date/Time of Note Date/Time of Note DATE: 03/27/17 TIME: 09:07 Assessment/Plan VTE Prophylaxis VTE Prophylaxis Intervention: heparin Lines/Catheters IV Catheter Type (from Nrsg): Peripheral IV Urinary Cath still in place: Yes Reason Cath still needed: other (indicate) Assessment/Plan Assessment/Plan 1. Acute respiratory failure, resolving - doing well on nasal cannula, at 4L with NAD - Pulmonology on board and consultation appreciated. Will continue weaning to maintain saturations 88-92% and steroids tapered to daily 2. COPD exacerbation - Improving. no wheezing appreciated 3. 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 Hypertension - stable 5. rib fracture - Lidoderm patch for pain control 6. History of renal cell carcinoma, with renal mass - stable 7. Gastric carcinoma, unknown type, records pending - Spoke with Dr. Otoole and will hold off on any intervention until repeat EGD is performed and more information about tumor obtained. Appreciate assistance - Per Pulm, patient is stable for EGD if GI agreeable to perform - Consult placed to GI for evaluation 8. Acute delirium - continue on low dose Seroquel at this time 9. Acute on chronic CKD - stable Subjective 24 Hr Interval Summary Free Text/Dictation Patient appears more comfortably today with no acute respiratory distress. Doing well on NC and agreeable to GI consult for further evaluation via EGD. Still attempting to obtain results from [facility] from 1 month ago. No acute overnight events. Exam/Review of Systems Vital Signs Vitals Vital Signs Date Time Temp Pulse Resp B/P Pulse Ox O2 Delivery O2 Flow Rate FiO2 03/27/17 08:12 64 03/27/17 07:38 18 94 Nasal Cannula 4.0 03/27/17 07:38 97.7 156/82 03/26/17 19:47 33 Intake and Output 03/26/17 03/26/17 03/27/17 15:00 23:00 07:00 Intake Total 1080 ml 1379 ml Output Total 450 ml 750 ml Balance 630 ml 629 ml Exam General: NAD, awake and alert. oriented to place and self Head: Normocephalic atraumatic Eyes: EOMI, pupils reactive to light Neck: Supple, nontender, midline Respiratory: coarse breath sounds bilaterally, diminished effort. Cardiovascular: regular rate, no obvious murmurs Gastrointestinal: non-tender to palpation, bowel sounds heard. Skin: No new skin lesions Results Result Diagram: 03/27/17 0706 03/27/17 0706 Results 24 hrs Laboratory Tests Test 03/26/17 09:44 03/26/17 14:21 03/26/17 22:19 03/27/17 07:06 Prothrombin Time 17.3 H Prothrombin Time Ratio 1.4 INR International Normalized Ratio 1.41 Activated Partial Thromboplast Time > 180.0 *H 30.7 53.2 H 51.6 H White Blood Count 11.2 H Red Blood Count 5.34 Hemoglobin 12.6 L Hematocrit 40.3 L Mean Corpuscular Volume 75.5 L Mean Corpuscular Hemoglobin 23.6 L Mean Corpuscular Hemoglobin Concent 31.3 L Red Cell Distribution Width 17.2 H Platelet Count 450 H Mean Platelet Volume 10.5 H Neutrophils % 90.3 H Lymphocytes % 4.4 L Monocytes % 4.3 Eosinophils % 0.0 Basophils % 0.2 Nucleated Red Blood Cells % 0.0 Neutrophils # 10.2 H Lymphocytes # 0.5 L Monocytes # 0.5 Eosinophils # 0.0 Basophils # 0.0 Nucleated Red Blood Cells # 0.0 Sodium Level 138 Potassium Level 3.8 Chloride Level 107 Carbon Dioxide Level 28 Anion Gap 7 L Blood Urea Nitrogen 37 H Creatinine 1.21 Glucose Level 131 Calcium Level 8.3 L Phosphorus Level 4.2 Magnesium Level 1.5 L Albumin 2.4 L Medications Medications Current Medications Ondansetron HCl (Zofran Inj) 4 mg Q6H PRN IV NAUSEA AND/OR VOMITING; Start at 01:30 Acetaminophen (Tylenol Liquid) 650 mg Q6H PRN PO PAIN LEVEL 1-3 OR FEVER; Start 03/22/17 at 01:30 Acetaminophen (Tylenol Supp) 650 mg Q4H PRN [place] PAIN LEVEL 1-3 OR FEVER; Start 03/22/17 at 01:30 Aspirin 81 mg 81 mg DAILY PO Last administered on 03/27/17t 08:17; Admin Dose 81 MG; Start 03/22/17 at 09:00 Levofloxacin/ Dextrose (Levaquin 500mg/ D5W 100 ml (Pmx)) 100 ml @ 100 mls/hr Q24H IVPB Last administered on 03/27/17 06:19; Admin Dose 100 MLS/HR; Start at 07:00 Atorvastatin Calcium (Lipitor) 80 mg HS PO Last administered on 03/26/17 21:23 ; Admin Dose 80 MG; Start 03/22/17 at 21:00 Febuxostat (Uloric) 40 mg DAILY PO Last administered on 03/27/17 08:17; Admin Dose 40 MG; Start 03/23/17 at 09:00 Multivitamins Therapeutic (Theragran) 1 tab DAILY PO Last administered on 08:17; Admin Dose 1 TAB; Start 03/23/17 at 09:00 Tamsulosin HCl (Flomax) 0.4 mg BID PO Last administered on 03/27/17 08:17; Admin Dose 0.4 MG; Start 03/22/17 at 21:00 Pantoprazole (Protonix Tab) 40 mg DAILY@06 PO Last administered on 03/27/17 05 :42; Admin Dose 40 MG; Start 03/23/17 at 06:00 Hydralazine HCl (Apresoline) 20 mg Q6H PRN IV SBP >180 Last administered on 00:42; Admin Dose 20 MG; Start 03/22/17 at 22:45 Metoprolol Tartrate (Lopressor) 5 mg Q6 PRN IV HR >100 or SBP >170 Last administered on 03/25/17 16:45; Admin Dose 5 MG; Start 03/23/17 at 15:30 Olanzapine (Zyprexa) 10 mg Q8 PRN IM severe agitation Last administered on 03/25 10:23; Admin Dose 10 MG; Start 03/23/17 at 15:30 Labetalol HCl (Labetalol) 10 mg Q4H PRN IV SBP>160 Last administered on 08:43; Admin Dose 10 MG; Start 03/24/17 at 09:30 Morphine Sulfate 2 mg 2 mg Q4H PRN IV PAIN LEVEL 7-10 Last administered on 03/26 21:35; Admin Dose 2 MG; Start 03/24/17 at 10:00 Dextrose/Sodium Chloride (D5-1/2ns) 1,000 ml @ 60 mls/hr [id number] IV Last administered on 03/27/17 00:16; Admin Dose 60 MLS/HR; Start 03/24/17 at 10:30 Carvedilol (Coreg) 25 mg BID PO Last administered on 03/27/17 08:18; Admin Dose 25 MG; Start 03/25/17 at 21:00 Methylprednisolone Sodium Succinate (Solu-Medrol) 40 mg BID IV Last administered on 03/27/17 08:17; Admin Dose 40 MG; Start 03/25/17 at 21:00 Docusate Sodium (Colace) 100 mg BID PO Last administered on 03/27/17 08:17; Admin Dose 100 MG; Start 03/26/17 at 13:00 Bisacodyl (Dulcolax Supp) 10 mg DAILY PRN [place] CONSTIPATION; Start 03/26/17 at 12 :30 Bisacodyl (Dulcolax) 5 mg DAILY PRN [place] CONSTIPATION Last administered on 17:51; Admin Dose 5 MG; Start 03/26/17 at 12:30 XENA DE JESUS MD Mar 27, 2017 09:07
--- NOTE | 2017-03-27 10:05 | CONS ---
Date/Time of Note Date/Time of Note DATE: 03/27/17 TIME: 10:01 Consult Date/Type/Reason Admit Date/Time Mar 21, 2017 at 23:46 Initial Consult Date 03/23/17 Type of Consultation: Pulmonary Ordering Provider: LUCAS DOUGLAS MD Subjective Patient comfortable this morning. 4 L nasal cannula. Objective Vital Signs Date Time Temp Pulse Resp B/P Pulse Ox O2 Delivery O2 Flow Rate FiO2 03/27/17 08:12 64 03/27/17 07:38 18 94 Nasal Cannula 4.0 03/27/17 07:38 97.7 156/82 03/26/17 19:47 33 Intake and Output 03/26/17 03/26/17 03/27/17 15:00 23:00 07:00 Intake Total 1080 ml 1379 ml Output Total 450 ml 750 ml Balance 630 ml 629 ml Exam GENERAL: Elderly [place] gentleman comfortable at rest no acute distress VITAL SIGNS: per chart NECK: Supple. No JVD or lymphadenopathy. CARDIAC EXAM: S1, S2. No added sounds or murmurs. CHEST: Diminished air entry bilaterally ABDOMEN: Soft, nontender. No guarding or rebound. EXTREMITIES: No cyanosis, clubbing or edema. NEUROLOGIC: Generalized weakness. No focal deficits. Results/Medications Result Diagram: 03/27/17 0703/27/17 07 Results 24 hrs Laboratory Tests Test 03/26/17 14:21 03/26/17 22:19 03/27/17 07:06 Activated Partial Thromboplast Time 30.7 53.2 H 51.6 H White Blood Count 11.2 H Red Blood Count 5.34 Hemoglobin 12.6 L Hematocrit 40.3 L Mean Corpuscular Volume 75.5 L Mean Corpuscular Hemoglobin 23.6 L Mean Corpuscular Hemoglobin Concent 31.3 L Red Cell Distribution Width 17.2 H Platelet Count 450 H Mean Platelet Volume 10.5 H Neutrophils % 90.3 H Lymphocytes % 4.4 L Monocytes % 4.3 Eosinophils % 0.0 Basophils % 0.2 Nucleated Red Blood Cells % 0.0 Neutrophils # 10.2 H Lymphocytes # 0.5 L Monocytes # 0.5 Eosinophils # 0.0 Basophils # 0.0 Nucleated Red Blood Cells # 0.0 Sodium Level 138 Potassium Level 3.8 Chloride Level 107 Carbon Dioxide Level 28 Anion Gap 7 L Blood Urea Nitrogen 37 H Creatinine 1.21 Glucose Level 131 Calcium Level 8.3 L Phosphorus Level 4.2 Magnesium Level 1.5 L Albumin 2.4 L Medications Current Medications Ondansetron HCl (Zofran Inj) 4 mg Q6H PRN IV NAUSEA AND/OR VOMITING; Start at 01:30 Acetaminophen (Tylenol Liquid) 650 mg Q6H PRN PO PAIN LEVEL 1-3 OR FEVER; Start 03/22/17 at 01:30 Acetaminophen (Tylenol Supp) 650 mg Q4H PRN [place] PAIN LEVEL 1-3 OR FEVER; Start 03/22/17 at 01:30 Aspirin 81 mg 81 mg DAILY PO Last administered on 03/27/17 08:17; Admin Dose 81 MG; Start 03/22/17 at 09:00 Levofloxacin/ Dextrose (Levaquin 500mg/ D5W 100 ml (Pmx)) 100 ml @ 100 mls/hr Q24H IVPB Last administered on 03/27/17 06:19; Admin Dose 100 MLS/HR; Start at 07:00 Atorvastatin Calcium (Lipitor) 80 mg HS PO Last administered on 03/26/17 21:23 ; Admin Dose 80 MG; Start 03/22/17 at 21:00 Febuxostat (Uloric) 40 mg DAILY PO Last administered on 03/27/17 08:17; Admin Dose 40 MG; Start 03/23/17 at 09:00 Multivitamins Therapeutic (Theragran) 1 tab DAILY PO Last administered on 08:17; Admin Dose 1 TAB; Start 03/23/17 at 09:00 Tamsulosin HCl (Flomax) 0.4 mg BID PO Last administered on 03/27/17 08:17; Admin Dose 0.4 MG; Start 03/22/17 at 21:00 Pantoprazole (Protonix Tab) 40 mg DAILY@06 PO Last administered on 03/27/17 05 :42; Admin Dose 40 MG; Start 03/23/17 at 06:00 Hydralazine HCl (Apresoline) 20 mg Q6H PRN IV SBP >180 Last administered on 00:42; Admin Dose 20 MG; Start 03/22/17 at 22:45 Metoprolol Tartrate (Lopressor) 5 mg Q6 PRN IV HR >100 or SBP >170 Last administered on 03/25/17 16:45; Admin Dose 5 MG; Start 03/23/17 at 15:30 Olanzapine (Zyprexa) 10 mg Q8 PRN IM severe agitation Last administered on 03/25 10:23; Admin Dose 10 MG; Start 03/23/17 at 15:30 Labetalol HCl (Labetalol) 10 mg Q4H PRN IV SBP>160 Last administered on 08:43; Admin Dose 10 MG; Start 03/24/17 at 09:30 Morphine Sulfate 2 mg 2 mg Q4H PRN IV PAIN LEVEL 7-10 Last administered on 03/26 21:35; Admin Dose 2 MG; Start 03/24/17 at 10:00 Dextrose/Sodium Chloride (D5-1/2ns) 1,000 ml @ 60 mls/hr [id number] IV Last administered on 03/27/17 00:16; Admin Dose 60 MLS/HR; Start 03/24/17 at 10:30 Carvedilol (Coreg) 25 mg BID PO Last administered on 03/27/17 08:18; Admin Dose 25 MG; Start 03/25/17 at 21:00 Methylprednisolone Sodium Succinate (Solu-Medrol) 40 mg BID IV Last administered on 03/27/17 08:17; Admin Dose 40 MG; Start 03/25/17 at 21:00 Docusate Sodium (Colace) 100 mg BID PO Last administered on 03/27/17 08:17; Admin Dose 100 MG; Start 03/26/17 at 13:00 Bisacodyl (Dulcolax Supp) 10 mg DAILY PRN [place] CONSTIPATION; Start 03/26/17 at 12 :30 Bisacodyl (Dulcolax) 5 mg DAILY PRN PO CONSTIPATION Last administered on 17:51; Admin Dose 5 MG; Start 03/26/17 at 12:30 Assessment/Plan Chief Complaint/Hosp Course Assessment/Plan IMP: 1. Hypercapnic Resp Insufficiency 2. COPD Exacerbation 3. Underlying Gastric Cancer 4. Leukocytosis--2/2 CS 5. AMS RECS: 1. Taper CS, decreased to once a day. 2. Minimize FiO2 to keep Sp02 88-92% decrease O2 as tolerated 3. Gentle diuresis 4. Low-dose seroquel Consider senior living facility Problems: CANDICE BLACK MD, [facility] Mar 27, 2017 10:05
[2017-03-27] MEDS ORDERED: DOCUSATE SODIUM 100 MG CAP PO PRN (11:00)
[2017-03-27] MEDS: LIDOCAINE 5% PATCH TD SCH (12:16)
[2017-03-27] MEDS: NICOTINE (21 MG/24 HR) PATCH TRANSDERM SCH (12:53)
--- NOTE | 2017-03-27 16:54 | CONS ---
Date/Time of Note Date/Time of Note DATE: 03/27/17 TIME: 16:50 Assessment/Plan Assessment/Plan Additional Assessment/Plan Respiratory failure, improving SIRS/Sepsis Acute kidney injury, improving Extensive DVT noted bilaterally with hx IVC filter COPD Possible history of malignancy Active tobacco use Mild elevated troponin -Patient with improvement in respiratory status and mental status. CT chest with no evidence of pulmonary emboli. Continue anticoagulation if no contraindication. IV fluids as per nephrology Consultation Date/Type/Reason Admit Date/Time Mar 21, 2017 at 23:46 Initial Consult Date 03/22/17 Type of Consultation: cv Referring Provider: LUCAS DOUGLAS MD 24 HR Interval Summary Free Text/Dictation Denies chest pain, shortness of breath has improved Exam/Review of Systems Vital Signs Vitals Vital Signs Date Time Temp Pulse Resp B/P Pulse Ox O2 Delivery O2 Flow Rate FiO2 03/27/17 16:46 98.0 63 18 170/82 92 03/27/17 16:00 Nasal Cannula 3.0 03/26/17 19:47 33 Intake and Output 03/26/17 03/26/17 03/27/17 15:00 23:00 07:00 Intake Total 1080 ml 1379 ml Output Total 450 ml 750 ml Balance 630 ml 629 ml Exam Following commands, no apparent distress Constitutional: alert, oriented Head: normocephalic Respiratory: other (Coarse breath sounds bilaterally, minimal and expiratory wheezing) Cardiovascular: other (S1-S2 heard), regular rate and rhythm Gastrointestinal: bowel sounds, non-tender, soft Extremities: edema (Trace) Results Result Diagram: 03/27/17 0706 03/27/17 0706 Results 24 hrs Laboratory Tests Test 03/26/17 22:19 03/27/17 07:06 03/27/17 15:26 Activated Partial Thromboplast Time 53.2 H 51.6 H 87.4 *H White Blood Count 11.2 H Red Blood Count 5.34 Hemoglobin 12.6 L Hematocrit 40.3 L Mean Corpuscular Volume 75.5 L Mean Corpuscular Hemoglobin 23.6 L Mean Corpuscular Hemoglobin Concent 31.3 L Red Cell Distribution Width 17.2 H Platelet Count 450 H Mean Platelet Volume 10.5 H Neutrophils % 90.3 H Lymphocytes % 4.4 L Monocytes % 4.3 Eosinophils % 0.0 Basophils % 0.2 Nucleated Red Blood Cells % 0.0 Neutrophils # 10.2 H Lymphocytes # 0.5 L Monocytes # 0.5 Eosinophils # 0.0 Basophils # 0.0 Nucleated Red Blood Cells # 0.0 Sodium Level 138 Potassium Level 3.8 Chloride Level 107 Carbon Dioxide Level 28 Anion Gap 7 L Blood Urea Nitrogen 37 H Creatinine 1.21 Glucose Level 131 Calcium Level 8.3 L Phosphorus Level 4.2 Magnesium Level 1.5 L Albumin 2.4 L Medications Medications Current Medications Ondansetron HCl (Zofran Inj) 4 mg Q6H PRN IV NAUSEA AND/OR VOMITING; Start at 01:30 Acetaminophen (Tylenol Liquid) 650 mg Q6H PRN PO PAIN LEVEL 1-3 OR FEVER; Start 03/22/17 at 01:30 Acetaminophen (Tylenol Supp) 650 mg Q4H PRN [place] PAIN LEVEL 1-3 OR FEVER; Start 03/22/17 at 01:30 Aspirin 81 mg 81 mg DAILY PO Last administered on 03/27/17 08:17; Admin Dose 81 MG; Start 03/22/17 at 09:00 Levofloxacin/ Dextrose (Levaquin 500mg/ D5W 100 ml (Pmx)) 100 ml @ 100 mls/hr Q24H IVPB Last administered on 03/27/17 06:19; Admin Dose 100 MLS/HR; Start at 07:00 Atorvastatin Calcium (Lipitor) 80 mg HS PO Last administered on 03/26/17 21:23 ; Admin Dose 80 MG; Start 03/22/17 at 21:00 Febuxostat (Uloric) 40 mg DAILY PO Last administered on 03/27/17 08:17; Admin Dose 40 MG; Start 03/23/17 at 09:00 Multivitamins Therapeutic (Theragran) 1 tab DAILY PO Last administered on 08:17; Admin Dose 1 TAB; Start 03/23/17 at 09:00 Tamsulosin HCl (Flomax) 0.4 mg BID PO Last administered on 03/27/17 08:17; Admin Dose 0.4 MG; Start 03/22/17 at 21:00 Pantoprazole (Protonix Tab) 40 mg DAILY@06 PO Last administered on 03/27/17 05 :42; Admin Dose 40 MG; Start 03/23/17 at 06:00 Hydralazine HCl (Apresoline) 20 mg Q6H PRN IV SBP >180 Last administered on 00:42; Admin Dose 20 MG; Start 03/22/17 at 22:45 Metoprolol Tartrate (Lopressor) 5 mg Q6 PRN IV HR >100 or SBP >170 Last administered on 03/25/17 16:45; Admin Dose 5 MG; Start 03/23/17 at 15:30 Olanzapine (Zyprexa) 10 mg Q8 PRN IM severe agitation Last administered on 03/25 10:23; Admin Dose 10 MG; Start 03/23/17 at 15:30 Labetalol HCl (Labetalol) 10 mg Q4H PRN IV SBP>160 Last administered on 08:43; Admin Dose 10 MG; Start 03/24/17 at 09:30 Morphine Sulfate 2 mg 2 mg Q4H PRN IV PAIN LEVEL 7-10 Last administered on 03/26 21:35; Admin Dose 2 MG; Start 03/24/17 at 10:00 Dextrose/Sodium Chloride (D5-1/2ns) 1,000 ml @ 60 mls/hr [id number] IV Last administered on 03/27/17 00:16; Admin Dose 60 MLS/HR; Start 03/24/17 at 10:30 Carvedilol (Coreg) 25 mg BID PO Last administered on 03/27/17 08:18; Admin Dose 25 MG; Start 03/25/17 at 21:00 Bisacodyl (Dulcolax Supp) 10 mg DAILY PRN [place] CONSTIPATION; Start 03/26/17 at 12 :30 Bisacodyl (Dulcolax) 5 mg DAILY PRN PO CONSTIPATION Last administered on 17:51; Admin Dose 5 MG; Start 03/26/17 at 12:30 Methylprednisolone Sodium Succinate (Solu-Medrol) 40 mg DAILY IV ; Start at 09:00 Lidocaine (Lidoderm) 1 patch DAILY TD Last administered on 03/27/17 12:16; Admin Dose 1 PATCH; Start 03/27/17 at 11:00 Docusate Sodium (Colace) 100 mg BID PRN PO CONSTIPATION; Start 03/27/17 at 11: 00 Nicotine (Nicoderm 21 Mg/ 24hr) 1 patch DAILY TRANSDERM Last administered on t 12:53; Admin Dose 1 PATCH; Start 03/27/17 at 13:00 Oli Cerna DO Mar 27, 2017 16:54
[2017-03-27] MEDS: hydrALAzine 20 MG INJ IV PRN (18:30)
[2017-03-27] MEDS: ACETAMINOPHEN 650MG/20.3ML CUP PO PRN (18:30)
[2017-03-27] MEDS: ATORVASTATIN 40 MG TAB PO SCH (20:32)
[2017-03-27] MEDS: morphine 2 MG INJ IV PRN (20:35)
--- NOTE | 2017-03-27 20:40 | CONS ---
Date/Time of Note Date/Time of Note DATE: 03/27/17 TIME: 20:40 Assessment/Plan Assessment/Plan Additional Assessment/Plan Assessment: * History of gastric CA, evaluated approximately 6 months prior. No treatment initiated * Reevaluation requested by oncologist * DVT requiring anticoagulation * Episode of respiratory failure * History of hypertension Plan: * We will evaluate with EGD. Procedure was explained to the patient including risks, benefits and alternatives. Agreeable to proceed. * Further recommendation will depend on our findings. Consultation Date/Type/Reason Admit Date/Time Mar 21, 2017 at 23:46 Date of Consultation: Mar 27, 2017 Type of Consultation: GI Reason for Consultation Evaluation of previously diagnosed gastric cancer without treatment Hx of Present Illness 76-year-old male, poor historian. The patient just recovered from an episode of respiratory insufficiency and some degree of renal failure. The patient also carries a diagnosis of DVT. Patient had been diagnosed gastric cancer at another facility however no treatment was initiated. Oncology consult on request endoscopic reevaluation to assess extent of disease as well as document specific diagnosis. The patient was informed of the procedure including risks, benefits and alternatives. He is agreeable to proceed. Constitutional: requiring O2 Eyes: no complaints ENT: no complaints Respiratory: shortness of breath Cardiovascular: no complaints Gastrointestinal: other (See HPI) Genitourinary: no complaints Musculoskeletal: no complaints Skin: no complaints Neurologic: no complaints Endocrine: no complaints Lymphatic: no complaints Psychological: confusion Immunologic: no complaints Past Medical History DVT Medical History: hypertension, renal disease (RCC), other (DVT) Past Surgical History Past Surgical Hx: other (Partial nephrectomy) Family History Significant Family History: no pertinent family hx Social History Alcohol Use: heavy Smoking Status: Current every day smoker Drug Use: none, other (in the past opium, not anymore. ) Exam/Review of Systems Vital Signs Vitals Vital Signs Date Time Temp Pulse Resp B/P Pulse Ox O2 Delivery O2 Flow Rate FiO2 03/27/17 20:05 4.0 03/27/17 19:51 64 18 90 Nasal Cannula 03/27/17 19:08 97.8 130/64 03/26/17 19:47 33 Intake and Output 03/26/17 03/26/17 03/27/17 15:00 23:00 07:00 Intake Total 1080 ml 1379 ml Output Total 450 ml 750 ml Balance 630 ml 629 ml Exam PHYSICAL EXAMINATION: GENERAL: Well developed, well nourished, confused at times, in no acute distress SKIN: No lesions, no stigmata chronic liver disease, no evidence of bleeding diathesis LYMPHATIC: No palpable lymphadenopathy. HEAD: Normocephalic, atraumatic, no tenderness. EYES: Pupils equal reactive to light and accommodation, full extraocular movements, sclera clear, non-icteric, no discharge. EARS/NOSE AND THROAT: Ears normal, nose normal, oropharynx normal, oral membranes well hydrated without lesions. NECK: Supple, no masses, thyroid normal, JVP within normal limits, carotids normal without bruits. CHEST: Inspection within normal limits. CARDIOVASCULAR: Heart: Regular rate and rhythm, no murmurs, gallops or rubs. Peripheral pulses present within normal limits, no cyanosis, clubbing or edemas. No pulsatile abdominal mass RESPIRATORY: Coarse crackles bilaterally. Otherwise no wheezing, no rubs GASTROINTESTINAL AND LIVER: Abdomen: Soft, mild epigastric tenderness, non- distended, no hernias, no masses, no organomegaly, no ascites, no guarding, no rebound tenderness, normoactive bowel sounds. Rectal: Deferred. GENITOURINARY: [Male genitalia within normal limits.] EXTREMITIES: No cyanosis, clubbing or edema. Results Result Diagram: 03/27/17 0706 03/27/17 0706 Results 24 hrs Laboratory Tests Test 03/26/17 22:19 03/27/17 07:06 03/27/17 15:26 Activated Partial Thromboplast Time 53.2 H 51.6 H 87.4 *H White Blood Count 11.2 H Red Blood Count 5.34 Hemoglobin 12.6 L Hematocrit 40.3 L Mean Corpuscular Volume 75.5 L Mean Corpuscular Hemoglobin 23.6 L Mean Corpuscular Hemoglobin Concent 31.3 L Red Cell Distribution Width 17.2 H Platelet Count 450 H Mean Platelet Volume 10.5 H Neutrophils % 90.3 H Lymphocytes % 4.4 L Monocytes % 4.3 Eosinophils % 0.0 Basophils % 0.2 Nucleated Red Blood Cells % 0.0 Neutrophils # 10.2 H Lymphocytes # 0.5 L Monocytes # 0.5 Eosinophils # 0.0 Basophils # 0.0 Nucleated Red Blood Cells # 0.0 Sodium Level 138 Potassium Level 3.8 Chloride Level 107 Carbon Dioxide Level 28 Anion Gap 7 L Blood Urea Nitrogen 37 H Creatinine 1.21 Glucose Level 131 Calcium Level 8.3 L Phosphorus Level 4.2 Magnesium Level 1.5 L Albumin 2.4 L Medications Medications Current Medications Ondansetron HCl (Zofran Inj) 4 mg Q6H PRN IV NAUSEA AND/OR VOMITING; Start at 01:30 Acetaminophen (Tylenol Liquid) 650 mg Q6H PRN PO PAIN LEVEL 1-3 OR FEVER Last administered on 03/27/17 18:30; Admin Dose 650 MG; Start 03/22/17 at 01:30 Acetaminophen (Tylenol Supp) 650 mg Q4H PRN [place] PAIN LEVEL 1-3 OR FEVER; Start 03/22/17 at 01:30 Aspirin 81 mg 81 mg DAILY PO Last administered on 03/27/17 08:17; Admin Dose 81 MG; Start 03/22/17 at 09:00 Levofloxacin/ Dextrose (Levaquin 500mg/ D5W 100 ml (Pmx)) 100 ml @ 100 mls/hr Q24H IVPB Last administered on 03/27/17 06:19; Admin Dose 100 MLS/HR; Start at 07:00 Atorvastatin Calcium (Lipitor) 80 mg HS PO Last administered on 03/27/17 20:32 ; Admin Dose 80 MG; Start 03/22/17 at 21:00 Febuxostat (Uloric) 40 mg DAILY PO Last administered on 03/27/17 08:17; Admin Dose 40 MG; Start 03/23/17 at 09:00 Multivitamins Therapeutic (Theragran) 1 tab DAILY PO Last administered on 08:17; Admin Dose 1 TAB; Start 03/23/17 at 09:00 Tamsulosin HCl (Flomax) 0.4 mg BID PO Last administered on 03/27/17 20:32; Admin Dose 0.4 MG; Start 03/22/17 at 21:00 Pantoprazole (Protonix Tab) 40 mg DAILY@06 PO Last administered on 03/27/17 05 :42; Admin Dose 40 MG; Start 03/23/17 at 06:00 Hydralazine HCl (Apresoline) 20 mg Q6H PRN IV SBP >180 Last administered on 18:30; Admin Dose 20 MG; Start 03/22/17 at 22:45 Metoprolol Tartrate (Lopressor) 5 mg Q6 PRN IV HR >100 or SBP >170 Last administered on 03/25/17 16:45; Admin Dose 5 MG; Start 03/23/17 at 15:30 Olanzapine (Zyprexa) 10 mg Q8 PRN IM severe agitation Last administered on 03/25 10:23; Admin Dose 10 MG; Start 03/23/17 at 15:30 Labetalol HCl (Labetalol) 10 mg Q4H PRN IV SBP>160 Last administered on 08:43; Admin Dose 10 MG; Start 03/24/17 at 09:30 Morphine Sulfate 2 mg 2 mg Q4H PRN IV PAIN LEVEL 7-10 Last administered on 03/27 20:35; Admin Dose 2 MG; Start 03/24/17 at 10:00 Dextrose/Sodium Chloride (D5-1/2ns) 1,000 ml @ 60 mls/hr [id number] IV Last administered on 03/27/17 00:16; Admin Dose 60 MLS/HR; Start 03/24/17 at 10:30 Carvedilol (Coreg) 25 mg BID PO Last administered on 03/27/17 20:33; Admin Dose 25 MG; Start 03/25/17 at 21:00 Bisacodyl (Dulcolax Supp) 10 mg DAILY PRN [place] CONSTIPATION; Start 03/26/17 at 12 :30 Bisacodyl (Dulcolax) 5 mg DAILY PRN PO CONSTIPATION Last administered on 17:51; Admin Dose 5 MG; Start 03/26/17 at 12:30 Methylprednisolone Sodium Succinate (Solu-Medrol) 40 mg DAILY IV ; Start at 09:00 Lidocaine (Lidoderm) 1 patch DAILY TD Last administered on 03/27/17 12:16; Admin Dose 1 PATCH; Start 03/27/17 at 11:00 Docusate Sodium (Colace) 100 mg BID PRN PO CONSTIPATION; Start 03/27/17 at 11: 00 Nicotine (Nicoderm 21 Mg/ 24hr) 1 patch DAILY TRANSDERM Last administered on 12:53; Admin Dose 1 PATCH; Start 03/27/17 at 13:00 Copies To: CC: TESSY ALBARADO MD, MORDO MD Mar 27, 2017 20:40
[2017-03-28] VITALS (24 sets, daily range): BP systolic 105–150; BP diastolic 67–81; PULSE 54–80; RESP 16–24
[2017-03-28] MEDS: ACETYLCYSTEINE 20% 4 ML VIAL NEB SCH ×5 (01:51→19:12)
[2017-03-28] MEDS: LEVALBUTEROL (NEB) 1.25 MG/0.5 ML AMP HHN SCH ×5 (01:51→19:12)
[2017-03-28] MEDS: DEXTROSE 5%-0.45% NACL 1,000 ML IV SCH ×2 (02:33→14:30)
[2017-03-28] MEDS: morphine 2 MG INJ IV PRN (03:34)
[2017-03-28] MEDS: PANTOPRAZOLE (EC) 40 MG TAB PO SCH (05:30)
[2017-03-28] MEDS: ACETAMINOPHEN 650MG/20.3ML CUP PO PRN (05:39)
[2017-03-28] MEDS: LEVOFLOXACIN 500MG/D5W (PMX) 100 ML IVPB SCH (06:00)
[2017-03-28] MEDS: NICOTINE (21 MG/24 HR) PATCH TRANSDERM SCH (08:08)
[2017-03-28] MEDS: FEBUXOSTAT 40 MG TABLET PO SCH (08:08)
[2017-03-28] MEDS: TAMSULOSIN (SR) 0.4 MG CAP PO SCH ×2 (08:08→20:58)
[2017-03-28] MEDS: MULTIVITAMINS THERAPEUTIC TAB PO SCH (08:08)
[2017-03-28] MEDS: ASPIRIN (EC) 81 MG TAB PO SCH (08:14)
[2017-03-28] MEDS: METHYLPREDNISOLONE 40 MG INJ IV SCH (08:15)
[2017-03-28] MEDS: LIDOCAINE 5% PATCH TD SCH (08:16)
[2017-03-28] MEDS ORDERED: MAGNESIUM SULFATE 2 GM/50 ML 50 ML IVPB ONE (08:30)
[2017-03-28] MEDS ORDERED: MAGNESIUM SULFATE 4 GM/100 ML 100 ML IVPB ONE (10:00)
[2017-03-28] MEDS: HEPARIN 25000 UNITS/250 ML 250 ML IV SCH ×2 (10:04→21:01)
--- NOTE | 2017-03-28 11:37 | CONS ---
Date/Time of Note Date/Time of Note DATE: 03/28/17 TIME: 11:35 Assessment/Plan Assessment/Plan Additional Assessment/Plan Respiratory failure, improving SIRS/Sepsis Acute kidney injury, improving Extensive DVT noted bilaterally with hx IVC filter COPD Possible history of malignancy Active tobacco use Mild elevated troponin Left-sided rib fracture -Patient with improvement in respiratory status and mental status. CT chest with no evidence of pulmonary emboli. Continue anticoagulation if no contraindication. Patient on plan for any procedures, consider transitioning anticoagulation to oral. IV fluids as per nephrology Consultation Date/Type/Reason Admit Date/Time Mar 21, 2017 at 23:46 Initial Consult Date 03/22/17 Type of Consultation: cv Referring Provider: LUCAS DOUGLAS MD 24 HR Interval Summary Free Text/Dictation Shortness of breath is better, complaining of left sided chest pain with coughing and pointing to axillary Exam/Review of Systems Vital Signs Vitals Vital Signs Date Time Temp Pulse Resp B/P Pulse Ox O2 Delivery O2 Flow Rate FiO2 03/28/17 08:00 89 19 Nasal Cannula 4.0 03/28/17 07:56 97.8 149/81 96 03/26/17 19:47 33 Intake and Output 03/27/17 03/27/17 03/28/17 15:00 23:00 07:00 Intake Total 2419 ml 1123 ml Output Total 1000 ml 750 ml Balance 1419 ml 373 ml Exam No apparent distress Constitutional: alert, oriented Head: normocephalic Respiratory: other (Coarse breath sounds bilaterally, no wheezing) Cardiovascular: other (S1-S2 heard), regular rate and rhythm Gastrointestinal: bowel sounds, non-tender, soft Musculoskeletal: other (Pain with palpation left-sided chest wall) Extremities: other (No significant edema) Results Result Diagram: 03/27/17 0703/27/17 0706 Results 24 hrs Laboratory Tests Test 03/27/17 15:26 03/27/17 21:05 03/28/17 06:51 Activated Partial Thromboplast Time 87.4 *H 46.2 H 142.0 *H Medications Medications Current Medications Ondansetron HCl (Zofran Inj) 4 mg Q6H PRN IV NAUSEA AND/OR VOMITING; Start at 01:30 Acetaminophen (Tylenol Liquid) 650 mg Q6H PRN PO PAIN LEVEL 1-3 OR FEVER Last administered on 03/28/17 05:39; Admin Dose 650 MG; Start 03/22/17 at 01:30 Acetaminophen (Tylenol Supp) 650 mg Q4H PRN [place] PAIN LEVEL 1-3 OR FEVER; Start 03/22/17 at 01:30 Aspirin 81 mg 81 mg DAILY PO Last administered on 03/28/17 08:14; Admin Dose 81 MG; Start 03/22/17 at 09:00 Levofloxacin/ Dextrose (Levaquin 500mg/ D5W 100 ml (Pmx)) 100 ml @ 100 mls/hr Q24H IVPB Last administered on 03/28/17 06:00; Admin Dose 100 MLS/HR; Start at 07:00 Atorvastatin Calcium (Lipitor) 80 mg HS PO Last administered on 03/27/17 20:32 ; Admin Dose 80 MG; Start 03/22/17 at 21:00 Febuxostat (Uloric) 40 mg DAILY PO Last administered on 03/28/17 08:08; Admin Dose 40 MG; Start 03/23/17 at 09:00 Multivitamins Therapeutic (Theragran) 1 tab DAILY PO Last administered on 08:08; Admin Dose 1 TAB; Start 03/23/17 at 09:00 Tamsulosin HCl (Flomax) 0.4 mg BID PO Last administered on 03/28/17 08:08; Admin Dose 0.4 MG; Start 03/22/17 at 21:00 Pantoprazole (Protonix Tab) 40 mg DAILY@06 PO Last administered on 03/28/17 05 :30; Admin Dose 40 MG; Start 03/23/17 at 06:00 Hydralazine HCl (Apresoline) 20 mg Q6H PRN IV SBP >180 Last administered on 18:30; Admin Dose 20 MG; Start 03/22/17 at 22:45 Metoprolol Tartrate (Lopressor) 5 mg Q6 PRN IV HR >100 or SBP >170 Last administered on 03/25/17 16:45; Admin Dose 5 MG; Start 03/23/17 at 15:30 Olanzapine (Zyprexa) 10 mg Q8 PRN IM severe agitation Last administered on 03/25 10:23; Admin Dose 10 MG; Start 03/23/17 at 15:30 Labetalol HCl (Labetalol) 10 mg Q4H PRN IV SBP>160 Last administered on 08:43; Admin Dose 10 MG; Start 03/24/17 at 09:30 Morphine Sulfate 2 mg 2 mg Q4H PRN IV PAIN LEVEL 7-10 Last administered on 03/28 03:34; Admin Dose 2 MG; Start 03/24/17 at 10:00 Dextrose/Sodium Chloride (D5-1/2ns) 1,000 ml @ 60 mls/hr [id number] IV Last administered on 03/28/17 02:33; Admin Dose 60 MLS/HR; Start 03/24/17 at 10:30 Carvedilol (Coreg) 25 mg BID PO Last administered on 03/28/17 08:09; Admin Dose 25 MG; Start 03/25/17 at 21:00 Bisacodyl (Dulcolax Supp) 10 mg DAILY PRN [place] CONSTIPATION; Start 03/26/17 at 12 :30 Bisacodyl (Dulcolax) 5 mg DAILY PRN PO CONSTIPATION Last administered on 17:51; Admin Dose 5 MG; Start 03/26/17 at 12:30 Methylprednisolone Sodium Succinate (Solu-Medrol) 40 mg DAILY IV Last administered on 03/28/17 08:15; Admin Dose 40 MG; Start 03/28/17 at 09:00 Lidocaine (Lidoderm) 1 patch DAILY TD Last administered on 03/28/17 08:16; Admin Dose 1 PATCH; Start 03/27/17 at 11:00 Docusate Sodium (Colace) 100 mg BID PRN PO CONSTIPATION; Start 03/27/17 at 11: 00 Nicotine 1 patch 1 patch DAILY TRANSDERM Last administered on 03/28/17 08:08; Admin Dose 1 PATCH; Start 03/27/17 at 13:00 Magnesium Sulfate (Magnesium Sulfate 4 Gm/100 ml) 100 ml @ 25 mls/hr ONCE ONCE IVPB Last administered on 03/28/17 10:52; Admin Dose 25 MLS/HR; Start at 10:00; Stop 03/28/17 at 13:59 Oli Cerna DO Mar 28, 2017 11:37
[2017-03-28] MEDS ORDERED: POTASSIUM CHLORIDE (SR) 20 MEQ TAB PO STA (11:38)
--- NOTE | 2017-03-28 12:20 | CONS ---
Date/Time of Note Date/Time of Note DATE: 03/28/17 TIME: 12:19 Consult Date/Type/Reason Admit Date/Time Mar 21, 2017 at 23:46 Initial Consult Date 03/23/17 Type of Consultation: pulm Ordering Provider: LUCAS DOUGLAS MD Subjective Patient comfortable this morning no new events. Mildly confused. Sitter at bedside. Objective Vital Signs Date Time Temp Pulse Resp B/P Pulse Ox O2 Delivery O2 Flow Rate FiO2 03/28/17 10:00 97.6 71 20 124/70 90 03/28/17 08:00 Nasal Cannula 4.0 03/26/17 19:47 33 Intake and Output 03/27/17 03/27/17 03/28/17 15:00 23:00 07:00 Intake Total 2419 ml 1123 ml Output Total 1000 ml 750 ml Balance 1419 ml 373 ml Exam GENERAL: Elderly [place] gentleman comfortable at rest no acute distress VITAL SIGNS: per chart NECK: Supple. No JVD or lymphadenopathy. CARDIAC EXAM: S1, S2. No added sounds or murmurs. CHEST: Diminished air entry bilaterally ABDOMEN: Soft, nontender. No guarding or rebound. EXTREMITIES: No cyanosis, clubbing or edema. NEUROLOGIC: Generalized weakness. No focal deficits. Results/Medications Result Diagram: 03/27/17 0703/27/17 07 Results 24 hrs Laboratory Tests Test 03/27/17 15:26 03/27/17 21:05 03/28/17 06:51 Activated Partial Thromboplast Time 87.4 *H 46.2 H 142.0 *H Medications Current Medications Ondansetron HCl (Zofran Inj) 4 mg Q6H PRN IV NAUSEA AND/OR VOMITING; Start at 01:30 Acetaminophen (Tylenol Liquid) 650 mg Q6H PRN PO PAIN LEVEL 1-3 OR FEVER Last administered on 03/28/17 05:39; Admin Dose 650 MG; Start 03/22/17 at 01:30 Acetaminophen (Tylenol Supp) 650 mg Q4H PRN [place] PAIN LEVEL 1-3 OR FEVER; Start 03/22/17 at 01:30 Aspirin 81 mg 81 mg DAILY PO Last administered on 03/28/17 08:14; Admin Dose 81 MG; Start 03/22/17 at 09:00 Levofloxacin/ Dextrose (Levaquin 500mg/ D5W 100 ml (Pmx)) 100 ml @ 100 mls/hr Q24H IVPB Last administered on 03/28/17 06:00; Admin Dose 100 MLS/HR; Start at 07:00 Atorvastatin Calcium (Lipitor) 80 mg HS PO Last administered on 03/27/17 20:32 ; Admin Dose 80 MG; Start 03/22/17 at 21:00 Febuxostat (Uloric) 40 mg DAILY PO Last administered on 03/28/17 08:08; Admin Dose 40 MG; Start 03/23/17 at 09:00 Multivitamins Therapeutic (Theragran) 1 tab DAILY PO Last administered on 08:08; Admin Dose 1 TAB; Start 03/23/17 at 09:00 Tamsulosin HCl (Flomax) 0.4 mg BID PO Last administered on 03/28/17 08:08; Admin Dose 0.4 MG; Start 03/22/17 at 21:00 Pantoprazole (Protonix Tab) 40 mg DAILY@06 PO Last administered on 03/28/17 05 :30; Admin Dose 40 MG; Start 03/23/17 at 06:00 Hydralazine HCl (Apresoline) 20 mg Q6H PRN IV SBP >180 Last administered on 18:30; Admin Dose 20 MG; Start 03/22/17 at 22:45 Metoprolol Tartrate (Lopressor) 5 mg Q6 PRN IV HR >100 or SBP >170 Last administered on 03/25/17 16:45; Admin Dose 5 MG; Start 03/23/17 at 15:30 Olanzapine (Zyprexa) 10 mg Q8 PRN IM severe agitation Last administered on 03/25 10:23; Admin Dose 10 MG; Start 03/23/17 at 15:30 Labetalol HCl (Labetalol) 10 mg Q4H PRN IV SBP>160 Last administered on 08:43; Admin Dose 10 MG; Start 03/24/17 at 09:30 Morphine Sulfate 2 mg 2 mg Q4H PRN IV PAIN LEVEL 7-10 Last administered on 03/28 03:34; Admin Dose 2 MG; Start 03/24/17 at 10:00 Dextrose/Sodium Chloride (D5-1/2ns) 1,000 ml @ 60 mls/hr [id number] IV Last administered on 03/28/17 02:33; Admin Dose 60 MLS/HR; Start 03/24/17 at 10:30 Carvedilol (Coreg) 25 mg BID PO Last administered on 03/28/17 08:09; Admin Dose 25 MG; Start 03/25/17 at 21:00 Bisacodyl (Dulcolax Supp) 10 mg DAILY PRN [place] CONSTIPATION; Start 03/26/17 at 12 :30 Bisacodyl (Dulcolax) 5 mg DAILY PRN PO CONSTIPATION Last administered on 17:51; Admin Dose 5 MG; Start 03/26/17 at 12:30 Methylprednisolone Sodium Succinate (Solu-Medrol) 40 mg DAILY IV Last administered on 03/28/17 08:15; Admin Dose 40 MG; Start 03/28/17 at 09:00 Lidocaine (Lidoderm) 1 patch DAILY TD Last administered on 03/28/17 08:16; Admin Dose 1 PATCH; Start 03/27/17 at 11:00 Docusate Sodium (Colace) 100 mg BID PRN PO CONSTIPATION; Start 03/27/17 at 11: 00 Nicotine 1 patch 1 patch DAILY TRANSDERM Last administered on 03/28/17 08:08; Admin Dose 1 PATCH; Start 03/27/17 at 13:00 Magnesium Sulfate (Magnesium Sulfate 4 Gm/100 ml) 100 ml @ 25 mls/hr ONCE ONCE IVPB Last administered on 03/28/17 10:52; Admin Dose 25 MLS/HR; Start at 10:00; Stop 03/28/17 at 13:59 Assessment/Plan Chief Complaint/Hosp Course Assessment/Plan IMP: 1. Hypercapnic Resp Insufficiency 2. COPD Exacerbation 3. Underlying Gastric Cancer 4. Leukocytosis--2/2 CS 5. AMS RECS: 1. Taper CS, decreased to once a day. 2. Minimize FiO2 to keep Sp02 88-92% decrease O2 as tolerated 3. Gentle diuresis 4. Low-dose seroquel 5. GI recommendations Consider shelter facility Problems: CANDICE BLACK [facility], [facility] Mar 28, 2017 12:20
--- NOTE | 2017-03-28 15:02 | CONS ---
Date/Time of Note Date/Time of Note DATE: 03/28/17 TIME: 15:01 Assessment/Plan Assessment/Plan Additional Assessment/Plan 76 yo Male with 1) S/p Resp Failure 2) COPD 3) HTN, Chronic 4) Hx of RCC S/ Partial Nephrectomy by Dr Ly Gant 5) Hyperechoic Mass Rt Kidney ?RCC 6) Left Renal Cysts 7) Leukcytosis SIRS? 8) Anemia, Likely Chronic 9) NELLIE Resolved. S/p Waters Likely obstructive Uropathy. 10) GI Malignancy Work up in progress 11) DVT/?PE S/p Waters Catheter, Non oliguric Nellie resolved. Strict Is and Os, Monitor UO, Electrolytes and renal function daily Will cont to follow until discharge. Consultation Date/Type/Reason Admit Date/Time Mar 21, 2017 at 23:46 Initial Consult Date 03/22/17 Type of Consultation: pulm Referring Provider: LUCAS DOUGLAS MD 24 HR Interval Summary Constitutional: requiring O2 Exam/Review of Systems Vital Signs Vitals Vital Signs Date Time Temp Pulse Resp B/P Pulse Ox O2 Delivery O2 Flow Rate FiO2 03/28/17 14:11 81 18 Nasal Cannula 4.0 03/28/17 10:00 97.6 124/70 90 03/26/17 19:47 33 Intake and Output 03/27/17 03/27/17 03/28/17 15:00 23:00 07:00 Intake Total 2419 ml 1123 ml Output Total 1000 ml 750 ml Balance 1419 ml 373 ml Exam Constitutional: frail, No distress ENMT: mucosa pink and moist Respiratory: crackles/rales, No diminished breath sounds, No labored breathing Cardiovascular: regular rate and rhythm, No edema Gastrointestinal: soft Neurological: lethargic Skin: No diaphoresis Results Result Diagram: 03/27/17 0706 03/27/17 0706 Results 24 hrs Laboratory Tests Test 03/27/17 15:26 03/27/17 21:05 03/28/17 06:51 Activated Partial Thromboplast Time 87.4 *H 46.2 H 142.0 *H Medications Medications Current Medications Ondansetron HCl (Zofran Inj) 4 mg Q6H PRN IV NAUSEA AND/OR VOMITING; Start at 01:30 Acetaminophen (Tylenol Liquid) 650 mg Q6H PRN PO PAIN LEVEL 1-3 OR FEVER Last administered on 03/28/17 05:39; Admin Dose 650 MG; Start 03/22/17 at 01:30 Acetaminophen (Tylenol Supp) 650 mg Q4H PRN [place] PAIN LEVEL 1-3 OR FEVER; Start 03/22/17 at 01:30 Aspirin 81 mg 81 mg DAILY PO Last administered on 03/28/17 08:14; Admin Dose 81 MG; Start 03/22/17 at 09:00 Levofloxacin/ Dextrose (Levaquin 500mg/ D5W 100 ml (Pmx)) 100 ml @ 100 mls/hr Q24H IVPB Last administered on 03/28/17 06:00; Admin Dose 100 MLS/HR; Start at 07:00 Atorvastatin Calcium (Lipitor) 80 mg HS PO Last administered on 03/27/17 20:32 ; Admin Dose 80 MG; Start 03/22/17 at 21:00 Febuxostat (Uloric) 40 mg DAILY PO Last administered on 03/28/17 08:08; Admin Dose 40 MG; Start 03/23/17 at 09:00 Multivitamins Therapeutic (Theragran) 1 tab DAILY PO Last administered on 08:08; Admin Dose 1 TAB; Start 03/23/17 at 09:00 Tamsulosin HCl (Flomax) 0.4 mg BID PO Last administered on 03/28/17 08:08; Admin Dose 0.4 MG; Start 03/22/17 at 21:00 Pantoprazole (Protonix Tab) 40 mg DAILY@06 PO Last administered on 03/28/17 05 :30; Admin Dose 40 MG; Start 03/23/17 at 06:00 Hydralazine HCl (Apresoline) 20 mg Q6H PRN IV SBP >180 Last administered on 18:30; Admin Dose 20 MG; Start 03/22/17 at 22:45 Metoprolol Tartrate (Lopressor) 5 mg Q6 PRN IV HR >100 or SBP >170 Last administered on 03/25/17 16:45; Admin Dose 5 MG; Start 03/23/17 at 15:30 Olanzapine (Zyprexa) 10 mg Q8 PRN IM severe agitation Last administered on 03/25 10:23; Admin Dose 10 MG; Start 03/23/17 at 15:30 Labetalol HCl (Labetalol) 10 mg Q4H PRN IV SBP>160 Last administered on 08:43; Admin Dose 10 MG; Start 03/24/17 at 09:30 Morphine Sulfate 2 mg 2 mg Q4H PRN IV PAIN LEVEL 7-10 Last administered on 03/28 03:34; Admin Dose 2 MG; Start 03/24/17 at 10:00 Dextrose/Sodium Chloride (D5-1/2ns) 1,000 ml @ 60 mls/hr [id number] IV Last administered on 03/28/17 02:33; Admin Dose 60 MLS/HR; Start 03/24/17 at 10:30 Carvedilol (Coreg) 25 mg BID PO Last administered on 03/28/17 08:09; Admin Dose 25 MG; Start 03/25/17 at 21:00 Bisacodyl (Dulcolax Supp) 10 mg DAILY PRN [place] CONSTIPATION; Start 03/26/17 at 12 :30 Bisacodyl (Dulcolax) 5 mg DAILY PRN PO CONSTIPATION Last administered on 17:51; Admin Dose 5 MG; Start 03/26/17 at 12:30 Methylprednisolone Sodium Succinate (Solu-Medrol) 40 mg DAILY IV Last administered on 03/28/17 08:15; Admin Dose 40 MG; Start 03/28/17 at 09:00 Lidocaine (Lidoderm) 1 patch DAILY TD Last administered on 03/28/17 08:16; Admin Dose 1 PATCH; Start 03/27/17 at 11:00 Docusate Sodium (Colace) 100 mg BID PRN PO CONSTIPATION; Start 03/27/17 at 11: 00 Nicotine (Nicoderm 21 Mg/ 24hr) 1 patch DAILY TRANSDERM Last administered on 08:08; Admin Dose 1 PATCH; Start 03/27/17 at 13:00 JACY ROSE MD Mar 28, 2017 15:02
--- NOTE | 2017-03-28 16:42 | PN ---
Date/Time of Note Date/Time of Note DATE: 03/28/17 TIME: 16:39 Assessment/Plan VTE Prophylaxis VTE Prophylaxis Intervention: heparin Lines/Catheters IV Catheter Type (from Nrsg): Peripheral IV Urinary Cath still in place: Yes Reason Cath still needed: skin wounds contaminated by urine Assessment/Plan Assessment/Plan 1. Acute respiratory failure, resolving - doing well on nasal cannula, at 4L with NAD - Pulmonology on board and consultation appreciated. - Will continue weaning to maintain saturations 88-92% and steroids tapered to daily. Currently doing well on 4L 2. COPD exacerbation - Improving. no wheezing appreciated 3. Acute on chronic DVT - Currently on heparin drip. Will hold prior to EGD procedure - Will transition to Eliquis prior to d/c 4. Hypertension - stable 5. rib fracture - Lidoderm patch for pain control 6. History of renal cell carcinoma, with renal mass - stable 7. Gastric carcinoma, unknown type, records pending - Spoke with Dr. Otoole and will hold off on any intervention until repeat EGD is performed and more information about tumor obtained. Appreciate assistance - Per Pulm, patient is stable for EGD if GI agreeable to perform - GI on board and consultation appreciated 8. Acute delirium - continue on low dose Seroquel at this time 9. Acute on chronic CKD - resolved Subjective 24 Hr Interval Summary Free Text/Dictation patient doing well and no new complaints. Still has lef t rib discomfort and relief with lidocaine patch. No acute overnight events. Plans for EGD with Dr. Long today Exam/Review of Systems Vital Signs Vitals Vital Signs Date Time Temp Pulse Resp B/P Pulse Ox O2 Delivery O2 Flow Rate FiO2 03/28/17 16:12 97.7 58 20 144/76 94 03/28/17 14:11 Nasal Cannula 4.0 03/26/17 19:47 33 Intake and Output 03/27/17 03/27/17 03/28/17 15:00 23:00 07:00 Intake Total 2419 ml 1123 ml Output Total 1000 ml 750 ml Balance 1419 ml 373 ml Exam General: NAD, awake and alert. oriented to place and self Head: Normocephalic atraumatic Eyes: EOMI, pupils reactive to light Neck: Supple, nontender, midline Respiratory: coarse breath sounds bilaterally, diminished effort. Cardiovascular: regular rate, no obvious murmurs. slight tenderness left chest wall Gastrointestinal: non-tender to palpation, bowel sounds heard. Skin: No new skin lesions Results Result Diagram: 03/27/1770503/27/17 07 Results 24 hrs Laboratory Tests Test 03/27/17 21:05 03/28/17 06:51 Activated Partial Thromboplast Time 46.2 H 142.0 *H Medications Medications Current Medications Ondansetron HCl (Zofran Inj) 4 mg Q6H PRN IV NAUSEA AND/OR VOMITING; Start at 01:30 Acetaminophen (Tylenol Liquid) 650 mg Q6H PRN PO PAIN LEVEL 1-3 OR FEVER Last administered on 03/28/17 05:39; Admin Dose 650 MG; Start 03/22/17 at 01:30 Acetaminophen (Tylenol Supp) 650 mg Q4H PRN [place] PAIN LEVEL 1-3 OR FEVER; Start 03/22/17 at 01:30 Aspirin 81 mg 81 mg DAILY PO Last administered on 03/28/17 08:14; Admin Dose 81 MG; Start 03/22/17 at 09:00 Levofloxacin/ Dextrose (Levaquin 500mg/ D5W 100 ml (Pmx)) 100 ml @ 100 mls/hr Q24H IVPB Last administered on 03/28/17 06:00; Admin Dose 100 MLS/HR; Start at 07:00 Atorvastatin Calcium (Lipitor) 80 mg HS PO Last administered on 03/27/17 20:32 ; Admin Dose 80 MG; Start 03/22/17 at 21:00 Febuxostat (Uloric) 40 mg DAILY PO Last administered on 03/28/17 08:08; Admin Dose 40 MG; Start 03/23/17 at 09:00 Multivitamins Therapeutic (Theragran) 1 tab DAILY PO Last administered on 08:08; Admin Dose 1 TAB; Start 03/23/17 at 09:00 Tamsulosin HCl (Flomax) 0.4 mg BID PO Last administered on 03/28/17 08:08; Admin Dose 0.4 MG; Start 03/22/17 at 21:00 Pantoprazole (Protonix Tab) 40 mg DAILY@06 PO Last administered on 03/28/17 05 :30; Admin Dose 40 MG; Start 03/23/17 at 06:00 Hydralazine HCl (Apresoline) 20 mg Q6H PRN IV SBP >180 Last administered on 18:30; Admin Dose 20 MG; Start 03/22/17 at 22:45 Metoprolol Tartrate (Lopressor) 5 mg Q6 PRN IV HR >100 or SBP >170 Last administered on 03/25/17 16:45; Admin Dose 5 MG; Start 03/23/17 at 15:30 Olanzapine (Zyprexa) 10 mg Q8 PRN IM severe agitation Last administered on 03/25 10:23; Admin Dose 10 MG; Start 03/23/17 at 15:30 Labetalol HCl (Labetalol) 10 mg Q4H PRN IV SBP>160 Last administered on 08:43; Admin Dose 10 MG; Start 03/24/17 at 09:30 Morphine Sulfate 2 mg 2 mg Q4H PRN IV PAIN LEVEL 7-10 Last administered on 03/28 03:34; Admin Dose 2 MG; Start 03/24/17 at 10:00 Dextrose/Sodium Chloride (D5-1/2ns) 1,000 ml @ 60 mls/hr [id number] IV Last administered on 03/28/17 02:33; Admin Dose 60 MLS/HR; Start 03/24/17 at 10:30 Carvedilol (Coreg) 25 mg BID PO Last administered on 03/28/17 08:09; Admin Dose 25 MG; Start 03/25/17 at 21:00 Bisacodyl (Dulcolax Supp) 10 mg DAILY PRN [place] CONSTIPATION; Start 03/26/17 at 12 :30 Bisacodyl (Dulcolax) 5 mg DAILY PRN PO CONSTIPATION Last administered on 17:51; Admin Dose 5 MG; Start 03/26/17 at 12:30 Methylprednisolone Sodium Succinate (Solu-Medrol) 40 mg DAILY IV Last administered on 03/28/17 08:15; Admin Dose 40 MG; Start 03/28/17 at 09:00 Lidocaine (Lidoderm) 1 patch DAILY TD Last administered on 03/28/17 08:16; Admin Dose 1 PATCH; Start 03/27/17 at 11:00 Docusate Sodium (Colace) 100 mg BID PRN PO CONSTIPATION; Start 03/27/17 at 11: 00 Nicotine (Nicoderm 21 Mg/ 24hr) 1 patch DAILY TRANSDERM Last administered on 08:08; Admin Dose 1 PATCH; Start 03/27/17 at 13:00 XENA DE JESUS MD Mar 28, 2017 16:42
[2017-03-28] MEDS ORDERED: PHENYLephrine (100 MCG/ML) 5ML SYG ONE (16:57)
[2017-03-28] MEDS ORDERED: LIDOCAINE 2% (SDV) 5 ML INJ ONE (16:57)
[2017-03-28] MEDS ORDERED: PROPOFOL 20 ML ONE (16:57)
[2017-03-28] MEDS ORDERED: hydrALAzine 20 MG INJ IV PRN (17:00)
[2017-03-28] MEDS ORDERED: OXYCODONE/ACETAMINOPHEN (5/325) TAB PO PRN ×2 (17:00)
[2017-03-28] MEDS ORDERED: EPHEDrine SULFATE 50 MG/5 ML SYG IV PRN (17:00)
--- NOTE | 2017-03-28 17:43 | OPPN ---
Date/Time of Note Date/Time of Note DATE: 03/28/17 TIME: 17:35 Proc Note GI Procedure Date 03/28/17 Pre-procedure Diagnosis * h/o gastric CA Post-procedure Diagnosis Impression: * Mid esophageal mass w/superficial ulceration. Biopsied * Esophagitis * Area of healed ulceration with nodularity in the lesser curvature proximal stomach. Biopsied Plan: * Continue PPI * Review pathology * CT abdomen and Chest . Procedure Performed: Endoscopy (with biopsies) Surgeon TESSY ALBARADO MD Hearing Aid Repair Technician none Anesthesia Type: MAC Anesthesiologist: IDA DORANTES Tourniquet Time none EBL none Transfusion required none Biopsy 1: GASTRIC NODULARITY Biopsy 2: ESOPHAGEAL MASS Grafts/Implants none Tubes/Drains none Complication(s) none Pt Condition post procedure: stable Disposition: PACU Indications: other (H/O gastric CA) Procedure Description After informed consent, with the patient/relatives understanding the procedure, its indications, potential risks and complications, including but not limited to : allergic reaction, bleeding, perforation or infection, and after all pertinent questions were answered to the patients satisfaction, the patient/ relatives signed witnessed informed consent. Following this, premedication was administered slowly IV push under careful cardiovascular and respiratory monitoring with pulse oximetry, automatic blood pressure, and video game programmer. Once the sedative effect was achieved the patient was place in the left lateral decubitus, the panendoscope was introduced and advanced under visual control. Careful examination of the upper gastrointestinal tract, both on insertion as well as withdrawal of the instrument disclosing the following findings: ESOPHAGUS: the mucosa of the entire esophagus was carefully examined and showed the following findings: There is a mid esophageal ulcerated mass. Biopsied. Otherwise the mucosa appears within normal limits. There is no evidence of varices or stricture. No Hiatal Hernia identified. STOMACH: Upon entrance to the stomach air was insufflated, the gastric henry distended normally. The mucosa of the fundus, body and antrum of the stomach was carefully examined both head-on and on retroflexion, and showed the following findings: There is an area of nodularity and healed ulceration suspect for neoplasm. Biopsied. Otherwise the mucosa appears within normal limits with no abnormalities. PYLORUS: The pylorus was carefully examined and showed the following findings: the pylorus appears patent and within normal limits, with no evidence of gastric outlet obstruction. DUODENUM: The duodenal mucosa was carefully examined in the duodenal bulb as well as the second portion of the duodenum and showed the following findings: the mucosa appears unremarkable with no evidence of duodenitis, ulcer or neoplasm. Copies To: CC: TESSY ALBARADO MD, MORDO MD Mar 28, 2017 17:43
[2017-03-28] MEDS ORDERED: SOD CHLORIDE 0.9% 100 ML ONE (18:23)
[2017-03-28] MEDS ORDERED: IODIXANOL LOCM 100 ML BTL ONE (18:23)
[2017-03-28] MEDS ORDERED: IOHEXOL 300MG/ML 150 ML BTL ONE (18:23)
[2017-03-28] MEDS ORDERED: BARIUM SULF 2% 450 ML BTL (BERRY SMOOTHIE) PO ONE (18:30)
[2017-03-28] MEDS ORDERED: AMIODARONE 150MG/D5W BOLUS 100 ML IV ONE (20:00)
[2017-03-28] MEDS ORDERED: AMIODARONE 900 MG in DEXTROSE 5% 482 ML IV SCH (20:00)
[2017-03-28] MEDS: ATORVASTATIN 40 MG TAB PO SCH (20:58)
[2017-03-29] VITALS (13 sets, daily range): BP systolic 130–191; BP diastolic 64–87; PULSE 58–70; RESP 16–20
[2017-03-29] MEDS: ACETYLCYSTEINE 20% 4 ML VIAL NEB SCH ×4 (01:00→19:07)
[2017-03-29] MEDS: LEVALBUTEROL (NEB) 1.25 MG/0.5 ML AMP HHN SCH ×4 (01:00→19:07)
[2017-03-29] MEDS: PANTOPRAZOLE (EC) 40 MG TAB PO SCH (05:28)
[2017-03-29 05:42] LABS: BASOPHILS % 0.1 % (0.0-2.0); EOSINOPHILS # 0.1 10^3/ul (0.0-0.5); EOSINOPHILS % 0.5 % (0.0-7.0); HEMATOCRIT 42.7 % (42.0-52.0); HEMOGLOBIN 13.1 g/dl (14.0-18.0); LYMPHOCYTES # 1.7 10^3/ul (0.8-2.9); LYMPHOCYTES % 11.5 % (15.0-51.0); MEAN CORPUSCULAR HEMOGLOBIN 22.7 pg (29.0-33.0); MEAN CORPUSCULAR HGB CONC 30.7 g/dl (32.0-37.0); MEAN PLATELET VOLUME 10.7 fl (7.4-10.4); NEUTROPHIL # 11.5 10^3/ul (1.6-7.5); NEUTROPHILS % 79.6 % (39.0-77.0); PLATELET COUNT 429 10^3/UL (140-415); RED BLOOD COUNT 5.77 10^6/ul (4.70-6.10); RED CELL DISTRIBUTION WIDTH 18.4 % (11.5-14.5); WHITE BLOOD COUNT 14.5 10^3/ul (4.8-10.8)
[2017-03-29 06:20] LABS: ALBUMIN 2.4 g/dl (3.3-4.9); CALCIUM 8.5 mg/dl (8.4-10.2); CREATININE 1.13 mg/dl (0.61-1.24); MAGNESIUM 1.9 mg/dl (1.7-2.5); PHOSPHORUS 3.8 mg/dl (2.5-4.9); POTASSIUM 4.2 mmol/L (3.5-5.1)
[2017-03-29] MEDS: LEVOFLOXACIN 500MG/D5W (PMX) 100 ML IVPB SCH (06:32)
[2017-03-29] MEDS: DEXTROSE 5%-0.45% NACL 1,000 ML IV SCH ×3 (06:32→19:52)
--- NOTE | 2017-03-29 08:10 | PN ---
Date/Time of Note Date/Time of Note DATE: 03/29/17 TIME: 08:08 Assessment/Plan VTE Prophylaxis VTE Prophylaxis Intervention: SCD's Lines/Catheters IV Catheter Type (from Nrs): Peripheral IV Urinary Cath still in place: Yes Reason Cath still needed: urinary retention Assessment/Plan Assessment/Plan Respiratory failure, improving SIRS/Sepsis Acute kidney injury, improving Extensive DVT noted bilaterally with hx IVC filter COPD Possible history of malignancy Active tobacco use Mild elevated troponin Left-sided rib fracture -Patient with improvement in respiratory status and mental status. CT chest with no evidence of pulmonary emboli. Continue anticoagulation if no contraindication. Patient on plan for any procedures, consider transitioning anticoagulation to oral. IV fluids as per nephrology. If no procedures, start eliquis and stop heparin Subjective 24 Hr Interval Summary Free Text/Dictation The patient with no change and doing better exp[et for fatigue Exam/Review of Systems Vital Signs Vitals Vital Signs Date Time Temp Pulse Resp B/P Pulse Ox O2 Delivery O2 Flow Rate FiO2 03/29/17 07:47 97.7 64 16 147/77 93 03/29/17 07:43 Nasal Cannula 3.0 03/26/17 19:47 33 Intake and Output 03/28/17 03/28/17 03/29/17 15:00 23:00 07:00 Intake Total 720 ml 798 ml Output Total 1400 ml Balance -680 ml 798 ml Results Result Diagram: 03/29/17 0428 03/29/17 0428 Results 24 hrs Laboratory Tests Test 03/28/17 19:53 03/29/17 02:54 03/29/17 04:28 Activated Partial Thromboplast Time 28.1 20.1 L 64.6 H White Blood Count 14.5 #H Red Blood Count 5.77 Hemoglobin 13.1 L Hematocrit 42.7 Mean Corpuscular Volume 74.0 L Mean Corpuscular Hemoglobin 22.7 L Mean Corpuscular Hemoglobin Concent 30.7 L Red Cell Distribution Width 18.4 H Platelet Count 429 H Mean Platelet Volume 10.7 H Neutrophils % 79.6 H Lymphocytes % 11.5 L Monocytes % 7.0 Eosinophils % 0.5 Basophils % 0.1 Nucleated Red Blood Cells % 0.0 Neutrophils # 11.5 H Lymphocytes # 1.7 Monocytes # 1.0 H Eosinophils # 0.1 Basophils # 0.0 Nucleated Red Blood Cells # 0.0 Sodium Level 131 L Potassium Level 4.2 Chloride Level 102 Carbon Dioxide Level 27 Anion Gap 6 L Blood Urea Nitrogen 34 H Creatinine 1.13 Glucose Level 96 Calcium Level 8.5 Phosphorus Level 3.8 Magnesium Level 1.9 Albumin 2.4 L Medications Medications Current Medications Ondansetron HCl (Zofran Inj) 4 mg Q6H PRN IV NAUSEA AND/OR VOMITING; Start at 01:30 Acetaminophen (Tylenol Liquid) 650 mg Q6H PRN PO PAIN LEVEL 1-3 OR FEVER Last administered on 03/28/17 05:39; Admin Dose 650 MG; Start 03/22/17 at 01:30 Acetaminophen (Tylenol Supp) 650 mg Q4H PRN [place] PAIN LEVEL 1-3 OR FEVER; Start 03/22/17 at 01:30 Aspirin 81 mg 81 mg DAILY PO Last administered on 03/28/17 08:14; Admin Dose 81 MG; Start 03/22/17 at 09:00 Levofloxacin/ Dextrose (Levaquin 500mg/ D5W 100 ml (Pmx)) 100 ml @ 100 mls/hr Q24H IVPB Last administered on 03/29/17 06:32; Admin Dose 100 MLS/HR; Start at 07:00 Atorvastatin Calcium (Lipitor) 80 mg HS PO Last administered on 03/28/17 20:58 ; Admin Dose 80 MG; Start 03/22/17 at 21:00 Febuxostat (Uloric) 40 mg DAILY PO Last administered on 03/28/17 08:08; Admin Dose 40 MG; Start 03/23/17 at 09:00 Multivitamins Therapeutic (Theragran) 1 tab DAILY PO Last administered on 08:08; Admin Dose 1 TAB; Start 03/23/17 at 09:00 Tamsulosin HCl (Flomax) 0.4 mg BID PO Last administered on 03/28/17 20:58; Admin Dose 0.4 MG; Start 03/22/17 at 21:00 Pantoprazole (Protonix Tab) 40 mg DAILY@06 PO Last administered on 03/29/17 05 :28; Admin Dose 40 MG; Start 03/23/17 at 06:00 Hydralazine HCl (Apresoline) 20 mg Q6H PRN IV SBP >180 Last administered on 18:30; Admin Dose 20 MG; Start 03/22/17 at 22:45 Metoprolol Tartrate (Lopressor) 5 mg Q6 PRN IV HR >100 or SBP >170 Last administered on 03/25/17 16:45; Admin Dose 5 MG; Start 03/23/17 at 15:30 Olanzapine (Zyprexa) 10 mg Q8 PRN IM severe agitation Last administered on 03/25 10:23; Admin Dose 10 MG; Start 03/23/17 at 15:30 Labetalol HCl (Labetalol) 10 mg Q4H PRN IV SBP>160 Last administered on 08:43; Admin Dose 10 MG; Start 03/24/17 at 09:30 Morphine Sulfate 2 mg 2 mg Q4H PRN IV PAIN LEVEL 7-10 Last administered on 03/28 03:34; Admin Dose 2 MG; Start 03/24/17 at 10:00 Dextrose/Sodium Chloride (D5-1/2ns) 1,000 ml @ 60 mls/hr [id number] IV Last administered on 03/29/17 06:32; Admin Dose 60 MLS/HR; Start 03/24/17 at 10:30 Carvedilol (Coreg) 25 mg BID PO Last administered on 03/28/17 20:59; Admin Dose 25 MG; Start 03/25/17 at 21:00 Bisacodyl (Dulcolax Supp) 10 mg DAILY PRN [place] CONSTIPATION; Start 03/26/17 at 12 :30 Bisacodyl (Dulcolax) 5 mg DAILY PRN PO CONSTIPATION Last administered on 17:51; Admin Dose 5 MG; Start 03/26/17 at 12:30 Methylprednisolone Sodium Succinate (Solu-Medrol) 40 mg DAILY IV Last administered on 03/28/17 08:15; Admin Dose 40 MG; Start 03/28/17 at 09:00 Lidocaine (Lidoderm) 1 patch DAILY TD Last administered on 03/28/17 08:16; Admin Dose 1 PATCH; Start 03/27/17 at 11:00 Docusate Sodium (Colace) 100 mg BID PRN PO CONSTIPATION; Start 03/27/17 at 11: 00 Nicotine 1 patch 1 patch DAILY TRANSDERM Last administered on 03/28/17t 08:08; Admin Dose 1 PATCH; Start 03/27/17 at 13:00 Amiodarone HCl/ Dextrose (Cordarone Iv/ D5W) 500 ml @ 0 mls/hr Q0M IV ; Start 03/28/17 at 20:00; Stop 03/29/17 at 19:59 GIOVANA PAGAN MD Mar 29, 2017 08:10
[2017-03-29] MEDS: ASPIRIN (EC) 81 MG TAB PO SCH (09:11)
[2017-03-29] MEDS: METHYLPREDNISOLONE 40 MG INJ IV SCH (09:11)
[2017-03-29] MEDS: FEBUXOSTAT 40 MG TABLET PO SCH (09:12)
[2017-03-29] MEDS: NICOTINE (21 MG/24 HR) PATCH TRANSDERM SCH (09:12)
[2017-03-29] MEDS: TAMSULOSIN (SR) 0.4 MG CAP PO SCH ×2 (09:12→21:16)
[2017-03-29] MEDS: MULTIVITAMINS THERAPEUTIC TAB PO SCH (09:12)
[2017-03-29] MEDS: LIDOCAINE 5% PATCH TD SCH (09:13)
[2017-03-29] MEDS: BARIUM SULF 2% 450 ML BTL (BERRY SMOOTHIE) PO ONE ×2 (09:30→10:54)
--- NOTE | 2017-03-29 09:50 | RADRPT ---
PROCEDURE: CT Chest with contrast. CLINICAL INDICATION: Esophageal mass. Gastric carcinoma. TECHNIQUE: CT scan of the chest with contrast was performed following the uncomplicated intravenou s administration of 90 cc of Omnipaque-300. Coronal and sagittal reformatted images were obtained f rom the axial source images. Images were reviewed on a high-resolution PACS workstation. CTDIvol (mG y): 7.23; Total Exam DLP (mGy-cm): 292.39. One or more of the following dose reduction techniques were utilized: - Automated exposure control. - Adjustment of the mA and/or kV according to patient size. - Use of iterative reconstruction technique. COMPARISON: CTA chest 03/24/2017. PET CT 01/05/2017. FINDINGS: Limited imaging of the lower neck demonstrates mild heterogeneity of the thyroid gland. The heart is mildly enlarged. There is no pericardial effusion. There is no mediastinal, hilar or axillary lymphadenopathy. Dilatation of the ascending aorta is observed measuring 4.2 cm in greatest diameter. Atherosclerotic calcification is present. Coronary artery calcifications are present. The pulmonary arteries are not enlarged. Trace right and small left pleural effusions are present. Bibasilar atelectatic changes are observed . Severe diffuse centrilobular emphysematous disease is present. There is an 8 mm irregular nodule a long the right major fissure, which is unchanged from December 2016. Patchy basilar consolidation is obs erved and likely due to atelectasis given the presence of scattered mucus plugging throughout the lo wer lobe airways. Diffuse bronchial wall thickening is also observed. Limited imaging of the upper abdomen demonstrates intrahepatic and central extrahepatic biliary dila tation, which is incompletely visualized. A small hiatal hernia is present. Mild thickening of the g astroesophageal junction is observed. There is a nondisplaced fracture of the lateral aspect of the left sixth rib. Degenerative changes o f the spine are observed. IMPRESSION: Hypoinflation with patchy bibasilar consolidation, likely partially due to atelectasis given the pre sence of scattered mucus plugging throughout the lower lobe airways. Severe diffuse centrilobular emphysematous disease with diffuse bronchial wall thickening compatible with COPD. Small irregular nodule along the right major fissure, unchanged. Follow-up may be obtained in 3 christopher hs as indicated on prior examination. Biliary dilatation, partially visualized and similar in appearance when correlated with prior PET CT . Correlate with appropriate clinical data. Small hiatal hernia with mild thickening of the gastroesophageal junction. Correlate with endoscopy in this patient with esophageal mass/gastric carcinoma. RPTAT: AAQQ .Mirela Blackmon MD, Date Time Electronically viewed and signed by .Mirela Blackmon MD, on 03/29/2017 09:50 .T/
--- NOTE | 2017-03-29 11:05 | CONS ---
Date/Time of Note Date/Time of Note DATE: 03/29/17 TIME: 11:04 Consult Date/Type/Reason Admit Date/Time Mar 21, 2017 at 23:46 Initial Consult Date 03/23/17 Type of Consultation: pulm Ordering Provider: LUCAS DOUGLAS MD Subjective No significant changes. Patient remains comfortable this morning. Objective Vital Signs Date Time Temp Pulse Resp B/P Pulse Ox O2 Delivery O2 Flow Rate FiO2 03/29/17 08:09 60 03/29/17 08:00 Nasal Cannula 3.0 03/29/17 07:47 97.7 16 147/77 93 03/26/17 19:47 33 Intake and Output 03/28/17 03/28/17 03/29/17 15:00 23:00 07:00 Intake Total 720 ml 798 ml Output Total 1400 ml Balance -680 ml 798 ml Exam GENERAL: VITAL SIGNS: per chart NECK: Supple. No JVD or lymphadenopathy. CARDIAC EXAM: S1, S2. No added sounds or murmurs. CHEST: clear bilaterally, No added sounds, rales or wheezes ABDOMEN: Soft, nontender. No guarding or rebound. EXTREMITIES: No cyanosis, clubbing or edema. NEUROLOGIC: Generalized weakness. No focal deficits. Results/Medications Result Diagram: 03/29/17 0428 03/29/17 0428 Results 24 hrs Laboratory Tests Test 03/28/17 19:53 03/29/17 02:54 03/29/17 04:28 Activated Partial Thromboplast Time 28.1 20.1 L 64.6 H White Blood Count 14.5 #H Red Blood Count 5.77 Hemoglobin 13.1 L Hematocrit 42.7 Mean Corpuscular Volume 74.0 L Mean Corpuscular Hemoglobin 22.7 L Mean Corpuscular Hemoglobin Concent 30.7 L Red Cell Distribution Width 18.4 H Platelet Count 429 H Mean Platelet Volume 10.7 H Neutrophils % 79.6 H Lymphocytes % 11.5 L Monocytes % 7.0 Eosinophils % 0.5 Basophils % 0.1 Nucleated Red Blood Cells % 0.0 Neutrophils # 11.5 H Lymphocytes # 1.7 Monocytes # 1.0 H Eosinophils # 0.1 Basophils # 0.0 Nucleated Red Blood Cells # 0.0 Sodium Level 131 L Potassium Level 4.2 Chloride Level 102 Carbon Dioxide Level 27 Anion Gap 6 L Blood Urea Nitrogen 34 H Creatinine 1.13 Glucose Level 96 Calcium Level 8.5 Phosphorus Level 3.8 Magnesium Level 1.9 Albumin 2.4 L Medications Current Medications Ondansetron HCl (Zofran Inj) 4 mg Q6H PRN IV NAUSEA AND/OR VOMITING; Start at 01:30 Acetaminophen (Tylenol Liquid) 650 mg Q6H PRN PO PAIN LEVEL 1-3 OR FEVER Last administered on 03/28/17 05:39; Admin Dose 650 MG; Start 03/22/17 at 01:30 Acetaminophen (Tylenol Supp) 650 mg Q4H PRN [place] PAIN LEVEL 1-3 OR FEVER; Start 03/22/17 at 01:30 Aspirin 81 mg 81 mg DAILY PO Last administered on 03/29/17 09:11; Admin Dose 81 MG; Start 03/22/17 at 09:00 Levofloxacin/ Dextrose (Levaquin 500mg/ D5W 100 ml (Pmx)) 100 ml @ 100 mls/hr Q24H IVPB Last administered on 03/29/17 06:32; Admin Dose 100 MLS/HR; Start at 07:00 Atorvastatin Calcium (Lipitor) 80 mg HS PO Last administered on 03/28/17 20:58 ; Admin Dose 80 MG; Start 03/22/17 at 21:00 Febuxostat (Uloric) 40 mg DAILY PO Last administered on 03/29/17 09:12; Admin Dose 40 MG; Start 03/23/17 at 09:00 Multivitamins Therapeutic (Theragran) 1 tab DAILY PO Last administered on 09:12; Admin Dose 1 TAB; Start 03/23/17 at 09:00 Tamsulosin HCl (Flomax) 0.4 mg BID PO Last administered on 03/29/17 09:12; Admin Dose 0.4 MG; Start 03/22/17 at 21:00 Pantoprazole (Protonix Tab) 40 mg DAILY@06 PO Last administered on 03/29/17 05 :28; Admin Dose 40 MG; Start 03/23/17 at 06:00 Hydralazine HCl (Apresoline) 20 mg Q6H PRN IV SBP >180 Last administered on 18:30; Admin Dose 20 MG; Start 03/22/17 at 22:45 Metoprolol Tartrate (Lopressor) 5 mg Q6 PRN IV HR >100 or SBP >170 Last administered on 03/25/17 16:45; Admin Dose 5 MG; Start 03/23/17 at 15:30 Olanzapine (Zyprexa) 10 mg Q8 PRN IM severe agitation Last administered on 03/25 10:23; Admin Dose 10 MG; Start 03/23/17 at 15:30 Labetalol HCl (Labetalol) 10 mg Q4H PRN IV SBP>160 Last administered on 08:43; Admin Dose 10 MG; Start 03/24/17 at 09:30 Morphine Sulfate 2 mg 2 mg Q4H PRN IV PAIN LEVEL 7-10 Last administered on 03/28 03:34; Admin Dose 2 MG; Start 03/24/17 at 10:00 Dextrose/Sodium Chloride (D5-1/2ns) 1,000 ml @ 60 mls/hr [id number] IV Last administered on 03/29/17 06:32; Admin Dose 60 MLS/HR; Start 03/24/17 at 10:30 Carvedilol (Coreg) 25 mg BID PO Last administered on 03/29/17 09:11; Admin Dose 25 MG; Start 03/25/17 at 21:00 Bisacodyl (Dulcolax Supp) 10 mg DAILY PRN [place] CONSTIPATION; Start 03/26/17 at 12 :30 Bisacodyl (Dulcolax) 5 mg DAILY PRN PO CONSTIPATION Last administered on 17:51; Admin Dose 5 MG; Start 03/26/17 at 12:30 Methylprednisolone Sodium Succinate (Solu-Medrol) 40 mg DAILY IV Last administered on 03/29/17 09:11; Admin Dose 40 MG; Start 03/28/17 at 09:00 Lidocaine (Lidoderm) 1 patch DAILY TD Last administered on 03/29/17 09:13; Admin Dose 1 PATCH; Start 03/27/17 at 11:00 Docusate Sodium (Colace) 100 mg BID PRN PO CONSTIPATION; Start 03/27/17 at 11: 00 Nicotine 1 patch 1 patch DAILY TRANSDERM Last administered on 03/29/17 09:12; Admin Dose 1 PATCH; Start 03/27/17 at 13:00 Amiodarone HCl/ Dextrose (Cordarone Iv/ D5W) 500 ml @ 0 mls/hr Q0M IV ; Start 03/28/17 at 20:00; Stop 03/29/17 at 19:59 Assessment/Plan Chief Complaint/Hosp Course Assessment/Plan IMP: 1. Hypercapnic Resp Insufficiency clinically improved. 2. COPD Exacerbation 3. Gastric cancer stage I/II 4. Leukocytosis--2/2 CS 5. AMS RECS: 1. DC steroids 2. Minimize FiO2 to keep Sp02 88-92% decrease O2 as tolerated 3. Gentle diuresis 4. Low-dose seroquel 5. GI recommendations Patient stable from pulmonary standpoint for gastric resection I do not anticipate him being ventilator dependent post surgery. Discussed with hematology oncology. Problems: CANDICE BLACK MD, [facility] Mar 29, 2017 11:05
--- NOTE | 2017-03-29 13:22 | CONS ---
Date/Time of Note Date/Time of Note DATE: 03/29/17 TIME: 13:19 Assessment/Plan Assessment/Plan Additional Assessment/Plan 76 yo Male with 1) S/p Resp Failure 2) COPD 3) HTN, Chronic 4) Hx of RCC S/ Partial Nephrectomy by Dr yL Gant 5) Hyperechoic Mass Rt Kidney ?RCC 6) Left Renal Cysts 7) Leukcytosis SIRS? 8) Anemia, Likely Chronic 9) NELLIE Resolved. S/p Waters Likely obstructive Uropathy. 10) GI Malignancy Work up in progress 11) DVT/ No PE on CTA 12) Hyponatremia DC D5 1/2 NS Repeat Chem in am. S/p Waters Catheter, Non oliguric Nellie resolved, renal function stable Strict Is and Os, Monitor UO, Electrolytes and renal function daily Will cont to follow until discharge. Consultation Date/Type/Reason Admit Date/Time Mar 21, 2017 at 23:46 Initial Consult Date 03/22/17 Type of Consultation: Renal Referring Provider: LUCAS DOUGLAS MD 24 HR Interval Summary Free Text/Dictation Good UO, pending CT abdomen Constitutional: requiring O2 Exam/Review of Systems Vital Signs Vitals Vital Signs Date Time Temp Pulse Resp B/P Pulse Ox O2 Delivery O2 Flow Rate FiO2 03/29/17 12:11 62 03/29/17 08:00 Nasal Cannula 3.0 03/29/17 07:47 97.7 16 147/77 93 03/26/17 19:47 33 Intake and Output 03/28/17 03/28/17 03/29/17 15:00 23:00 07:00 Intake Total 720 ml 798 ml Output Total 1400 ml Balance -680 ml 798 ml Exam Constitutional: No distress ENMT: mucosa pink and moist Respiratory: crackles/rales, wheezing, No diminished breath sounds Cardiovascular: No edema Gastrointestinal: non-tender, soft, No rebound or guarding Neurological: No lethargic Skin: No diaphoresis Results Result Diagram: 03/29/17 0428 03/29/17 0428 Results 24 hrs Laboratory Tests Test 03/28/17 19:53 03/29/17 02:54 03/29/17 04:28 Activated Partial Thromboplast Time 28.1 20.1 L 64.6 H White Blood Count 14.5 #H Red Blood Count 5.77 Hemoglobin 13.1 L Hematocrit 42.7 Mean Corpuscular Volume 74.0 L Mean Corpuscular Hemoglobin 22.7 L Mean Corpuscular Hemoglobin Concent 30.7 L Red Cell Distribution Width 18.4 H Platelet Count 429 H Mean Platelet Volume 10.7 H Neutrophils % 79.6 H Lymphocytes % 11.5 L Monocytes % 7.0 Eosinophils % 0.5 Basophils % 0.1 Nucleated Red Blood Cells % 0.0 Neutrophils # 11.5 H Lymphocytes # 1.7 Monocytes # 1.0 H Eosinophils # 0.1 Basophils # 0.0 Nucleated Red Blood Cells # 0.0 Sodium Level 131 L Potassium Level 4.2 Chloride Level 102 Carbon Dioxide Level 27 Anion Gap 6 L Blood Urea Nitrogen 34 H Creatinine 1.13 Glucose Level 96 Calcium Level 8.5 Phosphorus Level 3.8 Magnesium Level 1.9 Albumin 2.4 L Medications Medications Current Medications Ondansetron HCl (Zofran Inj) 4 mg Q6H PRN IV NAUSEA AND/OR VOMITING; Start at 01:30 Acetaminophen (Tylenol Liquid) 650 mg Q6H PRN PO PAIN LEVEL 1-3 OR FEVER Last administered on 03/28/17 05:39; Admin Dose 650 MG; Start 03/22/17 at 01:30 Acetaminophen (Tylenol Supp) 650 mg Q4H PRN [place] PAIN LEVEL 1-3 OR FEVER; Start 03/22/17 at 01:30 Aspirin 81 mg 81 mg DAILY PO Last administered on 03/29/17 09:11; Admin Dose 81 MG; Start 03/22/17 at 09:00 Levofloxacin/ Dextrose (Levaquin 500mg/ D5W 100 ml (Pmx)) 100 ml @ 100 mls/hr Q24H IVPB Last administered on 03/29/17 06:32; Admin Dose 100 MLS/HR; Start at 07:00 Atorvastatin Calcium (Lipitor) 80 mg HS PO Last administered on 03/28/17 20:58 ; Admin Dose 80 MG; Start 03/22/17 at 21:00 Febuxostat (Uloric) 40 mg DAILY PO Last administered on 03/29/17 09:12; Admin Dose 40 MG; Start 03/23/17 at 09:00 Multivitamins Therapeutic (Theragran) 1 tab DAILY PO Last administered on 09:12; Admin Dose 1 TAB; Start 03/23/17 at 09:00 Tamsulosin HCl (Flomax) 0.4 mg BID PO Last administered on 03/29/17 09:12; Admin Dose 0.4 MG; Start 03/22/17 at 21:00 Pantoprazole (Protonix Tab) 40 mg DAILY@06 PO Last administered on 03/29/17 05 :28; Admin Dose 40 MG; Start 03/23/17 at 06:00 Hydralazine HCl (Apresoline) 20 mg Q6H PRN IV SBP >180 Last administered on 18:30; Admin Dose 20 MG; Start 03/22/17 at 22:45 Metoprolol Tartrate (Lopressor) 5 mg Q6 PRN IV HR >100 or SBP >170 Last administered on 03/25/17 16:45; Admin Dose 5 MG; Start 03/23/17 at 15:30 Olanzapine (Zyprexa) 10 mg Q8 PRN IM severe agitation Last administered on 03/25 10:23; Admin Dose 10 MG; Start 03/23/17 at 15:30 Labetalol HCl (Labetalol) 10 mg Q4H PRN IV SBP>160 Last administered on 08:43; Admin Dose 10 MG; Start 03/24/17 at 09:30 Morphine Sulfate 2 mg 2 mg Q4H PRN IV PAIN LEVEL 7-10 Last administered on 03/28 03:34; Admin Dose 2 MG; Start 03/24/17 at 10:00 Dextrose/Sodium Chloride (D5-1/2ns) 1,000 ml @ 60 mls/hr [id number] IV Last administered on 03/29/17 06:32; Admin Dose 60 MLS/HR; Start 03/24/17 at 10:30 Carvedilol (Coreg) 25 mg BID PO Last administered on 03/29/17 09:11; Admin Dose 25 MG; Start 03/25/17 at 21:00 Bisacodyl (Dulcolax Supp) 10 mg DAILY PRN [place] CONSTIPATION; Start 03/26/17 at 12 :30 Bisacodyl (Dulcolax) 5 mg DAILY PRN PO CONSTIPATION Last administered on 17:51; Admin Dose 5 MG; Start 03/26/17 at 12:30 Methylprednisolone Sodium Succinate (Solu-Medrol) 40 mg DAILY IV Last administered on 03/29/17 09:11; Admin Dose 40 MG; Start 03/28/17 at 09:00 Lidocaine (Lidoderm) 1 patch DAILY TD Last administered on 03/29/17 09:13; Admin Dose 1 PATCH; Start 03/27/17 at 11:00 Docusate Sodium (Colace) 100 mg BID PRN PO CONSTIPATION; Start 03/27/17 at 11: 00 Nicotine 1 patch 1 patch DAILY TRANSDERM Last administered on 03/29/17 09:12; Admin Dose 1 PATCH; Start 03/27/17 at 13:00 Amiodarone HCl/ Dextrose (Cordarone Iv/ D5W) 500 ml @ 0 mls/hr Q0M IV ; Start 03/28/17 at 20:00; Stop 03/29/17 at 19:59 JACY ROSE MD Mar 29, 2017 13:22
[2017-03-29] MEDS ORDERED: IOHEXOL 14.3 MG(I)/ML (ADULT) BTL PO ONE (13:30)
[2017-03-29] MEDS: HEPARIN 25000 UNITS/250 ML 250 ML IV SCH ×2 (14:01→22:04)
--- NOTE | 2017-03-29 14:21 | CONS ---
Date/Time of Note Date/Time of Note DATE: 03/29/17 TIME: 13:39 Assessment/Plan Assessment/Plan Chief Complaint/Hosp Course 1. Gastric CA: esophageal ulcerated mass and an area of healed ulceration with nodularity in the lesser curvature proximal stomach per EGD; no symptoms-no abdominal pain/n/v/dysphagia -films, path and egd will be reviewed, will discuss EGD findings with Dr. Long 2. Respiratory failure with COPD Exacerbation: improved -medical management 3. Acute on chronic DVT - Currently on heparin drip. Will hold prior to EGD procedure - Will transition to Eliquis prior to d/c 4. Leukocytosis: no fevers; likely 2/2 #1, 2, 3 -as above 5. Hypertension - stable 6. rib fracture - Lidoderm patch for pain control 7. Acute delirium - medical management -supportive 8. Hypoalbuminemia -optimize nutrition -as above 9. Hyponatremia: -judicious fluids Thank you. Patient seen and examined in collaboration with Dr. Kenneth Mendes. Problems: Consultation Date/Type/Reason Admit Date/Time Mar 21, 2017 at 23:46 Date of Consultation: Mar 29, 2017 Type of Consultation: SURGICAL Reason for Consultation gastric mass Referring Provider: XENA DE JESUS MD Hx of Present Illness Gerry Jones is a 76-year-old man with multiple comorbidities, who presented to [facility] secondary to respiratory failure and shortness of breath. He was found to have bilateral lower extremity deep vein thrombosis , with right peroneal vein thrombosis and [id number] left lower extremity thrombosis. He was also noted to have a PE for which he is currently being treated. Additionally, has history of renal cell carcinoma and a recent diagnosis of a gastric mass that was identified at [facility] about 6 months ago, for which he was supposed to undergo surgery. He has not been started on any chemoradiation or adjuvant therapy.Currently, he denies chest pain, shortness of breath, nausea, vomiting, fever, or chills. Endoscopy was done yesterday showing esophageal ulcerated mass and an area of healed ulceration with nodularity in the lesser curvature proximal stomach. General surgery was asked to evaluate. Constitutional: requiring O2, No chills, No diaphoresis, No febrile ENT: No bleeding, No congestion Respiratory: shortness of breath Cardiovascular: No chest pain Gastrointestinal: passing stool, No diarrhea, No nausea Genitourinary: No discharge, No dysuria, No hematuria Musculoskeletal: No back pain, No neck pain, No no complaints Skin: No bruising, No rash Neurologic: No confusion, No dizziness Psychological: confusion Past Medical History hypertension, CHF, BPH, COPD, gastric cancer, renal cancer Medical History: hypertension, renal disease (RCC), other (DVT) Past Surgical History Past Surgical Hx: other (Partial nephrectomy) Family History Significant Family History: no pertinent family hx Social History Alcohol Use: heavy Smoking Status: Current every day smoker Drug Use: other (in the past opium, not anymore. ) Exam/Review of Systems Vital Signs Vitals Vital Signs Date Time Temp Pulse Resp B/P Pulse Ox O2 Delivery O2 Flow Rate FiO2 03/29/17 12:11 62 03/29/17 12:00 98.1 16 160/64 90 03/29/17 08:00 Nasal Cannula 3.0 03/26/17 19:47 33 Intake and Output 03/28/17 03/28/17 03/29/17 15:00 23:00 07:00 Intake Total 720 ml 798 ml Output Total 1400 ml Balance -680 ml 798 ml Exam Constitutional: oriented (to self, partial location, and partial date), No distress Psych: nl mood/affect, No anxiety Head: normocephalic, atraumatic Eyes: EOMI, PERRL, nl conjunctiva, No icteric ENMT: nl external ears & nose, nl lips & teeth, No mucosa pink and moist Neck: non-tender, supple Respiratory: normal air movement, No congested cough, No labored breathing Cardiovascular: nl pulses, regular rate and rhythm, No edema Gastrointestinal: distended (mod), non tender, No rebound or guarding Musculoskeletal: nl extremities to inspection, No joint tenderness, No nl gait and stance Extremities: No calf tenderness, No edema Neurological: No nl speech, No nl strength Skin: No diaphoresis, No nl turgor, No rash or lesions Lymph: palpable bilat inguinal lymph nodes Results Result Diagram: 03/29/178 03/29/17427 Results 24 hrs Laboratory Tests Test 03/28/17 19:53 03/29/17 02:54 03/29/17 04:28 03/29/17 11:44 Activated Partial Thromboplast Time 28.1 20.1 L 64.6 H 121.5 *H White Blood Count 14.5 #H Red Blood Count 5.77 Hemoglobin 13.1 L Hematocrit 42.7 Mean Corpuscular Volume 74.0 L Mean Corpuscular Hemoglobin 22.7 L Mean Corpuscular Hemoglobin Concent 30.7 L Red Cell Distribution Width 18.4 H Platelet Count 429 H Mean Platelet Volume 10.7 H Neutrophils % 79.6 H Lymphocytes % 11.5 L Monocytes % 7.0 Eosinophils % 0.5 Basophils % 0.1 Nucleated Red Blood Cells % 0.0 Neutrophils # 11.5 H Lymphocytes # 1.7 Monocytes # 1.0 H Eosinophils # 0.1 Basophils # 0.0 Nucleated Red Blood Cells # 0.0 Sodium Level 131 L Potassium Level 4.2 Chloride Level 102 Carbon Dioxide Level 27 Anion Gap 6 L Blood Urea Nitrogen 34 H Creatinine 1.13 Glucose Level 96 Calcium Level 8.5 Phosphorus Level 3.8 Magnesium Level 1.9 Albumin 2.4 L Medications Medications Current Medications Ondansetron HCl (Zofran Inj) 4 mg Q6H PRN IV NAUSEA AND/OR VOMITING; Start at 01:30 Acetaminophen (Tylenol Liquid) 650 mg Q6H PRN PO PAIN LEVEL 1-3 OR FEVER Last administered on 03/28/17 05:39; Admin Dose 650 MG; Start 03/22/17 at 01:30 Acetaminophen (Tylenol Supp) 650 mg Q4H PRN [place] PAIN LEVEL 1-3 OR FEVER; Start 03/22/17 at 01:30 Aspirin 81 mg 81 mg DAILY PO Last administered on 03/29/17 09:11; Admin Dose 81 MG; Start 03/22/17 at 09:00 Levofloxacin/ Dextrose (Levaquin 500mg/ D5W 100 ml (Pmx)) 100 ml @ 100 mls/hr Q24H IVPB Last administered on 03/29/17 06:32; Admin Dose 100 MLS/HR; Start at 07:00 Atorvastatin Calcium (Lipitor) 80 mg HS PO Last administered on 03/28/17 20:58 ; Admin Dose 80 MG; Start 03/22/17 at 21:00 Febuxostat (Uloric) 40 mg DAILY PO Last administered on 03/29/17 09:12; Admin Dose 40 MG; Start 03/23/17 at 09:00 Multivitamins Therapeutic (Theragran) 1 tab DAILY PO Last administered on 09:12; Admin Dose 1 TAB; Start 03/23/17 at 09:00 Tamsulosin HCl (Flomax) 0.4 mg BID PO Last administered on 03/29/17 09:12; Admin Dose 0.4 MG; Start 03/22/17 at 21:00 Pantoprazole (Protonix Tab) 40 mg DAILY@06 PO Last administered on 03/29/17 05 :28; Admin Dose 40 MG; Start 03/23/17 at 06:00 Hydralazine HCl (Apresoline) 20 mg Q6H PRN IV SBP >180 Last administered on 18:30; Admin Dose 20 MG; Start 03/22/17 at 22:45 Metoprolol Tartrate (Lopressor) 5 mg Q6 PRN IV HR >100 or SBP >170 Last administered on 03/25/17 16:45; Admin Dose 5 MG; Start 03/23/17 at 15:30 Olanzapine (Zyprexa) 10 mg Q8 PRN IM severe agitation Last administered on 03/25 10:23; Admin Dose 10 MG; Start 03/23/17 at 15:30 Labetalol HCl (Labetalol) 10 mg Q4H PRN IV SBP>160 Last administered on 08:43; Admin Dose 10 MG; Start 03/24/17 at 09:30 Morphine Sulfate 2 mg 2 mg Q4H PRN IV PAIN LEVEL 7-10 Last administered on 03/28 03:34; Admin Dose 2 MG; Start 03/24/17 at 10:00 Dextrose/Sodium Chloride (D5-1/2ns) 1,000 ml @ 60 mls/hr [id number] IV Last administered on 03/29/17 06:32; Admin Dose 60 MLS/HR; Start 03/24/17 at 10:30 Carvedilol (Coreg) 25 mg BID PO Last administered on 03/29/17 09:11; Admin Dose 25 MG; Start 03/25/17 at 21:00 Bisacodyl (Dulcolax Supp) 10 mg DAILY PRN [place] CONSTIPATION; Start 03/26/17 at 12 :30 Bisacodyl (Dulcolax) 5 mg DAILY PRN PO CONSTIPATION Last administered on 17:51; Admin Dose 5 MG; Start 03/26/17 at 12:30 Methylprednisolone Sodium Succinate (Solu-Medrol) 40 mg DAILY IV Last administered on 03/29/17 09:11; Admin Dose 40 MG; Start 03/28/17 at 09:00 Lidocaine (Lidoderm) 1 patch DAILY TD Last administered on 03/29/17 09:13; Admin Dose 1 PATCH; Start 03/27/17 at 11:00 Docusate Sodium (Colace) 100 mg BID PRN PO CONSTIPATION; Start 03/27/17 at 11: 00 Nicotine 1 patch 1 patch DAILY TRANSDERM Last administered on 03/29/17 09:12; Admin Dose 1 PATCH; Start 03/27/17 at 13:00 Amiodarone HCl/ Dextrose (Cordarone Iv/ D5W) 500 ml @ 0 mls/hr Q0M IV ; Start 03/28/17 at 20:00; Stop 03/29/17 at 19:59 VIVIAN CLARK NP Mar 29, 2017 13:50
[2017-03-29] MEDS ORDERED: IODIXANOL LOCM 100 ML BTL ONE (15:34)
[2017-03-29] MEDS ORDERED: SOD CHLORIDE 0.9% 100 ML ONE (15:34)
--- NOTE | 2017-03-29 16:31 | CONS ---
Date/Time of Note Date/Time of Note DATE: 03/29/17 TIME: 16:29 Assessment/Plan Assessment/Plan Chief Complaint/Hosp Course 76 yo male admitted with CHF exacerbation with a recent diagnosis of limited stage gastric cancer #h/o Gastric Cancer -pt is s/p EGD that still appears to demonstrate local gastric ca -given his respiratory status has improved, I would like to consult surgery to see if he would be a candidate for partial gastrectomy -if not, we can consider chemo/ rads as definitive treatment. -f/u CT A/P to evaluate for distant mets 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, a calf vein as well as acute deep venous thrombosis of the left common femoral vein, upper left femoral vein, and mid left femoral vein -pt is s/p IVC filter in 2011 -pt is currently on a heparin gtt #CKD -continue to closely monitor Cr -once pt has stabilized would consider anticoagulation wit Eliquis 5 mg BID as this can be tolerated with impaired renal function #thrombocytosis -secondary to iron deficiency anemia from occult blood loss -can start po iron as long as patient is tolerating po diet A total of 1 hour was spent at patient's bedside and in speaking to his daughter of which > 50% was spent in counseling and coordination of care and a detailed question and answer session Problems: Consultation Date/Type/Reason Admit Date/Time Mar 21, 2017 at 23:46 Initial Consult Date 03/29/17 Type of Consultation: oncology Reason for Consultation localized gastric cancer Referring Provider: XENA DE JESUS MD 24 HR Interval Summary Free Text/Dictation pt has improved from a pulmonary standpoint; Exam/Review of Systems Vital Signs Vitals Vital Signs Date Time Temp Pulse Resp B/P Pulse Ox O2 Delivery O2 Flow Rate FiO2 03/29/17 16:17 63 03/29/17 14:48 3.0 03/29/17 14:47 18 Nasal Cannula 03/29/17 12:00 98.1 160/64 90 03/26/17 19:47 33 Intake and Output 03/28/17 03/28/17 03/29/17 15:00 23:00 07:00 Intake Total 720 ml 798 ml Output Total 1400 ml Balance -680 ml 798 ml Exam Constitutional: alert, oriented Psych: no complaints Head: normocephalic Eyes: nl conjunctiva ENMT: nl external ears & nose Neck: non-tender, supple Respiratory: clear to auscultation Cardiovascular: nl pulses, regular rate and rhythm Gastrointestinal: soft Musculoskeletal: nl extremities to inspection Extremities: normal pulses Results Result Diagram: 03/29/178 03/29/178 Results 24 hrs Laboratory Tests Test 03/28/17 19:53 03/29/17 02:54 03/29/17 04:28 03/29/17 11:44 Activated Partial Thromboplast Time 28.1 20.1 L 64.6 H 121.5 *H White Blood Count 14.5 #H Red Blood Count 5.77 Hemoglobin 13.1 L Hematocrit 42.7 Mean Corpuscular Volume 74.0 L Mean Corpuscular Hemoglobin 22.7 L Mean Corpuscular Hemoglobin Concent 30.7 L Red Cell Distribution Width 18.4 H Platelet Count 429 H Mean Platelet Volume 10.7 H Neutrophils % 79.6 H Lymphocytes % 11.5 L Monocytes % 7.0 Eosinophils % 0.5 Basophils % 0.1 Nucleated Red Blood Cells % 0.0 Neutrophils # 11.5 H Lymphocytes # 1.7 Monocytes # 1.0 H Eosinophils # 0.1 Basophils # 0.0 Nucleated Red Blood Cells # 0.0 Sodium Level 131 L Potassium Level 4.2 Chloride Level 102 Carbon Dioxide Level 27 Anion Gap 6 L Blood Urea Nitrogen 34 H Creatinine 1.13 Glucose Level 96 Calcium Level 8.5 Phosphorus Level 3.8 Magnesium Level 1.9 Albumin 2.4 L Medications Medications Current Medications Ondansetron HCl (Zofran Inj) 4 mg Q6H PRN IV NAUSEA AND/OR VOMITING; Start at 01:30 Acetaminophen (Tylenol Liquid) 650 mg Q6H PRN PO PAIN LEVEL 1-3 OR FEVER Last administered on 03/28/17 05:39; Admin Dose 650 MG; Start 03/22/17 at 01:30 Acetaminophen (Tylenol Supp) 650 mg Q4H PRN [place] PAIN LEVEL 1-3 OR FEVER; Start 03/22/17 at 01:30 Aspirin 81 mg 81 mg DAILY PO Last administered on 03/29/17 09:11; Admin Dose 81 MG; Start 03/22/17 at 09:00 Levofloxacin/ Dextrose (Levaquin 500mg/ D5W 100 ml (Pmx)) 100 ml @ 100 mls/hr Q24H IVPB Last administered on 03/29/17 06:32; Admin Dose 100 MLS/HR; Start at 07:00 Atorvastatin Calcium (Lipitor) 80 mg HS PO Last administered on 03/28/17 20:58 ; Admin Dose 80 MG; Start 03/22/17 at 21:00 Febuxostat (Uloric) 40 mg DAILY PO Last administered on 03/29/17 09:12; Admin Dose 40 MG; Start 03/23/17 at 09:00 Multivitamins Therapeutic (Theragran) 1 tab DAILY PO Last administered on 09:12; Admin Dose 1 TAB; Start 03/23/17 at 09:00 Tamsulosin HCl (Flomax) 0.4 mg BID PO Last administered on 03/29/17 09:12; Admin Dose 0.4 MG; Start 03/22/17 at 21:00 Pantoprazole (Protonix Tab) 40 mg DAILY@06 PO Last administered on 03/29/17 05 :28; Admin Dose 40 MG; Start 03/23/17 at 06:00 Hydralazine HCl (Apresoline) 20 mg Q6H PRN IV SBP >180 Last administered on 18:30; Admin Dose 20 MG; Start 03/22/17 at 22:45 Metoprolol Tartrate (Lopressor) 5 mg Q6 PRN IV HR >100 or SBP >170 Last administered on 03/25/17 16:45; Admin Dose 5 MG; Start 03/23/17 at 15:30 Olanzapine (Zyprexa) 10 mg Q8 PRN IM severe agitation Last administered on 03/25 10:23; Admin Dose 10 MG; Start 03/23/17 at 15:30 Labetalol HCl (Labetalol) 10 mg Q4H PRN IV SBP>160 Last administered on 08:43; Admin Dose 10 MG; Start 03/24/17 at 09:30 Morphine Sulfate 2 mg 2 mg Q4H PRN IV PAIN LEVEL 7-10 Last administered on 03/28 03:34; Admin Dose 2 MG; Start 03/24/17 at 10:00 Dextrose/Sodium Chloride (D5-1/2ns) 1,000 ml @ 60 mls/hr [id number] IV Last administered on 03/29/17 06:32; Admin Dose 60 MLS/HR; Start 03/24/17 at 10:30 Carvedilol (Coreg) 25 mg BID PO Last administered on 03/29/17 09:11; Admin Dose 25 MG; Start 03/25/17 at 21:00 Bisacodyl (Dulcolax Supp) 10 mg DAILY PRN [place] CONSTIPATION; Start 03/26/17 at 12 :30 Bisacodyl (Dulcolax) 5 mg DAILY PRN PO CONSTIPATION Last administered on 17:51; Admin Dose 5 MG; Start 03/26/17 at 12:30 Methylprednisolone Sodium Succinate (Solu-Medrol) 40 mg DAILY IV Last administered on 03/29/17 09:11; Admin Dose 40 MG; Start 03/28/17 at 09:00 Lidocaine (Lidoderm) 1 patch DAILY TD Last administered on 03/29/17 09:13; Admin Dose 1 PATCH; Start 03/27/17 at 11:00 Docusate Sodium (Colace) 100 mg BID PRN PO CONSTIPATION; Start 03/27/17 at 11: 00 Nicotine 1 patch 1 patch DAILY TRANSDERM Last administered on 03/29/17 09:12; Admin Dose 1 PATCH; Start 03/27/17 at 13:00 Amiodarone HCl/ Dextrose (Cordarone Iv/ D5W) 500 ml @ 0 mls/hr Q0M IV ; Start 03/28/17 at 20:00; Stop 03/29/17 at 19:59 CARLOS MURPHY M.D. Mar 29, 2017 16:31 CARLOS MURPHY M.D. Mar 29, 2017 16:31
--- NOTE | 2017-03-29 17:03 | PN ---
Date/Time of Note Date/Time of Note DATE: 03/29/17 TIME: 16:58 Assessment/Plan VTE Prophylaxis VTE Prophylaxis Intervention: heparin Lines/Catheters IV Catheter Type (from Nrsg): Peripheral IV Urinary Cath still in place: Yes Reason Cath still needed: skin wounds contaminated by urine Assessment/Plan Assessment/Plan 1. Acute respiratory failure, resolving - doing well on nasal cannula, at 4L with NAD - Pulmonology on board and consultation appreciated. - Will continue weaning to maintain saturations 88-92% - D/c steroids today 2. COPD exacerbation - Improving. no wheezing appreciated 3. Acute on chronic DVT - Currently on heparin drip. and will transition to Eliquis prior to d/c 4. Hypertension - stable 5. rib fracture - Lidoderm patch for pain control 6. History of renal cell carcinoma, with renal mass - stable 7. Gastric carcinoma, unknown type, records pending - EGD performed which showed mild esophageal mass with ulceration, and ulceration in stomach. - CT A/P performed and awaiting results - Surgery consulted to assess if tumor is resectable. If not will consider XRT - GI on board and consultation appreciated - Heme/Onc on board and consultation appreciated 8. Acute delirium - continue on low dose Seroquel at this time 9. Acute on chronic CKD - resolved - Nephrology on board and consultation appreciated Subjective 24 Hr Interval Summary Free Text/Dictation Patient doing well and remains calm. Only c/o left chest wall pain but getting relief with Lidoderm patch. Denies any worsening SOB, nausea, vomiting, chest pain, or SOB. Exam/Review of Systems Vital Signs Vitals Vital Signs Date Time Temp Pulse Resp B/P Pulse Ox O2 Delivery O2 Flow Rate FiO2 03/29/17 16:17 63 03/29/17 14:48 3.0 03/29/17 14:47 18 Nasal Cannula 03/29/17 12:00 98.1 160/64 90 03/26/17 19:47 33 Intake and Output 03/28/17 03/28/17 03/29/17 15:00 23:00 07:00 Intake Total 720 ml 798 ml Output Total 1400 ml Balance -680 ml 798 ml Exam General: NAD, awake and alert. oriented to place and self Head: Normocephalic atraumatic Eyes: EOMI, pupils reactive to light Neck: Supple, nontender, midline Respiratory: coarse breath sounds bilaterally, diminished effort. Cardiovascular: regular rate, no obvious murmurs. slight tenderness left chest wall Gastrointestinal: non-tender to palpation, bowel sounds heard. Skin: No new skin lesions Results Result Diagram: 03/29/178 03/29/17427 Results 24 hrs Laboratory Tests Test 03/28/17 19:53 03/29/17 02:54 03/29/17 04:28 03/29/17 11:44 Activated Partial Thromboplast Time 28.1 20.1 L 64.6 H 121.5 *H White Blood Count 14.5 #H Red Blood Count 5.77 Hemoglobin 13.1 L Hematocrit 42.7 Mean Corpuscular Volume 74.0 L Mean Corpuscular Hemoglobin 22.7 L Mean Corpuscular Hemoglobin Concent 30.7 L Red Cell Distribution Width 18.4 H Platelet Count 429 H Mean Platelet Volume 10.7 H Neutrophils % 79.6 H Lymphocytes % 11.5 L Monocytes % 7.0 Eosinophils % 0.5 Basophils % 0.1 Nucleated Red Blood Cells % 0.0 Neutrophils # 11.5 H Lymphocytes # 1.7 Monocytes # 1.0 H Eosinophils # 0.1 Basophils # 0.0 Nucleated Red Blood Cells # 0.0 Sodium Level 131 L Potassium Level 4.2 Chloride Level 102 Carbon Dioxide Level 27 Anion Gap 6 L Blood Urea Nitrogen 34 H Creatinine 1.13 Glucose Level 96 Calcium Level 8.5 Phosphorus Level 3.8 Magnesium Level 1.9 Albumin 2.4 L Medications Medications Current Medications Ondansetron HCl (Zofran Inj) 4 mg Q6H PRN IV NAUSEA AND/OR VOMITING; Start at 01:30 Acetaminophen (Tylenol Liquid) 650 mg Q6H PRN PO PAIN LEVEL 1-3 OR FEVER Last administered on 03/28/17 05:39; Admin Dose 650 MG; Start 03/22/17 at 01:30 Acetaminophen (Tylenol Supp) 650 mg Q4H PRN [place] PAIN LEVEL 1-3 OR FEVER; Start 03/22/17 at 01:30 Aspirin 81 mg 81 mg DAILY PO Last administered on 03/29/17 09:11; Admin Dose 81 MG; Start 03/22/17 at 09:00 Levofloxacin/ Dextrose (Levaquin 500mg/ D5W 100 ml (Pmx)) 100 ml @ 100 mls/hr Q24H IVPB Last administered on 03/29/17 06:32; Admin Dose 100 MLS/HR; Start at 07:00 Atorvastatin Calcium (Lipitor) 80 mg HS PO Last administered on 03/28/17 20:58 ; Admin Dose 80 MG; Start 03/22/17 at 21:00 Febuxostat (Uloric) 40 mg DAILY PO Last administered on 03/29/17 09:12; Admin Dose 40 MG; Start 03/23/17 at 09:00 Multivitamins Therapeutic (Theragran) 1 tab DAILY PO Last administered on 09:12; Admin Dose 1 TAB; Start 03/23/17 at 09:00 Tamsulosin HCl (Flomax) 0.4 mg BID PO Last administered on 03/29/17 09:12; Admin Dose 0.4 MG; Start 03/22/17 at 21:00 Pantoprazole (Protonix Tab) 40 mg DAILY@06 PO Last administered on 03/29/17 05 :28; Admin Dose 40 MG; Start 03/23/17 at 06:00 Hydralazine HCl (Apresoline) 20 mg Q6H PRN IV SBP >180 Last administered on 18:30; Admin Dose 20 MG; Start 03/22/17 at 22:45 Metoprolol Tartrate (Lopressor) 5 mg Q6 PRN IV HR >100 or SBP >170 Last administered on 03/25/17 16:45; Admin Dose 5 MG; Start 03/23/17 at 15:30 Olanzapine (Zyprexa) 10 mg Q8 PRN IM severe agitation Last administered on 03/25 10:23; Admin Dose 10 MG; Start 03/23/17 at 15:30 Labetalol HCl (Labetalol) 10 mg Q4H PRN IV SBP>160 Last administered on 08:43; Admin Dose 10 MG; Start 03/24/17 at 09:30 Morphine Sulfate 2 mg 2 mg Q4H PRN IV PAIN LEVEL 7-10 Last administered on 03/28 03:34; Admin Dose 2 MG; Start 03/24/17 at 10:00 Dextrose/Sodium Chloride (D5-1/2ns) 1,000 ml @ 60 mls/hr [id number] IV Last administered on 03/29/17 06:32; Admin Dose 60 MLS/HR; Start 03/24/17 at 10:30 Carvedilol (Coreg) 25 mg BID PO Last administered on 03/29/17 09:11; Admin Dose 25 MG; Start 03/25/17 at 21:00 Bisacodyl (Dulcolax Supp) 10 mg DAILY PRN [place] CONSTIPATION; Start 03/26/17 at 12 :30 Bisacodyl (Dulcolax) 5 mg DAILY PRN PO CONSTIPATION Last administered on 17:51; Admin Dose 5 MG; Start 03/26/17 at 12:30 Methylprednisolone Sodium Succinate (Solu-Medrol) 40 mg DAILY IV Last administered on 03/29/17 09:11; Admin Dose 40 MG; Start 03/28/17 at 09:00 Lidocaine (Lidoderm) 1 patch DAILY TD Last administered on 03/29/17 09:13; Admin Dose 1 PATCH; Start 03/27/17 at 11:00 Docusate Sodium (Colace) 100 mg BID PRN PO CONSTIPATION; Start 03/27/17 at 11: 00 Nicotine 1 patch 1 patch DAILY TRANSDERM Last administered on 03/29/17 09:12; Admin Dose 1 PATCH; Start 03/27/17 at 13:00 Amiodarone HCl/ Dextrose (Cordarone Iv/ D5W) 500 ml @ 0 mls/hr Q0M IV ; Start 03/28/17 at 20:00; Stop 03/29/17 at 19:59 XENA DE JESUS MD Mar 29, 2017 17:03
--- NOTE | 2017-03-29 20:48 | PN ---
Date/Time of Note Date/Time of Note DATE: 03/29/17 TIME: 20:48 Assessment/Plan VTE Prophylaxis VTE Prophylaxis Intervention: SCD's Lines/Catheters IV C[facility]ter Type (from [facility]): Peripheral IV Urinary Cath still in place: Yes Reason Cath still needed: urinary retention Assessment/Plan Chief Complaint/Hosp Course Assessment: History of gastric cancer EGD * Mid esophageal mass w/superficial ulceration. Biopsied * No evidence of malignancy/ulcerated mucosa * Esophagitis * Area of healed ulceration with nodularity in the lesser curvature proximal stomach. Biopsied * Poorly differentiated adenocarcinoma DVT Plan: Oncology/surgical management May benefit from tertiary center possibly considering EUS staging and assessment of the esophageal mass Subjective: Course reviewed with nursing staff Patient interviewed and examined All labs, imaging and other results reviewed The patient appears comfortable at the present time Informed of findings on endoscopy and pathology Oncology and surgical management Consider tertiary center transfer for evaluation with EUS for staging purposes especially in view of findings in the esophagus as well as CT suggestion of extension of tumor to the cardia Exam: General: well developed, well nourished, alert and oriented x3 , in no acute distress Skin: No lesions, no stigmata chronic liver disease, no evidence of bleeding diathesis Lymphatic: No palpable lymphadenopathy HEENT: No lesions Cardiovascular: Heart: Regular rate and rhythm, no murmurs, gallops or rubs. Peripheral pulses present within normal limits, no cyanosis, clubbing or edemas. No pulsatile abdominal mass Respiratory: Lungs clear to auscultation and percussion, no wheezing, no rubs Gastrointestinal and Liver: Abdomen: Soft, moderate epigastric tenderness, non- distended, no hernias, no masses, no organomegaly, no ascites, no guarding, no rebound tenderness, normoactive bowel sounds. Extremities: No cyanosis, clubbing, or edema. Diagnostic Studies: Available data and images were reviewed personally. See reports. Significant results and findings are addressed here or in the assessment and plan. Problems: Exam/Review of Systems Vital Signs Vitals Vital Signs Date Time Temp Pulse Resp B/P Pulse Ox O2 Delivery O2 Flow Rate FiO2 03/29/17 20:09 64 03/29/17 20:03 98.2 18 179/84 96 03/29/17 19:07 3.0 03/29/17 14:47 Nasal Cannula 03/26/17 19:47 33 Intake and Output 03/28/17 03/28/17 03/29/17 15:00 23:00 07:00 Intake Total 720 ml 798 ml Output Total 1400 ml Balance -680 ml 798 ml Results Result Diagram: 03/29/17 0428 03/29/17 0428 Results 24 hrs Laboratory Tests Test 03/29/17 02:54 03/29/17 04:28 03/29/17 11:44 Activated Partial Thromboplast Time 20.1 L 64.6 H 121.5 *H White Blood Count 14.5 #H Red Blood Count 5.77 Hemoglobin 13.1 L Hematocrit 42.7 Mean Corpuscular Volume 74.0 L Mean Corpuscular Hemoglobin 22.7 L Mean Corpuscular Hemoglobin Concent 30.7 L Red Cell Distribution Width 18.4 H Platelet Count 429 H Mean Platelet Volume 10.7 H Neutrophils % 79.6 H Lymphocytes % 11.5 L Monocytes % 7.0 Eosinophils % 0.5 Basophils % 0.1 Nucleated Red Blood Cells % 0.0 Neutrophils # 11.5 H Lymphocytes # 1.7 Monocytes # 1.0 H Eosinophils # 0.1 Basophils # 0.0 Nucleated Red Blood Cells # 0.0 Sodium Level 131 L Potassium Level 4.2 Chloride Level 102 Carbon Dioxide Level 27 Anion Gap 6 L Blood Urea Nitrogen 34 H Creatinine 1.13 Glucose Level 96 Calcium Level 8.5 Phosphorus Level 3.8 Magnesium Level 1.9 Albumin 2.4 L Medications Medications Current Medications Ondansetron HCl (Zofran Inj) 4 mg Q6H PRN IV NAUSEA AND/OR VOMITING; Start at 01:30 Acetaminophen (Tylenol Liquid) 650 mg Q6H PRN PO PAIN LEVEL 1-3 OR FEVER Last administered on 03/28/17 05:39; Admin Dose 650 MG; Start 03/22/17 at 01:30 Acetaminophen (Tylenol Supp) 650 mg Q4H PRN IN PAIN LEVEL 1-3 OR FEVER; Start 03/22/17 at 01:30 Aspirin 81 mg 81 mg DAILY PO Last administered on 03/29/17 09:11; Admin Dose 81 MG; Start 03/22/17 at 09:00 Levofloxacin/ Dextrose (Levaquin 500mg/ D5W 100 ml (Pmx)) 100 ml @ 100 mls/hr Q24H IVPB Last administered on 03/29/17 06:32; Admin Dose 100 MLS/HR; Start at 07:00 Atorvastatin Calcium (Lipitor) 80 mg HS PO Last administered on 03/28/17 20:58 ; Admin Dose 80 MG; Start 03/22/17 at 21:00 Febuxostat (Uloric) 40 mg DAILY PO Last administered on 03/29/17 09:12; Admin Dose 40 MG; Start 03/23/17 at 09:00 Multivitamins Therapeutic (Theragran) 1 tab DAILY PO Last administered on 09:12; Admin Dose 1 TAB; Start 03/23/17 at 09:00 Tamsulosin HCl (Flomax) 0.4 mg BID PO Last administered on 03/29/17 09:12; Admin Dose 0.4 MG; Start 03/22/17 at 21:00 Pantoprazole (Protonix Tab) 40 mg DAILY@06 PO Last administered on 03/29/17 05 :28; Admin Dose 40 MG; Start 03/23/17 at 06:00 Hydralazine HCl (Apresoline) 20 mg Q6H PRN IV SBP >180 Last administered on 18:30; Admin Dose 20 MG; Start 03/22/17 at 22:45 Metoprolol Tartrate (Lopressor) 5 mg Q6 PRN IV HR >100 or SBP >170 Last administered on 03/25/17 16:45; Admin Dose 5 MG; Start 03/23/17 at 15:30 Olanzapine (Zyprexa) 10 mg Q8 PRN IM severe agitation Last administered on 03/25 10:23; Admin Dose 10 MG; Start 03/23/17 at 15:30 Labetalol HCl (Labetalol) 10 mg Q4H PRN IV SBP>160 Last administered on 08:43; Admin Dose 10 MG; Start 03/24/17 at 09:30 Morphine Sulfate 2 mg 2 mg Q4H PRN IV PAIN LEVEL 7-10 Last administered on 03/28 03:34; Admin Dose 2 MG; Start 03/24/17 at 10:00 Dextrose/Sodium Chloride (D5-1/2ns) 1,000 ml @ 60 mls/hr [id number] IV Last administered on 03/29/17 06:32; Admin Dose 60 MLS/HR; Start 03/24/17 at 10:30 Carvedilol (Coreg) 25 mg BID PO Last administered on 03/29/17 09:11; Admin Dose 25 MG; Start 03/25/17 at 21:00 Bisacodyl (Dulcolax Supp) 10 mg DAILY PRN IN CONSTIPATION; Start 03/26/17 at 12 :30 Bisacodyl (Dulcolax) 5 mg DAILY PRN PO CONSTIPATION Last administered on 17:51; Admin Dose 5 MG; Start 03/26/17 at 12:30 Methylprednisolone Sodium Succinate (Solu-Medrol) 40 mg DAILY IV Last administered on 03/29/17 09:11; Admin Dose 40 MG; Start 03/28/17 at 09:00 Lidocaine (Lidoderm) 1 patch DAILY TD Last administered on 03/29/17 09:13; Admin Dose 1 PATCH; Start 03/27/17 at 11:00 Docusate Sodium (Colace) 100 mg BID PRN PO CONSTIPATION; Start 03/27/17 at 11: 00 Nicotine (Nicoderm 21 Mg/ 24hr) 1 patch DAILY TRANSDERM Last administered on 09:12; Admin Dose 1 PATCH; Start 03/27/17 at 13:00 TESSY ALBARADO MD Mar 29, 2017 20:48
[2017-03-29] MEDS: ATORVASTATIN 40 MG TAB PO SCH (21:16)
[2017-03-29] MEDS: hydrALAzine 20 MG INJ IV PRN (21:17)
[2017-03-29] MEDS: HEPARIN 1000 UNITS/ML 10 ML INJ IV PRN (22:02)
[2017-03-29] MEDS: morphine 2 MG INJ IV PRN (23:44)
[2017-03-30] VITALS (14 sets, daily range): BP systolic 93–145; BP diastolic 53–83; PULSE 61–88; RESP 17–18
[2017-03-30] MEDS: ACETYLCYSTEINE 20% 4 ML VIAL NEB SCH ×4 (01:01→20:07)
[2017-03-30] MEDS: LEVALBUTEROL (NEB) 1.25 MG/0.5 ML AMP HHN SCH ×4 (01:01→20:07)
--- NOTE | 2017-03-30 03:35 | RADRPT ---
AMENDMENT: 03/30/2017 3:53:53 AM Leslie Best MD In addition to the impressions listed below, there is redemonstration of intra and extrahepatic bili bebe ductal dilatation without pancreatic ductal dilatation or visualized stones. MRI with MRCP could be considered to evaluate for choledocholithiasis. Ampullary stenosis is also possible. PROCEDURE: CT Abdomen and pelvis with contrast CLINICAL INDICATION: Gastric cancer and esophageal mass TECHNIQUE: Spiral CT images through the abdomen and pelvis after administration of oral and during administration of 95 cc of Visipaque 320 contrast material. Multiplanar reconstructions. The tota l exam CTDI equals 7.60 mGy and the total exam DLP equals new 457.5 mGy-cm. One or more of the [employer] wing dose reduction techniques were used: automated exposure control, adjustment of the mA and/or kV according to patient size, or use of iterative reconstruction technique. COMPARISON: Chest CT from 03/28/2017 FINDINGS: Lower thorax: Again seen is bibasilar atelectasis or infiltrates and moderate left greater than righ t pleural effusions. There is a suggestion of slight tree in bud opacities in the peribronchial wilfred ons of the lower lobes and mucus plugging is redemonstrated. Slight wall thickening of the distal es ophagus is again seen. Wall prominence of the distal stomach may be due to contraction.. Hepatobiliary: Tiny probable hepatic cysts are seen. The gallbladder is contracted. Moderate intr a and extrahepatic biliary ductal dilatation is again seen with the common bile duct measuring up to 1.8 cm in diameter.. No definite solid liver lesion.. Spleen: 2.1 cm low attenuation lesion in the spleen is seen and may represent a slightly complex cys t or hemangioma. Adrenal glands: Unremarkable in appearance. No focal nodule.. Genitourinary: The kidneys are atrophic with cortical thinning and multiple cysts. 1 lesion exophyti c off the lateral right kidney measuring 2.2 cm is not consistent with a cyst and may represent a ma ss. This was suggested on recent ultrasound from 03/22/2017 as well.. There is also a complex cyst o r mass in the lower pole of the right kidney measuring 1.4 cm in diameter. This was not as well appr eciated by ultrasound.. A few of the left renal lesions may represent complex cysts. Air is seen in the otherwise unremarkable urinary bladder. Pancreas: No pancreatic ductal dilatation is seen. No definite pancreatic mass. No focal mass or inf lammatory process. Gastrointestinal Tract: There is no evidence for bowel obstruction, free air, or abscess. The appen kelsie is not seen. No pericecal inflammatory process is seen.. Moderate stool burden. Lymph nodes: No adenopathy is seen.. Peritoneal cavity: There is mild ascites in the abdomen and pelvis.. . Reproductive Organs: The prostate is enlarged, measuring 5.8 x 4 cm.. Vascular structures: Diffuse atherosclerotic change. IVC filter.. Musculoskeletal: There is mild degenerative change of the spine. IMPRESSION: Redemonstration of pleural effusions and mucous plugging / bronchial filling with slight peribronchi al nodularity which may be due to bronchiolitis. Aspiration should be considered. Mild wall thickening of the distal esophagus and mild wall thickening versus contraction of the dist al stomach. Correlate clinically and / or with endoscopy is indicated. Two right renal lesions which may represent masses. Dedicated renal CT is suggested. Diffusely enlarged prostate. Correlate with PSA.. RPTAT: [facility]BE Physician Hilda Date Time Electronically viewed and signed by Physician Hilda on 03/30/2017 03:54 LE/
[2017-03-30] MEDS: LEVOFLOXACIN 500MG/D5W (PMX) 100 ML IVPB SCH (06:24)
[2017-03-30] MEDS: PANTOPRAZOLE (EC) 40 MG TAB PO SCH (06:24)
[2017-03-30 06:50] LABS: BASOPHILS % 0.1 % (0.0-2.0); EOSINOPHILS % 0.3 % (0.0-7.0); HEMATOCRIT 39.6 % (42.0-52.0); HEMOGLOBIN 12.5 g/dl (14.0-18.0); LYMPHOCYTES # 1.4 10^3/ul (0.8-2.9); LYMPHOCYTES % 10.2 % (15.0-51.0); MEAN CORPUSCULAR HEMOGLOBIN 23.1 pg (29.0-33.0); MEAN CORPUSCULAR HGB CONC 31.6 g/dl (32.0-37.0); MEAN CORPUSCULAR VOLUME 73.2 fl (82.0-101.0); MEAN PLATELET VOLUME 10.2 fl (7.4-10.4); MONOCYTE # 1.2 10^3/ul (0.3-0.9); MONOCYTES % 8.5 % (0.0-11.0); NEUTROPHILS % 79.2 % (39.0-77.0); PLATELET COUNT 408 10^3/UL (140-415); RED BLOOD COUNT 5.41 10^6/ul (4.70-6.10); WHITE BLOOD COUNT 13.9 10^3/ul (4.8-10.8)
[2017-03-30 07:15] LABS: ALBUMIN 2.2 g/dl (3.3-4.9); CALCIUM 7.9 mg/dl (8.4-10.2); CREATININE 1.08 mg/dl (0.61-1.24); MAGNESIUM 1.3 mg/dl (1.7-2.5); PHOSPHORUS 4.2 mg/dl (2.5-4.9); POTASSIUM 4.1 mmol/L (3.5-5.1)
--- NOTE | 2017-03-30 08:17 | PN ---
Date/Time of Note Date/Time of Note DATE: 03/30/17 TIME: 08:16 Assessment/Plan VTE Prophylaxis VTE Prophylaxis Intervention: SCD's Lines/Catheters IV Catheter Type (from Nrs): Saline Lock Urinary Cath still in place: Yes Reason Cath still needed: urinary retention Assessment/Plan Assessment/Plan Respiratory failure, improving SIRS/Sepsis Acute kidney injury, improving Extensive DVT noted bilaterally with hx IVC filter COPD Possible history of malignancy Active tobacco use Mild elevated troponin Left-sided rib fracture -Patient with improvement in respiratory status and mental status. CT chest with no evidence of pulmonary emboli. Continue anticoagulation if no contraindication. Patient on plan for any procedures, consider transitioning anticoagulation to oral. IV fluids as per nephrology. If no procedures, start eliquis and stop heparin Subjective 24 Hr Interval Summary Free Text/Dictation The patien doing well overnight Exam/Review of Systems Vital Signs Vitals Vital Signs Date Time Temp Pulse Resp B/P Pulse Ox O2 Delivery O2 Flow Rate FiO2 03/30/17 07:57 93 3.0 03/30/17 07:56 20 Nasal Cannula 03/30/17 07:50 66 03/30/17 07:23 98.0 93/53 03/26/17 19:47 33 Intake and Output 03/29/17 03/29/17 03/30/17 15:00 23:00 07:00 Intake Total 584 ml 516 ml Output Total 550 ml 700 ml Balance 34 ml -184 ml Results Result Diagram: 03/30/17 0638 03/30/17 0638 Results 24 hrs Laboratory Tests Test 03/29/17 11:44 03/29/17 20:11 03/30/17 06:38 Activated Partial Thromboplast Time 121.5 *H 54.3 H 141.4 *H White Blood Count 13.9 H Red Blood Count 5.41 Hemoglobin 12.5 L Hematocrit 39.6 L Mean Corpuscular Volume 73.2 L Mean Corpuscular Hemoglobin 23.1 L Mean Corpuscular Hemoglobin Concent 31.6 L Red Cell Distribution Width 17.0 H Platelet Count 408 Mean Platelet Volume 10.2 Neutrophils % 79.2 H Lymphocytes % 10.2 L Monocytes % 8.5 Eosinophils % 0.3 Basophils % 0.1 Nucleated Red Blood Cells % 0.0 Neutrophils # 11.0 H Lymphocytes # 1.4 Monocytes # 1.2 H Eosinophils # 0.0 Basophils # 0.0 Nucleated Red Blood Cells # 0.0 Sodium Level 124 L Potassium Level 4.1 Chloride Level 96 L Carbon Dioxide Level 28 Anion Gap 4 L Blood Urea Nitrogen 29 H Creatinine 1.08 Glucose Level 192 Calcium Level 7.9 L Phosphorus Level 4.2 Magnesium Level 1.3 L Albumin 2.2 L Medications Medications Current Medications Ondansetron HCl (Zofran Inj) 4 mg Q6H PRN IV NAUSEA AND/OR VOMITING Last administered on 03/29/17 23:45; Admin Dose 4 MG; Start 03/22/17 at 01:30 Acetaminophen (Tylenol Liquid) 650 mg Q6H PRN PO PAIN LEVEL 1-3 OR FEVER Last administered on 03/28/17 05:39; Admin Dose 650 MG; Start 03/22/17 at 01:30 Acetaminophen (Tylenol Supp) 650 mg Q4H PRN RI PAIN LEVEL 1-3 OR FEVER; Start 03/22/17 at 01:30 Aspirin 81 mg 81 mg DAILY PO Last administered on 03/29/17 09:11; Admin Dose 81 MG; Start 03/22/17 at 09:00 Levofloxacin/ Dextrose (Levaquin 500mg/ D5W 100 ml (Pmx)) 100 ml @ 100 mls/hr Q24H IVPB Last administered on 03/30/17 06:24; Admin Dose 100 MLS/HR; Start at 07:00 Atorvastatin Calcium (Lipitor) 80 mg HS PO Last administered on 03/29/17 21:16 ; Admin Dose 80 MG; Start 03/22/17 at 21:00 Febuxostat (Uloric) 40 mg DAILY PO Last administered on 03/29/17 09:12; Admin Dose 40 MG; Start 03/23/17 at 09:00 Multivitamins Therapeutic (Theragran) 1 tab DAILY PO Last administered on 09:12; Admin Dose 1 TAB; Start 03/23/17 at 09:00 Tamsulosin HCl (Flomax) 0.4 mg BID PO Last administered on 03/29/17 21:16; Admin Dose 0.4 MG; Start 03/22/17 at 21:00 Pantoprazole (Protonix Tab) 40 mg DAILY@06 PO Last administered on 03/30/17 06 :24; Admin Dose 40 MG; Start 03/23/17 at 06:00 Hydralazine HCl (Apresoline) 20 mg Q6H PRN IV SBP >180 Last administered on 21:17; Admin Dose 20 MG; Start 03/22/17 at 22:45 Metoprolol Tartrate (Lopressor) 5 mg Q6 PRN IV HR >100 or SBP >170 Last administered on 03/25/17 16:45; Admin Dose 5 MG; Start 03/23/17 at 15:30 Olanzapine (Zyprexa) 10 mg Q8 PRN IM severe agitation Last administered on 03/25 10:23; Admin Dose 10 MG; Start 03/23/17 at 15:30 Labetalol HCl (Labetalol) 10 mg Q4H PRN IV SBP>160 Last administered on 08:43; Admin Dose 10 MG; Start 03/24/17 at 09:30 Morphine Sulfate 2 mg 2 mg Q4H PRN IV PAIN LEVEL 7-10 Last administered on 03/29 23:44; Admin Dose 2 MG; Start 03/24/17 at 10:00 Dextrose/Sodium Chloride (D5-1/2ns) 1,000 ml @ 60 mls/hr [id number] IV Last administered on 03/29/17 06:32; Admin Dose 60 MLS/HR; Start 03/24/17 at 10:30 Carvedilol (Coreg) 25 mg BID PO Last administered on 03/29/17 21:16; Admin Dose 25 MG; Start 03/25/17 at 21:00 Bisacodyl (Dulcolax Supp) 10 mg DAILY PRN RI CONSTIPATION; Start 03/26/17 at 12 :30 Bisacodyl (Dulcolax) 5 mg DAILY PRN PO CONSTIPATION Last administered on 17:51; Admin Dose 5 MG; Start 03/26/17 at 12:30 Methylprednisolone Sodium Succinate (Solu-Medrol) 40 mg DAILY IV Last administered on 03/29/17 09:11; Admin Dose 40 MG; Start 03/28/17 at 09:00 Lidocaine (Lidoderm) 1 patch DAILY TD Last administered on 03/29/17 09:13; Admin Dose 1 PATCH; Start 03/27/17 at 11:00 Docusate Sodium (Colace) 100 mg BID PRN PO CONSTIPATION; Start 03/27/17 at 11: 00 Nicotine (Nicoderm 21 Mg/ 24hr) 1 patch DAILY TRANSDERM Last administered on t 09:12; Admin Dose 1 PATCH; Start 03/27/17 at 13:00 GIOVANA PAGAN MD Mar 30, 2017 08:17
[2017-03-30] MEDS: METHYLPREDNISOLONE 40 MG INJ IV SCH (08:45)
[2017-03-30] MEDS: ASPIRIN (EC) 81 MG TAB PO SCH (08:46)
[2017-03-30] MEDS: NICOTINE (21 MG/24 HR) PATCH TRANSDERM SCH (08:46)
[2017-03-30] MEDS: TAMSULOSIN (SR) 0.4 MG CAP PO SCH ×2 (08:46→20:12)
[2017-03-30] MEDS: LIDOCAINE 5% PATCH TD SCH (08:46)
[2017-03-30] MEDS: FEBUXOSTAT 40 MG TABLET PO SCH (08:46)
[2017-03-30] MEDS: MULTIVITAMINS THERAPEUTIC TAB PO SCH (08:47)
[2017-03-30] MEDS: morphine 2 MG INJ IV PRN ×2 (08:52→17:49)
[2017-03-30] MEDS: HEPARIN 25000 UNITS/250 ML 250 ML IV SCH ×3 (08:57→18:30)
[2017-03-30] MEDS ORDERED: MAGNESIUM SULFATE 4 GM/100 ML 100 ML IVPB ONE (10:30)
[2017-03-30 12:54] LABS: CALCIUM 8.2 mg/dl (8.4-10.2); CREATININE 1.13 mg/dl (0.61-1.24); POTASSIUM 4.5 mmol/L (3.5-5.1)
[2017-03-30 13:11] LABS: ADD UMIC YES; UR ASCORBIC ACID NEGATIVE (NEGATIVE); UR BILIRUBIN (Dip) NEGATIVE (NEGATIVE); UR BLOOD (Dip) 2+ mg/dL (NEGATIVE); UR CLARITY SLIGHTLY CLOUDY (CLEAR); UR COLOR YELLOW (YELLOW); UR GLUCOSE (Dip) NEGATIVE (NEGATIVE); UR KETONES (Dip) NEGATIVE (NEGATIVE); UR LEUKOCYTE ESTERASE (Dip) NEGATIVE Leu/ul (NEGATIVE); UR NITRITE (Dip) NEGATIVE (NEGATIVE); UR RBC 33 /HPF (0-5); UR SPECIFIC GRAVITY (Dip) 1.034 (1.003-1.030); UR SQUAMOUS EPITHELIAL CELL FEW /HPF (FEW); UR TOTAL PROTEIN (Dip) NEGATIVE (NEGATIVE); UR UROBILINOGEN (Dip) NEGATIVE (NEGATIVE)
[2017-03-30 13:29] LABS: POTASSIUM,URINE RANDOM 38.5 mmol/L (25-125)
--- NOTE | 2017-03-30 15:39 | PN ---
Date/Time of Note Date/Time of Note DATE: 03/30/17 TIME: 15:39 Assessment/Plan VTE Prophylaxis VTE Prophylaxis Intervention: heparin Lines/Catheters IV Catheter Type (from Nrsg): Peripheral IV Urinary Cath still in place: Yes Reason Cath still needed: skin wounds contaminated by urine Assessment/Plan Assessment/Plan 1. Acute respiratory failure, resolving - doing well on nasal cannula, at 3L with NAD - Pulmonology on board and consultation appreciated. - Will continue weaning to maintain saturations 88-92% 2. Acute Hyponatremia - Urine studies ordered - Does not appear to be symptomatic - Will fluid restrict and continue monitoring 3. Acute on chronic DVT - Currently on heparin drip. and will transition to Eliquis if no surgical intervention occurs 4. Hypertension - stable 5. rib fracture - Lidoderm patch for pain control 6. History of renal cell carcinoma, with renal mass - stable 7. Gastric carcinoma, unknown type, records pending - EGD performed which showed mild esophageal mass with ulceration, and ulceration in stomach. - CT A/P performed and shows Mild wall thickening of the distal esophagus and mild wall thickening versus contraction of the distal stomach - Surgery consulted to assess if tumor is resectable. If not will consider XRT - GI on board and consultation appreciated - Heme/Onc on board and consultation appreciated 8. Acute delirium - improving/resolving 9. Acute on chronic CKD - resolved - Nephrology on board and consultation appreciated 10. COPD exacerbation - Resolved Subjective 24 Hr Interval Summary Free Text/Dictation Patient resting comfortably and in no acute distress. Patient remains calm and no longer pulling at lines or agitated. No acute overnight events. Exam/Review of Systems Vital Signs Vitals Vital Signs Date Time Temp Pulse Resp B/P Pulse Ox O2 Delivery O2 Flow Rate FiO2 03/30/17 12:43 63 03/30/17 11:35 98.0 18 121/60 98 03/30/17 08:20 Nasal Cannula 3.0 03/26/17 19:47 33 Intake and Output 03/29/17 03/29/17 03/30/17 15:00 23:00 07:00 Intake Total 584 ml 516 ml Output Total 550 ml 700 ml Balance 34 ml -184 ml Exam General: NAD, arousable, oriented to place and self Head: Normocephalic atraumatic Eyes: EOMI, pupils reactive to light Neck: Supple, nontender, midline Respiratory: diminished breath sounds bilaterally, no wheezing or crackles Cardiovascular: regular rate, no obvious murmurs. slight tenderness left chest wall Gastrointestinal: non-tender to palpation, bowel sounds heard. Skin: No new skin lesions Results Result Diagram: 03/30/17 0638 03/30/17 1134 Results 24 hrs Laboratory Tests Test 03/29/17 20:11 03/30/17 06:38 03/30/17 06:40 03/30/17 07:51 Activated Partial Thromboplast Time 54.3 H 141.4 *H White Blood Count 13.9 H Red Blood Count 5.41 Hemoglobin 12.5 L Hematocrit 39.6 L Mean Corpuscular Volume 73.2 L Mean Corpuscular Hemoglobin 23.1 L Mean Corpuscular Hemoglobin Concent 31.6 L Red Cell Distribution Width 17.0 H Platelet Count 408 Mean Platelet Volume 10.2 Neutrophils % 79.2 H Lymphocytes % 10.2 L Monocytes % 8.5 Eosinophils % 0.3 Basophils % 0.1 Nucleated Red Blood Cells % 0.0 Neutrophils # 11.0 H Lymphocytes # 1.4 Monocytes # 1.2 H Eosinophils # 0.0 Basophils # 0.0 Nucleated Red Blood Cells # 0.0 Sodium Level 124 L Potassium Level 4.1 Chloride Level 96 L Carbon Dioxide Level 28 Anion Gap 4 L Blood Urea Nitrogen 29 H Creatinine 1.08 Glucose Level 192 Calcium Level 7.9 L Phosphorus Level 4.2 Magnesium Level 1.3 L 1.4 L Albumin 2.2 L Osmolality 279 L Thyroid Stimulating Hormone (TSH) 1.290 Test 03/30/17 10:10 03/30/17 11:34 Urine Color YELLOW Urine Clarity SLIGHTLY CLOUDY A Urine pH 5.0 Urine Specific [place] 1.034 H Urine Ketones NEGATIVE Urine Nitrite NEGATIVE Urine Bilirubin NEGATIVE Urine Urobilinogen NEGATIVE Urine Leukocyte Esterase NEGATIVE Urine Microscopic RBC 33 H Urine Microscopic WBC 19 H Urine Squamous Epithelial Cells FEW Urine Hemoglobin 2+ H Urine Osmolality 601 Urine Random Sodium 99 H Urine Random Potassium 38.5 Urine Glucose NEGATIVE Urine Total Protein NEGATIVE Activated Partial Thromboplast Time 67.7 H Sodium Level 123 L Potassium Level 4.5 Chloride Level 96 L Carbon Dioxide Level 26 Anion Gap 6 L Blood Urea Nitrogen 34 H Creatinine 1.13 Glucose Level 112 # Calcium Level 8.2 L Medications Medications Current Medications Ondansetron HCl (Zofran Inj) 4 mg Q6H PRN IV NAUSEA AND/OR VOMITING Last administered on 03/29/17 23:45; Admin Dose 4 MG; Start 03/22/17 at 01:30 Acetaminophen (Tylenol Liquid) 650 mg Q6H PRN PO PAIN LEVEL 1-3 OR FEVER Last administered on 03/28/17 05:39; Admin Dose 650 MG; Start 03/22/17 at 01:30 Acetaminophen (Tylenol Supp) 650 mg Q4H PRN [place] PAIN LEVEL 1-3 OR FEVER; Start 03/22/17 at 01:30 Aspirin 81 mg 81 mg DAILY PO Last administered on 03/30/17 08:46; Admin Dose 81 MG; Start 03/22/17 at 09:00 Levofloxacin/ Dextrose (Levaquin 500mg/ D5W 100 ml (Pmx)) 100 ml @ 100 mls/hr Q24H IVPB Last administered on 03/30/17 06:24; Admin Dose 100 MLS/HR; Start at 07:00 Atorvastatin Calcium (Lipitor) 80 mg HS PO Last administered on 03/29/17 21:16 ; Admin Dose 80 MG; Start 03/22/17 at 21:00 Febuxostat (Uloric) 40 mg DAILY PO Last administered on 03/30/17 08:46; Admin Dose 40 MG; Start 03/23/17 at 09:00 Multivitamins Therapeutic (Theragran) 1 tab DAILY PO Last administered on 08:47; Admin Dose 1 TAB; Start 03/23/17 at 09:00 Tamsulosin HCl (Flomax) 0.4 mg BID PO Last administered on 03/30/17 08:46; Admin Dose 0.4 MG; Start 03/22/17 at 21:00 Pantoprazole (Protonix Tab) 40 mg DAILY@06 PO Last administered on 03/30/17 06 :24; Admin Dose 40 MG; Start 03/23/17 at 06:00 Hydralazine HCl (Apresoline) 20 mg Q6H PRN IV SBP >180 Last administered on 21:17; Admin Dose 20 MG; Start 03/22/17 at 22:45 Metoprolol Tartrate (Lopressor) 5 mg Q6 PRN IV HR >100 or SBP >170 Last administered on 03/25/17 16:45; Admin Dose 5 MG; Start 03/23/17 at 15:30 Olanzapine (Zyprexa) 10 mg Q8 PRN IM severe agitation Last administered on 03/25 10:23; Admin Dose 10 MG; Start 03/23/17 at 15:30 Labetalol HCl (Labetalol) 10 mg Q4H PRN IV SBP>160 Last administered on 08:43; Admin Dose 10 MG; Start 03/24/17 at 09:30 Morphine Sulfate (morphine) 2 mg Q4H PRN IV PAIN LEVEL 7-10 Last administered on 03/30/17 08:52; Admin Dose 2 MG; Start 03/24/17 at 10:00 Carvedilol (Coreg) 25 mg BID PO Last administered on 03/30/17 08:49; Admin Dose 25 MG; Start 03/25/17 at 21:00 Bisacodyl (Dulcolax Supp) 10 mg DAILY PRN MD CONSTIPATION; Start 03/26/17 at 12 :30 Bisacodyl (Dulcolax) 5 mg DAILY PRN PO CONSTIPATION Last administered on 17:51; Admin Dose 5 MG; Start 03/26/17 at 12:30 Methylprednisolone Sodium Succinate (Solu-Medrol) 40 mg DAILY IV Last administered on 03/30/17 08:45; Admin Dose 40 MG; Start 03/28/17 at 09:00 Lidocaine (Lidoderm) 1 patch DAILY TD Last administered on 03/30/17 08:46; Admin Dose 1 PATCH; Start 03/27/17 at 11:00 Docusate Sodium (Colace) 100 mg BID PRN PO CONSTIPATION; Start 03/27/17 at 11: 00 Nicotine (Nicoderm 21 Mg/ 24hr) 1 patch DAILY TRANSDERM Last administered on 08:46; Admin Dose 1 PATCH; Start 03/27/17 at 13:00 XENA DE JESUS MD Mar 30, 2017 15:39
--- NOTE | 2017-03-30 15:48 | CONS ---
Date/Time of Note Date/Time of Note DATE: 03/30/17 TIME: 15:45 Consult Date/Type/Reason Admit Date/Time Mar 21, 2017 at 23:46 Initial Consult Date 03/23/17 Type of Consultation: Pulmonary Ordering Provider: XENA DE JESUS MD Subjective patient comfortable this morning no respiratory distress no confusion.Status post EGD. Objective Vital Signs Date Time Temp Pulse Resp B/P Pulse Ox O2 Delivery O2 Flow Rate FiO2 03/30/17 12:43 63 03/30/17 11:35 98.0 18 121/60 98 03/30/17 08:20 Nasal Cannula 3.0 03/26/17 19:47 33 Intake and Output 03/29/17 03/29/17 03/30/17 15:00 23:00 07:00 Intake Total 584 ml 516 ml Output Total 550 ml 700 ml Balance 34 ml -184 ml Exam GENERAL: VITAL SIGNS: per chart NECK: Supple. No JVD or lymphadenopathy. CARDIAC EXAM: S1, S2. No added sounds or murmurs. CHEST: clear bilaterally, No added sounds, rales or wheezes ABDOMEN: Soft, nontender. No guarding or rebound. EXTREMITIES: No cyanosis, clubbing or edema. NEUROLOGIC: Generalized weakness. No focal deficits. Results/Medications Result Diagram: 03/30/17 0638 03/30/17 1134 Results 24 hrs Laboratory Tests Test 03/29/17 20:11 03/30/17 06:38 03/30/17 06:40 03/30/17 07:51 Activated Partial Thromboplast Time 54.3 H 141.4 *H White Blood Count 13.9 H Red Blood Count 5.41 Hemoglobin 12.5 L Hematocrit 39.6 L Mean Corpuscular Volume 73.2 L Mean Corpuscular Hemoglobin 23.1 L Mean Corpuscular Hemoglobin Concent 31.6 L Red Cell Distribution Width 17.0 H Platelet Count 408 Mean Platelet Volume 10.2 Neutrophils % 79.2 H Lymphocytes % 10.2 L Monocytes % 8.5 Eosinophils % 0.3 Basophils % 0.1 Nucleated Red Blood Cells % 0.0 Neutrophils # 11.0 H Lymphocytes # 1.4 Monocytes # 1.2 H Eosinophils # 0.0 Basophils # 0.0 Nucleated Red Blood Cells # 0.0 Sodium Level 124 L Potassium Level 4.1 Chloride Level 96 L Carbon Dioxide Level 28 Anion Gap 4 L Blood Urea Nitrogen 29 H Creatinine 1.08 Glucose Level 192 Calcium Level 7.9 L Phosphorus Level 4.2 Magnesium Level 1.3 L 1.4 L Albumin 2.2 L Osmolality 279 L Thyroid Stimulating Hormone (TSH) 1.290 Test 03/30/17 10:10 03/30/17 11:34 Urine Color YELLOW Urine Clarity SLIGHTLY CLOUDY A Urine pH 5.0 Urine Specific [place] 1.034 H Urine Ketones NEGATIVE Urine Nitrite NEGATIVE Urine Bilirubin NEGATIVE Urine Urobilinogen NEGATIVE Urine Leukocyte Esterase NEGATIVE Urine Microscopic RBC 33 H Urine Microscopic WBC 19 H Urine Squamous Epithelial Cells FEW Urine Hemoglobin 2+ H Urine Osmolality 601 Urine Random Sodium 99 H Urine Random Potassium 38.5 Urine Glucose NEGATIVE Urine Total Protein NEGATIVE Activated Partial Thromboplast Time 67.7 H Sodium Level 123 L Potassium Level 4.5 Chloride Level 96 L Carbon Dioxide Level 26 Anion Gap 6 L Blood Urea Nitrogen 34 H Creatinine 1.13 Glucose Level 112 # Calcium Level 8.2 L Medications Current Medications Ondansetron HCl (Zofran Inj) 4 mg Q6H PRN IV NAUSEA AND/OR VOMITING Last administered on 03/29/17 23:45; Admin Dose 4 MG; Start 03/22/17 at 01:30 Acetaminophen (Tylenol Liquid) 650 mg Q6H PRN PO PAIN LEVEL 1-3 OR FEVER Last administered on 03/28/17 05:39; Admin Dose 650 MG; Start 03/22/17 at 01:30 Acetaminophen (Tylenol Supp) 650 mg Q4H PRN [place] PAIN LEVEL 1-3 OR FEVER; Start 03/22/17 at 01:30 Aspirin 81 mg 81 mg DAILY PO Last administered on 03/30/17 08:46; Admin Dose 81 MG; Start 03/22/17 at 09:00 Levofloxacin/ Dextrose (Levaquin 500mg/ D5W 100 ml (Pmx)) 100 ml @ 100 mls/hr Q24H IVPB Last administered on 03/30/17 06:24; Admin Dose 100 MLS/HR; Start at 07:00 Atorvastatin Calcium (Lipitor) 80 mg HS PO Last administered on 03/29/17 21:16 ; Admin Dose 80 MG; Start 03/22/17 at 21:00 Febuxostat (Uloric) 40 mg DAILY PO Last administered on 03/30/17 08:46; Admin Dose 40 MG; Start 03/23/17 at 09:00 Multivitamins Therapeutic (Theragran) 1 tab DAILY PO Last administered on 08:47; Admin Dose 1 TAB; Start 03/23/17 at 09:00 Tamsulosin HCl (Flomax) 0.4 mg BID PO Last administered on 03/30/17 08:46; Admin Dose 0.4 MG; Start 03/22/17 at 21:00 Pantoprazole (Protonix Tab) 40 mg DAILY@06 PO Last administered on 03/30/17 06 :24; Admin Dose 40 MG; Start 03/23/17 at 06:00 Hydralazine HCl (Apresoline) 20 mg Q6H PRN IV SBP >180 Last administered on 21:17; Admin Dose 20 MG; Start 03/22/17 at 22:45 Metoprolol Tartrate (Lopressor) 5 mg Q6 PRN IV HR >100 or SBP >170 Last administered on 03/25/17 16:45; Admin Dose 5 MG; Start 03/23/17 at 15:30 Olanzapine (Zyprexa) 10 mg Q8 PRN IM severe agitation Last administered on 03/25 10:23; Admin Dose 10 MG; Start 03/23/17 at 15:30 Labetalol HCl (Labetalol) 10 mg Q4H PRN IV SBP>160 Last administered on 08:43; Admin Dose 10 MG; Start 03/24/17 at 09:30 Morphine Sulfate (morphine) 2 mg Q4H PRN IV PAIN LEVEL 7-10 Last administered on 03/30/17 08:52; Admin Dose 2 MG; Start 03/24/17 at 10:00 Carvedilol (Coreg) 25 mg BID PO Last administered on 03/30/17 08:49; Admin Dose 25 MG; Start 03/25/17 at 21:00 Bisacodyl (Dulcolax Supp) 10 mg DAILY PRN [place] CONSTIPATION; Start 03/26/17 at 12 :30 Bisacodyl (Dulcolax) 5 mg DAILY PRN PO CONSTIPATION Last administered on 17:51; Admin Dose 5 MG; Start 03/26/17 at 12:30 Methylprednisolone Sodium Succinate (Solu-Medrol) 40 mg DAILY IV Last administered on 03/30/17 08:45; Admin Dose 40 MG; Start 03/28/17 at 09:00 Lidocaine (Lidoderm) 1 patch DAILY TD Last administered on 03/30/17 08:46; Admin Dose 1 PATCH; Start 03/27/17 at 11:00 Docusate Sodium (Colace) 100 mg BID PRN PO CONSTIPATION; Start 03/27/17 at 11: 00 Nicotine (Nicoderm 21 Mg/ 24hr) 1 patch DAILY TRANSDERM Last administered on 08:46; Admin Dose 1 PATCH; Start 03/27/17 at 13:00 Assessment/Plan Chief Complaint/Hosp Course Assessment/Plan IMP: 1. Hypercapnic Resp Insufficiency clinically improved. 2. COPD Exacerbation 3. Gastric cancer stage I/II 4. Leukocytosis--2/2 CS 5. AMS RECS: 1. DC steroids 2. Minimize FiO2 to keep Sp02 88-92% decrease O2 as tolerated 3. Gentle diuresis 4. Low-dose seroquel 5. GI recommendations DC okay from primary standpoint outpatient workup. Problems: CAND[facility] BLACK MD, [facility] Mar 30, 2017 15:48
--- NOTE | 2017-03-30 17:28 | RADRPT ---
PROCEDURE: XR Chest. CLINICAL INDICATION: CHF. Dyspnea. TECHNIQUE: Single frontal chest x-ray. COMPARISON: CT 03/29/2017; CT CHESTW 03/28/2017; DR CHEST 03/25/2017 FINDINGS: Patchy inflammatory bronchiolitis is seen within the lung bases bilaterally, with small basilar pleu ral effusions, left greater than right. This is worse when compared to the previous chest x-ray. Be nign COPD changes are seen elsewhere throughout the remainder of the lungs. Mild scarring is seen as well. Focal nodular thickening in the right mid lung zone is seen switch simple follow-up is advise d. The cardiomediastinal silhouette is unremarkable. Aortic atherosclerotic vascular calcifications are identified. The osseous structures are unremarkable. IMPRESSION: 1. 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 2. Small micronodular density in the right mid lung zone. Follow-up is advised. 3. Benign scattered scarring throughout the lungs bilaterally. 4. Worsening inflammatory bronchiolitis and small effusions in the lung bases. 5. Vascular calcifications consistent with atherosclerosis. RPTAT: PP .Tom Boogie MD, Date Time Electronically viewed and signed by .Tom Boogie MD, on 03/30/2017 17:28 .B/
[2017-03-30 17:40] LABS: CALCIUM 7.8 mg/dl (8.4-10.2); CREATININE 1.18 mg/dl (0.61-1.24); POTASSIUM 4.6 mmol/L (3.5-5.1)
[2017-03-30] MEDS ORDERED: KETOROLAC 15 MG INJ IV SCH (19:57)
[2017-03-30] MEDS ORDERED: KETOROLAC 30 MG INJ IV ONE (20:00)
[2017-03-30] MEDS: ATORVASTATIN 40 MG TAB PO SCH (20:12)
[2017-03-30] MEDS: HYDROCODONE/APAP (5/325) TAB PO PRN (20:13)
--- NOTE | 2017-03-30 23:07 | PN ---
Date/Time of Note Date/Time of Note DATE: 03/30/17 TIME: 22:56 Assessment/Plan Lines/Catheters IV Catheter Type (from Nrs): Peripheral IV Waters in Place (from Nrs): Yes Assessment/Plan Chief Complaint/Hosp Course 1. 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 CT identifies GE jx thickening which may represent submucosal ? extension. Based on these findings, prior to surgical consideration, pt would benefit from re biopsy of the esophageal mass and proximal stomach preferably under EUS guidance. -pt will be best served at tertiary center for further treatment, since if GE jx involvement or esophageal involvement, much more extensive operation maybe necessary. 2. Respiratory failure with COPD Exacerbation: improved -medical management 3. 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 Leukocytosis: no fevers; likely 2/2 #1, 2, 3 -as above 5. Hypertension - stable 6. Rib fracture -Lidoderm patch for pain control -encourage IS/deep breathing 7. Acute delirium - medical management -supportive 8. Hypoalbuminemia -optimize nutrition -as above 9. Hyponatremia: -judicious fluids Thank you, Problems: Subjective 24 Hr Interval Summary Discussed with team members. EGD identified gastric adenoCA mid body and esophageal "suspicious" mass at mid esophagus. CT identifies the GE jx thickening which may represent submucosal ? extension. Patient reports some abdominal pain. No f/c. No n/v. No cp/sob. No cough. No mcfarlane/dizzy. Bowel function. Exam/Review of Systems Vital Signs Vitals Vital Signs Date Time Temp Pulse Resp B/P Pulse Ox O2 Delivery O2 Flow Rate FiO2 03/30/17 20:30 66 03/30/17 20:24 97.4 17 108/64 92 03/30/17 17:42 3.0 03/30/17 08:20 Nasal Cannula 03/26/17 19:47 33 Intake and Output 03/29/17 03/29/17 03/30/17 15:00 23:00 07:00 Intake Total 584 ml 516 ml Output Total 550 ml 700 ml Balance 34 ml -184 ml Exam Constitutional: oriented (to self, partial location, and partial date), No distress Psych: nl mood/affect, No anxiety Head: normocephalic Eyes: EOMI, PERRL, nl conjunctiva, No icteric ENMT: nl external ears & nose, nl lips & teeth, No mucosa pink and moist Neck: non-tender, supple Respiratory: normal air movement, No congested cough, No labored breathing Cardiovascular: nl pulses, regular rate and rhythm, No edema Gastrointestinal: distended (min), soft, tender, No rebound or guarding Musculoskeletal: nl extremities to inspection, No joint tenderness, No nl gait and stance Extremities: No calf tenderness, No edema Neurological: No nl speech, No nl strength Skin: No diaphoresis, No nl turgor, No rash or lesions Lymph: No nl lymph nodes Results Result Diagram: 03/30/17 0638 03/30/17 1702 SHAHIDA UH MD Mar 30, 2017 23:06
--- NOTE | 2017-03-30 23:53 | CONS ---
Date/Time of Note Date/Time of Note DATE: 03/30/17 TIME: 23:52 Assessment/Plan Assessment/Plan Problems: (1) Esophageal adenocarcinoma Comment: Pt being followed by Sx & Oncology. (2) COPD exacerbation Status: Acute (3) Acute bilateral deep vein thrombosis (DVT) of femoral veins Status: Acute Comment: On Heparin (4) Acute kidney injury Status: Acute Comment: Improving, Note Rt renal mass seen in Renal US & CT Abdomen Radiologist recommending Dedicated Renal CT Will eave further plans to PMD, Consider Consult (5) Electrolyte abnormality Comment: Low Mg replaced Low SNa may be due to SIADH secondary to malignancy (tho less likely in face of NELLIE) Unable to give Saline replacement because of Hx of CHF Woud have to treat it cautiously and conservatively (6) Heart failure Comment: may be rt heart failure due to COPD CXR shows pl effusion, pt followed by Pulmonary. Diuretics may not be a good idea in this cachectic man Additional Assessment/Plan Renal carrera stable w/u Hyponatremia Cont'd Hospitalization Reason: Overall pt is tough medical management problem Consultation Date/Type/Reason Admit Date/Time Mar 21, 2017 at 23:46 Initial Consult Date 03/29/17 Type of Consultation: renal Reason for Consultation NELLIE Referring Provider: XENA DE JESUS MD 24 HR Interval Summary Free Text/Dictation Pt is awake & alert Constitutional: no complaints Exam/Review of Systems Vital Signs Vitals Vital Signs Date Time Temp Pulse Resp B/P Pulse Ox O2 Delivery O2 Flow Rate FiO2 03/30/17 20:30 66 03/30/17 20:24 97.4 17 108/64 92 03/30/17 20:15 Nasal Cannula 3.0 03/26/17 19:47 33 Intake and Output 03/29/17 03/29/17 03/30/17 15:00 23:00 07:00 Intake Total 584 ml 516 ml Output Total 550 ml 700 ml Balance 34 ml -184 ml Exam Constitutional: alert, oriented, well developed Psych: nl mood/affect, no complaints Head: atraumatic, normocephalic Eyes: EOMI, PERRL, nl conjunctiva, nl lids, nl sclera ENMT: nl external ears & nose, nl lips & teeth, nl nasal mucosa & septum Neck: non-tender, supple Respiratory: clear to auscultation, normal air movement Cardiovascular: nl pulses, other (Pt followed by Cardiology), regular rate and rhythm Gastrointestinal: nl liver, spleen, non-tender, other (Pt found to have esophageal mass on upper endoscopy for which he's followed by Oncology), soft Genitourinary - Male: other (Waters Catheter in place) Musculoskeletal: nl extremities to inspection, nl gait and stance Extremities: normal pulses, other (Hx of DVT, s/p IVC Filter placement. Pt is on Heparin) Neurological: [employer]GER II-XII intact, nl mental status, nl speech, nl strength Skin: nl turgor, No rash or lesions Lymph: nl lymph nodes Additional Comments Drop in SNa 125 Results WBC remains elevated Renal Fn has improved Result Diagram: 03/30/17 0638 03/30/17 1702 Results 24 hrs Laboratory Tests Test 03/30/17 06:38 03/30/17 06:40 03/30/17 07:51 03/30/17 10:10 White Blood Count 13.9 H Red Blood Count 5.41 Hemoglobin 12.5 L Hematocrit 39.6 L Mean Corpuscular Volume 73.2 L Mean Corpuscular Hemoglobin 23.1 L Mean Corpuscular Hemoglobin Concent 31.6 L Red Cell Distribution Width 17.0 H Platelet Count 408 Mean Platelet Volume 10.2 Neutrophils % 79.2 H Lymphocytes % 10.2 L Monocytes % 8.5 Eosinophils % 0.3 Basophils % 0.1 Nucleated Red Blood Cells % 0.0 Neutrophils # 11.0 H Lymphocytes # 1.4 Monocytes # 1.2 H Eosinophils # 0.0 Basophils # 0.0 Nucleated Red Blood Cells # 0.0 Activated Partial Thromboplast Time 141.4 *H Sodium Level 124 L Potassium Level 4.1 Chloride Level 96 L Carbon Dioxide Level 28 Anion Gap 4 L Blood Urea Nitrogen 29 H Creatinine 1.08 Glucose Level 192 Calcium Level 7.9 L Phosphorus Level 4.2 Magnesium Level 1.3 L 1.4 L Albumin 2.2 L Osmolality 279 L Thyroid Stimulating Hormone (TSH) 1.290 Urine Color YELLOW Urine Clarity SLIGHTLY CLOUDY A Urine pH 5.0 Urine Specific [place] 1.034 H Urine Ketones NEGATIVE Urine Nitrite NEGATIVE Urine Bilirubin NEGATIVE Urine Urobilinogen NEGATIVE Urine Leukocyte Esterase NEGATIVE Urine Microscopic RBC 33 H Urine Microscopic WBC 19 H Urine Squamous Epithelial Cells FEW Urine Hemoglobin 2+ H Urine Osmolality 601 Urine Random Sodium 99 H Urine Random Potassium 38.5 Urine Glucose NEGATIVE Urine Total Protein NEGATIVE Test 03/30/17 11:34 03/30/17 17:02 Activated Partial Thromboplast Time 67.7 H 121.5 *H Sodium Level 123 L 125 L Potassium Level 4.5 4.6 Chloride Level 96 L 95 L Carbon Dioxide Level 26 27 Anion Gap 6 L 8 Blood Urea Nitrogen 34 H 34 H Creatinine 1.13 1.18 Glucose Level 112 # 145 Calcium Level 8.2 L 7.8 L Medications Medications Current Medications Ondansetron HCl (Zofran Inj) 4 mg Q6H PRN IV NAUSEA AND/OR VOMITING Last administered on 03/29/17 23:45; Admin Dose 4 MG; Start 03/22/17 at 01:30 Acetaminophen (Tylenol Liquid) 650 mg Q6H PRN PO PAIN LEVEL 1-3 OR FEVER Last administered on 03/28/17 05:39; Admin Dose 650 MG; Start 03/22/17 at 01:30 Acetaminophen (Tylenol Supp) 650 mg Q4H PRN [place] PAIN LEVEL 1-3 OR FEVER; Start 03/22/17 at 01:30 Aspirin 81 mg 81 mg DAILY PO Last administered on 03/30/17 08:46; Admin Dose 81 MG; Start 03/22/17 at 09:00 Levofloxacin/ Dextrose (Levaquin 500mg/ D5W 100 ml (Pmx)) 100 ml @ 100 mls/hr Q24H IVPB Last administered on 03/30/17 06:24; Admin Dose 100 MLS/HR; Start at 07:00 Atorvastatin Calcium (Lipitor) 80 mg HS PO Last administered on 03/30/17 20:12 ; Admin Dose 80 MG; Start 03/22/17 at 21:00 Febuxostat (Uloric) 40 mg DAILY PO Last administered on 03/30/17 08:46; Admin Dose 40 MG; Start 03/23/17 at 09:00 Multivitamins Therapeutic (Theragran) 1 tab DAILY PO Last administered on 08:47; Admin Dose 1 TAB; Start 03/23/17 at 09:00 Tamsulosin HCl (Flomax) 0.4 mg BID PO Last administered on 03/30/17 20:12; Admin Dose 0.4 MG; Start 03/22/17 at 21:00 Pantoprazole (Protonix Tab) 40 mg DAILY@06 PO Last administered on 03/30/17 06 :24; Admin Dose 40 MG; Start 03/23/17 at 06:00 Hydralazine HCl (Apresoline) 20 mg Q6H PRN IV SBP >180 Last administered on 21:17; Admin Dose 20 MG; Start 03/22/17 at 22:45 Metoprolol Tartrate (Lopressor) 5 mg Q6 PRN IV HR >100 or SBP >170 Last administered on 03/25/17 16:45; Admin Dose 5 MG; Start 03/23/17 at 15:30 Olanzapine (Zyprexa) 10 mg Q8 PRN IM severe agitation Last administered on 03/25 10:23; Admin Dose 10 MG; Start 03/23/17 at 15:30 Labetalol HCl (Labetalol) 10 mg Q4H PRN IV SBP>160 Last administered on 08:43; Admin Dose 10 MG; Start 03/24/17 at 09:30 Morphine Sulfate (morphine) 2 mg Q4H PRN IV PAIN LEVEL 7-10 Last administered on 03/30/17 17:49; Admin Dose 2 MG; Start 03/24/17 at 10:00 Carvedilol (Coreg) 25 mg BID PO Last administered on 03/30/17 08:49; Admin Dose 25 MG; Start 03/25/17 at 21:00 Bisacodyl (Dulcolax Supp) 10 mg DAILY PRN [place] CONSTIPATION; Start 03/26/17 at 12 :30 Bisacodyl (Dulcolax) 5 mg DAILY PRN PO CONSTIPATION Last administered on 17:51; Admin Dose 5 MG; Start 03/26/17 at 12:30 Methylprednisolone Sodium Succinate (Solu-Medrol) 40 mg DAILY IV Last administered on 03/30/17 08:45; Admin Dose 40 MG; Start 03/28/17 at 09:00 Lidocaine (Lidoderm) 1 patch DAILY TD Last administered on 03/30/17 08:46; Admin Dose 1 PATCH; Start 03/27/17 at 11:00 Docusate Sodium (Colace) 100 mg BID PRN PO CONSTIPATION; Start 03/27/17 at 11: 00 Nicotine (Nicoderm 21 Mg/ 24hr) 1 patch DAILY TRANSDERM Last administered on 08:46; Admin Dose 1 PATCH; Start 03/27/17 at 13:00 Acetaminophen/ Hydrocodone Bitart ([place] (5/325)) 1 tab Q6H PRN PO PAIN Last administered on 03/30/17 20:13; Admin Dose 1 TAB; Start 03/30/17 at 19:56 YOSVANY LOWE MD Mar 30, 2017 23:53
[2017-03-31] VITALS (14 sets, daily range): BP systolic 74–120; BP diastolic 44–75; PULSE 63–72; RESP 16–20
[2017-03-31] MEDS: ACETYLCYSTEINE 20% 4 ML VIAL NEB SCH ×4 (02:00→20:47)
[2017-03-31] MEDS: LEVALBUTEROL (NEB) 1.25 MG/0.5 ML AMP HHN SCH ×4 (02:00→20:46)
[2017-03-31] MEDS: PANTOPRAZOLE (EC) 40 MG TAB PO SCH (06:21)
[2017-03-31] MEDS: HEPARIN 25000 UNITS/250 ML 250 ML IV SCH ×3 (06:22→15:34)
[2017-03-31] MEDS: LEVOFLOXACIN 500MG/D5W (PMX) 100 ML IVPB SCH (06:29)
[2017-03-31] MEDS ORDERED: SOD CHLORIDE 0.9% 500 ML IV ONE (08:00)
[2017-03-31 08:35] LABS: BASOPHILS % 0.1 % (0.0-2.0); HEMATOCRIT 36.1 % (42.0-52.0); HEMOGLOBIN 11.2 g/dl (14.0-18.0); LYMPHOCYTES # 0.9 10^3/ul (0.8-2.9); MEAN CORPUSCULAR HEMOGLOBIN 22.6 pg (29.0-33.0); MEAN CORPUSCULAR VOLUME 72.9 fl (82.0-101.0); MEAN PLATELET VOLUME 11.1 fl (7.4-10.4); MONOCYTES % 5.5 % (0.0-11.0); NEUTROPHILS % 88.6 % (39.0-77.0); PLATELET COUNT 424 10^3/UL (140-415); RED BLOOD COUNT 4.95 10^6/ul (4.70-6.10); RED CELL DISTRIBUTION WIDTH 17.3 % (11.5-14.5)
[2017-03-31 08:57] LABS: CALCIUM 7.7 mg/dl (8.4-10.2); CREATININE 1.68 mg/dl (0.61-1.24); POTASSIUM 4.4 mmol/L (3.5-5.1)
--- NOTE | 2017-03-31 09:13 | PN ---
Date/Time of Note Date/Time of Note DATE: 03/31/17 TIME: 09:13 Assessment/Plan VTE Prophylaxis VTE Prophylaxis Intervention: heparin Lines/Catheters IV Catheter Type (from Nrsg): Peripheral IV Urinary Cath still in place: Yes Reason Cath still needed: skin wounds contaminated by urine Assessment/Plan Assessment/Plan 1. Acute respiratory failure- resolving - doing well on nasal cannula, at 3L with NAD - Pulmonology on board and consultation appreciated. - Will continue weaning to maintain saturations 88-92% 2. Acute Hyponatremia- improving - Urine studies ordered which appears to be SIADH picture - TSH within normal limits - will continue monitoring 3. Acute hypotension - SBP 70s and improved after fluid bolus - Will give IVF NSS maintenance for 10 hours and reassess 4. Acute on chronic DVT - Currently on heparin drip. and will transition to Eliquis if no surgical intervention occurs 5. Hypertension - stable 6. rib fracture - Lidoderm patch for pain control 7. History of renal cell carcinoma, with renal mass - stable 8. Gastric carcinoma, unknown type, records pending - EGD performed which showed mild esophageal mass with ulceration, and ulceration in stomach. - CT A/P performed and shows Mild wall thickening of the distal esophagus and mild wall thickening versus contraction of the distal stomach - Surgery consultation appreciated and recommending prior to surgical consideration, pt would benefit from re biopsy of the esophageal mass and proximal stomach preferably under EUS guidance. Will need to discuss with family if would like to continue to pursue workup here or at a tertiary center - GI on board and consultation appreciated - Heme/Onc on board and consultation appreciated 9. Acute delirium - improving/resolving 10. Acute on chronic CKD - patient Cr 1.68 this am. Will gently hydrate with IVF - Nephrology on board and consultation appreciated 11. COPD exacerbation - Resolved 12. Disposition - Continue monitoring in telemetry given hypotensive episode this am Subjective 24 Hr Interval Summary Free Text/Dictation Patient c/o left sided chest tenderness and getting relief with Lidoderm patch and pain medications. Patient was found to be hypotensive this am with SBP 70s with improvement after fluid bolus to SBP 103. Denies any chest pain, dizziness , nausea, vomiting, or abdominal issues. Exam/Review of Systems Vital Signs Vitals Vital Signs Date Time Temp Pulse Resp B/P Pulse Ox O2 Delivery O2 Flow Rate FiO2 03/31/17 08:39 3.0 03/31/17 08:39 63 20 93 10/7/17 08:05 Nasal Cannula 03/31/17 07:31 98.3 74/44 Intake and Output 03/30/17 03/30/17 03/31/17 15:00 23:00 07:00 Intake Total 100 ml 600 ml 543 ml Output Total 700 ml 300 ml Balance 100 ml -100 ml 243 ml Exam General: NAD, arousable, oriented to place and self Head: Normocephalic atraumatic Eyes: EOMI, pupils reactive to light Neck: Supple, nontender, midline Respiratory: diminished breath sounds bilaterally, no wheezing or crackles Cardiovascular: regular rate, no obvious murmurs. slight tenderness left chest wall Gastrointestinal: non-tender to palpation, bowel sounds heard. Skin: No new skin lesions Results Result Diagram: 03/31/17 0734 03/31/17 0734 Results 24 hrs Laboratory Tests Test 03/30/17 10:10 03/30/17 11:34 03/30/17 17:02 03/31/17 00:23 Urine Color YELLOW Urine Clarity SLIGHTLY CLOUDY A Urine pH 5.0 Urine Specific [place] 1.034 H Urine Ketones NEGATIVE Urine Nitrite NEGATIVE Urine Bilirubin NEGATIVE Urine Urobilinogen NEGATIVE Urine Leukocyte Esterase NEGATIVE Urine Microscopic RBC 33 H Urine Microscopic WBC 19 H Urine Squamous Epithelial Cells FEW Urine Hemoglobin 2+ H Urine Osmolality 601 Urine Random Sodium 99 H Urine Random Potassium 38.5 Urine Glucose NEGATIVE Urine Total Protein NEGATIVE Activated Partial Thromboplast Time 67.7 H 121.5 *H 89.2 *H Sodium Level 123 L 125 L Potassium Level 4.5 4.6 Chloride Level 96 L 95 L Carbon Dioxide Level 26 27 Anion Gap 6 L 8 Blood Urea Nitrogen 34 H 34 H Creatinine 1.13 1.18 Glucose Level 112 # 145 Calcium Level 8.2 L 7.8 L Test 03/31/17 07:34 White Blood Count 18.0 #H Red Blood Count 4.95 Hemoglobin 11.2 L Hematocrit 36.1 L Mean Corpuscular Volume 72.9 L Mean Corpuscular Hemoglobin 22.6 L Mean Corpuscular Hemoglobin Concent 31.0 L Red Cell Distribution Width 17.3 H Platelet Count 424 H Mean Platelet Volume 11.1 H Neutrophils % 88.6 H Lymphocytes % 5.0 L Monocytes % 5.5 Eosinophils % 0.0 Basophils % 0.1 Nucleated Red Blood Cells % 0.0 Neutrophils # 16.0 H Lymphocytes # 0.9 Monocytes # 1.0 H Eosinophils # 0.0 Basophils # 0.0 Nucleated Red Blood Cells # 0.0 Sodium Level 127 L Potassium Level 4.4 Chloride Level 95 L Carbon Dioxide Level 27 Anion Gap 9 Blood Urea Nitrogen 43 H Creatinine 1.68 H Glucose Level 110 Calcium Level 7.7 L Medications Medications Current Medications Ondansetron HCl (Zofran Inj) 4 mg Q6H PRN IV NAUSEA AND/OR VOMITING Last administered on 03/29/17 23:45; Admin Dose 4 MG; Start 03/22/17 at 01:30 Acetaminophen (Tylenol Liquid) 650 mg Q6H PRN PO PAIN LEVEL 1-3 OR FEVER Last administered on 03/28/17 05:39; Admin Dose 650 MG; Start 03/22/17 at 01:30 Acetaminophen (Tylenol Supp) 650 mg Q4H PRN [place] PAIN LEVEL 1-3 OR FEVER; Start 03/22/17 at 01:30 Aspirin 81 mg 81 mg DAILY PO Last administered on 03/30/17 08:46; Admin Dose 81 MG; Start 03/22/17 at 09:00 Levofloxacin/ Dextrose (Levaquin 500mg/ D5W 100 ml (Pmx)) 100 ml @ 100 mls/hr Q24H IVPB Last administered on 03/31/17 06:29; Admin Dose 100 MLS/HR; Start at 07:00 Atorvastatin Calcium (Lipitor) 80 mg HS PO Last administered on 03/30/17 20:12 ; Admin Dose 80 MG; Start 03/22/17 at 21:00 Febuxostat (Uloric) 40 mg DAILY PO Last administered on 03/30/17 08:46; Admin Dose 40 MG; Start 03/23/17 at 09:00 Multivitamins Therapeutic (Theragran) 1 tab DAILY PO Last administered on 08:47; Admin Dose 1 TAB; Start 03/23/17 at 09:00 Tamsulosin HCl (Flomax) 0.4 mg BID PO Last administered on 03/30/17 20:12; Admin Dose 0.4 MG; Start 03/22/17 at 21:00 Pantoprazole (Protonix Tab) 40 mg DAILY@06 PO Last administered on 03/31/17 06 :21; Admin Dose 40 MG; Start 03/23/17 at 06:00 Hydralazine HCl (Apresoline) 20 mg Q6H PRN IV SBP >180 Last administered on 21:17; Admin Dose 20 MG; Start 03/22/17 at 22:45 Metoprolol Tartrate (Lopressor) 5 mg Q6 PRN IV HR >100 or SBP >170 Last administered on 03/25/17 16:45; Admin Dose 5 MG; Start 03/23/17 at 15:30 Olanzapine (Zyprexa) 10 mg Q8 PRN IM severe agitation Last administered on 03/25 10:23; Admin Dose 10 MG; Start 03/23/17 at 15:30 Labetalol HCl (Labetalol) 10 mg Q4H PRN IV SBP>160 Last administered on 08:43; Admin Dose 10 MG; Start 03/24/17 at 09:30 Morphine Sulfate (morphine) 2 mg Q4H PRN IV PAIN LEVEL 7-10 Last administered on 03/30/17 17:49; Admin Dose 2 MG; Start 03/24/17 at 10:00 Carvedilol (Coreg) 25 mg BID PO Last administered on 03/30/17 08:49; Admin Dose 25 MG; Start 03/25/17 at 21:00 Bisacodyl (Dulcolax Supp) 10 mg DAILY PRN [place] CONSTIPATION; Start 03/26/17 at 12 :30 Bisacodyl (Dulcolax) 5 mg DAILY PRN PO CONSTIPATION Last administered on 17:51; Admin Dose 5 MG; Start 03/26/17 at 12:30 Methylprednisolone Sodium Succinate (Solu-Medrol) 40 mg DAILY IV Last administered on 03/30/17 08:45; Admin Dose 40 MG; Start 03/28/17 at 09:00 Lidocaine (Lidoderm) 1 patch DAILY TD Last administered on 03/30/17 08:46; Admin Dose 1 PATCH; Start 03/27/17 at 11:00 Docusate Sodium (Colace) 100 mg BID PRN PO CONSTIPATION; Start 03/27/17 at 11: 00 Nicotine (Nicoderm 21 Mg/ 24hr) 1 patch DAILY TRANSDERM Last administered on 08:46; Admin Dose 1 PATCH; Start 03/27/17 at 13:00 Acetaminophen/ Hydrocodone Bitart ([place] (5/325)) 1 tab Q6H PRN PO PAIN Last administered on 03/30/17 20:13; Admin Dose 1 TAB; Start 03/30/17 at 19:56 XENA DE JESUS MD Mar 31, 2017 09:13
[2017-03-31] MEDS: TAMSULOSIN (SR) 0.4 MG CAP PO SCH ×2 (09:21→20:20)
[2017-03-31] MEDS: ASPIRIN (EC) 81 MG TAB PO SCH (09:21)
[2017-03-31] MEDS: NICOTINE (21 MG/24 HR) PATCH TRANSDERM SCH (09:21)
[2017-03-31] MEDS: MULTIVITAMINS THERAPEUTIC TAB PO SCH (09:21)
[2017-03-31] MEDS: METHYLPREDNISOLONE 40 MG INJ IV SCH (09:21)
[2017-03-31] MEDS: LIDOCAINE 5% PATCH TD SCH (09:22)
[2017-03-31] MEDS: HYDROCODONE/APAP (5/325) TAB PO PRN ×2 (09:25→20:26)
[2017-03-31] MEDS: FEBUXOSTAT 40 MG TABLET PO SCH (09:25)
[2017-03-31] MEDS ORDERED: SOD CHLORIDE 0.9% 1,000 ML IV SCH (10:00)
--- NOTE | 2017-03-31 12:14 | PN ---
Date/Time of Note Date/Time of Note DATE: 03/31/17 TIME: 12:13 Assessment/Plan VTE Prophylaxis VTE Prophylaxis Intervention: SCD's Lines/Catheters IV C[facility]ter Type (from [facility]): Peripheral IV Urinary Cath still in place: Yes Reason Cath still needed: other (indicate) (Monitor output) Assessment/Plan Chief Complaint/Hosp Course Assessment: History of gastric cancer EGD * Mid esophageal mass w/superficial ulceration. Biopsied * No evidence of malignancy/ulcerated mucosa * Esophagitis * Area of healed ulceration with nodularity in the lesser curvature proximal stomach. Biopsied * Poorly differentiated adenocarcinoma DVT Plan: Oncology/surgical management May benefit from tertiary center possibly considering EUS staging and assessment of the esophageal mass Subjective: Course reviewed with nursing staff Patient interviewed and examined All labs, imaging and other results reviewed The patient lethargic this morning Oncology and surgical management Consider tertiary center transfer for evaluation with EUS for staging purposes especially in view of findings in the esophagus as well as CT suggestion of extension of tumor to the cardia Exam: General: well developed, well nourished, alert and oriented x3 , in no acute distress Skin: No lesions, no stigmata chronic liver disease, no evidence of bleeding diathesis Lymphatic: No palpable lymphadenopathy HEENT: No lesions Cardiovascular: Heart: Regular rate and rhythm, no murmurs, gallops or rubs. Peripheral pulses present within normal limits, no cyanosis, clubbing or edemas. No pulsatile abdominal mass Respiratory: Lungs clear to auscultation and percussion, no wheezing, no rubs Gastrointestinal and Liver: Abdomen: Soft, moderate epigastric tenderness, non- distended, no hernias, no masses, no organomegaly, no ascites, no guarding, no rebound tenderness, normoactive bowel sounds. Extremities: No cyanosis, clubbing, or edema. Diagnostic Studies: Available data and images were reviewed personally. See reports. Significant results and findings are addressed here or in the assessment and plan. Problems: Exam/Review of Systems Vital Signs Vitals Vital Signs Date Time Temp Pulse Resp B/P Pulse Ox O2 Delivery O2 Flow Rate FiO2 03/31/17 11:29 98.6 69 20 96/59 95 03/31/17 08:39 3.0 03/31/17 08:05 Nasal Cannula Intake and Output 03/30/17 03/30/17 03/31/17 14:59 22:59 06:59 Intake Total 100 ml 600 ml 543 ml Output Total 700 ml 300 ml Balance 100 ml -100 ml 243 ml Results Result Diagram: 03/31/17 0734 03/31/17 0734 Results 24 hrs Laboratory Tests Test 03/30/17 17:02 03/31/17 00:23 03/31/17 07:34 03/31/17 10:42 Activated Partial Thromboplast Time 121.5 *H 89.2 *H 167.4 *H Sodium Level 125 L 127 L Potassium Level 4.6 4.4 Chloride Level 95 L 95 L Carbon Dioxide Level 27 27 Anion Gap 8 9 Blood Urea Nitrogen 34 H 43 H Creatinine 1.18 1.68 H Glucose Level 145 110 Calcium Level 7.8 L 7.7 L White Blood Count 18.0 #H Red Blood Count 4.95 Hemoglobin 11.2 L Hematocrit 36.1 L Mean Corpuscular Volume 72.9 L Mean Corpuscular Hemoglobin 22.6 L Mean Corpuscular Hemoglobin Concent 31.0 L Red Cell Distribution Width 17.3 H Platelet Count 424 H Mean Platelet Volume 11.1 H Neutrophils % 88.6 H Lymphocytes % 5.0 L Monocytes % 5.5 Eosinophils % 0.0 Basophils % 0.1 Nucleated Red Blood Cells % 0.0 Neutrophils # 16.0 H Lymphocytes # 0.9 Monocytes # 1.0 H Eosinophils # 0.0 Basophils # 0.0 Nucleated Red Blood Cells # 0.0 Lab Scanned Report REFERENCE LAB Medications Medications Current Medications Ondansetron HCl (Zofran Inj) 4 mg Q6H PRN IV NAUSEA AND/OR VOMITING Last administered on 03/29/17 23:45; Admin Dose 4 MG; Start 03/22/17 at 01:30 Acetaminophen (Tylenol Liquid) 650 mg Q6H PRN PO PAIN LEVEL 1-3 OR FEVER Last administered on 03/28/17 05:39; Admin Dose 650 MG; Start 03/22/17 at 01:30 Acetaminophen (Tylenol Supp) 650 mg Q4H PRN [place] PAIN LEVEL 1-3 OR FEVER; Start 03/22/17 at 01:30 Aspirin 81 mg 81 mg DAILY PO Last administered on 03/31/17 09:21; Admin Dose 81 MG; Start 03/22/17 at 09:00 Levofloxacin/ Dextrose (Levaquin 500mg/ D5W 100 ml (Pmx)) 100 ml @ 100 mls/hr Q24H IVPB Last administered on 03/31/17 06:29; Admin Dose 100 MLS/HR; Start at 07:00 Atorvastatin Calcium (Lipitor) 80 mg HS PO Last administered on 03/30/17 20:12 ; Admin Dose 80 MG; Start 03/22/17 at 21:00 Febuxostat (Uloric) 40 mg DAILY PO Last administered on 03/31/17 09:25; Admin Dose 40 MG; Start 03/23/17 at 09:00 Multivitamins Therapeutic (Theragran) 1 tab DAILY PO Last administered on 09:21; Admin Dose 1 TAB; Start 03/23/17 at 09:00 Tamsulosin HCl (Flomax) 0.4 mg BID PO Last administered on 03/31/17 09:21; Admin Dose 0.4 MG; Start 03/22/17 at 21:00 Pantoprazole (Protonix Tab) 40 mg DAILY@06 PO Last administered on 03/31/17 06 :21; Admin Dose 40 MG; Start 03/23/17 at 06:00 Hydralazine HCl (Apresoline) 20 mg Q6H PRN IV SBP >180 Last administered on 21:17; Admin Dose 20 MG; Start 03/22/17 at 22:45 Metoprolol Tartrate (Lopressor) 5 mg Q6 PRN IV HR >100 or SBP >170 Last administered on 03/25/17 16:45; Admin Dose 5 MG; Start 03/23/17 at 15:30 Olanzapine (Zyprexa) 10 mg Q8 PRN IM severe agitation Last administered on 03/25 10:23; Admin Dose 10 MG; Start 03/23/17 at 15:30 Labetalol HCl (Labetalol) 10 mg Q4H PRN IV SBP>160 Last administered on 08:43; Admin Dose 10 MG; Start 03/24/17 at 09:30 Morphine Sulfate (morphine) 2 mg Q4H PRN IV PAIN LEVEL 7-10 Last administered on 03/30/17 17:49; Admin Dose 2 MG; Start 03/24/17 at 10:00 Carvedilol (Coreg) 25 mg BID PO Last administered on 03/30/17 08:49; Admin Dose 25 MG; Start 03/25/17 at 21:00 Bisacodyl (Dulcolax Supp) 10 mg DAILY PRN [place] CONSTIPATION; Start 03/26/17 at 12 :30 Bisacodyl (Dulcolax) 5 mg DAILY PRN PO CONSTIPATION Last administered on 17:51; Admin Dose 5 MG; Start 03/26/17 at 12:30 Lidocaine (Lidoderm) 1 patch DAILY TD Last administered on 03/31/17 09:22; Admin Dose 1 PATCH; Start 03/27/17 at 11:00 Docusate Sodium (Colace) 100 mg BID PRN PO CONSTIPATION; Start 03/27/17 at 11: 00 Nicotine (Nicoderm 21 Mg/ 24hr) 1 patch DAILY TRANSDERM Last administered on 09:21; Admin Dose 1 PATCH; Start 03/27/17 at 13:00 Acetaminophen/ Hydrocodone Bitart 1 tab 1 tab Q6H PRN PO PAIN Last administered on 03/31/17 09:25; Admin Dose 1 TAB; Start 03/30/17 at 19:56 Sodium Chloride (NS) 1,000 ml @ 75 mls/hr [id number] IV Last administered on 03/31 10:14; Admin Dose 75 MLS/HR; Start 03/31/17 at 10:00; Stop 03/31/17 at 22: 00 TESSY ALBARADO MD Mar 31, 2017 12:14
--- NOTE | 2017-03-31 14:26 | CONS ---
Date/Time of Note Date/Time of Note DATE: 03/31/17 TIME: 14:22 Assessment/Plan Assessment/Plan Additional Assessment/Plan 76 yo Male with 1) S/p Resp Failure 2) COPD 3) HTN, Chronic 4) Hx of RCC S/ Partial Nephrectomy by Dr Ly Gant 5) Hyperechoic Mass Rt Kidney ?RCC 6) Left Renal Cysts 7) Leukcytosis 8) Anemia, Likely Chronic 9) NELLIE Resolved. S/p Waters Likely obstructive Uropathy. 10) GI Malignancy Work up in progress 11) DVT/ No PE on CTA 12) Hyponatremia- Improving 13) Hypotension, Resolved. Cont NS IVF Repeat Chem in am. S/p [place] Catheter, Non oliguric Strict Is and Os, Monitor UO, Electrolytes and renal function daily Will cont to follow until discharge. Consultation Date/Type/Reason Admit Date/Time Mar 21, 2017 at 23:46 Initial Consult Date 03/22/17 Type of Consultation: Renal Referring Provider: XENA DE JESUS MD 24 HR Interval Summary Free Text/Dictation low BP, started on IVFs, Na improving. Constitutional: requiring O2 Exam/Review of Systems Vital Signs Vitals Vital Signs Date Time Temp Pulse Resp B/P Pulse Ox O2 Delivery O2 Flow Rate FiO2 03/31/17 13:16 70 18 91 2.0 03/31/17 11:29 98.6 96/59 03/31/17 08:05 Nasal Cannula Intake and Output 03/30/17 03/30/17 03/31/17 15:00 23:00 07:00 Intake Total 100 ml 600 ml 543 ml Output Total 700 ml 300 ml Balance 100 ml -100 ml 243 ml Exam Constitutional: No distress Head: atraumatic Eyes: EOMI Neck: No jvd Respiratory: crackles/rales, No diminished breath sounds, No labored breathing Cardiovascular: regular rate and rhythm, No edema Gastrointestinal: non-tender, soft Neurological: No confused, No lethargic Skin: No diaphoresis Results Result Diagram: 03/31/17 0734 03/31/17 0734 Results 24 hrs Laboratory Tests Test 03/30/17 17:02 03/31/17 00:23 03/31/17 07:34 03/31/17 10:42 Activated Partial Thromboplast Time 121.5 *H 89.2 *H 167.4 *H Sodium Level 125 L 127 L Potassium Level 4.6 4.4 Chloride Level 95 L 95 L Carbon Dioxide Level 27 27 Anion Gap 8 9 Blood Urea Nitrogen 34 H 43 H Creatinine 1.18 1.68 H Glucose Level 145 110 Calcium Level 7.8 L 7.7 L White Blood Count 18.0 #H Red Blood Count 4.95 Hemoglobin 11.2 L Hematocrit 36.1 L Mean Corpuscular Volume 72.9 L Mean Corpuscular Hemoglobin 22.6 L Mean Corpuscular Hemoglobin Concent 31.0 L Red Cell Distribution Width 17.3 H Platelet Count 424 H Mean Platelet Volume 11.1 H Neutrophils % 88.6 H Lymphocytes % 5.0 L Monocytes % 5.5 Eosinophils % 0.0 Basophils % 0.1 Nucleated Red Blood Cells % 0.0 Neutrophils # 16.0 H Lymphocytes # 0.9 Monocytes # 1.0 H Eosinophils # 0.0 Basophils # 0.0 Nucleated Red Blood Cells # 0.0 Lab Scanned Report REFERENCE LAB Medications Medications Current Medications Ondansetron HCl (Zofran Inj) 4 mg Q6H PRN IV NAUSEA AND/OR VOMITING Last administered on 03/29/17 23:45; Admin Dose 4 MG; Start 03/22/17 at 01:30 Acetaminophen (Tylenol Liquid) 650 mg Q6H PRN PO PAIN LEVEL 1-3 OR FEVER Last administered on 03/28/17 05:39; Admin Dose 650 MG; Start 03/22/17 at 01:30 Acetaminophen (Tylenol Supp) 650 mg Q4H PRN [place] PAIN LEVEL 1-3 OR FEVER; Start 03/22/17 at 01:30 Aspirin 81 mg 81 mg DAILY PO Last administered on 03/31/17 09:21; Admin Dose 81 MG; Start 03/22/17 at 09:00 Levofloxacin/ Dextrose (Levaquin 500mg/ D5W 100 ml (Pmx)) 100 ml @ 100 mls/hr Q24H IVPB Last administered on 03/31/17 06:29; Admin Dose 100 MLS/HR; Start at 07:00 Atorvastatin Calcium (Lipitor) 80 mg HS PO Last administered on 03/30/17 20:12 ; Admin Dose 80 MG; Start 03/22/17 at 21:00 Febuxostat (Uloric) 40 mg DAILY PO Last administered on 03/31/17 09:25; Admin Dose 40 MG; Start 03/23/17 at 09:00 Multivitamins Therapeutic (Theragran) 1 tab DAILY PO Last administered on 09:21; Admin Dose 1 TAB; Start 03/23/17 at 09:00 Tamsulosin HCl (Flomax) 0.4 mg BID PO Last administered on 03/31/17 09:21; Admin Dose 0.4 MG; Start 03/22/17 at 21:00 Pantoprazole (Protonix Tab) 40 mg DAILY@06 PO Last administered on 03/31/17 06 :21; Admin Dose 40 MG; Start 03/23/17 at 06:00 Hydralazine HCl (Apresoline) 20 mg Q6H PRN IV SBP >180 Last administered on 21:17; Admin Dose 20 MG; Start 03/22/17 at 22:45 Metoprolol Tartrate (Lopressor) 5 mg Q6 PRN IV HR >100 or SBP >170 Last administered on 03/25/17 16:45; Admin Dose 5 MG; Start 03/23/17 at 15:30 Olanzapine (Zyprexa) 10 mg Q8 PRN IM severe agitation Last administered on 03/25 10:23; Admin Dose 10 MG; Start 03/23/17 at 15:30 Labetalol HCl (Labetalol) 10 mg Q4H PRN IV SBP>160 Last administered on 08:43; Admin Dose 10 MG; Start 03/24/17 at 09:30 Morphine Sulfate (morphine) 2 mg Q4H PRN IV PAIN LEVEL 7-10 Last administered on 03/30/17 17:49; Admin Dose 2 MG; Start 03/24/17 at 10:00 Carvedilol (Coreg) 25 mg BID PO Last administered on 03/30/17 08:49; Admin Dose 25 MG; Start 03/25/17 at 21:00 Bisacodyl (Dulcolax Supp) 10 mg DAILY PRN [place] CONSTIPATION; Start 03/26/17 at 12 :30 Bisacodyl (Dulcolax) 5 mg DAILY PRN PO CONSTIPATION Last administered on 17:51; Admin Dose 5 MG; Start 03/26/17 at 12:30 Lidocaine (Lidoderm) 1 patch DAILY TD Last administered on 03/31/17 09:22; Admin Dose 1 PATCH; Start 03/27/17 at 11:00 Docusate Sodium (Colace) 100 mg BID PRN PO CONSTIPATION; Start 03/27/17 at 11: 00 Nicotine (Nicoderm 21 Mg/ 24hr) 1 patch DAILY TRANSDERM Last administered on 09:21; Admin Dose 1 PATCH; Start 03/27/17 at 13:00 Acetaminophen/ Hydrocodone Bitart 1 tab 1 tab Q6H PRN PO PAIN Last administered on 03/31/17 09:25; Admin Dose 1 TAB; Start 03/30/17 at 19:56 Sodium Chloride (NS) 1,000 ml @ 75 mls/hr [id number] IV Last administered on 03/31 10:14; Admin Dose 75 MLS/HR; Start 03/31/17 at 10:00; Stop 03/31/17 at 22: 00 JACY ROSE MD Mar 31, 2017 14:26
--- NOTE | 2017-03-31 16:59 | CONS ---
Date/Time of Note Date/Time of Note DATE: 03/31/17 TIME: 16:58 Consult Date/Type/Reason Admit Date/Time Mar 21, 2017 at 23:46 Initial Consult Date 03/23/17 Type of Consultation: Pulm Ordering Provider: XENA DE JESUS MD Subjective No events overnight Objective Vital Signs Date Time Temp Pulse Resp B/P Pulse Ox O2 Delivery O2 Flow Rate FiO2 03/31/17 16:00 72 03/31/17 15:31 98.8 18 100/56 92 03/31/17 13:16 2.0 03/31/17 08:05 Nasal Cannula Intake and Output 03/30/17 03/30/17 03/31/17 15:00 23:00 07:00 Intake Total 100 ml 600 ml 543 ml Output Total 700 ml 300 ml Balance 100 ml -100 ml 243 ml Exam HEENT: Neck supple; no JVD; no LAD CVS: RRR, S1 and S2 CHEST: Clear ABD: Soft, NT, + BS EXT: No c/c/e Results/Medications Result Diagram: 03/31/17 0734 03/31/17 0734 Results 24 hrs Laboratory Tests Test 03/30/17 17:02 03/31/17 00:23 03/31/17 07:34 03/31/17 10:42 Activated Partial Thromboplast Time 121.5 *H 89.2 *H 167.4 *H Sodium Level 125 L 127 L Potassium Level 4.6 4.4 Chloride Level 95 L 95 L Carbon Dioxide Level 27 27 Anion Gap 8 9 Blood Urea Nitrogen 34 H 43 H Creatinine 1.18 1.68 H Glucose Level 145 110 Calcium Level 7.8 L 7.7 L White Blood Count 18.0 #H Red Blood Count 4.95 Hemoglobin 11.2 L Hematocrit 36.1 L Mean Corpuscular Volume 72.9 L Mean Corpuscular Hemoglobin 22.6 L Mean Corpuscular Hemoglobin Concent 31.0 L Red Cell Distribution Width 17.3 H Platelet Count 424 H Mean Platelet Volume 11.1 H Neutrophils % 88.6 H Lymphocytes % 5.0 L Monocytes % 5.5 Eosinophils % 0.0 Basophils % 0.1 Nucleated Red Blood Cells % 0.0 Neutrophils # 16.0 H Lymphocytes # 0.9 Monocytes # 1.0 H Eosinophils # 0.0 Basophils # 0.0 Nucleated Red Blood Cells # 0.0 Lab Scanned Report REFERENCE LAB Test 03/31/17 14:25 Activated Partial Thromboplast Time 99.1 *H Medications Current Medications Ondansetron HCl (Zofran Inj) 4 mg Q6H PRN IV NAUSEA AND/OR VOMITING Last administered on 03/29/17 23:45; Admin Dose 4 MG; Start 03/22/17 at 01:30 Acetaminophen (Tylenol Liquid) 650 mg Q6H PRN PO PAIN LEVEL 1-3 OR FEVER Last administered on 03/28/17 05:39; Admin Dose 650 MG; Start 03/22/17 at 01:30 Acetaminophen (Tylenol Supp) 650 mg Q4H PRN [place] PAIN LEVEL 1-3 OR FEVER; Start 03/22/17 at 01:30 Aspirin 81 mg 81 mg DAILY PO Last administered on 03/31/17 09:21; Admin Dose 81 MG; Start 03/22/17 at 09:00 Levofloxacin/ Dextrose (Levaquin 500mg/ D5W 100 ml (Pmx)) 100 ml @ 100 mls/hr Q24H IVPB Last administered on 03/31/17 06:29; Admin Dose 100 MLS/HR; Start at 07:00 Atorvastatin Calcium (Lipitor) 80 mg HS PO Last administered on 03/30/17 20:12 ; Admin Dose 80 MG; Start 03/22/17 at 21:00 Febuxostat (Uloric) 40 mg DAILY PO Last administered on 03/31/17 09:25; Admin Dose 40 MG; Start 03/23/17 at 09:00 Multivitamins Therapeutic (Theragran) 1 tab DAILY PO Last administered on 09:21; Admin Dose 1 TAB; Start 03/23/17 at 09:00 Tamsulosin HCl (Flomax) 0.4 mg BID PO Last administered on 03/31/17 09:21; Admin Dose 0.4 MG; Start 03/22/17 at 21:00 Pantoprazole (Protonix Tab) 40 mg DAILY@06 PO Last administered on 03/31/17 06 :21; Admin Dose 40 MG; Start 03/23/17 at 06:00 Hydralazine HCl (Apresoline) 20 mg Q6H PRN IV SBP >180 Last administered on 21:17; Admin Dose 20 MG; Start 03/22/17 at 22:45 Metoprolol Tartrate (Lopressor) 5 mg Q6 PRN IV HR >100 or SBP >170 Last administered on 03/25/17 16:45; Admin Dose 5 MG; Start 03/23/17 at 15:30 Olanzapine (Zyprexa) 10 mg Q8 PRN IM severe agitation Last administered on 03/25 10:23; Admin Dose 10 MG; Start 03/23/17 at 15:30 Labetalol HCl (Labetalol) 10 mg Q4H PRN IV SBP>160 Last administered on 08:43; Admin Dose 10 MG; Start 03/24/17 at 09:30 Morphine Sulfate (morphine) 2 mg Q4H PRN IV PAIN LEVEL 7-10 Last administered on 03/30/17 17:49; Admin Dose 2 MG; Start 03/24/17 at 10:00 Carvedilol (Coreg) 25 mg BID PO Last administered on 03/30/17 08:49; Admin Dose 25 MG; Start 03/25/17 at 21:00 Bisacodyl (Dulcolax Supp) 10 mg DAILY PRN [place] CONSTIPATION; Start 03/26/17 at 12 :30 Bisacodyl (Dulcolax) 5 mg DAILY PRN PO CONSTIPATION Last administered on 17:51; Admin Dose 5 MG; Start 03/26/17 at 12:30 Lidocaine (Lidoderm) 1 patch DAILY TD Last administered on 03/31/17 09:22; Admin Dose 1 PATCH; Start 03/27/17 at 11:00 Docusate Sodium (Colace) 100 mg BID PRN PO CONSTIPATION; Start 03/27/17 at 11: 00 Nicotine (Nicoderm 21 Mg/ 24hr) 1 patch DAILY TRANSDERM Last administered on 09:21; Admin Dose 1 PATCH; Start 03/27/17 at 13:00 Acetaminophen/ Hydrocodone Bitart 1 tab 1 tab Q6H PRN PO PAIN Last administered on 03/31/17 09:25; Admin Dose 1 TAB; Start 03/30/17 at 19:56 Sodium Chloride (NS) 1,000 ml @ 75 mls/hr [id number] IV Last administered on 10/7 /17at 10:14; Admin Dose 75 MLS/HR; Start 03/31/17 at 10:00; Stop 03/31/17 at 22: 00 Assessment/Plan Additional Assessment/Plan IMP: 1. s/p Hypercapnic Resp Insufficiency 2. COPD Exacerbation 3. Underlying Gastric Cancer 4. Leukocytosis--2/2 CS 5. AMS 6. Azotemia RECS: 1. No new pulm recs AURELIO MCINTYRE MD Mar 31, 2017 16:59
--- NOTE | 2017-03-31 20:05 | PN ---
Date/Time of Note Date/Time of Note DATE: 03/31/17 TIME: 19:56 Assessment/Plan Lines/Catheters IV Catheter Type (from Nrs): Peripheral IV Waters in Place (from Nrs): Yes Assessment/Plan Chief Complaint/Hosp Course 1. 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 CT identifies GE jx thickening which may represent submucosal ? extension. Based on these findings, prior to surgical consideration, pt would benefit from re biopsy of the esophageal mass and proximal stomach preferably under EUS guidance. -pt will be best served at tertiary center for further treatment, since if GE jx involvement or esophageal involvement, much more extensive operation maybe necessary. 2. Respiratory failure with COPD Exacerbation: pl effusions improved -medical management 3. 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 Leukocytosis: no fevers; likely 2/2 #1, 2, 3: worsened today -as above 5. Hypertension - stable 6. Rib fracture -Lidoderm patch for pain control -encourage IS/deep breathing 7. Acute delirium: improving - medical management -supportive 8. Hypoalbuminemia -optimize nutrition -as above 9. Hyponatremia: improving -judicious fluids 10. Hypocalcemia: nutritional +/- inflammation -as above -nutritional optimization 11. NELLIE: -judicious fluids -per renal 12. Constipation/bloating -optimize bowel regimen Thank you. Patient seen and examined in collaboration with Dr. Kenneth Mendes. Problems: Subjective 24 Hr Interval Summary Feels ok. Complains of constipation and bloating. + flatus. No fevers, chills, sob, congested cough, n/v/d/dysuria. Exam/Review of Systems Vital Signs Vitals Vital Signs Date Time Temp Pulse Resp B/P Pulse Ox O2 Delivery O2 Flow Rate FiO2 03/31/17 16:00 72 03/31/17 15:31 98.8 18 100/56 92 03/31/17 13:16 2.0 03/31/17 08:05 Nasal Cannula Intake and Output 03/30/17 03/30/17 03/31/17 14:59 22:59 06:59 Intake Total 100 ml 600 ml 543 ml Output Total 700 ml 300 ml Balance 100 ml -100 ml 243 ml Exam Free Text/Dictation Constitutional: oriented (to self, partial location, and partial date), No distress Psych: nl mood/affect, No anxiety Head: normocephalic, atraumatic Eyes: EOMI, PERRL, nl conjunctiva, No icteric ENMT: nl external ears & nose, nl lips & teeth, No mucosa pink and moist Neck: non-tender, supple Respiratory: normal air movement, No congested cough, No labored breathing Cardiovascular: nl pulses, regular rate and rhythm, No edema Gastrointestinal: distended (mod), non tender, No rebound or guarding Musculoskeletal: nl extremities to inspection, No joint tenderness, No nl gait and stance Extremities: No calf tenderness, No edema Neurological: No nl speech, No nl strength Skin: No diaphoresis, No nl turgor, No rash or lesions Lymph: No nl lymph nodes Results Result Diagram: 03/31/17 0734 03/31/17 0734 VIVIAN CLARK NP Mar 31, 2017 20:05
[2017-03-31] MEDS: ATORVASTATIN 40 MG TAB PO SCH (20:20)
[2017-04-01] VITALS (24 sets, daily range): BP systolic 72–147; BP diastolic 47–83; PULSE 64–103; RESP 10–23
[2017-04-01] MEDS: ACETYLCYSTEINE 20% 4 ML VIAL NEB SCH ×4 (01:40→19:46)
[2017-04-01] MEDS: LEVALBUTEROL (NEB) 1.25 MG/0.5 ML AMP HHN SCH ×4 (01:40→19:45)
[2017-04-01] MEDS: HEPARIN 25000 UNITS/250 ML 250 ML IV SCH ×5 (02:00→20:15)
[2017-04-01] MEDS: morphine 2 MG INJ IV PRN ×2 (02:12→09:21)
[2017-04-01] MEDS: PANTOPRAZOLE (EC) 40 MG TAB PO SCH (05:16)
[2017-04-01] MEDS: LEVOFLOXACIN 500MG/D5W (PMX) 100 ML IVPB SCH (07:41)
[2017-04-01 08:21] LABS: ABNORMAL IP MESSAGE 1; HEMATOCRIT 35.9 % (42.0-52.0); HEMOGLOBIN 11.4 g/dl (14.0-18.0); MEAN CORPUSCULAR HGB CONC 31.8 g/dl (32.0-37.0); MEAN CORPUSCULAR VOLUME 72.5 fl (82.0-101.0); MEAN PLATELET VOLUME 10.9 fl (7.4-10.4); PLATELET COUNT 444 10^3/UL (140-415); POSITIVE DIFF @See below; RED BLOOD COUNT 4.95 10^6/ul (4.70-6.10); RED CELL DISTRIBUTION WIDTH 17.3 % (11.5-14.5); WHITE BLOOD COUNT 21.9 10^3/ul (4.8-10.8)
[2017-04-01 08:38] LABS: INR 1.5; PROTIME 18.2 Sec (12.2-14.2); PT RATIO 1.4
[2017-04-01 08:39] LABS: PARTIAL THROMBOPLASTIN TIME 37.7 Sec (25.0-35.0)
[2017-04-01 08:49] LABS: ALBUMIN 2.4 g/dl (3.3-4.9); CALCIUM 7.7 mg/dl (8.4-10.2); CREATININE 1.48 mg/dl (0.61-1.24); MAGNESIUM 2.1 mg/dl (1.7-2.5); PHOSPHORUS 4.9 mg/dl (2.5-4.9); POTASSIUM 4.1 mmol/L (3.5-5.1)
[2017-04-01] MEDS ORDERED: METHYLPREDNISOLONE 125 MG INJ IV ONE (09:00)
--- NOTE | 2017-04-01 09:02 | PN ---
Date/Time of Note Date/Time of Note DATE: 04/01/17 TIME: 09:01 Assessment/Plan VTE Prophylaxis VTE Prophylaxis Intervention: heparin Lines/Catheters IV Catheter Type (from Nrs): Peripheral IV Urinary Cath still in place: Yes Reason Cath still needed: skin wounds contaminated by urine Assessment/Plan Assessment/Plan 1. Acute respiratory failure with recurrent exacerbation - Patient desaturated this am on 5L NC to 88%. Was given neb treatments and started on BIPAP which he was only tolerating intermittently. Given dose of Morphine as well as Solu-medrol and saturations improved to 92-94% while on 5L. - CXR from 03/30 showed worsening bronchiolitis - Pulmonology on board and consultation appreciated. - Will continue weaning to maintain saturations 88-92% 2. Acute Hyponatremia- improving - Urine studies ordered which appears to be SIADH picture - TSH within normal limits - will continue monitoring - Continue gentle hydration - Nephrology input appreciated 3. Acute hypotension- resolved 4. Acute on chronic DVT - Currently on heparin drip. and will transition to Eliquis if no surgical intervention planned 5. Hypertension - stable 6. rib fracture - Lidoderm patch for pain control 7. History of renal cell carcinoma, with renal mass - stable 8. Gastric carcinoma, unknown type, records pending - EGD performed which showed mild esophageal mass with ulceration, and ulceration in stomach. - CT A/P performed and shows Mild wall thickening of the distal esophagus and mild wall thickening versus contraction of the distal stomach - Surgery consultation appreciated and recommending prior to surgical consideration, pt would benefit from re biopsy of the esophageal mass and proximal stomach preferably under EUS guidance. Will need to discuss with family if would like to continue to pursue workup here or at a tertiary center - GI on board and consultation appreciated - Heme/Onc on board and consultation appreciated 9. Acute delirium - resolved 10. Acute on chronic CKD - patient Cr 1.48 this am. Will continue gentle hydration with IVF - Nephrology on board and consultation appreciated 11. COPD exacerbation Subjective 24 Hr Interval Summary Free Text/Dictation Patient found in respiratory distress, desaturating to 88% on 5L O2. Given breathing treatment with minimal improvement and placed back on BIPAP. Given dose of Morphine and IV steroids with improvement. Patient saturating 90-94% on NC 5L. Exam/Review of Systems Vital Signs Vitals Vital Signs Date Time Temp Pulse Resp B/P Pulse Ox O2 Delivery O2 Flow Rate FiO2 04/01/17 08:38 88 Nasal Cannula 3.0 04/01/17 08:31 66 04/01/17 08:05 97.4 23 147/83 Intake and Output 03/31/17 03/31/17 04/01/17 15:00 23:00 07:00 Intake Total 1080 ml 600 ml Output Total 150 ml 500 ml Balance 930 ml 100 ml Exam General: Acute respiratory distress with accessory muscle use and diaphoresis Head: Normocephalic atraumatic Eyes: EOMI, pupils reactive to light Neck: Supple, nontender, midline Respiratory: diminished breath sounds bilaterally, no wheezing or crackles Cardiovascular: regular rate, no obvious murmurs. slight tenderness left chest wall Gastrointestinal: non-tender to palpation, bowel sounds heard. Skin: No new skin lesions Results Result Diagram: 04/01/17 0734 04/01/17 0734 Results 24 hrs Laboratory Tests Test 03/31/17 10:42 03/31/17 14:25 03/31/17 22:42 04/01/17 07:34 Lab Scanned Report REFERENCE LAB Activated Partial Thromboplast Time 99.1 *H 105.7 *H 37.7 H White Blood Count 21.9 #H Red Blood Count 4.95 Hemoglobin 11.4 L Hematocrit 35.9 L Mean Corpuscular Volume 72.5 L Mean Corpuscular Hemoglobin 23.0 L Mean Corpuscular Hemoglobin Concent 31.8 L Red Cell Distribution Width 17.3 H Platelet Count 444 H Mean Platelet Volume 10.9 H Neutrophils % Lymphocytes % Monocytes % Eosinophils % Basophils % Nucleated Red Blood Cells % 0.0 Neutrophils # Lymphocytes # Monocytes # Eosinophils # Basophils # Nucleated Red Blood Cells # Prothrombin Time 18.2 H Prothrombin Time Ratio 1.4 INR International Normalized Ratio 1.50 Sodium Level 128 L Potassium Level 4.1 Chloride Level 98 Carbon Dioxide Level 26 Anion Gap 8 Blood Urea Nitrogen 43 H Creatinine 1.48 H Glucose Level 96 Calcium Level 7.7 L Phosphorus Level 4.9 Magnesium Level 2.1 Albumin 2.4 L Medications Medications Current Medications Ondansetron HCl (Zofran Inj) 4 mg Q6H PRN IV NAUSEA AND/OR VOMITING Last administered on 03/29/17t 23:45; Admin Dose 4 MG; Start 03/22/17 at 01:30 Acetaminophen (Tylenol Liquid) 650 mg Q6H PRN PO PAIN LEVEL 1-3 OR FEVER Last administered on 03/28/17 05:39; Admin Dose 650 MG; Start 03/22/17 at 01:30 Acetaminophen (Tylenol Supp) 650 mg Q4H PRN [place] PAIN LEVEL 1-3 OR FEVER; Start 03/22/17 at 01:30 Aspirin 81 mg 81 mg DAILY PO Last administered on 03/31/17 09:21; Admin Dose 81 MG; Start 03/22/17 at 09:00 Levofloxacin/ Dextrose (Levaquin 500mg/ D5W 100 ml (Pmx)) 100 ml @ 100 mls/hr Q24H IVPB Last administered on 04/01/17 07:41; Admin Dose 100 MLS/HR; Start at 07:00 Atorvastatin Calcium (Lipitor) 80 mg HS PO Last administered on 03/31/17 20:20 ; Admin Dose 80 MG; Start 03/22/17 at 21:00 Febuxostat (Uloric) 40 mg DAILY PO Last administered on 03/31/17 09:25; Admin Dose 40 MG; Start 03/23/17 at 09:00 Multivitamins Therapeutic (Theragran) 1 tab DAILY PO Last administered on 09:21; Admin Dose 1 TAB; Start 03/23/17 at 09:00 Tamsulosin HCl (Flomax) 0.4 mg BID PO Last administered on 03/31/17 20:20; Admin Dose 0.4 MG; Start 03/22/17 at 21:00 Pantoprazole (Protonix Tab) 40 mg DAILY@06 PO Last administered on 04/01/17 05 :16; Admin Dose 40 MG; Start 03/23/17 at 06:00 Hydralazine HCl (Apresoline) 20 mg Q6H PRN IV SBP >180 Last administered on 21:17; Admin Dose 20 MG; Start 03/22/17 at 22:45 Metoprolol Tartrate (Lopressor) 5 mg Q6 PRN IV HR >100 or SBP >170 Last administered on 03/25/17 16:45; Admin Dose 5 MG; Start 03/23/17 at 15:30 Olanzapine (Zyprexa) 10 mg Q8 PRN IM severe agitation Last administered on 03/25 10:23; Admin Dose 10 MG; Start 03/23/17 at 15:30 Labetalol HCl (Labetalol) 10 mg Q4H PRN IV SBP>160 Last administered on 08:43; Admin Dose 10 MG; Start 03/24/17 at 09:30 Morphine Sulfate (morphine) 2 mg Q4H PRN IV PAIN LEVEL 7-10 Last administered on 04/01/17 02:12; Admin Dose 2 MG; Start 03/24/17 at 10:00 Carvedilol (Coreg) 25 mg BID PO Last administered on 03/31/17 20:21; Admin Dose 25 MG; Start 03/25/17 at 21:00 Bisacodyl (Dulcolax Supp) 10 mg DAILY PRN [place] CONSTIPATION; Start 03/26/17 at 12 :30 Bisacodyl (Dulcolax) 5 mg DAILY PRN PO CONSTIPATION Last administered on 17:51; Admin Dose 5 MG; Start 03/26/17 at 12:30 Lidocaine (Lidoderm) 1 patch DAILY TD Last administered on 03/31/17 09:22; Admin Dose 1 PATCH; Start 03/27/17 at 11:00 Docusate Sodium (Colace) 100 mg BID PRN PO CONSTIPATION Last administered on 20:20; Admin Dose 100 MG; Start 03/27/17 at 11:00 Nicotine (Nicoderm 21 Mg/ 24hr) 1 patch DAILY TRANSDERM Last administered on 09:21; Admin Dose 1 PATCH; Start 03/27/17 at 13:00 Acetaminophen/ Hydrocodone Bitart ([place] (5/325)) 1 tab Q6H PRN PO PAIN Last administered on 03/31/17 20:26; Admin Dose 1 TAB; Start 03/30/17 at 19:56 Methylprednisolone Sodium Succinate (Solu-Medrol) 40 mg Q12 IV ; Start 04/02/17 at 09:00; Status XENA HERMOSILLO MD Apr 01, 2017 09:02
[2017-04-01 09:10] LABS: AADO2 Arterial 135.4 mmHg (7.0-24.0); Allen Test ACCEPTAB; Arterial COHb 0.1 % (0.0-3.0); Arterial HCO3 24.3 mmol/L (22.0-26.0); Arterial MetHb 0.2 % (0.0-1.5); Arterial Total Hemglobin 14.1 g/dl (12.0-18.0); Blood Gas IEPAP 18/8; MODE MASK - BIPAP
[2017-04-01] MEDS ORDERED: morphine 2 MG INJ IV ONE (09:30)
[2017-04-01 09:57] LABS: ANISOCYTOSIS 1+ (0-0); BURR CELLS 2+ (0-0); GIANT THROMBO% (M) 1 % (0-0); HYPOCHROMASIA 1+ (0-0); MICROCYTOSIS 1+ (0-0); MONOCYTES % (M) 5 % (0-11); PLATELET ESTIMATE NORMAL
[2017-04-01] MEDS: MULTIVITAMINS THERAPEUTIC TAB PO SCH (10:24)
[2017-04-01] MEDS: LIDOCAINE 5% PATCH TD SCH (10:24)
[2017-04-01] MEDS: TAMSULOSIN (SR) 0.4 MG CAP PO SCH ×2 (10:24→20:54)
[2017-04-01] MEDS: FEBUXOSTAT 40 MG TABLET PO SCH (10:24)
[2017-04-01] MEDS: NICOTINE (21 MG/24 HR) PATCH TRANSDERM SCH (10:24)
[2017-04-01] MEDS: ASPIRIN (EC) 81 MG TAB PO SCH (10:25)
[2017-04-01] MEDS: HEPARIN 1000 UNITS/ML 10 ML INJ IV PRN (11:15)
--- NOTE | 2017-04-01 14:31 | CONS ---
Date/Time of Note Date/Time of Note DATE: 04/01/17 TIME: 14:31 Assessment/Plan Assessment/Plan Additional Assessment/Plan 76 yo Male with 1) S/p Resp Failure 2) COPD 3) HTN, Chronic 4) Hx of RCC S/ Partial Nephrectomy by Dr Ly Gant 5) Hyperechoic Mass Rt Kidney ?RCC 6) Left Renal Cysts 7) Leukcytosis 8) Anemia, Likely Chronic 9) NELLIE Resolved. S/p Waters Likely obstructive Uropathy. 10) GI Malignancy Work up in progress 11) DVT/ No PE on CTA 12) Hyponatremia- Improving 13) Hypotension, Resolved. Cont gentle NS IVF Repeat Chem in am. S/p [place] Catheter, Non oliguric Strict Is and Os, Monitor UO, Electrolytes and renal function daily Will cont to follow until discharge. Consultation Date/Type/Reason Admit Date/Time Mar 21, 2017 at 23:46 Initial Consult Date 03/22/17 Type of Consultation: Renal Referring Provider: XENA DE JESUS MD 24 HR Interval Summary Constitutional: requiring O2 Exam/Review of Systems Vital Signs Vitals Vital Signs Date Time Temp Pulse Resp B/P Pulse Ox O2 Delivery O2 Flow Rate FiO2 04/01/17 12:45 80 26 86 Nasal Cannula 5.0 04/01/17 12:24 115/73 04/01/17 08:35 40 04/01/17 08:05 97.4 Intake and Output 03/31/17 03/31/17 04/01/17 15:00 23:00 07:00 Intake Total 1080 ml 600 ml Output Total 150 ml 500 ml Balance 930 ml 100 ml Exam Constitutional: No distress ENMT: mucosa pink and moist Respiratory: crackles/rales, No diminished breath sounds, No labored breathing Cardiovascular: regular rate and rhythm, No edema Gastrointestinal: soft Neurological: No lethargic Skin: No diaphoresis Results Result Diagram: 04/01/17 0734 04/01/17 0734 Results 24 hrs Laboratory Tests Test 03/31/17 22:42 04/01/17 07:34 04/01/17 08:59 Activated Partial Thromboplast Time 105.7 *H 37.7 H White Blood Count 21.9 #H Red Blood Count 4.95 Hemoglobin 11.4 L Hematocrit 35.9 L Mean Corpuscular Volume 72.5 L Mean Corpuscular Hemoglobin 23.0 L Mean Corpuscular Hemoglobin Concent 31.8 L Red Cell Distribution Width 17.3 H Platelet Count 444 H Mean Platelet Volume 10.9 H Neutrophils % Segmented Neutrophils % (Manual) 81 H Band Neutrophils % (Manual) 12 H Lymphocytes % Lymphocytes % (Manual) 2 L Monocytes % Monocytes % (Manual) 5 Eosinophils % Basophils % Nucleated Red Blood Cells % 0.0 Neutrophils # Neutrophils # (Manual) 18.3 H Band Neutrophils # 2.6 H Absolute Lymphocytes (Manual) 0.4 L Lymphocytes # Monocytes # Absolute Monocytes (Manual) 1.0 H Eosinophils # Basophils # Nucleated Red Blood Cells # Platelet Estimate NORMAL Giant Platelets 1 H Hypochromasia 1+ Anisocytosis 1+ Microcytosis 1+ Prothrombin Time 18.2 H Prothrombin Time Ratio 1.4 INR International Normalized Ratio 1.50 Sodium Level 128 L Potassium Level 4.1 Chloride Level 98 Carbon Dioxide Level 26 Anion Gap 8 Blood Urea Nitrogen 43 H Creatinine 1.48 H Glucose Level 96 Calcium Level 7.7 L Phosphorus Level 4.9 Magnesium Level 2.1 Albumin 2.4 L Blood Gas Specimen Source Blood arterial Arterial Blood Date Drawn 04/01/2017 8:56:20 AM Arterial Blood pH (Temp corrected) 7.284 *L Arterial Blood pCO2 (Temp correct) 52.5 H Arterial Blood pO2 (Temp corrected) 89.4 Arterial Blood HCO3 24.3 Arterial Blood Base Excess -3.0 Arterial Blood Oxygen Saturation 95.3 Griffin Test ACCEPTAB Arterial Blood Gas Puncture Site Right Radial Arterial Blood Carboxyhemoglobin 0.1 Arterial Blood Methemoglobin 0.2 Blood Gas A-a O2 Differential 135.4 H Oxyhemoglobin Percent 95.0 Total Hemoglobin 14.1 Blood Gas Temperature 37.0 Blood Gas Respiration Rate 18.0 Blood Gas Actual Respiration Rate 29 Blood Gas Modality MASK - BIPAP FiO2 40.0 Blood Gas Low PEEP Setting 10.0 Blood Gas IPAP/EPAP Ratio 18/8 Blood Gas Critical Value Read Back DR DE JESUS Blood Gas Notified Whom TM Blood Gas Notified Time 04/01/2017 9:05:56 AM Medications Medications Current Medications Ondansetron HCl (Zofran Inj) 4 mg Q6H PRN IV NAUSEA AND/OR VOMITING Last administered on 03/29/17t 23:45; Admin Dose 4 MG; Start 03/22/17 at 01:30 Acetaminophen (Tylenol Liquid) 650 mg Q6H PRN PO PAIN LEVEL 1-3 OR FEVER Last administered on 03/28/17 05:39; Admin Dose 650 MG; Start 03/22/17 at 01:30 Acetaminophen (Tylenol Supp) 650 mg Q4H PRN [place] PAIN LEVEL 1-3 OR FEVER; Start 03/22/17 at 01:30 Aspirin 81 mg 81 mg DAILY PO Last administered on 04/01/17 10:25; Admin Dose 81 MG; Start 03/22/17 at 09:00 Levofloxacin/ Dextrose (Levaquin 500mg/ D5W 100 ml (Pmx)) 100 ml @ 100 mls/hr Q24H IVPB Last administered on 04/01/17 07:41; Admin Dose 100 MLS/HR; Start at 07:00 Atorvastatin Calcium (Lipitor) 80 mg HS PO Last administered on 03/31/17 20:20 ; Admin Dose 80 MG; Start 03/22/17 at 21:00 Febuxostat (Uloric) 40 mg DAILY PO Last administered on 04/01/17 10:24; Admin Dose 40 MG; Start 03/23/17 at 09:00 Multivitamins Therapeutic (Theragran) 1 tab DAILY PO Last administered on 10:24; Admin Dose 1 TAB; Start 03/23/17 at 09:00 Tamsulosin HCl (Flomax) 0.4 mg BID PO Last administered on 04/01/17 10:24; Admin Dose 0.4 MG; Start 03/22/17 at 21:00 Pantoprazole (Protonix Tab) 40 mg DAILY@06 PO Last administered on 04/01/17 05 :16; Admin Dose 40 MG; Start 03/23/17 at 06:00 Hydralazine HCl (Apresoline) 20 mg Q6H PRN IV SBP >180 Last administered on 21:17; Admin Dose 20 MG; Start 03/22/17 at 22:45 Metoprolol Tartrate (Lopressor) 5 mg Q6 PRN IV HR >100 or SBP >170 Last administered on 03/25/17 16:45; Admin Dose 5 MG; Start 03/23/17 at 15:30 Olanzapine (Zyprexa) 10 mg Q8 PRN IM severe agitation Last administered on 03/25 10:23; Admin Dose 10 MG; Start 03/23/17 at 15:30 Labetalol HCl (Labetalol) 10 mg Q4H PRN IV SBP>160 Last administered on 08:43; Admin Dose 10 MG; Start 03/24/17 at 09:30 Morphine Sulfate (morphine) 2 mg Q4H PRN IV PAIN LEVEL 7-10 Last administered on 04/01/17 09:21; Admin Dose 2 MG; Start 03/24/17 at 10:00 Carvedilol (Coreg) 25 mg BID PO Last administered on 04/01/17 10:25; Admin Dose 25 MG; Start 03/25/17 at 21:00 Bisacodyl (Dulcolax Supp) 10 mg DAILY PRN [place] CONSTIPATION; Start 03/26/17 at 12 :30 Bisacodyl (Dulcolax) 5 mg DAILY PRN PO CONSTIPATION Last administered on 17:51; Admin Dose 5 MG; Start 03/26/17 at 12:30 Lidocaine (Lidoderm) 1 patch DAILY TD Last administered on 04/01/17 10:24; Admin Dose 1 PATCH; Start 03/27/17 at 11:00 Docusate Sodium (Colace) 100 mg BID PRN PO CONSTIPATION Last administered on 20:20; Admin Dose 100 MG; Start 03/27/17 at 11:00 Nicotine (Nicoderm 21 Mg/ 24hr) 1 patch DAILY TRANSDERM Last administered on 10:24; Admin Dose 1 PATCH; Start 03/27/17 at 13:00 Acetaminophen/ Hydrocodone Bitart ([place] (5/325)) 1 tab Q6H PRN PO PAIN Last administered on 03/31/17 20:26; Admin Dose 1 TAB; Start 03/30/17 at 19:56 Methylprednisolone Sodium Succinate (Solu-Medrol) 40 mg Q12 IV ; Start 04/02/17 at 09:00 JACY ROSE MD Apr 01, 2017 14:31
--- NOTE | 2017-04-01 15:03 | PN ---
Date/Time of Note Date/Time of Note DATE: 04/01/17 TIME: 15:01 Assessment/Plan VTE Prophylaxis VTE Prophylaxis Intervention: SCD's Lines/Catheters IV Catheter Type (from [facility]): Peripheral IV Urinary Cath still in place: Yes Reason Cath still needed: other (indicate) (Monitor output) Assessment/Plan Chief Complaint/Hosp Course Assessment: History of gastric cancer EGD * Mid esophageal mass w/superficial ulceration. Biopsied * No evidence of malignancy/ulcerated mucosa * Esophagitis * Area of healed ulceration with nodularity in the lesser curvature proximal stomach. Biopsied * Poorly differentiated adenocarcinoma DVT Plan: Oncology/surgical management May benefit from tertiary center possibly considering EUS staging and assessment of the esophageal mass Subjective: Course reviewed with nursing staff Patient interviewed and examined All labs, imaging and other results reviewed The patient had an episode of significant shortness of breath requiring BiPAP temporarily Consider tertiary center transfer for evaluation with EUS for staging purposes especially in view of findings in the esophagus as well as CT suggestion of extension of tumor to the cardia. Probably transferred to [facility] for tertiary care Exam: General: well developed, well nourished, alert and oriented x3 , in no acute distress Skin: No lesions, no stigmata chronic liver disease, no evidence of bleeding diathesis Lymphatic: No palpable lymphadenopathy HEENT: No lesions Cardiovascular: Heart: Regular rate and rhythm, no murmurs, gallops or rubs. Peripheral pulses present within normal limits, no cyanosis, clubbing or edemas. No pulsatile abdominal mass Respiratory: Lungs clear to auscultation and percussion, no wheezing, no rubs Gastrointestinal and Liver: Abdomen: Soft, moderate epigastric tenderness, non- distended, no hernias, no masses, no organomegaly, no ascites, no guarding, no rebound tenderness, normoactive bowel sounds. Extremities: No cyanosis, clubbing, or edema. Diagnostic Studies: Available data and images were reviewed personally. See reports. Significant results and findings are addressed here or in the assessment and plan. Problems: Problems: Exam/Review of Systems Vital Signs Vitals Vital Signs Date Time Temp Pulse Resp B/P Pulse Ox O2 Delivery O2 Flow Rate FiO2 04/01/17 12:45 80 26 86 Nasal Cannula 5.0 04/01/17 12:24 115/73 04/01/17 08:35 40 04/01/17 08:05 97.4 Intake and Output 03/31/17 03/31/17 04/01/17 15:00 23:00 07:00 Intake Total 1080 ml 600 ml Output Total 150 ml 500 ml Balance 930 ml 100 ml Results Result Diagram: 04/01/17 0734 04/01/17 0734 Results 24 hrs Laboratory Tests Test 03/31/17 22:42 04/01/17 07:34 04/01/17 08:59 Activated Partial Thromboplast Time 105.7 *H 37.7 H White Blood Count 21.9 #H Red Blood Count 4.95 Hemoglobin 11.4 L Hematocrit 35.9 L Mean Corpuscular Volume 72.5 L Mean Corpuscular Hemoglobin 23.0 L Mean Corpuscular Hemoglobin Concent 31.8 L Red Cell Distribution Width 17.3 H Platelet Count 444 H Mean Platelet Volume 10.9 H Neutrophils % Segmented Neutrophils % (Manual) 81 H Band Neutrophils % (Manual) 12 H Lymphocytes % Lymphocytes % (Manual) 2 L Monocytes % Monocytes % (Manual) 5 Eosinophils % Basophils % Nucleated Red Blood Cells % 0.0 Neutrophils # Neutrophils # (Manual) 18.3 H Band Neutrophils # 2.6 H Absolute Lymphocytes (Manual) 0.4 L Lymphocytes # Monocytes # Absolute Monocytes (Manual) 1.0 H Eosinophils # Basophils # Nucleated Red Blood Cells # Platelet Estimate NORMAL Giant Platelets 1 H Hypochromasia 1+ Anisocytosis 1+ Microcytosis 1+ Prothrombin Time 18.2 H Prothrombin Time Ratio 1.4 INR International Normalized Ratio 1.50 Sodium Level 128 L Potassium Level 4.1 Chloride Level 98 Carbon Dioxide Level 26 Anion Gap 8 Blood Urea Nitrogen 43 H Creatinine 1.48 H Glucose Level 96 Calcium Level 7.7 L Phosphorus Level 4.9 Magnesium Level 2.1 Albumin 2.4 L Blood Gas Specimen Source Blood arterial Arterial Blood Date Drawn 04/01/2017 8:56:20 AM Arterial Blood pH (Temp corrected) 7.284 *L Arterial Blood pCO2 (Temp correct) 52.5 H Arterial Blood pO2 (Temp corrected) 89.4 Arterial Blood HCO3 24.3 Arterial Blood Base Excess -3.0 Arterial Blood Oxygen Saturation 95.3 Griffin Test ACCEPTAB Arterial Blood Gas Puncture Site Right Radial Arterial Blood Carboxyhemoglobin 0.1 Arterial Blood Methemoglobin 0.2 Blood Gas A-a O2 Differential 135.4 H Oxyhemoglobin Percent 95.0 Total Hemoglobin 14.1 Blood Gas Temperature 37.0 Blood Gas Respiration Rate 18.0 Blood Gas Actual Respiration Rate 29 Blood Gas Modality MASK - BIPAP FiO2 40.0 Blood Gas Low PEEP Setting 10.0 Blood Gas IPAP/EPAP Ratio 18/8 Blood Gas Critical Value Read Back DR DE JESUS Blood Gas Notified Whom TM Blood Gas Notified Time 04/01/2017 9:05:56 AM Medications Medications Current Medications Ondansetron HCl (Zofran Inj) 4 mg Q6H PRN IV NAUSEA AND/OR VOMITING Last administered on 03/29/17 23:45; Admin Dose 4 MG; Start 03/22/17 at 01:30 Acetaminophen (Tylenol Liquid) 650 mg Q6H PRN PO PAIN LEVEL 1-3 OR FEVER Last administered on 03/28/17 05:39; Admin Dose 650 MG; Start 03/22/17 at 01:30 Acetaminophen (Tylenol Supp) 650 mg Q4H PRN [place] PAIN LEVEL 1-3 OR FEVER; Start 03/22/17 at 01:30 Aspirin 81 mg 81 mg DAILY PO Last administered on 04/01/17 10:25; Admin Dose 81 MG; Start 03/22/17 at 09:00 Levofloxacin/ Dextrose (Levaquin 500mg/ D5W 100 ml (Pmx)) 100 ml @ 100 mls/hr Q24H IVPB Last administered on 04/01/17 07:41; Admin Dose 100 MLS/HR; Start at 07:00 Atorvastatin Calcium (Lipitor) 80 mg HS PO Last administered on 03/31/17 20:20 ; Admin Dose 80 MG; Start 03/22/17 at 21:00 Febuxostat (Uloric) 40 mg DAILY PO Last administered on 04/01/17 10:24; Admin Dose 40 MG; Start 03/23/17 at 09:00 Multivitamins Therapeutic (Theragran) 1 tab DAILY PO Last administered on 10:24; Admin Dose 1 TAB; Start 03/23/17 at 09:00 Tamsulosin HCl (Flomax) 0.4 mg BID PO Last administered on 04/01/17 10:24; Admin Dose 0.4 MG; Start 03/22/17 at 21:00 Pantoprazole (Protonix Tab) 40 mg DAILY@06 PO Last administered on 04/01/17 05 :16; Admin Dose 40 MG; Start 03/23/17 at 06:00 Hydralazine HCl (Apresoline) 20 mg Q6H PRN IV SBP >180 Last administered on 21:17; Admin Dose 20 MG; Start 03/22/17 at 22:45 Metoprolol Tartrate (Lopressor) 5 mg Q6 PRN IV HR >100 or SBP >170 Last administered on 03/25/17 16:45; Admin Dose 5 MG; Start 03/23/17 at 15:30 Olanzapine (Zyprexa) 10 mg Q8 PRN IM severe agitation Last administered on 03/25 10:23; Admin Dose 10 MG; Start 03/23/17 at 15:30 Labetalol HCl (Labetalol) 10 mg Q4H PRN IV SBP>160 Last administered on 08:43; Admin Dose 10 MG; Start 03/24/17 at 09:30 Morphine Sulfate (morphine) 2 mg Q4H PRN IV PAIN LEVEL 7-10 Last administered on 04/01/17 09:21; Admin Dose 2 MG; Start 03/24/17 at 10:00 Carvedilol (Coreg) 25 mg BID PO Last administered on 04/01/17 10:25; Admin Dose 25 MG; Start 03/25/17 at 21:00 Bisacodyl (Dulcolax Supp) 10 mg DAILY PRN [place] CONSTIPATION; Start 03/26/17 at 12 :30 Bisacodyl (Dulcolax) 5 mg DAILY PRN PO CONSTIPATION Last administered on 17:51; Admin Dose 5 MG; Start 03/26/17 at 12:30 Lidocaine (Lidoderm) 1 patch DAILY TD Last administered on 04/01/17 10:24; Admin Dose 1 PATCH; Start 03/27/17 at 11:00 Docusate Sodium (Colace) 100 mg BID PRN PO CONSTIPATION Last administered on 20:20; Admin Dose 100 MG; Start 03/27/17 at 11:00 Nicotine (Nicoderm 21 Mg/ 24hr) 1 patch DAILY TRANSDERM Last administered on 10:24; Admin Dose 1 PATCH; Start 03/27/17 at 13:00 Acetaminophen/ Hydrocodone Bitart ([place] (5/325)) 1 tab Q6H PRN PO PAIN Last administered on 03/31/17t 20:26; Admin Dose 1 TAB; Start 03/30/17 at 19:56 Methylprednisolone Sodium Succinate (Solu-Medrol) 40 mg Q12 IV ; Start 04/02/17 at 09:00 TESSY ALBARADO MD Apr 01, 2017 15:03
--- NOTE | 2017-04-01 17:14 | CONS ---
Date/Time of Note Date/Time of Note DATE: 04/01/17 TIME: 17:08 Consult Date/Type/Reason Admit Date/Time Mar 21, 2017 at 23:46 Initial Consult Date 03/23/17 Type of Consultation: Pulm/CCM Ordering Provider: XENA LOWE MD Subjective Increased work of breathing and evidence of acute resp acidosis. Objective Vital Signs Date Time Temp Pulse Resp B/P Pulse Ox O2 Delivery O2 Flow Rate FiO2 04/01/17 16:13 70 04/01/17 12:45 26 86 Nasal Cannula 5.0 04/01/17 12:24 115/73 04/01/17 08:35 40 04/01/17 08:05 97.4 Intake and Output 03/31/17 03/31/17 04/01/17 15:00 23:00 07:00 Intake Total 1080 ml 600 ml Output Total 150 ml 500 ml Balance 930 ml 100 ml Exam HEENT: Neck supple; no JVD; no LAD CVS: RRR, S1 and S2 CHEST: Bilateral rhonchi ABD: Soft, NT, + BS EXT: No c/c; + edema Results/Medications Result Diagram: 04/01/17 0734 04/01/17 0734 Results 24 hrs Laboratory Tests Test 03/31/17 22:42 04/01/17 07:34 04/01/17 08:59 Activated Partial Thromboplast Time 105.7 *H 37.7 H White Blood Count 21.9 #H Red Blood Count 4.95 Hemoglobin 11.4 L Hematocrit 35.9 L Mean Corpuscular Volume 72.5 L Mean Corpuscular Hemoglobin 23.0 L Mean Corpuscular Hemoglobin Concent 31.8 L Red Cell Distribution Width 17.3 H Platelet Count 444 H Mean Platelet Volume 10.9 H Neutrophils % Segmented Neutrophils % (Manual) 81 H Band Neutrophils % (Manual) 12 H Lymphocytes % Lymphocytes % (Manual) 2 L Monocytes % Monocytes % (Manual) 5 Eosinophils % Basophils % Nucleated Red Blood Cells % 0.0 Neutrophils # Neutrophils # (Manual) 18.3 H Band Neutrophils # 2.6 H Absolute Lymphocytes (Manual) 0.4 L Lymphocytes # Monocytes # Absolute Monocytes (Manual) 1.0 H Eosinophils # Basophils # Nucleated Red Blood Cells # Platelet Estimate NORMAL Giant Platelets 1 H Hypochromasia 1+ Anisocytosis 1+ Microcytosis 1+ Prothrombin Time 18.2 H Prothrombin Time Ratio 1.4 INR International Normalized Ratio 1.50 Sodium Level 128 L Potassium Level 4.1 Chloride Level 98 Carbon Dioxide Level 26 Anion Gap 8 Blood Urea Nitrogen 43 H Creatinine 1.48 H Glucose Level 96 Calcium Level 7.7 L Phosphorus Level 4.9 Magnesium Level 2.1 Albumin 2.4 L Blood Gas Specimen Source Blood arterial Arterial Blood Date Drawn 04/01/2017 8:56:20 AM Arterial Blood pH (Temp corrected) 7.284 *L Arterial Blood pCO2 (Temp correct) 52.5 H Arterial Blood pO2 (Temp corrected) 89.4 Arterial Blood HCO3 24.3 Arterial Blood Base Excess -3.0 Arterial Blood Oxygen Saturation 95.3 Griffin Test ACCEPTAB Arterial Blood Gas Puncture Site Right Radial Arterial Blood Carboxyhemoglobin 0.1 Arterial Blood Methemoglobin 0.2 Blood Gas A-a O2 Differential 135.4 H Oxyhemoglobin Percent 95.0 Total Hemoglobin 14.1 Blood Gas Temperature 37.0 Blood Gas Respiration Rate 18.0 Blood Gas Actual Respiration Rate 29 Blood Gas Modality MASK - BIPAP FiO2 40.0 Blood Gas Low PEEP Setting 10.0 Blood Gas IPAP/EPAP Ratio 188 Blood Gas Critical Value Read Back DR LOWE Blood Gas Notified Whom TM Blood Gas Notified Time 04/01/2017 9:05:56 AM Medications Current Medications Ondansetron HCl (Zofran Inj) 4 mg Q6H PRN IV NAUSEA AND/OR VOMITING Last administered on 03/29/17 23:45; Admin Dose 4 MG; Start 03/22/17 at 01:30 Acetaminophen (Tylenol Liquid) 650 mg Q6H PRN PO PAIN LEVEL 1-3 OR FEVER Last administered on 03/28/17 05:39; Admin Dose 650 MG; Start 03/22/17 at 01:30 Acetaminophen (Tylenol Supp) 650 mg Q4H PRN [place] PAIN LEVEL 1-3 OR FEVER; Start 03/22/17 at 01:30 Aspirin 81 mg 81 mg DAILY PO Last administered on 04/01/17 10:25; Admin Dose 81 MG; Start 03/22/17 at 09:00 Levofloxacin/ Dextrose (Levaquin 500mg/ D5W 100 ml (Pmx)) 100 ml @ 100 mls/hr Q24H IVPB Last administered on 04/01/17 07:41; Admin Dose 100 MLS/HR; Start at 07:00 Atorvastatin Calcium (Lipitor) 80 mg HS PO Last administered on 03/31/17 20:20 ; Admin Dose 80 MG; Start 03/22/17 at 21:00 Febuxostat (Uloric) 40 mg DAILY PO Last administered on 04/01/17 10:24; Admin Dose 40 MG; Start 03/23/17 at 09:00 Multivitamins Therapeutic (Theragran) 1 tab DAILY PO Last administered on 10:24; Admin Dose 1 TAB; Start 03/23/17 at 09:00 Tamsulosin HCl (Flomax) 0.4 mg BID PO Last administered on 04/01/17 10:24; Admin Dose 0.4 MG; Start 03/22/17 at 21:00 Pantoprazole (Protonix Tab) 40 mg DAILY@06 PO Last administered on 04/01/17 05 :16; Admin Dose 40 MG; Start 03/23/17 at 06:00 Hydralazine HCl (Apresoline) 20 mg Q6H PRN IV SBP >180 Last administered on 21:17; Admin Dose 20 MG; Start 03/22/17 at 22:45 Metoprolol Tartrate (Lopressor) 5 mg Q6 PRN IV HR >100 or SBP >170 Last administered on 03/25/17 16:45; Admin Dose 5 MG; Start 03/23/17 at 15:30 Olanzapine (Zyprexa) 10 mg Q8 PRN IM severe agitation Last administered on 03/25 10:23; Admin Dose 10 MG; Start 03/23/17 at 15:30 Labetalol HCl (Labetalol) 10 mg Q4H PRN IV SBP>160 Last administered on 08:43; Admin Dose 10 MG; Start 03/24/17 at 09:30 Morphine Sulfate (morphine) 2 mg Q4H PRN IV PAIN LEVEL 7-10 Last administered on 04/01/17 09:21; Admin Dose 2 MG; Start 03/24/17 at 10:00 Carvedilol (Coreg) 25 mg BID PO Last administered on 04/01/17 10:25; Admin Dose 25 MG; Start 03/25/17 at 21:00 Bisacodyl (Dulcolax Supp) 10 mg DAILY PRN [place] CONSTIPATION; Start 03/26/17 at 12 :30 Bisacodyl (Dulcolax) 5 mg DAILY PRN PO CONSTIPATION Last administered on 17:51; Admin Dose 5 MG; Start 03/26/17 at 12:30 Lidocaine (Lidoderm) 1 patch DAILY TD Last administered on 04/01/17 10:24; Admin Dose 1 PATCH; Start 03/27/17 at 11:00 Docusate Sodium (Colace) 100 mg BID PRN PO CONSTIPATION Last administered on 20:20; Admin Dose 100 MG; Start 03/27/17 at 11:00 Nicotine (Nicoderm 21 Mg/ 24hr) 1 patch DAILY TRANSDERM Last administered on 10:24; Admin Dose 1 PATCH; Start 03/27/17 at 13:00 Acetaminophen/ Hydrocodone Bitart ([place] (5/325)) 1 tab Q6H PRN PO PAIN Last administered on 03/31/17 20:26; Admin Dose 1 TAB; Start 03/30/17 at 19:56 Methylprednisolone Sodium Succinate (Solu-Medrol) 40 mg Q12 IV ; Start 04/02/17 at 09:00 Assessment/Plan Additional Assessment/Plan IMP: 1. Recurrent Acute Hypercapnic and hypoxemic Resp Insufficiency--etiology possibly due to recurrent aspiration and large airway secretions leading to -space ventilation. Cannot exclude PE. 2. COPD Exacerbation 3. Underlying Gastric Cancer 4. Leukocytosis--2/2 CS 5. DVT s/p IVC filter 6. Worsening Azotemia RECS: 1. Transfer to ICU 2. BiPAP 3. Titrate FiO2 to KEEP SpO2 88-92%, not more 4. Solumedrol 40 mg IV BID 5. Obtain urine lytes 6. Aggressive CPT and suctioning by RT 7. Troponin and BNP Case D/W RN and Dr. Lowe 35 min cc time spent with patient AURELIO MCINTYRE MD Apr 01, 2017 17:14
--- NOTE | 2017-04-01 17:26 | PN ---
Date/Time of Note Date/Time of Note DATE: 04/01/17 TIME: 17:26 Assessment/Plan Lines/Catheters IV Catheter Type (from Nrs): Peripheral IV Waters in Place (from Nrs): Yes Assessment/Plan Chief Complaint/Hosp Course 1. 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 CT identifies GE jx thickening which may represent submucosal ? extension. Based on these findings, prior to surgical consideration, pt would benefit from re biopsy of the esophageal mass and proximal stomach preferably under EUS guidance. -pt will be best served at tertiary center for further treatment, since if GE jx involvement or esophageal involvement, much more extensive operation maybe necessary. 2. Respiratory failure with COPD Exacerbation: pl effusions improved -medical management 3. 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 Leukocytosis: no fevers; likely 2/2 #1, 2, 3: worsened today -as above 5. Hypertension - stable 6. Rib fracture -Lidoderm patch for pain control -encourage IS/deep breathing 7. Acute delirium: improving - medical management -supportive 8. Hypoalbuminemia -optimize nutrition -as above 9. Hyponatremia: improving -judicious fluids 10. Hypocalcemia: nutritional +/- inflammation -as above -nutritional optimization 11. NELLIE: -judicious fluids -per renal 12. Constipation/bloating -optimize bowel regimen Thank you. Patient seen and examined in collaboration with Dr. Kenneth Mendes. Problems: Subjective 24 Hr Interval Summary Appears comfortable.No abdominal pain/distention. No sob, congested cough, n/v/ d/dysuria, cp, palpitations, [place], dizziness, cp. Exam/Review of Systems Vital Signs Vitals Vital Signs Date Time Temp Pulse Resp B/P Pulse Ox O2 Delivery O2 Flow Rate FiO2 04/05/17 20:00 Nasal Cannula 5.0 04/05/17 13:29 97.5 102 36 140/84 83 Exam Free Text/Dictation Constitutional: oriented (to self, partial location, and partial date), No distress Psych: nl mood/affect, No anxiety Head: normocephalic, atraumatic Eyes: EOMI, PERRL, nl conjunctiva, No icteric ENMT: nl external ears & nose, nl lips & teeth, No mucosa pink and moist Neck: non-tender, supple Respiratory: normal air movement, No congested cough, No labored breathing Cardiovascular: nl pulses, regular rate and rhythm, No edema Gastrointestinal: distended (mod), non tender, No rebound or guarding Musculoskeletal: nl extremities to inspection, No joint tenderness, No nl gait and stance Extremities: No calf tenderness, No edema Neurological: No nl speech, No nl strength Skin: No diaphoresis, No nl turgor, No rash or lesions Lymph: palpable trena inguinal lymph nodes Results Result Diagram: 04/04/17 0437 04/04/17 0437 VIVIAN CLARK NP Apr 01, 2017 17:26
--- NOTE | 2017-04-01 17:56 | PN ---
Date/Time of Note Date/Time of Note DATE: 04/01/17 TIME: 17:44 Assessment/Plan Lines/Catheters IV Catheter Type (from Nrs): Peripheral IV Waters in Place (from Nrs): Yes Assessment/Plan Chief Complaint/Hosp Course 1. 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 CT identifies GE jx thickening which may represent submucosal ? extension. Based on these findings, prior to surgical consideration, pt would benefit from re biopsy of the esophageal mass and proximal stomach preferably under EUS guidance. -pt will be best served at tertiary center for further treatment, since if GE jx involvement or esophageal involvement, much more extensive operation maybe necessary. 2. Respiratory failure with COPD Exacerbation: increased work of breathing, refusing bipap -medical management -supportive -bipap 3. Acute on chronic DVT: L leg - anticoagulation 4. Leukocytosis: no fevers; likely 2/2 #1, 2, 3: worsened -as above 5. Hypertension - stable 6. Rib fracture -Lidoderm patch for pain control -encourage IS/deep breathing 7. Acute delirium: improving - medical management -supportive 8. Hypoalbuminemia -optimize nutrition -as above 9. Hyponatremia: improving -judicious fluids 10. Hypocalcemia: nutritional +/- inflammation -as above -nutritional optimization 11. NELLIE: -judicious fluids -per renal 12. Constipation/bloating -optimize bowel regimen Thank you. Patient seen and examined in collaboration with Dr. Kenneth Mendes. Problems: Subjective 24 Hr Interval Summary Short of breath. Noncompliant with bipap; desaturating. BP stable. No fevers, chills, cp, palpitations, n/v/d/dysuria, abdominal pain/distention. Exam/Review of Systems Vital Signs Vitals Vital Signs Date Time Temp Pulse Resp B/P Pulse Ox O2 Delivery O2 Flow Rate FiO2 04/01/17 17:25 96.6 65 23 93/55 87 04/01/17 12:45 Nasal Cannula 5.0 04/01/17 08:35 40 Intake and Output 03/31/17 03/31/17 04/01/17 15:00 23:00 07:00 Intake Total 1080 ml 600 ml Output Total 150 ml 500 ml Balance 930 ml 100 ml Exam Free Text/Dictation Constitutional: oriented (to self, partial location, and partial date), No distress Psych: nl mood/affect, No anxiety Head: normocephalic, atraumatic Eyes: EOMI, PERRL, nl conjunctiva, No icteric ENMT: nl external ears & nose, nl lips & teeth, No mucosa pink and moist Neck: non-tender, supple Respiratory: diminished, increased work of breathing, No congested cough, No labored breathing Cardiovascular: nl pulses, regular rate and rhythm, No edema Gastrointestinal: distended (mod), non tender, No rebound or guarding Musculoskeletal: nl extremities to inspection, No joint tenderness, No nl gait and stance Extremities: No calf tenderness, No edema Neurological: No nl speech, No nl strength Skin: No diaphoresis, No nl turgor, No rash or lesions Lymph: No nl lymph nodes Results Result Diagram: 04/01/17 0734 04/01/17 0734 VIVIAN CLARK NP Apr 01, 2017 17:56
[2017-04-01] MEDS ORDERED: SOD CHLORIDE 0.9% 250 ML IV ONE (19:00)
[2017-04-01] MEDS: SOD CHLORIDE 0.9% 1,000 ML IV SCH (20:25)
[2017-04-01] MEDS: ATORVASTATIN 40 MG TAB PO SCH (20:54)
[2017-04-02] VITALS (30 sets, daily range): BP systolic 83–154; BP diastolic 47–75; PULSE 61–76; RESP 13–31
[2017-04-02] MEDS: LEVALBUTEROL (NEB) 1.25 MG/0.5 ML AMP HHN SCH ×4 (02:04→19:13)
[2017-04-02] MEDS: ACETYLCYSTEINE 20% 4 ML VIAL NEB SCH ×4 (02:04→19:14)
[2017-04-02] MEDS: morphine 2 MG INJ IV PRN ×2 (03:32→20:29)
[2017-04-02] MEDS: PANTOPRAZOLE (EC) 40 MG TAB PO SCH ×2 (06:22→20:42)
[2017-04-02] MEDS: LEVOFLOXACIN 500MG/D5W (PMX) 100 ML IVPB SCH (06:22)
[2017-04-02] MEDS: SOD CHLORIDE 0.9% 1,000 ML IV SCH ×2 (06:23→22:30)
[2017-04-02] MEDS: HEPARIN 25000 UNITS/250 ML 250 ML IV SCH ×2 (07:37→22:15)
[2017-04-02 08:36] LABS: ABNORMAL IP MESSAGE 1; BASOPHILS % 0.1 % (0.0-2.0); HEMATOCRIT 32.7 % (42.0-52.0); HEMOGLOBIN 10.3 g/dl (14.0-18.0); LYMPHOCYTES # 0.6 10^3/ul (0.8-2.9); LYMPHOCYTES % 2.6 % (15.0-51.0); MEAN CORPUSCULAR HEMOGLOBIN 23.4 pg (29.0-33.0); MEAN CORPUSCULAR HGB CONC 31.5 g/dl (32.0-37.0); MEAN CORPUSCULAR VOLUME 74.3 fl (82.0-101.0); MEAN PLATELET VOLUME 10.7 fl (7.4-10.4); MONOCYTE # 0.4 10^3/ul (0.3-0.9); MONOCYTES % 1.8 % (0.0-11.0); NEUTROPHIL # 20.3 10^3/ul (1.6-7.5); NEUTROPHILS % 94.1 % (39.0-77.0); PLATELET COUNT 460 10^3/UL (140-415); POSITIVE DIFF @See below; RED CELL DISTRIBUTION WIDTH 16.8 % (11.5-14.5); WHITE BLOOD COUNT 21.6 10^3/ul (4.8-10.8)
[2017-04-02 09:03] LABS: ALBUMIN 2.2 g/dl (3.3-4.9); CALCIUM 7.2 mg/dl (8.4-10.2); CREATININE 1.45 mg/dl (0.61-1.24); MAGNESIUM 1.9 mg/dl (1.7-2.5); PHOSPHORUS 5.6 mg/dl (2.5-4.9); POTASSIUM 4.2 mmol/L (3.5-5.1)
[2017-04-02] MEDS: NICOTINE (21 MG/24 HR) PATCH TRANSDERM SCH (09:09)
[2017-04-02] MEDS: MULTIVITAMINS THERAPEUTIC TAB PO SCH (09:10)
[2017-04-02] MEDS: ASPIRIN (EC) 81 MG TAB PO SCH (09:10)
[2017-04-02] MEDS: METHYLPREDNISOLONE 40 MG INJ IV SCH ×2 (09:10→20:41)
[2017-04-02] MEDS: TAMSULOSIN (SR) 0.4 MG CAP PO SCH ×2 (09:10→20:41)
[2017-04-02] MEDS: FEBUXOSTAT 40 MG TABLET PO SCH (09:10)
[2017-04-02] MEDS: LIDOCAINE 5% PATCH TD SCH (09:10)
--- NOTE | 2017-04-02 09:34 | PN ---
Date/Time of Note Date/Time of Note DATE: 04/02/17 TIME: 09:27 Assessment/Plan VTE Prophylaxis VTE Prophylaxis Intervention: heparin Lines/Catheters IV Catheter Type (from Nrsg): Peripheral IV Urinary Cath still in place: Yes Reason Cath still needed: terminal illness/intractable pain Assessment/Plan Chief Complaint/Hosp Course Patient is a 76-year-old male with a past medical history significant for COPD, hypertension, and renal carcinoma 2011 as well as recent diagnosis of gastric carcinoma approximately 6 months ago who presents to [facility] for shortness of breath. Found to have acute on chronic DVT. Assessment Acute respiratory failure, resolving COPD exacerbation Acute on chronic DVT Hypertension mucus plug rib fracture emphysema History of renal cell carcinoma, with renal mass Renal mass Renal cyst Gastric carcinoma, unknown type, records pending GI tumors, likely Acute delirium Acute on chronic CKD Plan -Patient is a noncompliant male who presents with shortness of breath, recent history of diagnosis of gastric cancer, however no outpatient follow-up. Patient also has chronic DVTs, presents with acute DVT and history of implanted IVC filter since 2011, however patient is not on anticoagulation outpatient. -Patient not SOB, on NC, continue steroids/breathing treatments for now -hyponatremia appears to be improving, ? SIADH, nephro input appreciated, gentle hydration continued -hypotension stable -dvt- continue heparin for now, will transition to eliquis in the future -Patient back to baseline cognition -cr improved today with hydration -gastric adenocarcinoma, consultants believe transfer to tertiary care center would be most appropriate given possible complexity of surgery. DISPO: CM consult for trasfer to [facility] or [facility] Problems: Subjective 24 Hr Interval Summary Free Text/Dictation no acute complaints, no sob at this time Exam/Review of Systems Vital Signs Vitals Vital Signs Date Time Temp Pulse Resp B/P Pulse Ox O2 Delivery O2 Flow Rate FiO2 04/02/17 09:05 61 16 95 Nasal Cannula 4.0 04/02/17 06:00 101/60 04/02/17 04:00 98.4 04/02/17 02:00 40 Intake and Output 04/01/17 04/01/17 04/02/17 15:00 23:00 07:00 Intake Total 1218.5 ml 597.0 ml Output Total 520 ml 335 ml Balance 698.5 ml 262.0 ml Exam General: resting comfortably in bed, eating breakfast. Head: Normocephalic atraumatic Eyes: EOMI, pupils reactive to light Neck: Supple, nontender, midline Respiratory: diminished breath sounds bilaterally, no wheezing or crackles Cardiovascular: regular rate, no obvious murmurs. slight tenderness left chest wall Gastrointestinal: non-tender to palpation, bowel sounds heard. Skin: No new skin lesions Results Result Diagram: 04/02/17 0740 04/02/17 0740 Results 24 hrs Laboratory Tests Test 04/01/17 17:43 04/02/17 01:18 04/02/17 07:40 Activated Partial Thromboplast Time 132.1 *H 60.7 H 88.1 *H White Blood Count 21.6 H Red Blood Count 4.40 L Hemoglobin 10.3 L Hematocrit 32.7 L Mean Corpuscular Volume 74.3 L Mean Corpuscular Hemoglobin 23.4 L Mean Corpuscular Hemoglobin Concent 31.5 L Red Cell Distribution Width 16.8 H Platelet Count 460 H Mean Platelet Volume 10.7 H Neutrophils % 94.1 H Lymphocytes % 2.6 L Monocytes % 1.8 Eosinophils % 0.0 Basophils % 0.1 Nucleated Red Blood Cells % 0.0 Neutrophils # 20.3 H Lymphocytes # 0.6 L Monocytes # 0.4 Eosinophils # 0.0 Basophils # 0.0 Nucleated Red Blood Cells # 0.0 Sodium Level 128 L Potassium Level 4.2 Chloride Level 100 Carbon Dioxide Level 23 Anion Gap 9 Blood Urea Nitrogen 51 H Creatinine 1.45 H Glucose Level 162 Lactic Acid Level 0.8 Calcium Level 7.2 L Phosphorus Level 5.6 H Magnesium Level 1.9 Albumin 2.2 L Medications Medications Current Medications Ondansetron HCl (Zofran Inj) 4 mg Q6H PRN IV NAUSEA AND/OR VOMITING Last administered on 03/29/17 23:45; Admin Dose 4 MG; Start 03/22/17 at 01:30 Acetaminophen (Tylenol Liquid) 650 mg Q6H PRN PO PAIN LEVEL 1-3 OR FEVER Last administered on 03/28/17 05:39; Admin Dose 650 MG; Start 03/22/17 at 01:30 Acetaminophen (Tylenol Supp) 650 mg Q4H PRN [place] PAIN LEVEL 1-3 OR FEVER; Start 03/22/17 at 01:30 Aspirin 81 mg 81 mg DAILY PO Last administered on 04/02/17 09:10; Admin Dose 81 MG; Start 03/22/17 at 09:00 Levofloxacin/ Dextrose (Levaquin 500mg/ D5W 100 ml (Pmx)) 100 ml @ 100 mls/hr Q24H IVPB Last administered on 04/02/17 06:22; Admin Dose 100 MLS/HR; Start at 07:00 Atorvastatin Calcium (Lipitor) 80 mg HS PO Last administered on 04/01/17 20:54 ; Admin Dose 80 MG; Start 03/22/17 at 21:00 Febuxostat (Uloric) 40 mg DAILY PO Last administered on 04/02/17 09:10; Admin Dose 40 MG; Start 03/23/17 at 09:00 Multivitamins Therapeutic (Theragran) 1 tab DAILY PO Last administered on 09:10; Admin Dose 1 TAB; Start 03/23/17 at 09:00 Tamsulosin HCl (Flomax) 0.4 mg BID PO Last administered on 04/02/17 09:10; Admin Dose 0.4 MG; Start 03/22/17 at 21:00 Pantoprazole (Protonix Tab) 40 mg DAILY@06 PO Last administered on 04/02/17 06 :22; Admin Dose 40 MG; Start 03/23/17 at 06:00 Hydralazine HCl (Apresoline) 20 mg Q6H PRN IV SBP >180 Last administered on 21:17; Admin Dose 20 MG; Start 03/22/17 at 22:45 Metoprolol Tartrate (Lopressor) 5 mg Q6 PRN IV HR >100 or SBP >170 Last administered on 03/25/17 16:45; Admin Dose 5 MG; Start 03/23/17 at 15:30 Olanzapine (Zyprexa) 10 mg Q8 PRN IM severe agitation Last administered on 03/25 10:23; Admin Dose 10 MG; Start 03/23/17 at 15:30 Labetalol HCl (Labetalol) 10 mg Q4H PRN IV SBP>160 Last administered on 08:43; Admin Dose 10 MG; Start 03/24/17 at 09:30 Morphine Sulfate (morphine) 2 mg Q4H PRN IV PAIN LEVEL 7-10 Last administered on 04/02/17 03:32; Admin Dose 2 MG; Start 03/24/17 at 10:00 Carvedilol (Coreg) 25 mg BID PO Last administered on 04/02/17 09:10; Admin Dose 25 MG; Start 03/25/17 at 21:00 Bisacodyl (Dulcolax Supp) 10 mg DAILY PRN [place] CONSTIPATION; Start 03/26/17 at 12 :30 Bisacodyl (Dulcolax) 5 mg DAILY PRN PO CONSTIPATION Last administered on 17:51; Admin Dose 5 MG; Start 03/26/17 at 12:30 Lidocaine (Lidoderm) 1 patch DAILY TD Last administered on 04/02/17 09:10; Admin Dose 1 PATCH; Start 03/27/17 at 11:00 Docusate Sodium (Colace) 100 mg BID PRN PO CONSTIPATION Last administered on 20:20; Admin Dose 100 MG; Start 03/27/17 at 11:00 Nicotine (Nicoderm 21 Mg/ 24hr) 1 patch DAILY TRANSDERM Last administered on 09:09; Admin Dose 1 PATCH; Start 03/27/17 at 13:00 Acetaminophen/ Hydrocodone Bitart ([place] (5/325)) 1 tab Q6H PRN PO PAIN Last administered on 03/31/17 20:26; Admin Dose 1 TAB; Start 03/30/17 at 19:56 Methylprednisolone Sodium Succinate 40 mg 40 mg Q12 IV Last administered on 09:10; Admin Dose 40 MG; Start 04/02/17 at 09:00 Sodium Chloride (NS) 1,000 ml @ 75 mls/hr [id number] IV Last administered on 04/02 06:23; Admin Dose 75 MLS/HR; Start 04/01/17 at 19:00 ISIDRO CARRERA Apr 02, 2017 09:34
--- NOTE | 2017-04-02 10:17 | RADRPT ---
PROCEDURE: XR Chest. CLINICAL INDICATION: Shortness of breath. TECHNIQUE: Single frontal view. COMPARISON: 03/30/2017. FINDINGS: There is atelectasis at the lung bases, unchanged. The lungs are otherwise clear. The heart size is normal. There is calcification in the aorta consistent with atherosclerosis. There is no pleural effusion. There is no pneumothorax. There is free air under the diaphragm. IMPRESSION: 1. Atelectasis at the lung bases. 2. Atherosclerosis. 3. New free air under the diaphragm consistent with perforated hollow viscus. Call report: A call report of the findings was made to Dr. Ok Tellez on 04/02/2017 at 1015 hours. RPTAT: QQ .Alejo Fall MD, MD Date Time Electronically viewed and signed by .Alejo Fall MD, on 04/02/2017 10:17 .R/
[2017-04-02] MEDS ORDERED: IOHEXOL 300MG/ML 30 ML BTL ONE (10:58)
--- NOTE | 2017-04-02 11:28 | PN ---
Date/Time of Note Date/Time of Note DATE: 04/02/17 TIME: 11:21 Assessment/Plan Lines/Catheters IV Catheter Type (from Nrsg): Peripheral IV Waters in Place (from Nrsg): Yes Assessment/Plan Chief Complaint/Hosp Course 1. 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 CT identifies GE jx thickening which may represent submucosal ? extension. Based on these findings, prior to surgical consideration, pt would benefit from re biopsy of the esophageal mass and proximal stomach preferably under EUS guidance. -pt will be best served at tertiary center for further treatment, since if GE jx involvement or esophageal involvement, much more extensive operation maybe necessary. 2. Respiratory failure with COPD Exacerbation: Improved today, comfortable on nasal cannula; XRAY shows free air, concern for perforated viscus -medical management -supportive -bipap prn -ct pending 3. Acute on chronic DVT: L leg - anticoagulation 4. Leukocytosis: no fevers; likely 2/2 #1, 2, 3 -as above 5. Hypertension - stable 6. Rib fracture -Lidoderm patch for pain control -encourage IS/deep breathing 7. Acute delirium: improving - medical management -supportive 8. Hypoalbuminemia -optimize nutrition -as above 9. Hyponatremia: improving -judicious fluids 10. Hypocalcemia: nutritional +/- inflammation -as above -nutritional optimization 11. NELLIE: -judicious fluids -per renal 12. Constipation/bloating -optimize bowel regimen Thank you. Patient seen and examined in collaboration with Dr. Kenneth Mendes. Problems: Subjective 24 Hr Interval Summary Feels ok. Minimal rib pain similar to previous pain. Comfortable on nasal cannula. No c/o cp, palpitations, sob, congested cough, abdominal pain/ discomfort. +flatus. Exam/Review of Systems Vital Signs Vitals Vital Signs Date Time Temp Pulse Resp B/P Pulse Ox O2 Delivery O2 Flow Rate FiO2 04/02/17 09:05 61 16 95 Nasal Cannula 4.0 04/02/17 09:00 99/57 04/02/17 08:00 98.6 04/02/17 02:00 40 Intake and Output 04/01/17 04/01/17 04/02/17 15:00 23:00 07:00 Intake Total 1218.5 ml 597.0 ml Output Total 520 ml 335 ml Balance 698.5 ml 262.0 ml Exam Free Text/Dictation Constitutional: oriented (to self, partial location, and partial date), No distress Psych: nl mood/affect, No anxiety Head: normocephalic, atraumatic Eyes: EOMI, PERRL, nl conjunctiva, No icteric ENMT: nl external ears & nose, nl lips & teeth, No mucosa pink and moist Neck: non-tender, supple Respiratory: diminished, normal rate and depth, No congested cough, No labored breathing Cardiovascular: nl pulses, regular rate and rhythm, No edema Gastrointestinal: distended (mod), non tender, No rebound or guarding Musculoskeletal: nl extremities to inspection, No joint tenderness, No nl gait and stance Extremities: No calf tenderness, No edema Neurological: No nl speech, No nl strength Skin: No diaphoresis, No nl turgor, No rash or lesions Lymph: No nl lymph nodes Results Result Diagram: 04/02/17 0740 04/02/17 0740 VIVIAN CLARK NP Apr 02, 2017 11:28
--- NOTE | 2017-04-02 12:14 | RADRPT ---
PROCEDURE: CT Abdomen and Pelvis without contrast. CLINICAL INDICATION: Abdominal and pelvic pain. Free air visualized on the chest radiograph done yusuf gregg the same day. History of gastric cancer. TECHNIQUE: CT scan of the abdomen and pelvis without contrast was performed. Coronal and sagittal reformatted images were obtained from the axial source images. Images were reviewed on a [employer] PACS workstation. Total exam DLP is 569.41 mGy-cm. CTDIvol is 9.16 mGy. One or more of the fo [facility] dose reduction techniques were used: Automated exposure control, adjustment of the mA and/or kV according to patient size, use of iterative reconstruction technique. COMPARISON: CT scan of the abdomen and pelvis dated 11/08. FINDINGS: Emphysematous changes are present at both lung bases. There is also atelectasis at the lung bases po steriorly. There is a small right pleural effusion and a moderate left pleural effusion. The heart s ize is normal. There is coronary artery calcification. There is no pericardial effusion. The liver is normal in size and attenuation. There is no focal hepatic lesion. The gallbladder and bile ducts are normal. The spleen is normal in size. There is no focal splenic lesion. Both adrenals are normal with no enlargement or mass. The pancreas is unremarkable with no mass or evidence of pancreatitis. There is no solid renal mass or hydronephrosis. There are small bilateral renal masses, unchanged. There is no renal calculus or ureteral calculus. The abdominal aorta is not dilated. There is an inferior vena cava filter in satisfactory position b elow the level of the renal veins. There is no retroperitoneal lymphadenopathy or mass. There is no pelvic lymphadenopathy or mass. There is a Waters catheter in the urinary bladder. The prostate is enlarged. The periappendiceal region is unremarkable with no evidence of appendicitis. The bowel and mesentery are normal. There is no free fluid. There is a large amount of free air consistent with perforated hollow viscus . The osseous structures are unremarkable with no fracture or lytic lesion. IMPRESSION: 1. Emphysema at the lung bases. 2. Atelectasis at the lung bases posteriorly. 3. Small right pleural effusion and moderate left pleural effusion. 4. Coronary artery calcification. 5. Bilateral renal masses as seen previously. 6. IVC filter in satisfactory position. 7. Waters catheter in the bladder. 8. Enlarged prostate. 9. Large amount of free air consistent with perforated hollow viscus as seen on chest x-ray. Origin is uncertain. RPTAT: QQ .Alejo Fall MD, Date Time Electronically viewed and signed by .Alejo Fall MD, on 04/02/2017 12:13 .R/
--- NOTE | 2017-04-02 12:14 | CONS ---
Date/Time of Note Date/Time of Note DATE: 04/02/17 TIME: 12:10 Assessment/Plan Assessment/Plan Additional Assessment/Plan Chest x-ray was reviewed from today which is showing patchy infiltrates bilaterally. Endotracheal tube is at an adequate level. Ventilator setting; AC of 14, tidal volume 500, PEEP of 5, 30% FiO2. Patient currently on propofol at 30 mics per kilogram per minute. Patient is off insulin drip. Assessment and recommendations; 1. Patient admitted with DKA with altered mental status had to be intubated yesterday for airway protection. 2. Hypoxemic and hypercapnic respiratory failure from combination of pneumonia and COPD. 3. Remote history of cardiac arrest 3 years ago requiring coronary stent placement. 4. Acute renal injury. 5. Positive troponins. Etiology is unclear. 6. Patient is a current smoker. Hold sedation to assess mental status. Continue mechanical ventilation for now. Meanwhile obtain a cardiology consult for evaluation of positive troponins. Obtain 2D echocardiogram as well. I did have a very detailed discussion the patient's sister at bedside and answered all her questions. 35 minutes of critical care time was spent evaluating the patient. Consultation Date/Type/Reason Admit Date/Time Mar 21, 2017 at 23:46 Initial Consult Date 03/22/17 Type of Consultation: Pulm/CCM Referring Provider: XENA DE JESUS MD 24 HR Interval Summary Free Text/Dictation Patient condition remains critical. Had to be intubated yesterday for worsening metabolic acidosis. General exam; elderly male, orally intubated, sedated. Currently in no distress. Exam/Review of Systems Vital Signs Vitals Vital Signs Date Time Temp Pulse Resp B/P Pulse Ox O2 Delivery O2 Flow Rate FiO2 04/02/17 09:05 61 16 95 Nasal Cannula 4.0 04/02/17 09:00 99/57 04/02/17 08:00 98.6 04/02/17 02:00 40 Intake and Output 04/01/17 04/01/17 04/02/17 15:00 23:00 07:00 Intake Total 1218.5 ml 597.0 ml Output Total 520 ml 335 ml Balance 698.5 ml 262.0 ml Exam HEENT exam; supple neck, no JVD. No lymphadenopathy. Midline trachea. No thyromegaly. Patient has few remaining teeth. Orally intubated. Pupils are small bilaterally. Chest exam; diminished breath sounds bilaterally. S1-S2 audible, no murmurs. Regular rhythm. Abdomen exam; soft, no organomegaly. Bowel sounds are audible. Extremity exam; no peripheral edema. 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 Results Result Diagram: 04/02/17 0740 04/02/17 0740 Results 24 hrs Laboratory Tests Test 04/01/17 17:43 04/02/17 01:18 04/02/17 07:40 Activated Partial Thromboplast Time 132.1 *H 60.7 H 88.1 *H White Blood Count 21.6 H Red Blood Count 4.40 L Hemoglobin 10.3 L Hematocrit 32.7 L Mean Corpuscular Volume 74.3 L Mean Corpuscular Hemoglobin 23.4 L Mean Corpuscular Hemoglobin Concent 31.5 L Red Cell Distribution Width 16.8 H Platelet Count 460 H Mean Platelet Volume 10.7 H Neutrophils % 94.1 H Lymphocytes % 2.6 L Monocytes % 1.8 Eosinophils % 0.0 Basophils % 0.1 Nucleated Red Blood Cells % 0.0 Neutrophils # 20.3 H Lymphocytes # 0.6 L Monocytes # 0.4 Eosinophils # 0.0 Basophils # 0.0 Nucleated Red Blood Cells # 0.0 Sodium Level 128 L Potassium Level 4.2 Chloride Level 100 Carbon Dioxide Level 23 Anion Gap 9 Blood Urea Nitrogen 51 H Creatinine 1.45 H Glucose Level 162 Lactic Acid Level 0.8 Calcium Level 7.2 L Phosphorus Level 5.6 H Magnesium Level 1.9 Albumin 2.2 L Medications Medications Current Medications Ondansetron HCl (Zofran Inj) 4 mg Q6H PRN IV NAUSEA AND/OR VOMITING Last administered on 03/29/17 23:45; Admin Dose 4 MG; Start 03/22/17 at 01:30 Acetaminophen (Tylenol Liquid) 650 mg Q6H PRN PO PAIN LEVEL 1-3 OR FEVER Last administered on 03/28/17 05:39; Admin Dose 650 MG; Start 03/22/17 at 01:30 Acetaminophen (Tylenol Supp) 650 mg Q4H PRN [place] PAIN LEVEL 1-3 OR FEVER; Start 03/22/17 at 01:30 Aspirin (Halfprin) 81 mg DAILY PO Last administered on 04/02/17 09:10; Admin Dose 81 MG; Start 03/22/17 at 09:00 Atorvastatin Calcium (Lipitor) 80 mg HS PO Last administered on 04/01/17 20:54 ; Admin Dose 80 MG; Start 03/22/17 at 21:00 Febuxostat (Uloric) 40 mg DAILY PO Last administered on 04/02/17 09:10; Admin Dose 40 MG; Start 03/23/17 at 09:00 Multivitamins Therapeutic (Theragran) 1 tab DAILY PO Last administered on 09:10; Admin Dose 1 TAB; Start 03/23/17 at 09:00 Tamsulosin HCl (Flomax) 0.4 mg BID PO Last administered on 04/02/17 09:10; Admin Dose 0.4 MG; Start 03/22/17 at 21:00 Hydralazine HCl (Apresoline) 20 mg Q6H PRN IV SBP >180 Last administered on 21:17; Admin Dose 20 MG; Start 03/22/17 at 22:45 Metoprolol Tartrate (Lopressor) 5 mg Q6 PRN IV HR >100 or SBP >170 Last administered on 03/25/17 16:45; Admin Dose 5 MG; Start 03/23/17 at 15:30 Olanzapine (Zyprexa) 10 mg Q8 PRN IM severe agitation Last administered on 03/25 10:23; Admin Dose 10 MG; Start 03/23/17 at 15:30 Labetalol HCl (Labetalol) 10 mg Q4H PRN IV SBP>160 Last administered on 08:43; Admin Dose 10 MG; Start 03/24/17 at 09:30 Morphine Sulfate (morphine) 2 mg Q4H PRN IV PAIN LEVEL 7-10 Last administered on 04/02/17 03:32; Admin Dose 2 MG; Start 03/24/17 at 10:00 Carvedilol (Coreg) 25 mg BID PO Last administered on 04/02/17 09:10; Admin Dose 25 MG; Start 03/25/17 at 21:00 Bisacodyl (Dulcolax Supp) 10 mg DAILY PRN [place] CONSTIPATION; Start 03/26/17 at 12 :30 Bisacodyl (Dulcolax) 5 mg DAILY PRN PO CONSTIPATION Last administered on 17:51; Admin Dose 5 MG; Start 03/26/17 at 12:30 Lidocaine (Lidoderm) 1 patch DAILY TD Last administered on 04/02/17 09:10; Admin Dose 1 PATCH; Start 03/27/17 at 11:00 Docusate Sodium (Colace) 100 mg BID PRN PO CONSTIPATION Last administered on 20:20; Admin Dose 100 MG; Start 03/27/17 at 11:00 Nicotine (Nicoderm 21 Mg/ 24hr) 1 patch DAILY TRANSDERM Last administered on 09:09; Admin Dose 1 PATCH; Start 03/27/17 at 13:00 Acetaminophen/ Hydrocodone Bitart ([place] (5/325)) 1 tab Q6H PRN PO PAIN Last administered on 03/31/17 20:26; Admin Dose 1 TAB; Start 03/30/17 at 19:56 Methylprednisolone Sodium Succinate 40 mg 40 mg Q12 IV Last administered on 09:10; Admin Dose 40 MG; Start 04/02/17 at 09:00 Sodium Chloride (NS) 1,000 ml @ 75 mls/hr [id number] IV Last administered on 04/02 06:23; Admin Dose 75 MLS/HR; Start 04/01/17 at 19:00 Pantoprazole 40 mg 40 mg BID PO ; Start 04/02/17 at 21:00 Piperacillin Sod/ Tazobactam Sod (Zosyn 3.375gm/ 100 ml (Pmx)) 100 ml @ 200 mls /hr Q6 IVPB ; Start 04/02/17 at 12:[address] MCARTHUR Apr 02, 2017 12:14
[2017-04-02] MEDS: PIPER-TAZO 3.375 GM IV (PMX) 100 ML IVPB SCH ×2 (12:46→17:28)
--- NOTE | 2017-04-02 18:10 | PN ---
Date/Time of Note Date/Time of Note DATE: 04/02/17 TIME: 18:08 Assessment/Plan VTE Prophylaxis VTE Prophylaxis Intervention: SCD's Lines/Catheters IV Catheter Type (from Nrs): Peripheral IV Urinary Cath still in place: Yes Reason Cath still needed: urinary retention Assessment/Plan Assessment/Plan Respiratory failure, improving SIRS/Sepsis Acute kidney injury, improving Extensive DVT noted bilaterally with hx IVC filter COPD Possible history of malignancy Active tobacco use Mild elevated troponin Left-sided rib fracture -Patient with improvement in respiratory status and mental status. CT chest with no evidence of pulmonary emboli. Continue anticoagulation if no contraindication. -would start eliquis -sw daughter -sw daughter -?false +trops Subjective 24 Hr Interval Summary Free Text/Dictation The patient with no change Exam/Review of Systems Vital Signs Vitals Vital Signs Date Time Temp Pulse Resp B/P Pulse Ox O2 Delivery O2 Flow Rate FiO2 04/02/17 17:39 4.0 04/02/17 17:00 66 21 95/55 95 Nasal Cannula 04/02/17 16:00 98.1 04/02/17 11:45 4 Intake and Output 04/01/17 04/01/17 04/02/17 15:00 23:00 07:00 Intake Total 1218.5 ml 597.0 ml Output Total 520 ml 335 ml Balance 698.5 ml 262.0 ml Results Result Diagram: 04/02/17 0740 04/02/17 0740 Results 24 hrs Laboratory Tests Test 04/02/17 01:18 04/02/17 07:40 04/02/17 15:12 Activated Partial Thromboplast Time 60.7 H 88.1 *H 142.5 *H White Blood Count 21.6 H Red Blood Count 4.40 L Hemoglobin 10.3 L Hematocrit 32.7 L Mean Corpuscular Volume 74.3 L Mean Corpuscular Hemoglobin 23.4 L Mean Corpuscular Hemoglobin Concent 31.5 L Red Cell Distribution Width 16.8 H Platelet Count 460 H Mean Platelet Volume 10.7 H Neutrophils % 94.1 H Lymphocytes % 2.6 L Monocytes % 1.8 Eosinophils % 0.0 Basophils % 0.1 Nucleated Red Blood Cells % 0.0 Neutrophils # 20.3 H Lymphocytes # 0.6 L Monocytes # 0.4 Eosinophils # 0.0 Basophils # 0.0 Nucleated Red Blood Cells # 0.0 Sodium Level 128 L Potassium Level 4.2 Chloride Level 100 Carbon Dioxide Level 23 Anion Gap 9 Blood Urea Nitrogen 51 H Creatinine 1.45 H Glucose Level 162 Lactic Acid Level 0.8 Calcium Level 7.2 L Phosphorus Level 5.6 H Magnesium Level 1.9 Albumin 2.2 L Medications Medications Current Medications Ondansetron HCl (Zofran Inj) 4 mg Q6H PRN IV NAUSEA AND/OR VOMITING Last administered on 03/29/17 23:45; Admin Dose 4 MG; Start 03/22/17 at 01:30 Acetaminophen (Tylenol Liquid) 650 mg Q6H PRN PO PAIN LEVEL 1-3 OR FEVER Last administered on 03/28/17 05:39; Admin Dose 650 MG; Start 03/22/17 at 01:30 Acetaminophen (Tylenol Supp) 650 mg Q4H PRN [place] PAIN LEVEL 1-3 OR FEVER; Start 03/22/17 at 01:30 Aspirin (Halfprin) 81 mg DAILY PO Last administered on 04/02/17 09:10; Admin Dose 81 MG; Start 03/22/17 at 09:00 Atorvastatin Calcium (Lipitor) 80 mg HS PO Last administered on 04/01/17 20:54 ; Admin Dose 80 MG; Start 03/22/17 at 21:00 Febuxostat (Uloric) 40 mg DAILY PO Last administered on 04/02/17 09:10; Admin Dose 40 MG; Start 03/23/17 at 09:00 Multivitamins Therapeutic (Theragran) 1 tab DAILY PO Last administered on 09:10; Admin Dose 1 TAB; Start 03/23/17 at 09:00 Tamsulosin HCl (Flomax) 0.4 mg BID PO Last administered on 04/02/17 09:10; Admin Dose 0.4 MG; Start 03/22/17 at 21:00 Hydralazine HCl (Apresoline) 20 mg Q6H PRN IV SBP >180 Last administered on 21:17; Admin Dose 20 MG; Start 03/22/17 at 22:45 Metoprolol Tartrate (Lopressor) 5 mg Q6 PRN IV HR >100 or SBP >170 Last administered on 03/25/17 16:45; Admin Dose 5 MG; Start 03/23/17 at 15:30 Olanzapine (Zyprexa) 10 mg Q8 PRN IM severe agitation Last administered on 03/25 10:23; Admin Dose 10 MG; Start 03/23/17 at 15:30 Labetalol HCl (Labetalol) 10 mg Q4H PRN IV SBP>160 Last administered on 08:43; Admin Dose 10 MG; Start 03/24/17 at 09:30 Morphine Sulfate (morphine) 2 mg Q4H PRN IV PAIN LEVEL 7-10 Last administered on 04/02/17 03:32; Admin Dose 2 MG; Start 03/24/17 at 10:00 Carvedilol (Coreg) 25 mg BID PO Last administered on 04/02/17 09:10; Admin Dose 25 MG; Start 03/25/17 at 21:00 Bisacodyl (Dulcolax Supp) 10 mg DAILY PRN [place] CONSTIPATION; Start 03/26/17 at 12 :30 Bisacodyl (Dulcolax) 5 mg DAILY PRN [place] CONSTIPATION Last administered on 17:51; Admin Dose 5 MG; Start 03/26/17 at 12:30 Lidocaine (Lidoderm) 1 patch DAILY TD Last administered on 04/02/17 09:10; Admin Dose 1 PATCH; Start 03/27/17 at 11:00 Docusate Sodium (Colace) 100 mg BID PRN [place] CONSTIPATION Last administered on 20:20; Admin Dose 100 MG; Start 03/27/17 at 11:00 Nicotine (Nicoderm 21 Mg/ 24hr) 1 patch DAILY TRANSDERM Last administered on 09:09; Admin Dose 1 PATCH; Start 03/27/17 at 13:00 Acetaminophen/ Hydrocodone Bitart ([place] (5/325)) 1 tab Q6H PRN PO PAIN Last administered on 03/31/17 20:26; Admin Dose 1 TAB; Start 03/30/17 at 19:56 Methylprednisolone Sodium Succinate 40 mg 40 mg Q12 IV Last administered on 09:10; Admin Dose 40 MG; Start 04/02/17 at 09:00 Sodium Chloride (NS) 1,000 ml @ 75 mls/hr [id number] IV Last administered on 04/02 06:23; Admin Dose 75 MLS/HR; Start 04/01/17 at 19:00 Pantoprazole 40 mg 40 mg BID PO ; Start 04/02/17 at 21:00 Piperacillin Sod/ Tazobactam Sod (Zosyn 3.375gm/ 100 ml (Pmx)) 100 ml @ 200 mls /hr Q6 IVPB Last administered on 04/02/17t 17:28; Admin Dose 200 MLS/HR; Start 04/02/17 at 12:00 GIOVANA PAGAN MD Apr 02, 2017 18:10
--- NOTE | 2017-04-02 18:45 | QN ---
Documentation Comment I had a long discussion with patient's family members in terms of surgery risks involved and postoperative care. We also discussed gastric cancer, esophageal lesion, renal lesions, colonic lesions. At this point family does not want to proceed with surgery knowing the fact that he has a perforated viscus and very likely will continue to leak become septic which may lately to his demise. Patient has elected to proceed with comfort care and not surgery at this time. SHAHIDA HU MD Apr 02, 2017 18:45
--- NOTE | 2017-04-02 20:00 | CONS ---
Date/Time of Note Date/Time of Note DATE: 04/02/17 TIME: 19:59 Assessment/Plan Assessment/Plan Additional Assessment/Plan 76 yo Male with 1) S/p Resp Failure 2) COPD 3) HTN, Chronic 4) Hx of RCC S/ Partial Nephrectomy by Dr Ly Gant 5) Hyperechoic Mass Rt Kidney ?RCC 6) Left Renal Cysts 7) Leukcytosis 8) Anemia, Likely Chronic 9) NELLIE Resolved. S/p Waters Likely obstructive Uropathy. 10) GI Malignancy Work up in progress 11) DVT/ No PE on CTA 12) Hyponatremia- Improving 13) Hypotension, Resolved. 14) Perforated Viscus Renal function stable. S/p Waters Catheter, Non oliguric Strict Is and Os, Monitor UO, Electrolytes and renal function daily Consultation Date/Type/Reason Admit Date/Time Mar 21, 2017 at 23:46 Initial Consult Date 03/22/17 Type of Consultation: Renal Referring Provider: XENA DE JESUS MD 24 HR Interval Summary Free Text/Dictation Transferred to ICU for resp failure, Non oliguric. Subjective hx not possible: pt critical status Constitutional: requiring O2 Exam/Review of Systems Vital Signs Vitals Vital Signs Date Time Temp Pulse Resp B/P Pulse Ox O2 Delivery O2 Flow Rate FiO2 04/02/17 19:24 63 18 96 Nasal Cannula 4.0 04/02/17 17:00 95/55 04/02/17 16:00 98.1 04/02/17 11:45 4 Intake and Output 04/01/17 04/01/17 04/02/17 15:00 23:00 07:00 Intake Total 1218.5 ml 597.0 ml Output Total 520 ml 335 ml Balance 698.5 ml 262.0 ml Exam Constitutional: distress, frail Head: atraumatic Eyes: EOMI Neck: No jvd Respiratory: crackles/rales, diminished breath sounds, labored breathing, other (BIPAP) Cardiovascular: regular rate and rhythm, No edema Gastrointestinal: distended, soft Neurological: No lethargic Skin: No diaphoresis Results Result Diagram: 04/02/17 0740 04/02/17 0740 Results 24 hrs Laboratory Tests Test 04/02/17 01:18 04/02/17 07:40 04/02/17 15:12 Activated Partial Thromboplast Time 60.7 H 88.1 *H 142.5 *H White Blood Count 21.6 H Red Blood Count 4.40 L Hemoglobin 10.3 L Hematocrit 32.7 L Mean Corpuscular Volume 74.3 L Mean Corpuscular Hemoglobin 23.4 L Mean Corpuscular Hemoglobin Concent 31.5 L Red Cell Distribution Width 16.8 H Platelet Count 460 H Mean Platelet Volume 10.7 H Neutrophils % 94.1 H Lymphocytes % 2.6 L Monocytes % 1.8 Eosinophils % 0.0 Basophils % 0.1 Nucleated Red Blood Cells % 0.0 Neutrophils # 20.3 H Lymphocytes # 0.6 L Monocytes # 0.4 Eosinophils # 0.0 Basophils # 0.0 Nucleated Red Blood Cells # 0.0 Sodium Level 128 L Potassium Level 4.2 Chloride Level 100 Carbon Dioxide Level 23 Anion Gap 9 Blood Urea Nitrogen 51 H Creatinine 1.45 H Glucose Level 162 Lactic Acid Level 0.8 Calcium Level 7.2 L Phosphorus Level 5.6 H Magnesium Level 1.9 Albumin 2.2 L Medications Medications Current Medications Ondansetron HCl (Zofran Inj) 4 mg Q6H PRN IV NAUSEA AND/OR VOMITING Last administered on 03/29/17 23:45; Admin Dose 4 MG; Start 03/22/17 at 01:30 Acetaminophen (Tylenol Liquid) 650 mg Q6H PRN PO PAIN LEVEL 1-3 OR FEVER Last administered on 03/28/17 05:39; Admin Dose 650 MG; Start 03/22/17 at 01:30 Acetaminophen (Tylenol Supp) 650 mg Q4H PRN [place] PAIN LEVEL 1-3 OR FEVER; Start 03/22/17 at 01:30 Aspirin (Halfprin) 81 mg DAILY PO Last administered on 04/02/17 09:10; Admin Dose 81 MG; Start 03/22/17 at 09:00 Atorvastatin Calcium (Lipitor) 80 mg HS PO Last administered on 04/01/17 20:54 ; Admin Dose 80 MG; Start 03/22/17 at 21:00 Febuxostat (Uloric) 40 mg DAILY PO Last administered on 04/02/17 09:10; Admin Dose 40 MG; Start 03/23/17 at 09:00 Multivitamins Therapeutic (Theragran) 1 tab DAILY PO Last administered on 09:10; Admin Dose 1 TAB; Start 03/23/17 at 09:00 Tamsulosin HCl (Flomax) 0.4 mg BID PO Last administered on 04/02/17 09:10; Admin Dose 0.4 MG; Start 03/22/17 at 21:00 Hydralazine HCl (Apresoline) 20 mg Q6H PRN IV SBP >180 Last administered on 21:17; Admin Dose 20 MG; Start 03/22/17 at 22:45 Metoprolol Tartrate (Lopressor) 5 mg Q6 PRN IV HR >100 or SBP >170 Last administered on 03/25/17 16:45; Admin Dose 5 MG; Start 03/23/17 at 15:30 Olanzapine (Zyprexa) 10 mg Q8 PRN IM severe agitation Last administered on 03/25 10:23; Admin Dose 10 MG; Start 03/23/17 at 15:30 Labetalol HCl (Labetalol) 10 mg Q4H PRN IV SBP>160 Last administered on 08:43; Admin Dose 10 MG; Start 03/24/17 at 09:30 Morphine Sulfate (morphine) 2 mg Q4H PRN IV PAIN LEVEL 7-10 Last administered on 04/02/17 03:32; Admin Dose 2 MG; Start 03/24/17 at 10:00 Carvedilol (Coreg) 25 mg BID PO Last administered on 04/02/17 09:10; Admin Dose 25 MG; Start 03/25/17 at 21:00 Bisacodyl (Dulcolax Supp) 10 mg DAILY PRN [place] CONSTIPATION; Start 03/26/17 at 12 :30 Bisacodyl (Dulcolax) 5 mg DAILY PRN PO CONSTIPATION Last administered on 17:51; Admin Dose 5 MG; Start 03/26/17 at 12:30 Lidocaine (Lidoderm) 1 patch DAILY TD Last administered on 04/02/17 09:10; Admin Dose 1 PATCH; Start 03/27/17 at 11:00 Docusate Sodium (Colace) 100 mg BID PRN PO CONSTIPATION Last administered on 20:20; Admin Dose 100 MG; Start 03/27/17 at 11:00 Nicotine (Nicoderm 21 Mg/ 24hr) 1 patch DAILY TRANSDERM Last administered on 09:09; Admin Dose 1 PATCH; Start 03/27/17 at 13:00 Acetaminophen/ Hydrocodone Bitart ([place] (5/325)) 1 tab Q6H PRN PO PAIN Last administered on 03/31/17 20:26; Admin Dose 1 TAB; Start 03/30/17 at 19:56 Methylprednisolone Sodium Succinate 40 mg 40 mg Q12 IV Last administered on 09:10; Admin Dose 40 MG; Start 04/02/17 at 09:00 Sodium Chloride (NS) 1,000 ml @ 75 mls/hr [id number] IV Last administered on 04/02 06:23; Admin Dose 75 MLS/HR; Start 04/01/17 at 19:00 Pantoprazole 40 mg 40 mg BID PO ; Start 04/02/17 at 21:00 Meropenem/Sodium Chloride (Merrem 1 Gm/50 ml (Pmx)) 50 ml @ 100 mls/hr Q12 IVPB ; Start 04/02/17 at 21:00 JACY ROSE MD Apr 02, 2017 20:00
[2017-04-02] MEDS: LORAZEPAM 2 MG INJ IV PRN (20:34)
[2017-04-02] MEDS: ATORVASTATIN 40 MG TAB PO SCH (20:42)
[2017-04-02] MEDS: MEROPENEM 1 GM/50ML(PMX) 50 ML IVPB SCH (20:42)
[2017-04-02] MEDS: OLANZAPINE 10 MG VIAL IM PRN (22:25)
[2017-04-03] VITALS (27 sets, daily range): BP systolic 93–146; BP diastolic 57–92; PULSE 48–76; RESP 12–32
[2017-04-03] MEDS: ACETYLCYSTEINE 20% 4 ML VIAL NEB SCH ×4 (01:10→19:13)
[2017-04-03] MEDS: LEVALBUTEROL (NEB) 1.25 MG/0.5 ML AMP HHN SCH ×4 (01:11→19:12)
[2017-04-03] MEDS: morphine 2 MG INJ IV PRN (05:14)
[2017-04-03 05:21] LABS: ABNORMAL IP MESSAGE 1; BASOPHILS % 0.1 % (0.0-2.0); HEMATOCRIT 36.4 % (42.0-52.0); LYMPHOCYTES # 0.3 10^3/ul (0.8-2.9); LYMPHOCYTES % 1.3 % (15.0-51.0); MEAN CORPUSCULAR HEMOGLOBIN 22.7 pg (29.0-33.0); MEAN CORPUSCULAR HGB CONC 30.2 g/dl (32.0-37.0); MEAN CORPUSCULAR VOLUME 75.1 fl (82.0-101.0); MEAN PLATELET VOLUME 10.4 fl (7.4-10.4); MONOCYTE # 0.2 10^3/ul (0.3-0.9); NEUTROPHIL # 19.6 10^3/ul (1.6-7.5); NEUTROPHILS % 96.5 % (39.0-77.0); PLATELET COUNT 505 10^3/UL (140-415); POSITIVE DIFF @See below; RED BLOOD COUNT 4.85 10^6/ul (4.70-6.10); RED CELL DISTRIBUTION WIDTH 17.2 % (11.5-14.5); WHITE BLOOD COUNT 20.3 10^3/ul (4.8-10.8)
[2017-04-03 05:47] LABS: ALBUMIN 2.5 g/dl (3.3-4.9); CALCIUM 7.7 mg/dl (8.4-10.2); CREATININE 1.74 mg/dl (0.61-1.24); MAGNESIUM 2.1 mg/dl (1.7-2.5); PHOSPHORUS 5.7 mg/dl (2.5-4.9); POTASSIUM 4.3 mmol/L (3.5-5.1)
[2017-04-03] MEDS: LORAZEPAM 2 MG INJ IV PRN (06:00)
--- NOTE | 2017-04-03 06:05 | CONS ---
Date/Time of Note Date/Time of Note DATE: 04/03/17 TIME: 06:03 Assessment/Plan Assessment/Plan Additional Assessment/Plan 76 yo Male with 1) S/p Resp Failure 2) COPD 3) HTN, Chronic 4) Hx of RCC S/ Partial Nephrectomy by Dr Ly Gant 5) Hyperechoic Mass Rt Kidney ?RCC 6) Left Renal Cysts 7) Leukcytosis 8) Anemia, Likely Chronic 9) NELLIE Resolved. S/p Waters Likely obstructive Uropathy. 10) GI Malignancy Work up in progress 11) DVT/ No PE on CTA 12) Hyponatremia- Improving 13) Hypotension, Resolved. 14) Perforated Viscus Chemistry pending this am Overall Renal function stable. S/p Waters Catheter, Non oliguric Strict Is and Os, Monitor UO, Electrolytes and renal function daily Now DNR, ? Comfort care. Consultation Date/Type/Reason Admit Date/Time Mar 21, 2017 at 23:46 Initial Consult Date 03/22/17 Type of Consultation: Renal Referring Provider: XENA DE JESUS MD 24 HR Interval Summary Free Text/Dictation Now DNR, Family did not wish to have surgery at [facility]. Waters present. Good UO. No BIPAP Subjective hx not possible: pt critical status Constitutional: requiring O2 Exam/Review of Systems Vital Signs Vitals Vital Signs Date Time Temp Pulse Resp B/P Pulse Ox O2 Delivery O2 Flow Rate FiO2 04/03/17 05:20 64 98 40 04/03/17 05:00 23 146/77 BIPAP 04/03/17 04:00 97.0 04/02/17 19:24 4.0 Intake and Output 04/02/17 04/02/17 04/03/17 15:00 23:00 07:00 Intake Total 1065.0 ml 796 ml 522 ml Output Total 330 ml 300 ml 185 ml Balance 735.0 ml 496 ml 337 ml Exam Constitutional: alert, No distress Psych: confusion ENMT: mucosa pink and moist Neck: No jvd Respiratory: crackles/rales, diminished breath sounds, No labored breathing Cardiovascular: regular rate and rhythm, No edema Gastrointestinal: distended, soft Neurological: confused Skin: No diaphoresis Results Result Diagram: 04/03/17 0430 04/02/17 0740 Results 24 hrs Laboratory Tests Test 04/02/17 07:40 04/02/17 15:12 10/9/17 20:01 04/03/17 04:30 White Blood Count 21.6 H 20.3 H Red Blood Count 4.40 L 4.85 Hemoglobin 10.3 L 11.0 L Hematocrit 32.7 L 36.4 L Mean Corpuscular Volume 74.3 L 75.1 L Mean Corpuscular Hemoglobin 23.4 L 22.7 L Mean Corpuscular Hemoglobin Concent 31.5 L 30.2 L Red Cell Distribution Width 16.8 H 17.2 H Platelet Count 460 H 505 H Mean Platelet Volume 10.7 H 10.4 Neutrophils % 94.1 H 96.5 H Lymphocytes % 2.6 L 1.3 L Monocytes % 1.8 1.0 Eosinophils % 0.0 0.0 Basophils % 0.1 0.1 Nucleated Red Blood Cells % 0.0 0.0 Neutrophils # 20.3 H 19.6 H Lymphocytes # 0.6 L 0.3 L Monocytes # 0.4 0.2 L Eosinophils # 0.0 0.0 Basophils # 0.0 0.0 Nucleated Red Blood Cells # 0.0 0.0 Activated Partial Thromboplast Time 88.1 *H 142.5 *H 67.4 H 107.8 *H Sodium Level 128 L Potassium Level 4.2 Chloride Level 100 Carbon Dioxide Level 23 Anion Gap 9 Blood Urea Nitrogen 51 H Creatinine 1.45 H Glucose Level 162 Lactic Acid Level 0.8 Calcium Level 7.2 L Phosphorus Level 5.6 H Magnesium Level 1.9 Albumin 2.2 L Medications Medications Current Medications Ondansetron HCl (Zofran Inj) 4 mg Q6H PRN IV NAUSEA AND/OR VOMITING Last administered on 03/29/17 23:45; Admin Dose 4 MG; Start 03/22/17 at 01:30 Acetaminophen (Tylenol Liquid) 650 mg Q6H PRN PO PAIN LEVEL 1-3 OR FEVER Last administered on 03/28/17 05:39; Admin Dose 650 MG; Start 03/22/17 at 01:30 Acetaminophen (Tylenol Supp) 650 mg Q4H PRN [place] PAIN LEVEL 1-3 OR FEVER; Start 03/22/17 at 01:30 Aspirin (Halfprin) 81 mg DAILY PO Last administered on 04/02/17 09:10; Admin Dose 81 MG; Start 03/22/17 at 09:00 Atorvastatin Calcium (Lipitor) 80 mg HS PO Last administered on 04/02/17 20:42 ; Admin Dose 80 MG; Start 03/22/17 at 21:00 Febuxostat (Uloric) 40 mg DAILY PO Last administered on 04/02/17 09:10; Admin Dose 40 MG; Start 03/23/17 at 09:00 Multivitamins Therapeutic (Theragran) 1 tab DAILY PO Last administered on 09:10; Admin Dose 1 TAB; Start 03/23/17 at 09:00 Tamsulosin HCl (Flomax) 0.4 mg BID PO Last administered on 04/02/17 20:41; Admin Dose 0.4 MG; Start 03/22/17 at 21:00 Hydralazine HCl (Apresoline) 20 mg Q6H PRN IV SBP >180 Last administered on 21:17; Admin Dose 20 MG; Start 03/22/17 at 22:45 Metoprolol Tartrate (Lopressor) 5 mg Q6 PRN IV HR >100 or SBP >170 Last administered on 03/25/17 16:45; Admin Dose 5 MG; Start 03/23/17 at 15:30 Olanzapine (Zyprexa) 10 mg Q8 PRN IM severe agitation Last administered on 04/02 22:25; Admin Dose 10 MG; Start 03/23/17 at 15:30 Labetalol HCl (Labetalol) 10 mg Q4H PRN IV SBP>160 Last administered on 08:43; Admin Dose 10 MG; Start 03/24/17 at 09:30 Morphine Sulfate (morphine) 2 mg Q4H PRN IV PAIN LEVEL 7-10 Last administered on 04/03/17 05:14; Admin Dose 2 MG; Start 03/24/17 at 10:00 Carvedilol (Coreg) 25 mg BID PO Last administered on 04/02/17 09:10; Admin Dose 25 MG; Start 03/25/17 at 21:00 Bisacodyl (Dulcolax Supp) 10 mg DAILY PRN [place] CONSTIPATION; Start 03/26/17 at 12 :30 Bisacodyl (Dulcolax) 5 mg DAILY PRN PO CONSTIPATION Last administered on 17:51; Admin Dose 5 MG; Start 03/26/17 at 12:30 Lidocaine (Lidoderm) 1 patch DAILY TD Last administered on 04/02/17 09:10; Admin Dose 1 PATCH; Start 03/27/17 at 11:00 Docusate Sodium (Colace) 100 mg BID PRN PO CONSTIPATION Last administered on 20:20; Admin Dose 100 MG; Start 03/27/17 at 11:00 Nicotine (Nicoderm 21 Mg/ 24hr) 1 patch DAILY TRANSDERM Last administered on 09:09; Admin Dose 1 PATCH; Start 03/27/17 at 13:00 Acetaminophen/ Hydrocodone Bitart ([place] (5/325)) 1 tab Q6H PRN PO PAIN Last administered on 03/31/17 20:26; Admin Dose 1 TAB; Start 03/30/17 at 19:56 Methylprednisolone Sodium Succinate 40 mg 40 mg Q12 IV Last administered on 20:41; Admin Dose 40 MG; Start 04/02/17 at 09:00 Sodium Chloride (NS) 1,000 ml @ 75 mls/hr [id number] IV Last administered on 04/02 22:30; Admin Dose 75 MLS/HR; Start 04/01/17 at 19:00 Pantoprazole 40 mg 40 mg BID PO Last administered on 04/02/17 20:42; Admin Dose 40 MG; Start 04/02/17 at 21:00 Meropenem/Sodium Chloride (Merrem 1 Gm/50 ml (Pmx)) 50 ml @ 100 mls/hr Q12 IVPB Last administered on 04/02/17 20:42; Admin Dose 100 MLS/HR; Start at 21:00 Lorazepam (Ativan) 1 mg Q6H PRN IV AGITATION Last administered on 04/03/17 06 :00; Admin Dose 1 MG; Start 04/02/17 at 20:30 JACY ROSE MD Apr 03, 2017 06:05
[2017-04-03] MEDS: HEPARIN 25000 UNITS/250 ML 250 ML IV SCH (06:09)
[2017-04-03 06:49] LABS: AADO2 Arterial 135.3 mmHg (7.0-24.0); Allen Test ACCEPTAB; Arterial Base Excess -2.5 mmol/L (-3.0-3); Arterial COHb 0.3 % (0.0-3.0); Arterial Fraction of Oxyhgb 88.1 % (93.0-99.0); Arterial HCO3 21.9 mmol/L (22.0-26.0); Arterial MetHb 0.1 % (0.0-1.5); MODE NASAL CANNULA
[2017-04-03] MEDS: MULTIVITAMINS THERAPEUTIC TAB PO SCH (08:18)
[2017-04-03] MEDS: ASPIRIN (EC) 81 MG TAB PO SCH (08:18)
[2017-04-03] MEDS: FEBUXOSTAT 40 MG TABLET PO SCH (08:18)
[2017-04-03] MEDS: PANTOPRAZOLE (EC) 40 MG TAB PO SCH ×2 (08:18→21:00)
[2017-04-03] MEDS: TAMSULOSIN (SR) 0.4 MG CAP PO SCH ×2 (08:18→21:00)
[2017-04-03] MEDS: NICOTINE (21 MG/24 HR) PATCH TRANSDERM SCH (08:23)
[2017-04-03] MEDS: METHYLPREDNISOLONE 40 MG INJ IV SCH ×2 (08:23→21:17)
[2017-04-03] MEDS: LIDOCAINE 5% PATCH TD SCH (08:24)
[2017-04-03] MEDS: MEROPENEM 1 GM/50ML(PMX) 50 ML IVPB SCH ×2 (08:26→21:17)
--- NOTE | 2017-04-03 11:08 | CONS ---
Date/Time of Note Date/Time of Note DATE: 04/03/17 TIME: 11:06 Assessment/Plan Assessment/Plan Additional Assessment/Plan Assessment and recommendations; 1. Patient admitted with COPD exacerbation with hypercapnia with significant clinical improvement. 2. History of chronic renal insufficiency. Next 3. History of gastric cancer. 4. 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 Continue current supportive care. Patient improving. Consultation Date/Type/Reason Admit Date/Time Mar 21, 2017 at 23:46 Initial Consult Date 03/22/17 Type of Consultation: Pulmonary/critical care Referring Provider: XENA DE JESUS MD 24 HR Interval Summary Free Text/Dictation Date of evaluation 04-02-2017. This is a corrected dictation. Next Patient condition is stable. Remains awake. Has remained hemodynamically stable. General exam; elderly male, awake, currently in no distress. Exam/Review of Systems Vital Signs Vitals Vital Signs Date Time Temp Pulse Resp B/P Pulse Ox O2 Delivery O2 Flow Rate FiO2 04/03/17 09:00 24 104/67 100 Nasal Cannula 4.0 04/03/17 08:00 65 04/03/17 08:00 98.1 04/03/17 05:20 40 Intake and Output 04/02/17 04/02/17 04/03/17 15:00 23:00 07:00 Intake Total 1065.0 ml 796 ml 608 ml Output Total 330 ml 300 ml 260 ml Balance 735.0 ml 496 ml 348 ml Exam HEENT exam; supple neck, no JVD. No lymphadenopathy. Midline trachea. No thyromegaly. Patient multiple carious teeth. Chest exam; diminished but clear breath sound. S1-S2 audible, no murmurs. Regular rhythm. Abdomen exam; soft, nontender. No organomegaly. Bowel sounds audible. Extremity exam; no edema. 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 Results Result Diagram: 04/03/17 0430 04/03/17 0430 Results 24 hrs Laboratory Tests Test 04/02/17 15:12 04/02/17 20:01 04/03/17 04:30 Activated Partial Thromboplast Time 142.5 *H 67.4 H 107.8 *H White Blood Count 20.3 H Red Blood Count 4.85 Hemoglobin 11.0 L Hematocrit 36.4 L Mean Corpuscular Volume 75.1 L Mean Corpuscular Hemoglobin 22.7 L Mean Corpuscular Hemoglobin Concent 30.2 L Red Cell Distribution Width 17.2 H Platelet Count 505 H Mean Platelet Volume 10.4 Neutrophils % 96.5 H Lymphocytes % 1.3 L Monocytes % 1.0 Eosinophils % 0.0 Basophils % 0.1 Nucleated Red Blood Cells % 0.0 Neutrophils # 19.6 H Lymphocytes # 0.3 L Monocytes # 0.2 L Eosinophils # 0.0 Basophils # 0.0 Nucleated Red Blood Cells # 0.0 Sodium Level 132 L Potassium Level 4.3 Chloride Level 100 Carbon Dioxide Level 25 Anion Gap 11 Blood Urea Nitrogen 57 H Creatinine 1.74 H Glucose Level 129 Calcium Level 7.7 L Phosphorus Level 5.7 H Magnesium Level 2.1 Albumin 2.5 L Medications Medications Current Medications Ondansetron HCl (Zofran Inj) 4 mg Q6H PRN IV NAUSEA AND/OR VOMITING Last administered on 03/29/17 23:45; Admin Dose 4 MG; Start 03/22/17 at 01:30 Acetaminophen (Tylenol Liquid) 650 mg Q6H PRN PO PAIN LEVEL 1-3 OR FEVER Last administered on 03/28/17 05:39; Admin Dose 650 MG; Start 03/22/17 at 01:30 Acetaminophen (Tylenol Supp) 650 mg Q4H PRN [place] PAIN LEVEL 1-3 OR FEVER; Start 03/22/17 at 01:30 Aspirin (Halfprin) 81 mg DAILY PO Last administered on 04/02/17 09:10; Admin Dose 81 MG; Start 03/22/17 at 09:00 Atorvastatin Calcium (Lipitor) 80 mg HS PO Last administered on 04/02/17 20:42 ; Admin Dose 80 MG; Start 03/22/17 at 21:00 Febuxostat (Uloric) 40 mg DAILY PO Last administered on 04/02/17 09:10; Admin Dose 40 MG; Start 03/23/17 at 09:00 Multivitamins Therapeutic (Theragran) 1 tab DAILY PO Last administered on 09:10; Admin Dose 1 TAB; Start 03/23/17 at 09:00 Tamsulosin HCl (Flomax) 0.4 mg BID PO Last administered on 04/02/17 20:41; Admin Dose 0.4 MG; Start 03/22/17 at 21:00 Hydralazine HCl (Apresoline) 20 mg Q6H PRN IV SBP >180 Last administered on 21:17; Admin Dose 20 MG; Start 03/22/17 at 22:45 Metoprolol Tartrate (Lopressor) 5 mg Q6 PRN IV HR >100 or SBP >170 Last administered on 03/25/17 16:45; Admin Dose 5 MG; Start 03/23/17 at 15:30 Olanzapine (Zyprexa) 10 mg Q8 PRN IM severe agitation Last administered on 04/02 22:25; Admin Dose 10 MG; Start 03/23/17 at 15:30 Labetalol HCl (Labetalol) 10 mg Q4H PRN IV SBP>160 Last administered on 08:43; Admin Dose 10 MG; Start 03/24/17 at 09:30 Morphine Sulfate (morphine) 2 mg Q4H PRN [place] PAIN LEVEL 7-10 Last administered on 04/03/17 05:14; Admin Dose 2 MG; Start 03/24/17 at 10:00 Carvedilol (Coreg) 25 mg BID PO Last administered on 04/02/17 09:10; Admin Dose 25 MG; Start 03/25/17 at 21:00 Bisacodyl (Dulcolax Supp) 10 mg DAILY PRN [place] CONSTIPATION; Start 03/26/17 at 12 :30 Bisacodyl (Dulcolax) 5 mg DAILY PRN PO CONSTIPATION Last administered on 17:51; Admin Dose 5 MG; Start 03/26/17 at 12:30 Lidocaine (Lidoderm) 1 patch DAILY TD Last administered on 04/03/17 08:24; Admin Dose 1 PATCH; Start 03/27/17 at 11:00 Docusate Sodium (Colace) 100 mg BID PRN PO CONSTIPATION Last administered on 20:20; Admin Dose 100 MG; Start 03/27/17 at 11:00 Nicotine (Nicoderm 21 Mg/ 24hr) 1 patch DAILY TRANSDERM Last administered on 08:23; Admin Dose 1 PATCH; Start 03/27/17 at 13:00 Acetaminophen/ Hydrocodone Bitart ([place] (5/325)) 1 tab Q6H PRN PO PAIN Last administered on 03/31/17 20:26; Admin Dose 1 TAB; Start 03/30/17 at 19:56 Methylprednisolone Sodium Succinate 40 mg 40 mg Q12 IV Last administered on 08:23; Admin Dose 40 MG; Start 04/02/17 at 09:00 Sodium Chloride (NS) 1,000 ml @ 75 mls/hr [id number] IV Last administered on 04/02 22:30; Admin Dose 75 MLS/HR; Start 04/01/17 at 19:00 Pantoprazole 40 mg 40 mg BID PO Last administered on 04/02/17 20:42; Admin Dose 40 MG; Start 04/02/17 at 21:00 Meropenem/Sodium Chloride (Merrem 1 Gm/50 ml (Pmx)) 50 ml @ 100 mls/hr Q12 IVPB Last administered on 04/03/17 08:26; Admin Dose 100 MLS/HR; Start at 21:00 Lorazepam (Ativan) 1 mg Q6H PRN IV AGITATION Last administered on 04/03/17 06 :00; Admin Dose 1 MG; Start 04/02/17 at 20:[address] [facility]UR Apr 03, 2017 11:08
--- NOTE | 2017-04-03 11:10 | CONS ---
Date/Time of Note Date/Time of Note DATE: 04/03/17 TIME: 11:09 Assessment/Plan Assessment/Plan Additional Assessment/Plan Assessment and recommendations; 1. Patient admitted with COPD exacerbation with significant clinical improvement. 2. Other comorbidities include history of gastric cancer, COPD, history of DVT with inferior vena cava placement. 3. Renal insufficiency. Continue current supportive care. Transfer to medical unit. Consultation Date/Type/Reason Admit Date/Time Mar 21, 2017 at 23:46 Initial Consult Date 03/22/17 Type of Consultation: Pulmonary/critical care Referring Provider: XENA DE JESUS MD 24 HR Interval Summary Free Text/Dictation Patient condition is stable. Has remained hemodynamically stable. No untoward events reported. General exam; elderly male, currently in no distress. Exam/Review of Systems Vital Signs Vitals Vital Signs Date Time Temp Pulse Resp B/P Pulse Ox O2 Delivery O2 Flow Rate FiO2 04/03/17 09:00 24 104/67 100 Nasal Cannula 4.0 04/03/17 08:00 65 04/03/17 08:00 98.1 04/03/17 05:20 40 Intake and Output 04/02/17 04/02/17 04/03/17 15:00 23:00 07:00 Intake Total 1065.0 ml 796 ml 608 ml Output Total 330 ml 300 ml 260 ml Balance 735.0 ml 496 ml 348 ml Exam HEENT exam; supple neck, no JVD. No lymphadenopathy. Midline trachea. No thyromegaly. Chest exam; diminished but clear breath sounds. S1-S2 audible, no murmurs. Regular rhythm. Abdomen exam; soft, nontender. No organomegaly. Bowel sounds audible. Extremity exam; no peripheral edema. [employer] exam; no focal deficit. Results Result Diagram: 04/03/17 0430 04/03/17 0430 Results 24 hrs Laboratory Tests Test 04/02/17 15:12 04/02/17 20:01 04/03/17 04:30 Activated Partial Thromboplast Time 142.5 *H 67.4 H 107.8 *H White Blood Count 20.3 H Red Blood Count 4.85 Hemoglobin 11.0 L Hematocrit 36.4 L Mean Corpuscular Volume 75.1 L Mean Corpuscular Hemoglobin 22.7 L Mean Corpuscular Hemoglobin Concent 30.2 L Red Cell Distribution Width 17.2 H Platelet Count 505 H Mean Platelet Volume 10.4 Neutrophils % 96.5 H Lymphocytes % 1.3 L Monocytes % 1.0 Eosinophils % 0.0 Basophils % 0.1 Nucleated Red Blood Cells % 0.0 Neutrophils # 19.6 H Lymphocytes # 0.3 L Monocytes # 0.2 L Eosinophils # 0.0 Basophils # 0.0 Nucleated Red Blood Cells # 0.0 Sodium Level 132 L Potassium Level 4.3 Chloride Level 100 Carbon Dioxide Level 25 Anion Gap 11 Blood Urea Nitrogen 57 H Creatinine 1.74 H Glucose Level 129 Calcium Level 7.7 L Phosphorus Level 5.7 H Magnesium Level 2.1 Albumin 2.5 L Medications Medications Current Medications Ondansetron HCl (Zofran Inj) 4 mg Q6H PRN IV NAUSEA AND/OR VOMITING Last administered on 03/29/17 23:45; Admin Dose 4 MG; Start 03/22/17 at 01:30 Acetaminophen (Tylenol Liquid) 650 mg Q6H PRN PO PAIN LEVEL 1-3 OR FEVER Last administered on 03/28/17 05:39; Admin Dose 650 MG; Start 03/22/17 at 01:30 Acetaminophen (Tylenol Supp) 650 mg Q4H PRN [place] PAIN LEVEL 1-3 OR FEVER; Start 03/22/17 at 01:30 Aspirin (Halfprin) 81 mg DAILY PO Last administered on 04/02/17 09:10; Admin Dose 81 MG; Start 03/22/17 at 09:00 Atorvastatin Calcium (Lipitor) 80 mg HS PO Last administered on 04/02/17 20:42 ; Admin Dose 80 MG; Start 03/22/17 at 21:00 Febuxostat (Uloric) 40 mg DAILY PO Last administered on 04/02/17 09:10; Admin Dose 40 MG; Start 03/23/17 at 09:00 Multivitamins Therapeutic (Theragran) 1 tab DAILY PO Last administered on 09:10; Admin Dose 1 TAB; Start 03/23/17 at 09:00 Tamsulosin HCl (Flomax) 0.4 mg BID PO Last administered on 04/02/17 20:41; Admin Dose 0.4 MG; Start 03/22/17 at 21:00 Hydralazine HCl (Apresoline) 20 mg Q6H PRN IV SBP >180 Last administered on 21:17; Admin Dose 20 MG; Start 03/22/17 at 22:45 Metoprolol Tartrate (Lopressor) 5 mg Q6 PRN IV HR >100 or SBP >170 Last administered on 03/25/17 16:45; Admin Dose 5 MG; Start 03/23/17 at 15:30 Olanzapine (Zyprexa) 10 mg Q8 PRN IM severe agitation Last administered on 04/02 22:25; Admin Dose 10 MG; Start 03/23/17 at 15:30 Labetalol HCl (Labetalol) 10 mg Q4H PRN IV SBP>160 Last administered on 08:43; Admin Dose 10 MG; Start 03/24/17 at 09:30 Morphine Sulfate (morphine) 2 mg Q4H PRN IV PAIN LEVEL 7-10 Last administered on 04/03/17 05:14; Admin Dose 2 MG; Start 03/24/17 at 10:00 Carvedilol (Coreg) 25 mg BID PO Last administered on 04/02/17 09:10; Admin Dose 25 MG; Start 03/25/17 at 21:00 Bisacodyl (Dulcolax Supp) 10 mg DAILY PRN [place] CONSTIPATION; Start 03/26/17 at 12 :30 Bisacodyl (Dulcolax) 5 mg DAILY PRN PO CONSTIPATION Last administered on 17:51; Admin Dose 5 MG; Start 03/26/17 at 12:30 Lidocaine (Lidoderm) 1 patch DAILY TD Last administered on 04/03/17 08:24; Admin Dose 1 PATCH; Start 03/27/17 at 11:00 Docusate Sodium (Colace) 100 mg BID PRN PO CONSTIPATION Last administered on 20:20; Admin Dose 100 MG; Start 03/27/17 at 11:00 Nicotine (Nicoderm 21 Mg/ 24hr) 1 patch DAILY TRANSDERM Last administered on 08:23; Admin Dose 1 PATCH; Start 03/27/17 at 13:00 Acetaminophen/ Hydrocodone Bitart ([place] (5/325)) 1 tab Q6H PRN PO PAIN Last administered on 03/31/17 20:26; Admin Dose 1 TAB; Start 03/30/17 at 19:56 Methylprednisolone Sodium Succinate 40 mg 40 mg Q12 IV Last administered on 08:23; Admin Dose 40 MG; Start 04/02/17 at 09:00 Sodium Chloride (NS) 1,000 ml @ 75 mls/hr [id number] IV Last administered on 04/02 22:30; Admin Dose 75 MLS/HR; Start 04/01/17 at 19:00 Pantoprazole 40 mg 40 mg BID PO Last administered on 04/02/17 20:42; Admin Dose 40 MG; Start 04/02/17 at 21:00 Meropenem/Sodium Chloride (Merrem 1 Gm/50 ml (Pmx)) 50 ml @ 100 mls/hr Q12 IVPB Last administered on 04/03/17 08:26; Admin Dose 100 MLS/HR; Start at 21:00 Lorazepam (Ativan) 1 mg Q6H PRN IV AGITATION Last administered on 04/03/17 06 :00; Admin Dose 1 MG; Start 04/02/17 at 20:[address] Apr 03, 2017 11:10
--- NOTE | 2017-04-03 11:21 | CONS ---
Date/Time of Note Date/Time of Note DATE: 04/03/17 TIME: 11:16 Assessment/Plan Assessment/Plan Chief Complaint/Hosp Course 76 yo male admitted with CHF exacerbation with a recent diagnosis of limited stage gastric cancer #h/o Gastric Cancer -pt is s/p EGD and CT A/P which demonstrate probably metastatic gastric cancer -an extensive discussion was had between the patient;s daughter and the surgeons who have stated that the patient is not a surgical candidate. 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, a calf vein as well as acute deep venous thrombosis of the left common femoral vein, upper left femoral vein, and mid left femoral vein -pt is s/p IVC filter in 2011 -pt is currently on a heparin gtt #CKD -continue to closely monitor Cr -once pt has stabilized would consider anticoagulation wit Eliquis 5 mg BID as this can be tolerated with impaired renal function #thrombocytosis -secondary to iron deficiency anemia from occult blood loss -can start po iron as long as patient is tolerating po diet A total of 1 hour was spent at patient's bedside and in speaking to his daughter of which > 50% was spent in counseling and coordination of care and a detailed question and answer session Problems: Consultation Date/Type/Reason Admit Date/Time Mar 21, 2017 at 23:46 Initial Consult Date 03/29/17 Type of Consultation: Oncology Reason for Consultation gastric ca Referring Provider: XENA DE JESUS MD 24 HR Interval Summary Free Text/Dictation pt now on comfort measures and DNR DNI. extensive discussions were held with patient's daughter who understands that patient is not a candidate for chemotherapy, radiation nor surgery. pt still with respiratory distress Exam/Review of Systems Vital Signs Vitals Vital Signs Date Time Temp Pulse Resp B/P Pulse Ox O2 Delivery O2 Flow Rate FiO2 04/03/17 09:00 24 104/67 100 Nasal Cannula 4.0 04/03/17 08:00 65 04/03/17 08:00 98.1 04/03/17 05:20 40 Intake and Output 04/02/17 04/02/17 04/03/17 15:00 23:00 07:00 Intake Total 1065.0 ml 796 ml 608 ml Output Total 330 ml 300 ml 260 ml Balance 735.0 ml 496 ml 348 ml Exam Constitutional: frail Psych: depression Head: normocephalic Eyes: nl conjunctiva ENMT: nl external ears & nose, nl lips & teeth Neck: non-tender, supple Respiratory: diminished breath sounds, labored breathing Cardiovascular: regular rate and rhythm Gastrointestinal: soft Musculoskeletal: nl extremities to inspection Results Result Diagram: 04/03/1742904/03/17429 Results 24 hrs Laboratory Tests Test 04/02/17 15:12 04/02/17 20:01 04/03/17 04:30 Activated Partial Thromboplast Time 142.5 *H 67.4 H 107.8 *H White Blood Count 20.3 H Red Blood Count 4.85 Hemoglobin 11.0 L Hematocrit 36.4 L Mean Corpuscular Volume 75.1 L Mean Corpuscular Hemoglobin 22.7 L Mean Corpuscular Hemoglobin Concent 30.2 L Red Cell Distribution Width 17.2 H Platelet Count 505 H Mean Platelet Volume 10.4 Neutrophils % 96.5 H Lymphocytes % 1.3 L Monocytes % 1.0 Eosinophils % 0.0 Basophils % 0.1 Nucleated Red Blood Cells % 0.0 Neutrophils # 19.6 H Lymphocytes # 0.3 L Monocytes # 0.2 L Eosinophils # 0.0 Basophils # 0.0 Nucleated Red Blood Cells # 0.0 Sodium Level 132 L Potassium Level 4.3 Chloride Level 100 Carbon Dioxide Level 25 Anion Gap 11 Blood Urea Nitrogen 57 H Creatinine 1.74 H Glucose Level 129 Calcium Level 7.7 L Phosphorus Level 5.7 H Magnesium Level 2.1 Albumin 2.5 L Medications Medications Current Medications Ondansetron HCl (Zofran Inj) 4 mg Q6H PRN IV NAUSEA AND/OR VOMITING Last administered on 03/29/17 23:45; Admin Dose 4 MG; Start 03/22/17 at 01:30 Acetaminophen (Tylenol Liquid) 650 mg Q6H PRN PO PAIN LEVEL 1-3 OR FEVER Last administered on 03/28/17 05:39; Admin Dose 650 MG; Start 03/22/17 at 01:30 Acetaminophen (Tylenol Supp) 650 mg Q4H PRN [place] PAIN LEVEL 1-3 OR FEVER; Start 03/22/17 at 01:30 Aspirin (Halfprin) 81 mg DAILY PO Last administered on 04/02/17 09:10; Admin Dose 81 MG; Start 03/22/17 at 09:00 Atorvastatin Calcium (Lipitor) 80 mg HS PO Last administered on 04/02/17 20:42 ; Admin Dose 80 MG; Start 03/22/17 at 21:00 Febuxostat (Uloric) 40 mg DAILY PO Last administered on 04/02/17 09:10; Admin Dose 40 MG; Start 03/23/17 at 09:00 Multivitamins Therapeutic (Theragran) 1 tab DAILY PO Last administered on 09:10; Admin Dose 1 TAB; Start 03/23/17 at 09:00 Tamsulosin HCl (Flomax) 0.4 mg BID PO Last administered on 04/02/17 20:41; Admin Dose 0.4 MG; Start 03/22/17 at 21:00 Hydralazine HCl (Apresoline) 20 mg Q6H PRN IV SBP >180 Last administered on 21:17; Admin Dose 20 MG; Start 03/22/17 at 22:45 Metoprolol Tartrate (Lopressor) 5 mg Q6 PRN IV HR >100 or SBP >170 Last administered on 03/25/17 16:45; Admin Dose 5 MG; Start 03/23/17 at 15:30 Olanzapine (Zyprexa) 10 mg Q8 PRN IM severe agitation Last administered on 04/02 22:25; Admin Dose 10 MG; Start 03/23/17 at 15:30 Labetalol HCl (Labetalol) 10 mg Q4H PRN IV SBP>160 Last administered on 08:43; Admin Dose 10 MG; Start 03/24/17 at 09:30 Morphine Sulfate (morphine) 2 mg Q4H PRN IV PAIN LEVEL 7-10 Last administered on 04/03/17 05:14; Admin Dose 2 MG; Start 03/24/17 at 10:00 Carvedilol (Coreg) 25 mg BID PO Last administered on 04/02/17 09:10; Admin Dose 25 MG; Start 03/25/17 at 21:00 Bisacodyl (Dulcolax Supp) 10 mg DAILY PRN [place] CONSTIPATION; Start 03/26/17 at 12 :30 Bisacodyl (Dulcolax) 5 mg DAILY PRN PO CONSTIPATION Last administered on 17:51; Admin Dose 5 MG; Start 03/26/17 at 12:30 Lidocaine (Lidoderm) 1 patch DAILY TD Last administered on 04/03/17 08:24; Admin Dose 1 PATCH; Start 03/27/17 at 11:00 Docusate Sodium (Colace) 100 mg BID PRN PO CONSTIPATION Last administered on 20:20; Admin Dose 100 MG; Start 03/27/17 at 11:00 Nicotine (Nicoderm 21 Mg/ 24hr) 1 patch DAILY TRANSDERM Last administered on 08:23; Admin Dose 1 PATCH; Start 03/27/17 at 13:00 Acetaminophen/ Hydrocodone Bitart ([place] (5/325)) 1 tab Q6H PRN PO PAIN Last administered on 03/31/17 20:26; Admin Dose 1 TAB; Start 03/30/17 at 19:56 Methylprednisolone Sodium Succinate 40 mg 40 mg Q12 IV Last administered on 08:23; Admin Dose 40 MG; Start 04/02/17 at 09:00 Sodium Chloride (NS) 1,000 ml @ 75 mls/hr [id number] IV Last administered on 04/02 22:30; Admin Dose 75 MLS/HR; Start 04/01/17 at 19:00 Pantoprazole 40 mg 40 mg BID PO Last administered on 04/02/17 20:42; Admin Dose 40 MG; Start 04/02/17 at 21:00 Meropenem/Sodium Chloride (Merrem 1 Gm/50 ml (Pmx)) 50 ml @ 100 mls/hr Q12 IVPB Last administered on 04/03/17 08:26; Admin Dose 100 MLS/HR; Start at 21:00 Lorazepam (Ativan) 1 mg Q6H PRN IV AGITATION Last administered on 04/03/17 06 :00; Admin Dose 1 MG; Start 04/02/17 at 20:30 CARLOS MURPHY M.D. Apr 03, 2017 11:21
--- NOTE | 2017-04-03 11:52 | RADRPT ---
PROCEDURE: XR Abdomen. CLINICAL INDICATION: Abdomen pain. TECHNIQUE: AP supine abdomen x-ray. COMPARISON: CT scan of the abdomen and pelvis dated 04/02/2017. FINDINGS: The bowel gas pattern is normal with no evidence of obstruction. There is a large amount of free air as seen on prior studies. There is an inferior vena cava filter with the superior tip at the upper L2 level. There is a Waters catheter in the bladder. There are no abnormal calcifications overlying the urinary tracts. There are degenerative changes of the spine. IMPRESSION: 1. Large amount of free air in the abdomen. 2. No other change from 04/02/2017. RPTAT: QQ .Alejo Fall MD, MD Date Time Electronically viewed and signed by .Alejo Fall MD, on 04/03/2017 11:51 .R/
[2017-04-03] MEDS: DEXTROSE 5%-0.45% NACL 1,000 ML IV SCH (12:38)
--- NOTE | 2017-04-03 13:18 | CONS ---
Date/Time of Note Date/Time of Note DATE: 04/03/17 TIME: 13:05 Consultation Date/Type/Reason Admit Date/Time Mar 21, 2017 at 23:46 Type of Consultation: Palliative care Hx of Present Illness The palliative care consultation on this 76-year-old gentleman who is in the intensive care unit [facility] severe respiratory failure, perforated bowel essentially end-stage secondary to multiple comorbid medical problems. Patient has a history of newly diagnosed gastric cancer in a past medical history of renal cell carcinoma. Is not a candidate for transfer to tertiary care institution or for aggressive care including chemotherapy. Information is taken from patient's medical records and speaking with his critical care nurse. Other major medical problems including history of chronic obstructive pulmonary disease, DVT, emphysema, delirium family members at patient's bedside including and daughter second daughter is not here. We are waiting for hospice evaluation for GIP service. I believe he he is GIP hospice appropriate but the final decision to be made by in-house hospice team. Family members seem very comfortable with her decision to withhold any further aggressive intervention. Is no obvious signs this patient is an distress. Voice for the family members are includes both daughters and . They appear to have a clear understanding of his underlying medical problems and acceptable quality of life is not continuing this current medical condition no cultural communication issues to be addressed. Estimated prognosis is at most 1 week with appropriate palliative care there are no cycle analytical psychosocial spiritual issues in the there are no ethical legal issues. Suggest Continue with GIP evaluation if he does not qualify will assume patient's in hospital care. Constitutional: requiring O2 Eyes: no complaints ENT: no complaints Respiratory: shortness of breath Cardiovascular: no complaints Gastrointestinal: other (See HPI) Genitourinary: no complaints Musculoskeletal: no complaints Skin: no complaints Neurologic: no complaints Endocrine: no complaints Lymphatic: no complaints Psychological: depression Immunologic: no complaints Past Medical History Medical History: hypertension, renal disease (RCC), other (DVT) Past Surgical History Past Surgical Hx: other (Partial nephrectomy) Social History Alcohol Use: heavy Smoking Status: Current every day smoker Drug Use: none, other (in the past opium, not anymore. ) Exam/Review of Systems Vital Signs Vitals Vital Signs Date Time Temp Pulse Resp B/P Pulse Ox O2 Delivery O2 Flow Rate FiO2 04/03/17 12:00 98.1 64 14 100/62 99 Nasal Cannula 4.0 04/03/17 05:20 40 Intake and Output 04/02/17 04/02/17 04/03/17 15:00 23:00 07:00 Intake Total 1065.0 ml 796 ml 608 ml Output Total 330 ml 300 ml 260 ml Balance 735.0 ml 496 ml 348 ml Exam Constitutional: frail, non-verbal Eyes: EOMI, PERRL, nl conjunctiva, nl lids, nl sclera Neck: non-tender, supple Respiratory: congested cough, crackles/rales, diminished breath sounds, intercostal retraction Cardiovascular: nl pulses, regular rate and rhythm Results Result Diagram: 04/03/17 04304/03/17 0430 Results 24 hrs Laboratory Tests Test 04/02/17 15:12 04/02/17 20:01 04/03/17 04:30 Activated Partial Thromboplast Time 142.5 *H 67.4 H 107.8 *H White Blood Count 20.3 H Red Blood Count 4.85 Hemoglobin 11.0 L Hematocrit 36.4 L Mean Corpuscular Volume 75.1 L Mean Corpuscular Hemoglobin 22.7 L Mean Corpuscular Hemoglobin Concent 30.2 L Red Cell Distribution Width 17.2 H Platelet Count 505 H Mean Platelet Volume 10.4 Neutrophils % 96.5 H Lymphocytes % 1.3 L Monocytes % 1.0 Eosinophils % 0.0 Basophils % 0.1 Nucleated Red Blood Cells % 0.0 Neutrophils # 19.6 H Lymphocytes # 0.3 L Monocytes # 0.2 L Eosinophils # 0.0 Basophils # 0.0 Nucleated Red Blood Cells # 0.0 Sodium Level 132 L Potassium Level 4.3 Chloride Level 100 Carbon Dioxide Level 25 Anion Gap 11 Blood Urea Nitrogen 57 H Creatinine 1.74 H Glucose Level 129 Calcium Level 7.7 L Phosphorus Level 5.7 H Magnesium Level 2.1 Albumin 2.5 L Medications Medications Current Medications Ondansetron HCl (Zofran Inj) 4 mg Q6H PRN IV NAUSEA AND/OR VOMITING Last administered on 03/29/17 23:45; Admin Dose 4 MG; Start 03/22/17 at 01:30 Acetaminophen (Tylenol Liquid) 650 mg Q6H PRN PO PAIN LEVEL 1-3 OR FEVER Last administered on 03/28/17 05:39; Admin Dose 650 MG; Start 03/22/17 at 01:30 Acetaminophen (Tylenol Supp) 650 mg Q4H PRN [place] PAIN LEVEL 1-3 OR FEVER; Start 03/22/17 at 01:30 Aspirin (Halfprin) 81 mg DAILY PO Last administered on 04/02/17 09:10; Admin Dose 81 MG; Start 03/22/17 at 09:00 Atorvastatin Calcium (Lipitor) 80 mg HS PO Last administered on 04/02/17 20:42 ; Admin Dose 80 MG; Start 03/22/17 at 21:00 Febuxostat (Uloric) 40 mg DAILY PO Last administered on 04/02/17 09:10; Admin Dose 40 MG; Start 03/23/17 at 09:00 Multivitamins Therapeutic (Theragran) 1 tab DAILY PO Last administered on 09:10; Admin Dose 1 TAB; Start 03/23/17 at 09:00 Tamsulosin HCl (Flomax) 0.4 mg BID PO Last administered on 04/02/17 20:41; Admin Dose 0.4 MG; Start 03/22/17 at 21:00 Hydralazine HCl (Apresoline) 20 mg Q6H PRN IV SBP >180 Last administered on 21:17; Admin Dose 20 MG; Start 03/22/17 at 22:45 Metoprolol Tartrate (Lopressor) 5 mg Q6 PRN IV HR >100 or SBP >170 Last administered on 03/25/17 16:45; Admin Dose 5 MG; Start 03/23/17 at 15:30 Olanzapine (Zyprexa) 10 mg Q8 PRN IM severe agitation Last administered on 04/02 22:25; Admin Dose 10 MG; Start 03/23/17 at 15:30 Labetalol HCl (Labetalol) 10 mg Q4H PRN IV SBP>160 Last administered on 08:43; Admin Dose 10 MG; Start 03/24/17 at 09:30 Morphine Sulfate (morphine) 2 mg Q4H PRN IV PAIN LEVEL 7-10 Last administered on 04/03/17 05:14; Admin Dose 2 MG; Start 03/24/17 at 10:00 Carvedilol (Coreg) 25 mg BID PO Last administered on 04/02/17 09:10; Admin Dose 25 MG; Start 03/25/17 at 21:00 Bisacodyl (Dulcolax Supp) 10 mg DAILY PRN [place] CONSTIPATION; Start 03/26/17 at 12 :30 Bisacodyl (Dulcolax) 5 mg DAILY PRN PO CONSTIPATION Last administered on 17:51; Admin Dose 5 MG; Start 03/26/17 at 12:30 Lidocaine (Lidoderm) 1 patch DAILY TD Last administered on 04/03/17 08:24; Admin Dose 1 PATCH; Start 03/27/17 at 11:00 Docusate Sodium (Colace) 100 mg BID PRN PO CONSTIPATION Last administered on 20:20; Admin Dose 100 MG; Start 03/27/17 at 11:00 Nicotine (Nicoderm 21 Mg/ 24hr) 1 patch DAILY TRANSDERM Last administered on 08:23; Admin Dose 1 PATCH; Start 03/27/17 at 13:00 Acetaminophen/ Hydrocodone Bitart ([place] (5/325)) 1 tab Q6H PRN PO PAIN Last administered on 03/31/17 20:26; Admin Dose 1 TAB; Start 03/30/17 at 19:56 Methylprednisolone Sodium Succinate (Solu-Medrol) 40 mg Q12 IV Last administered on 04/03/17 08:23; Admin Dose 40 MG; Start 04/02/17 at 09:00 Pantoprazole 40 mg 40 mg BID PO Last administered on 04/02/17 20:42; Admin Dose 40 MG; Start 04/02/17 at 21:00 Meropenem/Sodium Chloride (Merrem 1 Gm/50 ml (Pmx)) 50 ml @ 100 mls/hr Q12 IVPB Last administered on 04/03/17 08:26; Admin Dose 100 MLS/HR; Start at 21:00 Lorazepam 1 mg 1 mg Q6H PRN IV AGITATION Last administered on 04/03/17 06:00 ; Admin Dose 1 MG; Start 04/02/17 at 20:30 Dextrose/Sodium Chloride (D5-1/2ns) 1,000 ml @ 75 mls/hr [id number] IV Last administered on 04/03/17 12:38; Admin Dose 75 MLS/HR; Start 04/03/17 at 12:30 DENISE MONTELONGO Apr 03, 2017 13:17
--- NOTE | 2017-04-03 14:52 | PN ---
Date/Time of Note Date/Time of Note DATE: 04/03/17 TIME: 14:48 Assessment/Plan VTE Prophylaxis VTE Prophylaxis Intervention: heparin Lines/Catheters IV Catheter Type (from Nrsg): Peripheral IV Urinary Cath still in place: Yes Reason Cath still needed: terminal illness/intractable pain Assessment/Plan Chief Complaint/Hosp Course Patient is a 76-year-old male with a past medical history significant for COPD, hypertension, and renal carcinoma 2011 as well as recent diagnosis of gastric carcinoma approximately 6 months ago who presents to [facility] for shortness of breath. Found to have acute on chronic DVT. Developed perforated bowel, now undergoing process for hospice care. Assessment Acute respiratory failure, resolving COPD exacerbation Acute on chronic DVT Hypertension mucus plug rib fracture emphysema History of renal cell carcinoma, with renal mass Renal mass Renal cyst Gastric carcinoma, unknown type, records pending GI tumors, likely Acute delirium Acute on chronic CKD Plan -Found to have perforated viscus yesterday, general surgery, Dr. Mendes spoke with patient's family who declined surgery after extensive talks. Will proceed with hospice evaluation. However, until then, family would like to see if perforation heals spontaneously. -Patient and patient's family aware of risks and prognosis. -pending hospice recs -continue current medical management -no morphine drip for now, keep morphine/ativan for comfort -DNR/DNI Problems: Subjective 24 Hr Interval Summary Free Text/Dictation patient sedated, appears comfortable, patient's family at bedside, answered all questions Exam/Review of Systems Vital Signs Vitals Vital Signs Date Time Temp Pulse Resp B/P Pulse Ox O2 Delivery O2 Flow Rate FiO2 04/03/17 12:00 98.1 64 14 100/62 99 Nasal Cannula 4.0 04/03/17 05:20 40 Intake and Output 04/02/17 04/02/17 04/03/17 15:00 23:00 07:00 Intake Total 1065.0 ml 796 ml 608 ml Output Total 330 ml 300 ml 260 ml Balance 735.0 ml 496 ml 348 ml Exam General: resting comfortably in bed, sleeping Head: Normocephalic atraumatic Eyes: EOMI, pupils reactive to light Neck: Supple, nontender, midline Respiratory: diminished breath sounds bilaterally, no wheezing or crackles Cardiovascular: regular rate, no obvious murmurs. slight tenderness left chest wall Gastrointestinal: non-tender to palpation, mildly distended, bowel sounds heard. Skin: No new skin lesions Results Result Diagram: 04/03/17 0430 04/03/17 0430 Results 24 hrs Laboratory Tests Test 04/02/17 15:12 04/02/17 20:01 04/03/17 04:30 04/03/17 13:49 Activated Partial Thromboplast Time 142.5 *H 67.4 H 107.8 *H 93.3 *H White Blood Count 20.3 H Red Blood Count 4.85 Hemoglobin 11.0 L Hematocrit 36.4 L Mean Corpuscular Volume 75.1 L Mean Corpuscular Hemoglobin 22.7 L Mean Corpuscular Hemoglobin Concent 30.2 L Red Cell Distribution Width 17.2 H Platelet Count 505 H Mean Platelet Volume 10.4 Neutrophils % 96.5 H Lymphocytes % 1.3 L Monocytes % 1.0 Eosinophils % 0.0 Basophils % 0.1 Nucleated Red Blood Cells % 0.0 Neutrophils # 19.6 H Lymphocytes # 0.3 L Monocytes # 0.2 L Eosinophils # 0.0 Basophils # 0.0 Nucleated Red Blood Cells # 0.0 Sodium Level 132 L Potassium Level 4.3 Chloride Level 100 Carbon Dioxide Level 25 Anion Gap 11 Blood Urea Nitrogen 57 H Creatinine 1.74 H Glucose Level 129 Calcium Level 7.7 L Phosphorus Level 5.7 H Magnesium Level 2.1 Albumin 2.5 L Medications Medications Current Medications Ondansetron HCl (Zofran Inj) 4 mg Q6H PRN IV NAUSEA AND/OR VOMITING Last administered on 03/29/17 23:45; Admin Dose 4 MG; Start 03/22/17 at 01:30 Acetaminophen (Tylenol Liquid) 650 mg Q6H PRN PO PAIN LEVEL 1-3 OR FEVER Last administered on 03/28/17 05:39; Admin Dose 650 MG; Start 03/22/17 at 01:30 Acetaminophen (Tylenol Supp) 650 mg Q4H PRN [place] PAIN LEVEL 1-3 OR FEVER; Start 03/22/17 at 01:30 Aspirin (Halfprin) 81 mg DAILY PO Last administered on 04/02/17 09:10; Admin Dose 81 MG; Start 03/22/17 at 09:00 Atorvastatin Calcium (Lipitor) 80 mg HS PO Last administered on 04/02/17 20:42 ; Admin Dose 80 MG; Start 03/22/17 at 21:00 Febuxostat (Uloric) 40 mg DAILY PO Last administered on 04/02/17 09:10; Admin Dose 40 MG; Start 03/23/17 at 09:00 Multivitamins Therapeutic (Theragran) 1 tab DAILY PO Last administered on 09:10; Admin Dose 1 TAB; Start 03/23/17 at 09:00 Tamsulosin HCl (Flomax) 0.4 mg BID PO Last administered on 04/02/17 20:41; Admin Dose 0.4 MG; Start 03/22/17 at 21:00 Hydralazine HCl (Apresoline) 20 mg Q6H PRN IV SBP >180 Last administered on 21:17; Admin Dose 20 MG; Start 03/22/17 at 22:45 Metoprolol Tartrate (Lopressor) 5 mg Q6 PRN IV HR >100 or SBP >170 Last administered on 03/25/17 16:45; Admin Dose 5 MG; Start 03/23/17 at 15:30 Olanzapine (Zyprexa) 10 mg Q8 PRN IM severe agitation Last administered on 04/02 22:25; Admin Dose 10 MG; Start 03/23/17 at 15:30 Labetalol HCl (Labetalol) 10 mg Q4H PRN IV SBP>160 Last administered on 08:43; Admin Dose 10 MG; Start 03/24/17 at 09:30 Morphine Sulfate (morphine) 2 mg Q4H PRN IV PAIN LEVEL 7-10 Last administered on 04/03/17 05:14; Admin Dose 2 MG; Start 03/24/17 at 10:00 Carvedilol (Coreg) 25 mg BID PO Last administered on 04/02/17 09:10; Admin Dose 25 MG; Start 03/25/17 at 21:00 Bisacodyl (Dulcolax Supp) 10 mg DAILY PRN [place] CONSTIPATION; Start 03/26/17 at 12 :30 Bisacodyl (Dulcolax) 5 mg DAILY PRN PO CONSTIPATION Last administered on 17:51; Admin Dose 5 MG; Start 03/26/17 at 12:30 Lidocaine (Lidoderm) 1 patch DAILY TD Last administered on 04/03/17 08:24; Admin Dose 1 PATCH; Start 03/27/17 at 11:00 Docusate Sodium (Colace) 100 mg BID PRN PO CONSTIPATION Last administered on 20:20; Admin Dose 100 MG; Start 03/27/17 at 11:00 Nicotine (Nicoderm 21 Mg/ 24hr) 1 patch DAILY TRANSDERM Last administered on 08:23; Admin Dose 1 PATCH; Start 03/27/17 at 13:00 Acetaminophen/ Hydrocodone Bitart ([place] (5/325)) 1 tab Q6H PRN PO PAIN Last administered on 03/31/17 20:26; Admin Dose 1 TAB; Start 03/30/17 at 19:56 Methylprednisolone Sodium Succinate (Solu-Medrol) 40 mg Q12 IV Last administered on 04/03/17 08:23; Admin Dose 40 MG; Start 04/02/17 at 09:00 Pantoprazole 40 mg 40 mg BID PO Last administered on 04/02/17 20:42; Admin Dose 40 MG; Start 04/02/17 at 21:00 Meropenem/Sodium Chloride (Merrem 1 Gm/50 ml (Pmx)) 50 ml @ 100 mls/hr Q12 IVPB Last administered on 04/03/17 08:26; Admin Dose 100 MLS/HR; Start at 21:00 Lorazepam 1 mg 1 mg Q6H PRN IV AGITATION Last administered on 04/03/17 06:00 ; Admin Dose 1 MG; Start 04/02/17 at 20:30 Dextrose/Sodium Chloride (D5-1/2ns) 1,000 ml @ 75 mls/hr [id number] IV Last administered on 04/03/17 12:38; Admin Dose 75 MLS/HR; Start 04/03/17 at 12:30 ISIDRO CARRERA Apr 03, 2017 14:52
--- NOTE | 2017-04-03 17:12 | PN ---
Date/Time of Note Date/Time of Note DATE: 04/03/17 TIME: 17:07 Assessment/Plan Lines/Catheters IV Catheter Type (from Nrsg): Peripheral IV Waters in Place (from Nrsg): Yes Assessment/Plan Chief Complaint/Hosp Course 1.Free air in abdomen, perforated viscus: family refused surgical intervention: abdomen soft, non distended, no pain -per palliative team 2. 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 CT identifies GE jx thickening which may represent submucosal ? extension. Based on these findings, prior to surgical consideration, pt would benefit from re biopsy of the esophageal mass and proximal stomach preferably under EUS guidance. -pt will be best served at tertiary center for further treatment, since if GE jx involvement or esophageal involvement, much more extensive operation maybe necessary. 3. Respiratory failure with COPD Exacerbation: Improved today, comfortable on nasal cannula; XRAY shows free air, concern for perforated viscus -medical management -supportive -bipap prn -as above 4. Acute on chronic DVT: L leg - anticoagulation 5. Leukocytosis: no fevers; likely 2/2 #1, 2, 3 -as above 6. Hypertension - stable 7. Rib fracture -Lidoderm patch for pain control -encourage IS/deep breathing 8. Acute delirium: - medical management -supportive Thank you. Patient seen and examined in collaboration with Dr. Kenneth Mendes. Problems: Subjective 24 Hr Interval Summary Somnolent- was medicated overnight due to reports of agitation. Family refused surgical intervention. Hospice/palliative eval ongoing. appears comfortable. Nonverbal indicators of pain not present. Exam/Review of Systems Vital Signs Vitals Vital Signs Date Time Temp Pulse Resp B/P Pulse Ox O2 Delivery O2 Flow Rate FiO2 04/03/17 16:00 68 04/03/17 15:00 17 110/65 97 Nasal Cannula 4.0 04/03/17 12:00 98.1 04/03/17 05:20 40 Intake and Output 04/02/17 04/02/17 04/03/17 15:00 23:00 07:00 Intake Total 1065.0 ml 796 ml 608 ml Output Total 330 ml 300 ml 260 ml Balance 735.0 ml 496 ml 348 ml Exam Free Text/Dictation Constitutional: oriented (to self, partial location, and partial date), No distress Psych: nl mood/affect, No anxiety Head: normocephalic, atraumatic Eyes: EOMI, PERRL, nl conjunctiva, No icteric ENMT: nl external ears & nose, nl lips & teeth, No mucosa pink and moist Neck: non-tender, supple Respiratory: diminished, normal rate and depth, No congested cough, No labored breathing Cardiovascular: nl pulses, regular rate and rhythm, No edema Gastrointestinal: distended (min), non tender, soft No rebound or guarding Musculoskeletal: nl extremities to inspection, No joint tenderness, No nl gait and stance Extremities: No calf tenderness, No edema Neurological: No nl speech, No nl strength Skin: No diaphoresis, No nl turgor, No rash or lesions Lymph: No nl lymph nodes Results Result Diagram: 04/03/1742904/03/17429 VIVIAN CLARK NP Apr 03, 2017 17:12
--- NOTE | 2017-04-03 18:21 | PN ---
Date/Time of Note Date/Time of Note DATE: 04/03/17 TIME: 18:20 Assessment/Plan VTE Prophylaxis VTE Prophylaxis Intervention: SCD's Lines/Catheters IV Catheter Type (from Nrs): Peripheral IV Urinary Cath still in place: Yes Reason Cath still needed: urinary retention Assessment/Plan Assessment/Plan SIRS/Sepsis Acute kidney injury, improving Extensive DVT noted bilaterally with hx IVC filter COPD Possible history of malignancy Active tobacco use Mild elevated troponin Left-sided rib fracture -Patient with improvement in respiratory status and mental status. CT chest with no evidence of pulmonary emboli. Continue anticoagulation if no contraindication. -would start eliquis -sw daughter -?false +trops -hospice Subjective 24 Hr Interval Summary Free Text/Dictation The aptinet with no cahnge Exam/Review of Systems Vital Signs Vitals Vital Signs Date Time Temp Pulse Resp B/P Pulse Ox O2 Delivery O2 Flow Rate FiO2 04/03/17 18:00 70 32 112/64 99 Nasal Cannula 4.0 04/03/17 12:00 98.1 04/03/17 05:20 40 Intake and Output 04/02/17 04/02/17 04/03/17 15:00 23:00 07:00 Intake Total 1065.0 ml 796 ml 608 ml Output Total 330 ml 300 ml 260 ml Balance 735.0 ml 496 ml 348 ml Results Result Diagram: 04/03/17 0430 04/03/17 0430 Results 24 hrs Laboratory Tests Test 04/02/17 20:01 04/03/17 04:30 04/03/17 13:49 Activated Partial Thromboplast Time 67.4 H 107.8 *H 93.3 *H White Blood Count 20.3 H Red Blood Count 4.85 Hemoglobin 11.0 L Hematocrit 36.4 L Mean Corpuscular Volume 75.1 L Mean Corpuscular Hemoglobin 22.7 L Mean Corpuscular Hemoglobin Concent 30.2 L Red Cell Distribution Width 17.2 H Platelet Count 505 H Mean Platelet Volume 10.4 Neutrophils % 96.5 H Lymphocytes % 1.3 L Monocytes % 1.0 Eosinophils % 0.0 Basophils % 0.1 Nucleated Red Blood Cells % 0.0 Neutrophils # 19.6 H Lymphocytes # 0.3 L Monocytes # 0.2 L Eosinophils # 0.0 Basophils # 0.0 Nucleated Red Blood Cells # 0.0 Sodium Level 132 L Potassium Level 4.3 Chloride Level 100 Carbon Dioxide Level 25 Anion Gap 11 Blood Urea Nitrogen 57 H Creatinine 1.74 H Glucose Level 129 Calcium Level 7.7 L Phosphorus Level 5.7 H Magnesium Level 2.1 Albumin 2.5 L Medications Medications Current Medications Ondansetron HCl (Zofran Inj) 4 mg Q6H PRN IV NAUSEA AND/OR VOMITING Last administered on 03/29/17 23:45; Admin Dose 4 MG; Start 03/22/17 at 01:30 Acetaminophen (Tylenol Liquid) 650 mg Q6H PRN PO PAIN LEVEL 1-3 OR FEVER Last administered on 03/28/17 05:39; Admin Dose 650 MG; Start 03/22/17 at 01:30 Acetaminophen (Tylenol Supp) 650 mg Q4H PRN [place] PAIN LEVEL 1-3 OR FEVER; Start 03/22/17 at 01:30 Aspirin (Halfprin) 81 mg DAILY PO Last administered on 04/02/17 09:10; Admin Dose 81 MG; Start 03/22/17 at 09:00 Atorvastatin Calcium (Lipitor) 80 mg HS PO Last administered on 04/02/17 20:42 ; Admin Dose 80 MG; Start 03/22/17 at 21:00 Febuxostat (Uloric) 40 mg DAILY PO Last administered on 04/02/17 09:10; Admin Dose 40 MG; Start 03/23/17 at 09:00 Multivitamins Therapeutic (Theragran) 1 tab DAILY PO Last administered on 09:10; Admin Dose 1 TAB; Start 03/23/17 at 09:00 Tamsulosin HCl (Flomax) 0.4 mg BID PO Last administered on 04/02/17 20:41; Admin Dose 0.4 MG; Start 03/22/17 at 21:00 Hydralazine HCl (Apresoline) 20 mg Q6H PRN IV SBP >180 Last administered on 21:17; Admin Dose 20 MG; Start 03/22/17 at 22:45 Metoprolol Tartrate (Lopressor) 5 mg Q6 PRN IV HR >100 or SBP >170 Last administered on 03/25/17 16:45; Admin Dose 5 MG; Start 03/23/17 at 15:30 Olanzapine (Zyprexa) 10 mg Q8 PRN IM severe agitation Last administered on 04/02 22:25; Admin Dose 10 MG; Start 03/23/17 at 15:30 Labetalol HCl (Labetalol) 10 mg Q4H PRN IV SBP>160 Last administered on 08:43; Admin Dose 10 MG; Start 03/24/17 at 09:30 Morphine Sulfate (morphine) 2 mg Q4H PRN IV PAIN LEVEL 7-10 Last administered on 04/03/17 05:14; Admin Dose 2 MG; Start 03/24/17 at 10:00 Carvedilol (Coreg) 25 mg BID PO Last administered on 04/02/17 09:10; Admin Dose 25 MG; Start 03/25/17 at 21:00 Bisacodyl (Dulcolax Supp) 10 mg DAILY PRN [place] CONSTIPATION; Start 03/26/17 at 12 :30 Bisacodyl (Dulcolax) 5 mg DAILY PRN PO CONSTIPATION Last administered on 17:51; Admin Dose 5 MG; Start 03/26/17 at 12:30 Lidocaine (Lidoderm) 1 patch DAILY TD Last administered on 04/03/17 08:24; Admin Dose 1 PATCH; Start 03/27/17 at 11:00 Docusate Sodium (Colace) 100 mg BID PRN PO CONSTIPATION Last administered on 20:20; Admin Dose 100 MG; Start 03/27/17 at 11:00 Nicotine (Nicoderm 21 Mg/ 24hr) 1 patch DAILY TRANSDERM Last administered on 08:23; Admin Dose 1 PATCH; Start 03/27/17 at 13:00 Acetaminophen/ Hydrocodone Bitart ([place] (5/325)) 1 tab Q6H PRN PO PAIN Last administered on 03/31/17 20:26; Admin Dose 1 TAB; Start 03/30/17 at 19:56 Methylprednisolone Sodium Succinate (Solu-Medrol) 40 mg Q12 IV Last administered on 04/03/17 08:23; Admin Dose 40 MG; Start 04/02/17 at 09:00 Pantoprazole 40 mg 40 mg BID PO Last administered on 04/02/17 20:42; Admin Dose 40 MG; Start 04/02/17 at 21:00 Meropenem/Sodium Chloride (Merrem 1 Gm/50 ml (Pmx)) 50 ml @ 100 mls/hr Q12 IVPB Last administered on 04/03/17 08:26; Admin Dose 100 MLS/HR; Start at 21:00 Lorazepam 1 mg 1 mg Q6H PRN IV AGITATION Last administered on 04/03/17 06:00 ; Admin Dose 1 MG; Start 04/02/17 at 20:30 Dextrose/Sodium Chloride (D5-1/2ns) 1,000 ml @ 75 mls/hr [id number] IV Last administered on 04/03/17 12:38; Admin Dose 75 MLS/HR; Start 04/03/17 at 12:30 GIOVANA PAGAN MD Apr 03, 2017 18:20
[2017-04-03] MEDS: ATORVASTATIN 40 MG TAB PO SCH (21:00)
[2017-04-04] VITALS (21 sets, daily range): BP systolic 99–155; BP diastolic 55–85; PULSE 67–81; RESP 16–27
[2017-04-04] MEDS: LEVALBUTEROL (NEB) 1.25 MG/0.5 ML AMP HHN SCH ×3 (01:28→15:27)
[2017-04-04] MEDS: ACETYLCYSTEINE 20% 4 ML VIAL NEB SCH ×3 (01:28→15:28)
[2017-04-04] MEDS: DEXTROSE 5%-0.45% NACL 1,000 ML IV SCH ×2 (01:30→15:10)
[2017-04-04 06:00] LABS: ABNORMAL IP MESSAGE 1; BASOPHILS % 0.1 % (0.0-2.0); HEMATOCRIT 36.4 % (42.0-52.0); HEMOGLOBIN 11.4 g/dl (14.0-18.0); LYMPHOCYTES # 0.3 10^3/ul (0.8-2.9); LYMPHOCYTES % 1.7 % (15.0-51.0); MEAN CORPUSCULAR HGB CONC 31.3 g/dl (32.0-37.0); MEAN CORPUSCULAR VOLUME 73.4 fl (82.0-101.0); MEAN PLATELET VOLUME 10.5 fl (7.4-10.4); MONOCYTE # 0.2 10^3/ul (0.3-0.9); MONOCYTES % 1.3 % (0.0-11.0); NEUTROPHIL # 17.3 10^3/ul (1.6-7.5); NEUTROPHILS % 96.2 % (39.0-77.0); PLATELET COUNT 524 10^3/UL (140-415); POSITIVE DIFF @See below; RED BLOOD COUNT 4.96 10^6/ul (4.70-6.10); RED CELL DISTRIBUTION WIDTH 17.5 % (11.5-14.5); WHITE BLOOD COUNT 17.9 10^3/ul (4.8-10.8)
[2017-04-04] MEDS: HEPARIN 25000 UNITS/250 ML 250 ML IV SCH (06:06)
[2017-04-04 06:35] LABS: CREATININE 1.29 mg/dl (0.61-1.24); POTASSIUM 3.7 mmol/L (3.5-5.1)
[2017-04-04] MEDS: HEPARIN 1000 UNITS/ML 10 ML INJ IV PRN (06:36)
--- NOTE | 2017-04-04 08:19 | RADRPT ---
PROCEDURE: XR Abdomen. CLINICAL INDICATION: Abdomen pain. TECHNIQUE: AP supine abdomen x-ray. COMPARISON: 04/03/2017. FINDINGS: A large amount of free air is once again noted as seen previously. There is no evidence of obstruction. Contrast is present in the colon as seen previously. There is an inferior vena cava filter with the superior tip at the upper L2 level. A Waters catheter is present in the bladder. There are degenerative changes of the spine. IMPRESSION: 1. Large amount of free air. 2. No change from 04/03/2017. RPTAT: QQ .Alejo Fall MD, MD Date Time Electronically viewed and signed by .Alejo Fall MD, on 04/04/2017 08:18 .R/
--- NOTE | 2017-04-04 08:39 | CONS ---
Date/Time of Note Date/Time of Note DATE: 04/04/17 TIME: 08:38 Assessment/Plan Assessment/Plan Additional Assessment/Plan SIRS/Sepsis Acute kidney injury, improving Extensive DVT noted bilaterally with hx IVC filter COPD Possible history of malignancy Active tobacco use Mild elevated troponin Left-sided rib fracture -Patient with improvement in respiratory status and mental status. CT chest with no evidence of pulmonary emboli. Continue anticoagulation if no contraindication. -would start eliquis if no further proceudres -sw daughter -?false +trops -possible palliative care -tras[facility]fer to [facility] Consultation Date/Type/Reason Admit Date/Time Mar 21, 2017 at 23:46 Hx of Present Illness the patient with no change Constitutional: requiring O2 Eyes: no complaints ENT: no complaints Respiratory: shortness of breath Cardiovascular: no complaints Gastrointestinal: other (See HPI) Genitourinary: no complaints Musculoskeletal: no complaints Skin: no complaints Neurologic: no complaints Endocrine: no complaints Lymphatic: no complaints Psychological: depression Immunologic: no complaints Past Medical History Medical History: hypertension, renal disease (RCC), other (DVT) Past Surgical History Past Surgical Hx: other (Partial nephrectomy) Social History Alcohol Use: heavy Smoking Status: Current every day smoker Drug Use: none, other (in the past opium, not anymore. ) Exam/Review of Systems Vital Signs Vitals Vital Signs Date Time Temp Pulse Resp B/P Pulse Ox O2 Delivery O2 Flow Rate FiO2 04/04/17 06:00 81 18 139/65 97 Nasal Cannula 4.0 04/04/17 04:00 99.4 04/03/17 05:20 40 Intake and Output 04/03/17 04/03/17 04/04/17 14:59 22:59 06:59 Intake Total 577 ml 737.5 ml 696.0 ml Output Total 400 ml 375 ml 320 ml Balance 177 ml 362.5 ml 376.0 ml Results Result Diagram: 04/04/17 0437 04/04/17 0437 Results 24 hrs Laboratory Tests Test 04/03/17 13:49 04/03/17 21:03 04/04/17 04:37 Activated Partial Thromboplast Time 93.3 *H 103.4 *H 49.9 H White Blood Count 17.9 H Red Blood Count 4.96 Hemoglobin 11.4 L Hematocrit 36.4 L Mean Corpuscular Volume 73.4 L Mean Corpuscular Hemoglobin 23.0 L Mean Corpuscular Hemoglobin Concent 31.3 L Red Cell Distribution Width 17.5 H Platelet Count 524 H Mean Platelet Volume 10.5 H Neutrophils % 96.2 H Lymphocytes % 1.7 L Monocytes % 1.3 Eosinophils % 0.0 Basophils % 0.1 Nucleated Red Blood Cells % 0.0 Neutrophils # 17.3 H Lymphocytes # 0.3 L Monocytes # 0.2 L Eosinophils # 0.0 Basophils # 0.0 Nucleated Red Blood Cells # 0.0 Sodium Level 132 L Potassium Level 3.7 Chloride Level 105 Carbon Dioxide Level 26 Anion Gap 5 L Blood Urea Nitrogen 49 H Creatinine 1.29 H Glucose Level 161 Calcium Level 8.0 L Phosphorus Level 4.0 Magnesium Level 2.0 Medications Medications Current Medications Ondansetron HCl (Zofran Inj) 4 mg Q6H PRN IV NAUSEA AND/OR VOMITING Last administered on 03/29/17 23:45; Admin Dose 4 MG; Start 03/22/17 at 01:30 Acetaminophen (Tylenol Liquid) 650 mg Q6H PRN PO PAIN LEVEL 1-3 OR FEVER Last administered on 03/28/17 05:39; Admin Dose 650 MG; Start 03/22/17 at 01:30 Acetaminophen (Tylenol Supp) 650 mg Q4H PRN [place] PAIN LEVEL 1-3 OR FEVER; Start 03/22/17 at 01:30 Aspirin (Halfprin) 81 mg DAILY PO Last administered on 04/02/17 09:10; Admin Dose 81 MG; Start 03/22/17 at 09:00 Atorvastatin Calcium (Lipitor) 80 mg HS PO Last administered on 04/02/17 20:42 ; Admin Dose 80 MG; Start 03/22/17 at 21:00 Febuxostat (Uloric) 40 mg DAILY PO Last administered on 04/02/17 09:10; Admin Dose 40 MG; Start 03/23/17 at 09:00 Multivitamins Therapeutic (Theragran) 1 tab DAILY PO Last administered on 09:10; Admin Dose 1 TAB; Start 03/23/17 at 09:00 Tamsulosin HCl (Flomax) 0.4 mg BID PO Last administered on 04/02/17 20:41; Admin Dose 0.4 MG; Start 03/22/17 at 21:00 Hydralazine HCl (Apresoline) 20 mg Q6H PRN IV SBP >180 Last administered on 21:17; Admin Dose 20 MG; Start 03/22/17 at 22:45 Metoprolol Tartrate (Lopressor) 5 mg Q6 PRN IV HR >100 or SBP >170 Last administered on 03/25/17 16:45; Admin Dose 5 MG; Start 03/23/17 at 15:30 Olanzapine (Zyprexa) 10 mg Q8 PRN IM severe agitation Last administered on 04/02 22:25; Admin Dose 10 MG; Start 03/23/17 at 15:30 Labetalol HCl (Labetalol) 10 mg Q4H PRN IV SBP>160 Last administered on 08:43; Admin Dose 10 MG; Start 03/24/17 at 09:30 Morphine Sulfate (morphine) 2 mg Q4H PRN IV PAIN LEVEL 7-10 Last administered on 04/03/17 05:14; Admin Dose 2 MG; Start 03/24/17 at 10:00 Carvedilol (Coreg) 25 mg BID PO Last administered on 04/02/17 09:10; Admin Dose 25 MG; Start 03/25/17 at 21:00 Bisacodyl (Dulcolax Supp) 10 mg DAILY PRN [place] CONSTIPATION; Start 03/26/17 at 12 :30 Bisacodyl (Dulcolax) 5 mg DAILY PRN PO CONSTIPATION Last administered on 17:51; Admin Dose 5 MG; Start 03/26/17 at 12:30 Lidocaine (Lidoderm) 1 patch DAILY TD Last administered on 04/03/17 08:24; Admin Dose 1 PATCH; Start 03/27/17 at 11:00 Docusate Sodium (Colace) 100 mg BID PRN PO CONSTIPATION Last administered on 20:20; Admin Dose 100 MG; Start 03/27/17 at 11:00 Nicotine (Nicoderm 21 Mg/ 24hr) 1 patch DAILY TRANSDERM Last administered on 08:23; Admin Dose 1 PATCH; Start 03/27/17 at 13:00 Acetaminophen/ Hydrocodone Bitart ([place] (5/325)) 1 tab Q6H PRN PO PAIN Last administered on 03/31/17 20:26; Admin Dose 1 TAB; Start 03/30/17 at 19:56 Methylprednisolone Sodium Succinate (Solu-Medrol) 40 mg Q12 IV Last administered on 04/03/17 21:17; Admin Dose 40 MG; Start 04/02/17 at 09:00 Pantoprazole 40 mg 40 mg BID PO Last administered on 04/02/17 20:42; Admin Dose 40 MG; Start 04/02/17 at 21:00 Meropenem/Sodium Chloride (Merrem 1 Gm/50 ml (Pmx)) 50 ml @ 100 mls/hr Q12 IVPB Last administered on 04/03/17 21:17; Admin Dose 100 MLS/HR; Start at 21:00 Lorazepam 1 mg 1 mg Q6H PRN IV AGITATION Last administered on 04/03/17 06:00 ; Admin Dose 1 MG; Start 04/02/17 at 20:30 Dextrose/Sodium Chloride (D5-1/2ns) 1,000 ml @ 75 mls/hr [id number] IV Last administered on 04/04/17 01:30; Admin Dose 75 MLS/HR; Start 04/03/17 at 12:30 GIOVANA PAGAN MD Apr 04, 2017 08:39
[2017-04-04] MEDS: FEBUXOSTAT 40 MG TABLET PO SCH (09:16)
[2017-04-04] MEDS: METHYLPREDNISOLONE 40 MG INJ IV SCH (09:16)
[2017-04-04] MEDS: ASPIRIN (EC) 81 MG TAB PO SCH (09:16)
[2017-04-04] MEDS: MEROPENEM 1 GM/50ML(PMX) 50 ML IVPB SCH (09:17)
[2017-04-04] MEDS: PANTOPRAZOLE (EC) 40 MG TAB PO SCH (09:17)
[2017-04-04] MEDS: LIDOCAINE 5% PATCH TD SCH (09:18)
[2017-04-04] MEDS: NICOTINE (21 MG/24 HR) PATCH TRANSDERM SCH (09:18)
[2017-04-04] MEDS: TAMSULOSIN (SR) 0.4 MG CAP PO SCH (09:56)
[2017-04-04] MEDS: MULTIVITAMINS THERAPEUTIC TAB PO SCH (09:56)
--- NOTE | 2017-04-04 11:50 | CONS ---
Date/Time of Note Date/Time of Note DATE: 04/04/17 TIME: 11:47 Assessment/Plan Assessment/Plan Additional Assessment/Plan Assessment and recommendations; 1. Patient admitted with COPD exacerbation with significant clinical improvement. 2. Bilateral lower extremity DVT. Patient with a history of inferior vena cava filter placement. 3. Gastric cancer. Possibly contributing to hyper coagulable state. 4. Acute renal insufficiency with continually improving serum creatinine. Continue current supportive care. Transfer to medical floor. Consider stopping IV heparin and switching the patient to apixaban. Consultation Date/Type/Reason Admit Date/Time Mar 21, 2017 at 23:46 Initial Consult Date 03/22/17 Type of Consultation: Pulmonary/critical care Referring Provider: XENA DE JESUS MD 24 HR Interval Summary Free Text/Dictation Patient's condition is stable. Remains awake and alert. Denies any significant shortness of breath. General exam; elderly male, awake, currently in no distress. Exam/Review of Systems Vital Signs Vitals Vital Signs Date Time Temp Pulse Resp B/P Pulse Ox O2 Delivery O2 Flow Rate FiO2 04/04/17 09:00 98.7 70 20 130/73 98 Nasal Cannula 3.0 04/03/17 05:20 40 Intake and Output 04/03/17 04/03/17 04/04/17 15:00 23:00 07:00 Intake Total 663 ml 737.0 ml 610.5 ml Output Total 450 ml 370 ml 275 ml Balance 213 ml 367.0 ml 335.5 ml Exam HEENT exam; supple neck, no JVD. No lymphadenopathy. Midline trachea. No thyromegaly. Patient is edentulous. Has bilateral intraocular lens implants. Chest exam; diminished but clear breath sounds. S1-S2 audible, no murmurs. Regular rhythm. Abdomen exam; soft, nontender. No organomegaly. Bowel sounds audible. Extremity exam; no edema. 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 Results Result Diagram: 04/04/17 0437 04/04/17 0437 Results 24 hrs Laboratory Tests Test 04/03/17 13:49 04/03/17 21:03 04/04/17 04:37 Activated Partial Thromboplast Time 93.3 *H 103.4 *H 49.9 H White Blood Count 17.9 H Red Blood Count 4.96 Hemoglobin 11.4 L Hematocrit 36.4 L Mean Corpuscular Volume 73.4 L Mean Corpuscular Hemoglobin 23.0 L Mean Corpuscular Hemoglobin Concent 31.3 L Red Cell Distribution Width 17.5 H Platelet Count 524 H Mean Platelet Volume 10.5 H Neutrophils % 96.2 H Lymphocytes % 1.7 L Monocytes % 1.3 Eosinophils % 0.0 Basophils % 0.1 Nucleated Red Blood Cells % 0.0 Neutrophils # 17.3 H Lymphocytes # 0.3 L Monocytes # 0.2 L Eosinophils # 0.0 Basophils # 0.0 Nucleated Red Blood Cells # 0.0 Sodium Level 132 L Potassium Level 3.7 Chloride Level 105 Carbon Dioxide Level 26 Anion Gap 5 L Blood Urea Nitrogen 49 H Creatinine 1.29 H Glucose Level 161 Calcium Level 8.0 L Phosphorus Level 4.0 Magnesium Level 2.0 Medications Medications Current Medications Ondansetron HCl (Zofran Inj) 4 mg Q6H PRN IV NAUSEA AND/OR VOMITING Last administered on 03/29/17 23:45; Admin Dose 4 MG; Start 03/22/17 at 01:30 Acetaminophen (Tylenol Liquid) 650 mg Q6H PRN PO PAIN LEVEL 1-3 OR FEVER Last administered on 03/28/17 05:39; Admin Dose 650 MG; Start 03/22/17 at 01:30 Acetaminophen (Tylenol Supp) 650 mg Q4H PRN [place] PAIN LEVEL 1-3 OR FEVER; Start 03/22/17 at 01:30 Aspirin (Halfprin) 81 mg DAILY PO Last administered on 04/04/17 09:16; Admin Dose 81 MG; Start 03/22/17 at 09:00 Atorvastatin Calcium (Lipitor) 80 mg HS PO Last administered on 04/02/17 20:42 ; Admin Dose 80 MG; Start 03/22/17 at 21:00 Febuxostat (Uloric) 40 mg DAILY PO Last administered on 04/04/17 09:16; Admin Dose 40 MG; Start 03/23/17 at 09:00 Multivitamins Therapeutic (Theragran) 1 tab DAILY PO Last administered on 04/04 09:56; Admin Dose 1 TAB; Start 03/23/17 at 09:00 Tamsulosin HCl (Flomax) 0.4 mg BID PO Last administered on 04/04/17 09:56; Admin Dose 0.4 MG; Start 03/22/17 at 21:00 Hydralazine HCl (Apresoline) 20 mg Q6H PRN IV SBP >180 Last administered on 21:17; Admin Dose 20 MG; Start 03/22/17 at 22:45 Metoprolol Tartrate (Lopressor) 5 mg Q6 PRN IV HR >100 or SBP >170 Last administered on 03/25/17 16:45; Admin Dose 5 MG; Start 03/23/17 at 15:30 Olanzapine (Zyprexa) 10 mg Q8 PRN IM severe agitation Last administered on 04/02 22:25; Admin Dose 10 MG; Start 03/23/17 at 15:30 Labetalol HCl (Labetalol) 10 mg Q4H PRN IV SBP>160 Last administered on 08:43; Admin Dose 10 MG; Start 03/24/17 at 09:30 Morphine Sulfate (morphine) 2 mg Q4H PRN IV PAIN LEVEL 7-10 Last administered on 04/03/17 05:14; Admin Dose 2 MG; Start 03/24/17 at 10:00 Carvedilol (Coreg) 25 mg BID PO Last administered on 04/04/17 09:16; Admin Dose 25 MG; Start 03/25/17 at 21:00 Bisacodyl (Dulcolax Supp) 10 mg DAILY PRN [place] CONSTIPATION; Start 03/26/17 at 12 :30 Bisacodyl (Dulcolax) 5 mg DAILY PRN PO CONSTIPATION Last administered on 17:51; Admin Dose 5 MG; Start 03/26/17 at 12:30 Lidocaine (Lidoderm) 1 patch DAILY TD Last administered on 04/04/17 09:18; Admin Dose 1 PATCH; Start 03/27/17 at 11:00 Docusate Sodium (Colace) 100 mg BID PRN PO CONSTIPATION Last administered on 20:20; Admin Dose 100 MG; Start 03/27/17 at 11:00 Nicotine (Nicoderm 21 Mg/ 24hr) 1 patch DAILY TRANSDERM Last administered on 09:18; Admin Dose 1 PATCH; Start 03/27/17 at 13:00 Acetaminophen/ Hydrocodone Bitart ([place] (5/325)) 1 tab Q6H PRN PO PAIN Last administered on 03/31/17 20:26; Admin Dose 1 TAB; Start 03/30/17 at 19:56 Methylprednisolone Sodium Succinate (Solu-Medrol) 40 mg Q12 IV Last administered on 04/04/17 09:16; Admin Dose 40 MG; Start 04/02/17 at 09:00 Pantoprazole 40 mg 40 mg BID PO Last administered on 04/04/17 09:17; Admin Dose 40 MG; Start 04/02/17 at 21:00 Meropenem/Sodium Chloride (Merrem 1 Gm/50 ml (Pmx)) 50 ml @ 100 mls/hr Q12 IVPB Last administered on 04/04/17 09:17; Admin Dose 100 MLS/HR; Start at 21:00 Lorazepam 1 mg 1 mg Q6H PRN IV AGITATION Last administered on 04/03/17 06:00 ; Admin Dose 1 MG; Start 04/02/17 at 20:30 Dextrose/Sodium Chloride (D5-1/2ns) 1,000 ml @ 75 mls/hr [id number] IV Last administered on 04/04/17 01:30; Admin Dose 75 MLS/HR; Start 04/03/17 at 12:[address] MCAR[address]UR Apr 04, 2017 11:50
--- NOTE | 2017-04-04 13:35 | DS ---
Date/Time of Note Date/Time of Note DATE: 04/04/17 TIME: 13:35 Discharge Summary Admission/Discharge Info Admit Date/Time Mar 21, 2017 at 23:46 Discharge Date/Time Patient Condition: Critical Hx of Present Illness This is a 76-year-old male with a history of hypertension, CHF, BPH, COPD, gastric cancer who presented to the emergency department complaining of shortness. ABG showed hypercapnia and hypoxia. He has been based on BiPAP and feels better. Patient is not entirely knowledgeable about his medical condition but after multiple attempts he said that he was [place] with [place] [facility] [place] said he was told he will have a surgery but said no surgery or chemo has been done. When he presented to the ER labs shows creatinine of almost 1.9 first troponin 0 0.19. Once admitted to ICU he had negligible urine output. Bladder scan was done which showed a urine of about 150 cc. Lower extremity ultrasound is positive for DVT. CT pulmonary angiogram is deferred for now given elevated creatinine. Chest x-ray showed Mild peribronchial cuffing is seen at the bilateral kashif, compatible with asthma Small possible calcified granuloma in the right mid lung , although differential considerations include a pulmonary parenchymal nodule. Hospital Course GI perforation with free air, unknown site, likely massive GI tumor cause Acute respiratory failure, resolving COPD exacerbation Acute on chronic DVT Hypertension mucus plug rib fracture emphysema History of renal cell carcinoma, with renal mass Renal mass Renal cyst Gastric carcinoma, GI tumors, likely Acute delirium Acute on chronic CKD Patient is a 76-year-old male with a past medical history significant for COPD and renal cell carcinoma who was admitted originally for shortness of breath and treated for CHF exacerbation and COPD exacerbation found to have a mass in the tract. Multiple consultants were called for this patient including cardiology, nephrology, urology, general surgery, neurology, pulmonology and over the course of multiple weeks patient's respiratory status resolved within normal limits, however during his stay patient was also found to have an acute DVT and placed on heparin drip. Patient also suffered from multiple bouts of confusion and delirium. Patient was in need of gastric surgery at a higher level of care and arrangements were attempted to transfer patient to a tertiary care center. Before the tertiary care center transfer, patient developed free air in his bowel on chest x-ray and thus a CT of the abdomen was taken to confirm. At this time general surgery offered surgery services to patient and the patient's family, they refused given the possibility of difficult extubation and unknown consequences of injury. Patient understood the consequences of no surgery and wants to undergo hospice care at this time. Patient is to be transferred to longterm home hospice at this time. Home Meds Reported Medications Multivitamins* (Theragran*) 1 Tab Tab, 1 TAB PO DAILY, TAB 03/22/17 Fluticasone Propionate (Flonase Allergy Relief) 9.9 Ml Dinosaur.susp, 1 SPRAY NASAL BID, #1 BOTTLE TO EACH NOSTRIL 03/22/17 Albuterol Sulfate* (Ventolin HFA*) 18 Gm Hfa.aer.ad, 2 PUFF INHALATION Q4H, #1 INHALER 03/22/17 Valsartan-Hydrochlorothiazide (Valsartan-HCTZ) 160-25 Mg Tablet, 1 TAB PO DAILY , #30 TAB 03/22/17 Omeprazole* (Omeprazole*) 40 Mg Capsule.dr, 40 MG PO DAILY, #30 CAP 03/22/17 Tramadol Hcl* (Ultram*) 50 Mg Tablet, 50 MG PO Q6H Y for PAIN, TAB 03/22/17 Febuxostat* (Uloric*) 40 Mg Tablet, 40 MG PO DAILY, TAB 03/22/17 Pentoxifylline* (Pentoxifylline*) 400 Mg Tablet.sa, 400 MG PO QID, TAB 03/22/17 Pramipexole* (Pramipexole*) 0.25 Mg Tablet, 0.25 MG PO HS, TAB 03/22/17 Tamsulosin Hcl* (Flomax*) 0.4 Mg Cap.er.24h, 0.4 MG PO BID, CAP 03/22/17 Primary Care Provider Valroie Miranda Time spent on discharge: > 30 minutes Pending Labs Laboratory Tests Test 04/03/17 13:49 04/03/17 21:03 04/04/17 04:37 Activated Partial Thromboplast Time 93.3Sec (25.0-35.0) 103.4Sec (25.0-35.0) 49.9Sec (25.0-35.0) White Blood Count 17.910^3/ul (4.8-10.8) Red Blood Count 4.9610^6/ul (4.70-6.10) Hemoglobin 11.4g/dl (14.0-18.0) Hematocrit 36.4% (42.0-52.0) Mean Corpuscular Volume 73.4fl (82.0-101.0) Mean Corpuscular Hemoglobin 23.0pg (29.0-33.0) Mean Corpuscular Hemoglobin Concent 31.3g/dl (32.0-37.0) Red Cell Distribution Width 17.5% (11.5-14.5) Platelet Count 16031^3/UL (140-415) Mean Platelet Volume 10.5fl (7.4-10.4) Neutrophils % 96.2% (39.0-77.0) Lymphocytes % 1.7% (15.0-51.0) Monocytes % 1.3% (0.0-11.0) Eosinophils % 0.0% (0.0-7.0) Basophils % 0.1% (0.0-2.0) Nucleated Red Blood Cells % 0.0/100WBC (0.0-0.0) Neutrophils # 17.310^3/ul (1.6-7.5) Lymphocytes # 0.310^3/ul (0.8-2.9) Monocytes # 0.210^3/ul (0.3-0.9) Eosinophils # 0.010^3/ul (0.0-0.5) Basophils # 0.010^3/ul (0.0-0.1) Nucleated Red Blood Cells # 0.010^3/ul (0.0-0.0) Sodium Level 132mmol/L (135-144) Potassium Level 3.7mmol/L (3.5-5.1) Chloride Level 105mmol/L (97-110) Carbon Dioxide Level 26mmol/L (21-31) Anion Gap 5 (8-16) Blood Urea Nitrogen 49mg/dl (7-20) Creatinine 1.29mg/dl (0.61-1.24) Glucose Level 161mg/dl (70-220) Calcium Level 8.0mg/dl (8.4-10.2) Phosphorus Level 4.0mg/dl (2.5-4.9) Magnesium Level 2.0mg/dl (1.7-2.5) ISIDRO CARRERA Apr 04, 2017 13:35
[2017-04-04] MEDS: morphine 2 MG INJ IV PRN (15:03)
[2017-04-04] MEDS: HYDROCODONE/APAP (5/325) TAB PO PRN (15:15)
--- NOTE | 2017-04-04 15:25 | CONS ---
Date/Time of Note Date/Time of Note DATE: 04/04/17 TIME: 15:23 Assessment/Plan Assessment/Plan Additional Assessment/Plan 76 yo Male with 1) S/p Resp Failure 2) COPD 3) HTN, Chronic 4) Hx of RCC S/ Partial Nephrectomy by Dr Ly Gant 5) Hyperechoic Mass Rt Kidney ?RCC 6) Left Renal Cysts 7) Leukcytosis 8) Anemia, Likely Chronic 9) NELLIE Resolved. S/p Waters Likely obstructive Uropathy. 10) GI Malignancy Work up in progress 11) DVT/ No PE on CTA 12) Hyponatremia- Improving 13) Hypotension, Resolved. 14) Perforated Viscus 15) DNR Comfort care, Hospice Pending. Pt renal function is stable and improved Na improved now 132 Ca improved Non oliguric Renal will sign off at this time Grave prognosis. Consultation Date/Type/Reason Admit Date/Time Mar 21, 2017 at 23:46 Initial Consult Date 03/22/17 Type of Consultation: Renal Referring Provider: XENA DE JESUS MD 24 HR Interval Summary Free Text/Dictation Pt seen by Palliative Care team, Hospice evaluation and plan. DNR. Good UO. Waters present. No pressor support. No BIPAP. Subjective hx not possible: pt critical status Constitutional: requiring O2 Exam/Review of Systems Vital Signs Vitals Vital Signs Date Time Temp Pulse Resp B/P Pulse Ox O2 Delivery O2 Flow Rate FiO2 04/04/17 13:00 98.6 73 22 151/81 98 Nasal Cannula 3.0 04/03/17 05:20 40 Intake and Output 04/03/17 04/03/17 04/04/17 15:00 23:00 07:00 Intake Total 663 ml 737.0 ml 610.5 ml Output Total 450 ml 370 ml 275 ml Balance 213 ml 367.0 ml 335.5 ml Exam Constitutional: frail, No distress Head: atraumatic Eyes: EOMI Neck: No jvd Respiratory: crackles/rales, diminished breath sounds, No labored breathing Cardiovascular: regular rate and rhythm, No edema Gastrointestinal: distended, soft, tender Extremities: No edema Neurological: lethargic Skin: No diaphoresis Results Result Diagram: 04/04/17 0437 04/04/17 0437 Results 24 hrs Laboratory Tests Test 04/03/17 21:03 04/04/17 04:37 04/04/17 13:21 Activated Partial Thromboplast Time 103.4 *H 49.9 H 83.8 *H White Blood Count 17.9 H Red Blood Count 4.96 Hemoglobin 11.4 L Hematocrit 36.4 L Mean Corpuscular Volume 73.4 L Mean Corpuscular Hemoglobin 23.0 L Mean Corpuscular Hemoglobin Concent 31.3 L Red Cell Distribution Width 17.5 H Platelet Count 524 H Mean Platelet Volume 10.5 H Neutrophils % 96.2 H Lymphocytes % 1.7 L Monocytes % 1.3 Eosinophils % 0.0 Basophils % 0.1 Nucleated Red Blood Cells % 0.0 Neutrophils # 17.3 H Lymphocytes # 0.3 L Monocytes # 0.2 L Eosinophils # 0.0 Basophils # 0.0 Nucleated Red Blood Cells # 0.0 Sodium Level 132 L Potassium Level 3.7 Chloride Level 105 Carbon Dioxide Level 26 Anion Gap 5 L Blood Urea Nitrogen 49 H Creatinine 1.29 H Glucose Level 161 Calcium Level 8.0 L Phosphorus Level 4.0 Magnesium Level 2.0 Medications Medications Current Medications Ondansetron HCl (Zofran Inj) 4 mg Q6H PRN IV NAUSEA AND/OR VOMITING Last administered on 03/29/17 23:45; Admin Dose 4 MG; Start 03/22/17 at 01:30 Acetaminophen (Tylenol Liquid) 650 mg Q6H PRN PO PAIN LEVEL 1-3 OR FEVER Last administered on 03/28/17 05:39; Admin Dose 650 MG; Start 03/22/17 at 01:30 Acetaminophen (Tylenol Supp) 650 mg Q4H PRN [place] PAIN LEVEL 1-3 OR FEVER; Start 03/22/17 at 01:30 Aspirin (Halfprin) 81 mg DAILY PO Last administered on 04/04/17 09:16; Admin Dose 81 MG; Start 03/22/17 at 09:00 Atorvastatin Calcium (Lipitor) 80 mg HS PO Last administered on 04/02/17 20:42 ; Admin Dose 80 MG; Start 03/22/17 at 21:00 Febuxostat (Uloric) 40 mg DAILY PO Last administered on 04/04/17 09:16; Admin Dose 40 MG; Start 03/23/17 at 09:00 Multivitamins Therapeutic (Theragran) 1 tab DAILY PO Last administered on 04/04 09:56; Admin Dose 1 TAB; Start 03/23/17 at 09:00 Tamsulosin HCl (Flomax) 0.4 mg BID PO Last administered on 04/04/17 09:56; Admin Dose 0.4 MG; Start 03/22/17 at 21:00 Hydralazine HCl (Apresoline) 20 mg Q6H PRN IV SBP >180 Last administered on 21:17; Admin Dose 20 MG; Start 03/22/17 at 22:45 Metoprolol Tartrate (Lopressor) 5 mg Q6 PRN IV HR >100 or SBP >170 Last administered on 03/25/17 16:45; Admin Dose 5 MG; Start 03/23/17 at 15:30 Olanzapine (Zyprexa) 10 mg Q8 PRN IM severe agitation Last administered on 04/02 22:25; Admin Dose 10 MG; Start 03/23/17 at 15:30 Labetalol HCl (Labetalol) 10 mg Q4H PRN IV SBP>160 Last administered on 08:43; Admin Dose 10 MG; Start 03/24/17 at 09:30 Morphine Sulfate (morphine) 2 mg Q4H PRN IV PAIN LEVEL 7-10 Last administered on 04/04/17 15:03; Admin Dose 2 MG; Start 03/24/17 at 10:00 Carvedilol (Coreg) 25 mg BID PO Last administered on 04/04/17 09:16; Admin Dose 25 MG; Start 03/25/17 at 21:00 Bisacodyl (Dulcolax Supp) 10 mg DAILY PRN [place] CONSTIPATION; Start 03/26/17 at 12 :30 Bisacodyl (Dulcolax) 5 mg DAILY PRN PO CONSTIPATION Last administered on 17:51; Admin Dose 5 MG; Start 03/26/17 at 12:30 Lidocaine (Lidoderm) 1 patch DAILY TD Last administered on 04/04/17 09:18; Admin Dose 1 PATCH; Start 03/27/17 at 11:00 Docusate Sodium (Colace) 100 mg BID PRN PO CONSTIPATION Last administered on 20:20; Admin Dose 100 MG; Start 03/27/17 at 11:00 Nicotine (Nicoderm 21 Mg/ 24hr) 1 patch DAILY TRANSDERM Last administered on 09:18; Admin Dose 1 PATCH; Start 03/27/17 at 13:00 Acetaminophen/ Hydrocodone Bitart ([place] (5/325)) 1 tab Q6H PRN PO PAIN Last administered on 03/31/17 20:26; Admin Dose 1 TAB; Start 03/30/17 at 19:56 Methylprednisolone Sodium Succinate (Solu-Medrol) 40 mg Q12 IV Last administered on 04/04/17 09:16; Admin Dose 40 MG; Start 04/02/17 at 09:00 Pantoprazole 40 mg 40 mg BID PO Last administered on 04/04/17 09:17; Admin Dose 40 MG; Start 04/02/17 at 21:00 Meropenem/Sodium Chloride (Merrem 1 Gm/50 ml (Pmx)) 50 ml @ 100 mls/hr Q12 IVPB Last administered on 04/04/17 09:17; Admin Dose 100 MLS/HR; Start at 21:00 Lorazepam 1 mg 1 mg Q6H PRN IV AGITATION Last administered on 04/03/17 06:00 ; Admin Dose 1 MG; Start 04/02/17 at 20:30 Dextrose/Sodium Chloride (D5-1/2ns) 1,000 ml @ 75 mls/hr [id number] IV Last administered on 04/04/17 01:30; Admin Dose 75 MLS/HR; Start 04/03/17 at 12:30 JACY ROSE MD Apr 04, 2017 15:25
[2017-04-04] MEDS: DEXTROSE 5%-0.45% NACL 500 ML IV SCH ×2 (15:30→16:17)
--- NOTE | 2017-04-04 15:55 | CONS ---
Date/Time of Note Date/Time of Note DATE: 04/04/17 TIME: 15:49 Assessment/Plan Assessment/Plan Chief Complaint/Hosp Course The palliative care consultation on this 76-year-old gentleman who is in the intensive care unit [facility] severe respiratory failure, perforated bowel essentially end-stage secondary to multiple comorbid medical problems. Patient has a history of newly diagnosed gastric cancer in a past medical history of renal cell carcinoma. Is not a candidate for transfer to tertiary care institution or for aggressive care including chemotherapy. Information is taken from patient's medical records and speaking with his critical care nurse. Other major medical problems including history of chronic obstructive pulmonary disease, DVT, emphysema, delirium family members at patient's bedside including and daughter second daughter is not here. We are waiting for hospice evaluation for GIP service. I believe he he is GIP hospice appropriate but the final decision to be made by in-house hospice team. Family members seem very comfortable with her decision to withhold any further aggressive intervention. Is no obvious signs this patient is an distress. Voice for the family members are includes both daughters and . They appear to have a clear understanding of his underlying medical problems and acceptable quality of life is not continuing this current medical condition no cultural communication issues to be addressed. Estimated prognosis is at most 1 week with appropriate palliative care there are no cycle analytical psychosocial spiritual issues in the there are no ethical legal issues. Suggest Continue with GIP evaluation if he does not qualify will assume patient's in hospital care. Problems: Consultation Date/Type/Reason Admit Date/Time Mar 21, 2017 at 23:46 Initial Consult Date 03/27/17 Type of Consultation: Renal Referring Provider: XENA DE JESUS MD Exam/Review of Systems Vital Signs Vitals Vital Signs Date Time Temp Pulse Resp B/P Pulse Ox O2 Delivery O2 Flow Rate FiO2 04/04/17 15:34 3.0 04/04/17 13:00 98.6 73 22 151/81 98 Nasal Cannula 04/03/17 05:20 40 Intake and Output 04/03/17 04/03/17 04/04/17 15:00 23:00 07:00 Intake Total 663 ml 737.0 ml 610.5 ml Output Total 450 ml 370 ml 275 ml Balance 213 ml 367.0 ml 335.5 ml Results Result Diagram: 04/04/17 0437 04/04/17 0437 Results 24 hrs Laboratory Tests Test 04/03/17 21:03 04/04/17 04:37 04/04/17 13:21 Activated Partial Thromboplast Time 103.4 *H 49.9 H 83.8 *H White Blood Count 17.9 H Red Blood Count 4.96 Hemoglobin 11.4 L Hematocrit 36.4 L Mean Corpuscular Volume 73.4 L Mean Corpuscular Hemoglobin 23.0 L Mean Corpuscular Hemoglobin Concent 31.3 L Red Cell Distribution Width 17.5 H Platelet Count 524 H Mean Platelet Volume 10.5 H Neutrophils % 96.2 H Lymphocytes % 1.7 L Monocytes % 1.3 Eosinophils % 0.0 Basophils % 0.1 Nucleated Red Blood Cells % 0.0 Neutrophils # 17.3 H Lymphocytes # 0.3 L Monocytes # 0.2 L Eosinophils # 0.0 Basophils # 0.0 Nucleated Red Blood Cells # 0.0 Sodium Level 132 L Potassium Level 3.7 Chloride Level 105 Carbon Dioxide Level 26 Anion Gap 5 L Blood Urea Nitrogen 49 H Creatinine 1.29 H Glucose Level 161 Calcium Level 8.0 L Phosphorus Level 4.0 Magnesium Level 2.0 Medications Medications Current Medications Ondansetron HCl (Zofran Inj) 4 mg Q6H PRN IV NAUSEA AND/OR VOMITING Last administered on 03/29/17 23:45; Admin Dose 4 MG; Start 03/22/17 at 01:30 Acetaminophen (Tylenol Liquid) 650 mg Q6H PRN PO PAIN LEVEL 1-3 OR FEVER Last administered on 03/28/17 05:39; Admin Dose 650 MG; Start 03/22/17 at 01:30 Acetaminophen (Tylenol Supp) 650 mg Q4H PRN [place] PAIN LEVEL 1-3 OR FEVER; Start 03/22/17 at 01:30 Aspirin (Halfprin) 81 mg DAILY PO Last administered on 04/04/17 09:16; Admin Dose 81 MG; Start 03/22/17 at 09:00 Atorvastatin Calcium (Lipitor) 80 mg HS PO Last administered on 04/02/17 20:42 ; Admin Dose 80 MG; Start 03/22/17 at 21:00 Febuxostat (Uloric) 40 mg DAILY PO Last administered on 04/04/17 09:16; Admin Dose 40 MG; Start 03/23/17 at 09:00 Multivitamins Therapeutic (Theragran) 1 tab DAILY PO Last administered on 04/04 09:56; Admin Dose 1 TAB; Start 03/23/17 at 09:00 Tamsulosin HCl (Flomax) 0.4 mg BID PO Last administered on 04/04/17 09:56; Admin Dose 0.4 MG; Start 03/22/17 at 21:00 Hydralazine HCl (Apresoline) 20 mg Q6H PRN IV SBP >180 Last administered on 21:17; Admin Dose 20 MG; Start 03/22/17 at 22:45 Metoprolol Tartrate (Lopressor) 5 mg Q6 PRN IV HR >100 or SBP >170 Last administered on 03/25/17 16:45; Admin Dose 5 MG; Start 03/23/17 at 15:30 Olanzapine (Zyprexa) 10 mg Q8 PRN IM severe agitation Last administered on 04/02 22:25; Admin Dose 10 MG; Start 03/23/17 at 15:30 Labetalol HCl (Labetalol) 10 mg Q4H PRN IV SBP>160 Last administered on 08:43; Admin Dose 10 MG; Start 03/24/17 at 09:30 Morphine Sulfate (morphine) 2 mg Q4H PRN IV PAIN LEVEL 7-10 Last administered on 04/04/17 15:03; Admin Dose 2 MG; Start 03/24/17 at 10:00 Carvedilol (Coreg) 25 mg BID PO Last administered on 04/04/17 09:16; Admin Dose 25 MG; Start 03/25/17 at 21:00 Bisacodyl (Dulcolax Supp) 10 mg DAILY PRN [place] CONSTIPATION; Start 03/26/17 at 12 :30 Bisacodyl (Dulcolax) 5 mg DAILY PRN PO CONSTIPATION Last administered on 17:51; Admin Dose 5 MG; Start 03/26/17 at 12:30 Lidocaine (Lidoderm) 1 patch DAILY TD Last administered on 04/04/17 09:18; Admin Dose 1 PATCH; Start 03/27/17 at 11:00 Docusate Sodium (Colace) 100 mg BID PRN PO CONSTIPATION Last administered on 20:20; Admin Dose 100 MG; Start 03/27/17 at 11:00 Nicotine (Nicoderm 21 Mg/ 24hr) 1 patch DAILY TRANSDERM Last administered on 09:18; Admin Dose 1 PATCH; Start 03/27/17 at 13:00 Acetaminophen/ Hydrocodone Bitart ([place] (5/325)) 1 tab Q6H PRN PO PAIN Last administered on 03/31/17 20:26; Admin Dose 1 TAB; Start 03/30/17 at 19:56 Methylprednisolone Sodium Succinate (Solu-Medrol) 40 mg Q12 IV Last administered on 04/04/17 09:16; Admin Dose 40 MG; Start 04/02/17 at 09:00 Pantoprazole 40 mg 40 mg BID PO Last administered on 04/04/17 09:17; Admin Dose 40 MG; Start 04/02/17 at 21:00 Meropenem/Sodium Chloride (Merrem 1 Gm/50 ml (Pmx)) 50 ml @ 100 mls/hr Q12 IVPB Last administered on 04/04/17 09:17; Admin Dose 100 MLS/HR; Start at 21:00 Lorazepam 1 mg 1 mg Q6H PRN IV AGITATION Last administered on 04/03/17 06:00 ; Admin Dose 1 MG; Start 04/02/17 at 20:30 Dextrose/Sodium Chloride (D5-1/2ns) 1,000 ml @ 75 mls/hr [id number] IV Last administered on 04/04/17 01:30; Admin Dose 75 MLS/HR; Start 04/03/17 at 12:30 DENISE MONTELONGO Apr 04, 2017 15:55
--- NOTE | 2017-04-04 15:58 | CONS ---
Date/Time of Note Date/Time of Note DATE: 04/04/17 TIME: 15:55 Assessment/Plan Assessment/Plan Chief Complaint/Hosp Course The palliative care consultation on this 76-year-old gentleman who is in the intensive care unit [facility] severe respiratory failure, perforated bowel essentially end-stage secondary to multiple comorbid medical problems. Patient has a history of newly diagnosed gastric cancer in a past medical history of renal cell carcinoma. Is not a candidate for transfer to tertiary care institution or for aggressive care including chemotherapy. Information is taken from patient's medical records and speaking with his critical care nurse. Other major medical problems including history of chronic obstructive pulmonary disease, DVT, emphysema, delirium family members at patient's bedside including and daughter second daughter is not here. We are waiting for hospice evaluation for GIP service. I believe he he is GIP hospice appropriate but the final decision to be made by in-house hospice team. Family members seem very comfortable with her decision to withhold any further aggressive intervention. Is no obvious signs this patient is an distress. Voice for the family members are includes both daughters and . They appear to have a clear understanding of his underlying medical problems and acceptable quality of life is not continuing this current medical condition no cultural communication issues to be addressed. Estimated prognosis is at most 1 week with appropriate palliative care there are no cycle analytical psychosocial spiritual issues in the there are no ethical legal issues. Suggest Continue with GIP evaluation if he does not qualify will assume patient's in hospital care. Problems: Additional Assessment/Plan Discussion with patient's 2 daughters who are in agreement just pursuing comfort measures. They do not feel that their father's quality of life will improve and in agreement not to pursue surgical intervention or prolonging his life with aggressive intervention. Discussed her hopes concerns goals for appropriate treatment for pain and symptom management. I suggested him to bring in any friends or family members to visit with him now. They are a very strong family. There is no discord concern velocity of end-of-life care to issues episcopal issues ethical issues legal issues, support is given to family members and we will continue to have family discussions on a daily basis. Consultation Date/Type/Reason Admit Date/Time Mar 21, 2017 at 23:46 Initial Consult Date 03/27/17 Type of Consultation: Renal Referring Provider: XENA DE JESUS MD Exam/Review of Systems Vital Signs Vitals Vital Signs Date Time Temp Pulse Resp B/P Pulse Ox O2 Delivery O2 Flow Rate FiO2 04/04/17 15:34 3.0 04/04/17 13:00 98.6 73 22 151/81 98 Nasal Cannula 04/03/17 05:20 40 Intake and Output 04/03/17 04/03/17 04/04/17 15:00 23:00 07:00 Intake Total 663 ml 737.0 ml 610.5 ml Output Total 450 ml 370 ml 275 ml Balance 213 ml 367.0 ml 335.5 ml Results Result Diagram: 04/04/17 0437 04/04/17 0437 Results 24 hrs Laboratory Tests Test 04/03/17 21:03 04/04/17 04:37 04/04/17 13:21 Activated Partial Thromboplast Time 103.4 *H 49.9 H 83.8 *H White Blood Count 17.9 H Red Blood Count 4.96 Hemoglobin 11.4 L Hematocrit 36.4 L Mean Corpuscular Volume 73.4 L Mean Corpuscular Hemoglobin 23.0 L Mean Corpuscular Hemoglobin Concent 31.3 L Red Cell Distribution Width 17.5 H Platelet Count 524 H Mean Platelet Volume 10.5 H Neutrophils % 96.2 H Lymphocytes % 1.7 L Monocytes % 1.3 Eosinophils % 0.0 Basophils % 0.1 Nucleated Red Blood Cells % 0.0 Neutrophils # 17.3 H Lymphocytes # 0.3 L Monocytes # 0.2 L Eosinophils # 0.0 Basophils # 0.0 Nucleated Red Blood Cells # 0.0 Sodium Level 132 L Potassium Level 3.7 Chloride Level 105 Carbon Dioxide Level 26 Anion Gap 5 L Blood Urea Nitrogen 49 H Creatinine 1.29 H Glucose Level 161 Calcium Level 8.0 L Phosphorus Level 4.0 Magnesium Level 2.0 Medications Medications Current Medications Ondansetron HCl (Zofran Inj) 4 mg Q6H PRN IV NAUSEA AND/OR VOMITING Last administered on 03/29/17 23:45; Admin Dose 4 MG; Start 03/22/17 at 01:30 Acetaminophen (Tylenol Liquid) 650 mg Q6H PRN PO PAIN LEVEL 1-3 OR FEVER Last administered on 03/28/17 05:39; Admin Dose 650 MG; Start 03/22/17 at 01:30 Acetaminophen (Tylenol Supp) 650 mg Q4H PRN [place] PAIN LEVEL 1-3 OR FEVER; Start 03/22/17 at 01:30 Aspirin (Halfprin) 81 mg DAILY PO Last administered on 04/04/17 09:16; Admin Dose 81 MG; Start 03/22/17 at 09:00 Atorvastatin Calcium (Lipitor) 80 mg HS PO Last administered on 04/02/17 20:42 ; Admin Dose 80 MG; Start 03/22/17 at 21:00 Febuxostat (Uloric) 40 mg DAILY PO Last administered on 04/04/17 09:16; Admin Dose 40 MG; Start 03/23/17 at 09:00 Multivitamins Therapeutic (Theragran) 1 tab DAILY PO Last administered on 04/04 09:56; Admin Dose 1 TAB; Start 03/23/17 at 09:00 Tamsulosin HCl (Flomax) 0.4 mg BID PO Last administered on 04/04/17 09:56; Admin Dose 0.4 MG; Start 03/22/17 at 21:00 Hydralazine HCl (Apresoline) 20 mg Q6H PRN IV SBP >180 Last administered on 21:17; Admin Dose 20 MG; Start 03/22/17 at 22:45 Metoprolol Tartrate (Lopressor) 5 mg Q6 PRN IV HR >100 or SBP >170 Last administered on 03/25/17 16:45; Admin Dose 5 MG; Start 03/23/17 at 15:30 Olanzapine (Zyprexa) 10 mg Q8 PRN IM severe agitation Last administered on 04/02 22:25; Admin Dose 10 MG; Start 03/23/17 at 15:30 Labetalol HCl (Labetalol) 10 mg Q4H PRN IV SBP>160 Last administered on 08:43; Admin Dose 10 MG; Start 03/24/17 at 09:30 Morphine Sulfate (morphine) 2 mg Q4H PRN IV PAIN LEVEL 7-10 Last administered on 04/04/17 15:03; Admin Dose 2 MG; Start 03/24/17 at 10:00 Carvedilol (Coreg) 25 mg BID PO Last administered on 04/04/17 09:16; Admin Dose 25 MG; Start 03/25/17 at 21:00 Bisacodyl (Dulcolax Supp) 10 mg DAILY PRN [place] CONSTIPATION; Start 03/26/17 at 12 :30 Bisacodyl (Dulcolax) 5 mg DAILY PRN PO CONSTIPATION Last administered on 17:51; Admin Dose 5 MG; Start 03/26/17 at 12:30 Lidocaine (Lidoderm) 1 patch DAILY TD Last administered on 04/04/17 09:18; Admin Dose 1 PATCH; Start 03/27/17 at 11:00 Docusate Sodium (Colace) 100 mg BID PRN PO CONSTIPATION Last administered on 20:20; Admin Dose 100 MG; Start 03/27/17 at 11:00 Nicotine (Nicoderm 21 Mg/ 24hr) 1 patch DAILY TRANSDERM Last administered on 09:18; Admin Dose 1 PATCH; Start 03/27/17 at 13:00 Acetaminophen/ Hydrocodone Bitart ([place] (5/325)) 1 tab Q6H PRN PO PAIN Last administered on 03/31/17 20:26; Admin Dose 1 TAB; Start 03/30/17 at 19:56 Methylprednisolone Sodium Succinate (Solu-Medrol) 40 mg Q12 IV Last administered on 04/04/17 09:16; Admin Dose 40 MG; Start 04/02/17 at 09:00 Pantoprazole 40 mg 40 mg BID PO Last administered on 04/04/17 09:17; Admin Dose 40 MG; Start 04/02/17 at 21:00 Meropenem/Sodium Chloride (Merrem 1 Gm/50 ml (Pmx)) 50 ml @ 100 mls/hr Q12 IVPB Last administered on 04/04/17 09:17; Admin Dose 100 MLS/HR; Start at 21:00 Lorazepam 1 mg 1 mg Q6H PRN IV AGITATION Last administered on 04/03/17 06:00 ; Admin Dose 1 MG; Start 04/02/17 at 20:30 Dextrose/Sodium Chloride (D5-1/2ns) 1,000 ml @ 75 mls/hr [id number] IV Last administered on 04/04/17 01:30; Admin Dose 75 MLS/HR; Start 04/03/17 at 12:30 DENISE MONTELONGO Apr 04, 2017 15:58
[2017-04-04] MEDS ORDERED: morphine 2 MG INJ IV PRN ×2 (16:00)
[2017-04-04] MEDS ORDERED: ONDANSETRON 4 MG INJ IV PRN (16:00)
[2017-04-04] MEDS: LORAZEPAM 2 MG INJ IV PRN (16:16)
[2017-04-04] MEDS ORDERED: LORAZEPAM 2 MG INJ IV PRN (16:30)
[2017-04-05] MEDS: LORAZEPAM 2 MG INJ IV PRN ×2 (02:23→11:43)
[2017-04-05 07:45] VITALS: BP 110/64; RESP 22
--- NOTE | 2017-04-05 09:42 | CONS ---
Date/Time of Note Date/Time of Note DATE: 04/05/17 TIME: 09:40 Assessment/Plan Assessment/Plan Chief Complaint/Hosp Course The palliative care consultation on this 76-year-old gentleman who is in the intensive care unit [facility] severe respiratory failure, perforated bowel essentially end-stage secondary to multiple comorbid medical problems. Patient has a history of newly diagnosed gastric cancer in a past medical history of renal cell carcinoma. Is not a candidate for transfer to tertiary care institution or for aggressive care including chemotherapy. Information is taken from patient's medical records and speaking with his critical care nurse. Other major medical problems including history of chronic obstructive pulmonary disease, DVT, emphysema, delirium family members at patient's bedside including and daughter second daughter is not here. We are waiting for hospice evaluation for GIP service. I believe he he is GIP hospice appropriate but the final decision to be made by in-house hospice team. Family members seem very comfortable with her decision to withhold any further aggressive intervention. Is no obvious signs this patient is an distress. Voice for the family members are includes both daughters and . They appear to have a clear understanding of his underlying medical problems and acceptable quality of life is not continuing this current medical condition no cultural communication issues to be addressed. Estimated prognosis is at most 1 week with appropriate palliative care there are no cycle analytical psychosocial spiritual issues in the there are no ethical legal issues. Suggest Continue with GIP evaluation if he does not qualify will assume patient's in hospital care. Problems: Additional Assessment/Plan Is much more short of breath today than yesterday, looks very uncomfortable there are no family members at the bedside. As promised I will call them today and begin him on a low dose comfort care medications. I have told patient that we will make him more comfortable he is in agreement. Continue with family support patient support address goals of care especially pain and symptom management. Consultation Date/Type/Reason Admit Date/Time Mar 21, 2017 at 23:46 Initial Consult Date 03/27/17 Type of Consultation: Palliative care Referring Provider: XENA DE JESUS MD Exam/Review of Systems Vital Signs Vitals Vital Signs Date Time Temp Pulse Resp B/P Pulse Ox O2 Delivery O2 Flow Rate FiO2 04/04/17 23:00 Simple Mask 6.0 04/04/17 21:45 98.3 75 22 109/65 96 04/03/17 05:20 40 Intake and Output 04/04/17 04/04/17 04/05/17 15:00 23:00 07:00 Intake Total 80 ml 140 ml Output Total 150 ml Balance -70 ml 140 ml Exam Respiratory: congested cough, crackles/rales, diminished breath sounds, intercostal retraction, labored breathing Results Result Diagram: 04/04/17 0437 04/04/17 0437 Results 24 hrs Laboratory Tests Test 04/04/17 13:21 Activated Partial Thromboplast Time 83.8 *H Medications Medications Current Medications Lorazepam (Ativan) 2 mg Q4H PRN IV AGITATION Last administered on 04/05/17 02 :23; Admin Dose 2 MG; Start 04/04/17 at 16:00 Morphine Sulfate (morphine) 2 mg Q2H PRN IV PAIN Last administered on 05:50; Admin Dose 2 MG; Start 04/04/17 at 16:00 Morphine Sulfate 2 mg 2 mg Q1H PRN IV pain; Start 04/04/17 at 16:00 Dextrose/Sodium Chloride (D5-1/2ns) 500 ml @ 20 mls/hr Q24H IV Last administered on 04/04/17 15:30; Admin Dose 20 MLS/HR; Start 04/04/17 at 16:00 Ondansetron HCl (Zofran Inj) 4 mg Q4H PRN IV NAUSEA AND/OR VOMITING; Start 05/11 at 16:00 Lorazepam (Ativan) 2 mg Q6H PRN IV agitation; Start 04/04/17 at 16:30 DENISE MONTELONGO Apr 05, 2017 09:42
[2017-04-05] MEDS: morphine (DRIP) 100 MG/100 ML 100 ML IV SCH (11:18)
--- NOTE | 2017-04-05 11:45 | CONS ---
Date/Time of Note Date/Time of Note DATE: 04/05/17 TIME: 11:45 Consultation Date/Type/Reason Admit Date/Time Mar 21, 2017 at 23:46 Initial Consult Date 03/22/17 Type of Consultation: pulmonary Referring Provider: XENA DE JESUS MD 24 HR Interval Summary Free Text/Dictation dictated # [id number] Exam/Review of Systems Vital Signs Vitals Vital Signs Date Time Temp Pulse Resp B/P Pulse Ox O2 Delivery O2 Flow Rate FiO2 04/05/17 08:15 Nasal Cannula 5.0 04/04/17 21:45 98.3 75 22 109/65 96 04/03/17 05:20 40 Intake and Output 04/04/17 04/04/17 04/05/17 15:00 23:00 07:00 Intake Total 80 ml 140 ml Output Total 150 ml Balance -70 ml 140 ml Results Result Diagram: 04/04/17 0437 04/04/17 0437 Results 24 hrs Laboratory Tests Test 04/04/17 13:21 Activated Partial Thromboplast Time 83.8 *H Medications Medications Current Medications Lorazepam 2 mg 2 mg Q4H PRN IV AGITATION Last administered on 04/05/17 02:23 ; Admin Dose 2 MG; Start 04/04/17 at 16:00 Dextrose/Sodium Chloride (D5-1/2ns) 500 ml @ 20 mls/hr Q24H IV Last administered on 04/04/17 15:30; Admin Dose 20 MLS/HR; Start 04/04/17 at 16:00 Ondansetron HCl (Zofran Inj) 4 mg Q4H PRN IV NAUSEA AND/OR VOMITING; Start 05/11 at 16:00 Lorazepam 2 mg 2 mg Q6H PRN IV agitation; Start 04/04/17 at 16:30 Morphine Sulfate/ Sodium Chloride (morphine) 100 ml @ 1 mls/hr TITRATE IV Last administered on 04/05/17 11:18; Admin Dose 1 MLS/HR; Start 04/05/17 at 11:[address]AR[address] Apr 05, 2017 11:45
--- NOTE | 2017-04-05 12:11 | PN ---
DATE: 04/05/2017 PULMONARY PROGRESS NOTE The patient's condition is stable. The patient is on morphine drip and sedated. PHYSICAL EXAMINATION: GENERAL: Elderly male, awake, currently in no distress. VITAL SIGNS: Temperature 98 degrees Fahrenheit, heart rate 80 per minute, blood pressure 130/70, O2 sat 95%, respiratory rate is 16 per minute. HEENT: Supple neck, no JVD, no lymphadenopathy, midline trachea, no thyromegaly. The patient is edentulous, has bilateral intraocular lens implants. CHEST: Diminished but clear breath sounds. No added sounds. HEART: S1, S2 audible. No murmurs, regular rhythm. ABDOMEN: Soft, nontender, nondistended. Bowel sounds audible, no organomegaly. EXTREMITIES: No edema. CENTRAL NERVOUS SYSTEM: The patient is awake and follows simple commands. LABORATORY DATA: Not drawn today. MEDICATIONS: The patient is currently on: 1. morphine drip. All other medications have been discontinued. ASSESSMENT AND PLAN: 1. Patient admitted for chronic obstructive pulmonary disease exacerbation, currently on comfort measures per family request. 2. History of bilateral lower extremity deep venous thrombosis. 3. History of gastric cancer. 4. Renal insufficiency. RECOMMENDATIONS: Continue current comfort measures. Prognosis is poor. Dictated By: LANE AVERY/MAYUR Conf#: [id number] DID#: [id number] MTDD
[2017-04-05] MEDS ORDERED: ARTIFICIAL TEARS 15 ML OPH BOTH EYES PRN (13:00)
[2017-04-05] MEDS ORDERED: ATROPINE 1% 5 ML OPH SL PRN (13:00)
[2017-04-05] MEDS ORDERED: ACETAMINOPHEN 650 MG SUPP PR PRN (13:00)
[2017-04-05] MEDS ORDERED: DIMETHICONE STICK TOP PRN (13:00)
--- NOTE | 2017-04-05 13:28 | PN ---
Date/Time of Note Date/Time of Note DATE: 04/05/17 TIME: 13:22 Assessment/Plan VTE Prophylaxis VTE Prophylaxis Intervention: other Lines/Catheters IV Catheter Type (from Nrsg): Saline Lock Urinary Cath still in place: Yes Reason Cath still needed: terminal illness/intractable pain Assessment/Plan Chief Complaint/Hosp Course GI perforation with free air, unknown site, likely massive GI tumor cause Acute respiratory failure, resolving COPD exacerbation Acute on chronic DVT Hypertension mucus plug rib fracture emphysema History of renal cell carcinoma, with renal mass Renal mass Renal cyst Gastric carcinoma, GI tumors, likely Acute delirium Acute on chronic CKD Patient is a 76-year-old male with a past medical history significant for COPD, hypertension, and renal carcinoma 2011 as well as recent diagnosis of gastric carcinoma approximately 6 months ago who presents to [facility] for shortness of breath. Found to have acute on chronic DVT. Developed perforated bowel, now undergoing process for hospice care. Plan -Found to have perforated viscus, general surgery, Dr. Mendes spoke with patient's family who declined surgery after extensive talks.hospice/palliative care for now per Dr. Silverman. -morphine drip for comfort -Patient and patient's family aware of risks and prognosis. -patient followed by hospice -DNR/DNI DISPO: patient not currently stable for assisted/home hospice, will stay inpatient with morphine drip. Problems: Subjective 24 Hr Interval Summary Free Text/Dictation patient alert, but appears to be in moderate distress Exam/Review of Systems Vital Signs Vitals Vital Signs Date Time Temp Pulse Resp B/P Pulse Ox O2 Delivery O2 Flow Rate FiO2 04/05/17 08:15 Nasal Cannula 5.0 04/04/17 21:45 98.3 75 22 109/65 96 04/03/17 05:20 40 Intake and Output 04/04/17 04/04/17 04/05/17 15:00 23:00 07:00 Intake Total 80 ml 140 ml Output Total 150 ml Balance -70 ml 140 ml Exam General: resting in bed, alert, mild resp distress Head: Normocephalic atraumatic Eyes: EOMI, pupils reactive to light Neck: Supple, nontender, midline Respiratory: diminished breath sounds bilaterally, no wheezing or crackles Cardiovascular: regular rate, no obvious murmurs. slight tenderness left chest wall Gastrointestinal: mildly tender to palpation, mildly distended, bowel sounds heard. Skin: No new skin lesions Results Result Diagram: 04/04/1743604/04/17436 Medications Medications Current Medications Lorazepam (Ativan) 2 mg Q4H PRN IV AGITATION Last administered on 04/05/17 11 :43; Admin Dose 2 MG; Start 04/04/17 at 16:00 Ondansetron HCl 4 mg 4 mg Q4H PRN IV NAUSEA AND/OR VOMITING; Start 04/04/17 at 16:00 Morphine Sulfate/ Sodium Chloride (morphine) 100 ml @ 1 mls/hr TITRATE IV Last administered on 04/05/17 11:18; Admin Dose 1 MLS/HR; Start 04/05/17 at 11:00 Acetaminophen (Tylenol Supp) 650 mg Q4H PRN [place] PAIN OR TEMP ABOVE 38C; Start 04/05/17 at 13:00; Status UNV Atropine Sulfate (Atropine 1% Oph) 2 drop Q2H PRN SL PRN SECRETIONS; Start 06/10 at 13:00; Status UNV ISIDRO CARRERA Apr 05, 2017 13:28
[2017-04-05 13:29] VITALS: BP 140/84; RESP 36
[2017-04-05] MEDS ORDERED: morphine 4 MG/ML VIAL IV STA (13:29)
--- NOTE | 2017-04-05 13:41 | RADRPT ---
Vent Rate: 67 bpm RR Interval: 0 msec ND Interval: 158 msec QRS Duration: 136 msec QT Interval: 446 msec QTC Interval: 471 msec P-R-T [place]: 61 - -87 - 60 degrees Normal sinus rhythm Left axis deviation Right bundle branch block Possible Lateral infarct , age undetermined Abnormal ECG Electronically Signed By: Miles Ellis [id number]
--- NOTE | 2017-04-05 13:44 | RADRPT ---
Vent Rate: 98 bpm RR Interval: 0 msec NC Interval: 150 msec QRS Duration: 138 msec QT Interval: 388 msec QTC Interval: 495 msec P-R-T [place]: 72 - 0 - 55 degrees Normal sinus rhythm Right bundle branch block , plus right ventricular hypertrophy Inferior infarct , age undetermined Abnormal ECG Electronically Signed By: Miles Ellis [id number]
--- NOTE | 2017-04-05 14:02 | PN ---
Date/Time of Note Date/Time of Note DATE: 04/05/17 TIME: 13:57 Assessment/Plan Lines/Catheters IV Catheter Type (from Nrs): Saline Lock Waters in Place (from Nrsg): Yes Assessment/Plan Chief Complaint/Hosp Course 1.Free air in abdomen, perforated viscus: family refused surgical intervention: abdomen soft, non distended, no pain -per palliative team-started on comfort measures today 2. 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 CT identifies GE jx thickening which may represent submucosal ? extension. Based on these findings, prior to surgical consideration, pt would benefit from re biopsy of the esophageal mass and proximal stomach preferably under EUS guidance. 3. Respiratory failure with COPD Exacerbation: Improved today, comfortable on nasal cannula; XRAY shows free air, concern for perforated viscus -supportive -as above 4. Acute on chronic DVT: L leg - anticoagulation 5. Leukocytosis: no fevers; likely 2/2 #1, 2, 3 -as above 6. Hypertension - stable 7. Rib fracture -Lidoderm patch for pain control 8. Acute delirium: - medical management -supportive Thank you. Patient seen and examined in collaboration with Dr. Kenneth Mendes. Problems: Subjective 24 Hr Interval Summary Tachypneic. appears uncomfortable currently but will started on comfort measures per palliative team. Exam/Review of Systems Vital Signs Vitals Vital Signs Date Time Temp Pulse Resp B/P Pulse Ox O2 Delivery O2 Flow Rate FiO2 04/05/17 13:29 97.5 102 36 140/84 83 04/05/17 08:15 Nasal Cannula 5.0 04/03/17 05:20 40 Intake and Output 04/04/17 04/04/17 04/05/17 15:00 23:00 07:00 Intake Total 80 ml 140 ml Output Total 150 ml Balance -70 ml 140 ml Exam Free Text/Dictation Constitutional: oriented (to self, partial location, and partial date), No distress Psych: nl mood/affect, No anxiety Head: normocephalic, atraumatic Eyes: EOMI, PERRL, nl conjunctiva, No icteric ENMT: nl external ears & nose, nl lips & teeth, No mucosa pink and moist Neck: non-tender, supple Respiratory: increased rate No congested cough, No labored breathing Cardiovascular: nl pulses, regular rate and rhythm, No edema Gastrointestinal: distended (min), min tender, soft No rebound or guarding Musculoskeletal: nl extremities to inspection, No joint tenderness, No nl gait and stance Extremities: No calf tenderness, No edema Neurological: No nl speech, No nl strength Skin: No diaphoresis, No nl turgor, No rash or lesions Lymph: No nl lymph nodes Results Result Diagram: 04/04/17 0437 04/04/17 0437 VIVIAN CLARK NP Apr 05, 2017 14:02
--- NOTE | 2017-04-05 19:49 | PN ---
Date/Time of Note Date/Time of Note DATE: 04/05/17 TIME: 19:48 Assessment/Plan VTE Prophylaxis VTE Prophylaxis Intervention: SCD's Lines/Catheters IV Catheter Type (from Nrsg): Saline Lock Urinary Cath still in place: Yes Reason Cath still needed: urinary retention Assessment/Plan Chief Complaint/Hosp Course the patient with no change Problems: Assessment/Plan SIRS/Sepsis Acute kidney injury, improving Extensive DVT noted bilaterally with hx IVC filter COPD Possible history of malignancy Active tobacco use Mild elevated troponin Left-sided rib fracture -Patient with improvement in respiratory status and mental status. CT chest with no evidence of pulmonary emboli. Continue anticoagulation if no contraindication. -sw daughter -?false +trops -possible palliative care Subjective 24 Hr Interval Summary Free Text/Dictation the patine twtih no change Exam/Review of Systems Vital Signs Vitals Vital Signs Date Time Temp Pulse Resp B/P Pulse Ox O2 Delivery O2 Flow Rate FiO2 04/05/17 14:00 Nasal Cannula 5.0 04/05/17 13:29 97.5 102 36 140/84 83 04/03/17 05:20 40 Intake and Output 04/04/17 04/04/17 04/05/17 15:00 23:00 07:00 Intake Total 80 ml 140 ml Output Total 150 ml Balance -70 ml 140 ml Results Result Diagram: 04/04/17 0437 04/04/17 0437 Medications Medications Current Medications Lorazepam (Ativan) 2 mg Q4H PRN IV AGITATION Last administered on 04/05/17 11 :43; Admin Dose 2 MG; Start 04/04/17 at 16:00 Ondansetron HCl 4 mg 4 mg Q4H PRN IV NAUSEA AND/OR VOMITING; Start 04/04/17 at 16:00 Morphine Sulfate/ Sodium Chloride (morphine) 100 ml @ 1 mls/hr TITRATE IV Last administered on 04/05/17 11:18; Admin Dose 1 MLS/HR; Start 04/05/17 at 11:00 Acetaminophen (Tylenol Supp) 650 mg Q4H PRN [place] PAIN OR TEMP ABOVE 38C; Start 04/05/17 at 13:00 Atropine Sulfate (Atropine 1% Oph) 2 drop Q2H PRN SL PRN SECRETIONS; Start 06/10 at 13:00 GIOVANA PAGAN MD Apr 05, 2017 19:49
[2017-04-06] MEDS: morphine (DRIP) 100 MG/100 ML 100 ML IV SCH (01:10)
--- NOTE | 2017-04-06 06:59 | HP ---
DATE OF ADMISSION: 03/21/2017 LEVEL OF CARE: [facility] DIAGNOSIS: Gastric cancer. CO-MORBIDITIES: 1. Gastrointestinal perforation. 2. Respiratory failure. 3. Chronic obstructive pulmonary disease. 4. Hypertension. 5. History of renal carcinoma. 6. Acute on-chronic kidney disease. REASON FOR ADMISSION: The patient is a 76-year-old gentleman with a past medical history of hyperte nsion, COPD, renal carcinoma which was diagnosed in 2011. The patient also has a recent diagnosis o f gastric carcinoma, this was approximately 6 months ago. Patient came to ER with shortness of enrrique th. The patient was diagnosed with acute on-chronic DVT, as well as noted to have perforated bowel. Dr. Mendes was called and Dr. Mendes spoke with patient's family, who declined surgery after ext ensive discussion with Dr. Silverman from palliative care standpoint. The patient was started on IV morphine drip by Dr. Silverman and, today, patient was transitioned to Hospice Care. The patient was initially supposed to go to long term facility; however, due to uncontrolled terminal symptom s, the patient is being admitted under [facility] level of care. The patient was short of breath, agitated , and with intermittent agonal breathing. The patient did not have any recent hematemesis, no fever or chills. The patient was also seen by Dr. Thompson from nephrology standpoint due to acute on-chr onic kidney disease. The patient's BUN yesterday was 49, creatinine was 1.2. The patient's workup for pulmonary embolism was negative. From oncology standpoint, patient was also seen by Dr. Hurd . 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 Hurd, the patient, given his debilitated state, was not a candidate for chemotherapy or radiation therapy, an d since the patient also is a poor surgery candidate, the patient was referred for Palliative Care. PAST MEDICAL HISTORY: As stated above. In addition, the patient also has a history of benign prost atic hypertrophy. SOCIAL HISTORY: Unknown. FAMILY HISTORY: Noncontributory. PHYSICAL EXAMINATION: GENERAL: The patient is lethargic. VITAL SIGNS: Temperature 97.5, pulse 102, respirations , blood pressure 140/84, O2 saturation 82% on 5 liters nasal cannula. HEENT: No eye discharge or redness. Nose and ears normal externally. NECK: No mass. CHEST: Revealed diminished air entry at bases. CARDIOVASCULAR: S1, S2 normal. No murmur. ABDOMEN: Distended and tender. SKIN: Without acute rash. NEUROLOGIC: The patient is lethargic and has generalized weakness. RECENT LABS: WBC 17.9, hemoglobin 11.4, platelets 524. Sodium 132, potassium 3.7, BUN 49, creatini ne 1.2 IMPRESSION: 1. Possible metastatic gastric cancer. 2. Recent respiratory failure. 3. Deep venous thrombosis lower extremity involving left common femoral vein, upper left femoral ve in, mid left femoral vein, and right peroneal vein. 4. Chronic obstructive pulmonary disease. 5. Renal cancer. 6. Acute on-chronic kidney disease. PLAN: The patient will be continued on morphine drip, which will be titrated up by 1 mg every hour for comfort care. The patient will also start atropine drops for secretion, DuoNeb for chest conges tion, Tylenol for fever, and IV Ativan for anxiety. The patient remains for comfort care. Pl an of care discussed with the dialysis nurse, Ana, and also with desk nurse. Will continue to op timize comfort care. Dictated By: ROSALBA MOJICA/MAYUR Conf#: [id number] DID#: [id number]
--- NOTE | 2017-04-06 08:56 | QN ---
Documentation Comment Pt is now. Nurse states that the time of was 0755. Family is at bedside and are aware. KRISTI BOWEN MD Apr 06, 2017 08:56
--- NOTE | 2017-04-10 07:12 | DES ---
DATE OF ADMISSION: 03/21/2017 DATE OF : 04/06/2017 CAUSE OF : Gastric cancer. OTHER COMORBIDITIES: Respiratory failure, COPD, hypertension, renal carcinoma, acute on chronic kid cl disease. REASON FOR ADMISSION: The patient was a 76-year-old gentleman with past medical history of COPD, hy pertension and renal carcinoma which was diagnosed in 2011. The patient also has a recent diagnosis of gastric carcinoma approximately 6 months ago. The patient was brought into ER with shortness of breath. The patient was admitted for further evaluation and management. The patient was noted to have perforated bowel and was seen by Dr. Mendes. The patient's family declined surgical intervent ion due to multiple comorbid conditions and Dr. Silverman was called from palliative care and patient was started on IV morphine drip for comfort care. hospice was called once the family decided only comfort medications. The patient was admitted under at [facility] level of care. The patient was started on IV morphine drip, which was titrated by 1 mg every hour for comfort care. The patien t also given atropine drops for secretion, DuoNeb for chest congestion, Tylenol for fever and IV Ati van for anxiety. The patient on 04/06/2017 at 8:00 was noted to have no pulse or blood pressure and Dr. Arboleda pronounced him . CONSULTATIONS OBTAINED: Dr. Ansari, cardiology, Dr. De Anda, pulmonary, Angelina Blackmon, working with Dr. Kenneth Mendes and Dr. Silverman from palliative care, Dr. Aleida Sainz, oncology. Dictated By: ROSALBA MOJICA/MAYUR Conf#: [id number] DID#: [id number]
== END 2017-04-06 07:55 | disposition expired ==
LOC: E/R 22:25 → ICU 23:46 → TEL 03-25 21:30 → ICU 04-01 18:31 → MS2 04-04 22:40
PROVIDERS: ADMIT Internal Medicine; ATTEND Internal Medicine
PROC: 0DB68ZX Excision of Stomach, Via Natural or Artificial Opening Endoscopic, Diagnostic (ICD-10-PCS; 2017-03-28)
PROC: 0DB28ZX Excision of Middle Esophagus, Via Natural or Artificial Opening Endoscopic, Diagnostic (ICD-10-PCS; principal; 2017-03-28 19:00)
DX: I21.4 Non-ST elevation (NSTEMI) myocardial infarction (principal); N17.0 Acute kidney failure with tubular necrosis; J96.01 Acute respiratory failure with hypoxia; J96.02 Acute respiratory failure with hypercapnia; G93.40 Encephalopathy, unspecified; I82.412 Acute embolism and thrombosis of left femoral vein; K22.10 Ulcer of esophagus without bleeding; J44.0 Chronic obstructive pulmonary disease with (acute) lower respiratory infection; C16.9 Malignant neoplasm of stomach, unspecified; E84.9 Cystic fibrosis, unspecified; J44.1 Chronic obstructive pulmonary disease with (acute) exacerbation; I82.4Z1 Acute embolism and thrombosis of unspecified deep veins of right distal lower extremity; E87.1 Hypo-osmolality and hyponatremia; S22.32XA Fracture of one rib, left side, initial encounter for closed fracture; J20.9 Acute bronchitis, unspecified; I12.9 Hypertensive chronic kidney disease with stage 1 through stage 4 chronic kidney disease, or unspecified chronic kidney disease; N28.1 Cyst of kidney, acquired; N18.9 Chronic kidney disease, unspecified; N50.89 Other specified disorders of the male genital organs; N28.89 Other specified disorders of kidney and ureter; N40.0 Benign prostatic hyperplasia without lower urinary tract symptoms; D63.8 Anemia in other chronic diseases classified elsewhere; E83.9 Disorder of mineral metabolism, unspecified; R41.0 Disorientation, unspecified; F17.200 Nicotine dependence, unspecified, uncomplicated; G30.9 Alzheimer's disease, unspecified; F02.80 Dementia in other diseases classified elsewhere, unspecified severity, without behavioral disturbance, psychotic disturbance, mood disturbance, and anxiety; X58.XXXA Exposure to other specified factors, initial encounter; E88.09 Other disorders of plasma-protein metabolism, not elsewhere classified; Z51.5 Encounter for palliative care; Z66 Do not resuscitate; Z85.528 Personal history of other malignant neoplasm of kidney
CPT/HCPCS: 36415; 36600; 70450; 71010; 71260; 71275; 74000; 74176; 74177; 76775; 76870; 78582; 80048; 80053; 80069; 80307; 81001; 81003; 82043; 82436; 82550; 82553; 82803; 83605; 83690; 83735; 83880; 83930; 83935; 84100; 84133; 84155; 84300; 84436; 84439; 84443; 84484; 85025; 85610; 85730; 87040; 87081; 87400; 88305; 88312; 88313; 92526; 92610; 93005; 93306; 93970; 94640; 94644; 94660; 94667; 94760; 95819; 96372; 96374; 96375; J1940; A9540; J0282; J0360; J1200; J1630; J1644; J1885; J1956; J2060; J2185; J2270; J2370; J2405; J2543; J2920; J2930; J3475; J3480; J7030; J7040; J7042; J7060; Q9967